=== PATIENT | female | born 1935 | race Caucasian/White ===

== ENCOUNTER 2020-05-14 19:06 | Inpatient (IN) | payer MEDICARE, OTHER, SELFPAY ==
--- NOTE | ~2020-05-14 | XR_ITS ---
EXAMINATION: XR PELVIS CLINICAL INFORMATION: Fall COMPARISON: None TECHNIQUE: AP view of the pelvis. FINDINGS: There is a large amount stool within the pelvis which partially obscures the sacrum. The bones are relatively osteopenic, though intact. There is endplate degenerative change and intervertebral disc space loss at L5-S1. There is no fracture. Soft tissues are unremarkable. Sacroiliac and hip joints are normal. Pubic symphysis is normal. There are vascular calcifications in the region of the proximal femoral vessels bilaterally. XR/XR pelvis 1-2V IMPRESSION: No acute traumatic abnormality of the pelvis.
--- NOTE | ~2020-05-14 | XR_ITS ---
EXAMINATION: XR CHEST CLINICAL INFORMATION: Shortness of breath COMPARISON: Chest radiograph 06/07/2017 TECHNIQUE: Upright AP view of the chest was obtained. FINDINGS: The cardiomediastinal silhouette is mildly prominent, possibly secondary to technique though otherwise stable in size and contour. There is a rounded opacity overlying the lower thoracic spine and cardiac shadow which corresponds with a previously described hiatal hernia. The lungs are well expanded. There are no focal consolidative opacities are identified. There is no pleural effusion or pneumothorax. Structures of the chest wall are intact. XR/XR chest 1V IMPRESSION: No acute abnormality.
--- NOTE | ~2020-05-14 | CT_ITS ---
EXAMINATION: CT HEAD WITHOUT CONTRAST CLINICAL INFORMATION: Altered mental status COMPARISON: None. TECHNIQUE: Contiguous axial imaging was performed from the skull base to vertex without intravenous administration of contrast. Coronal and sagittal reformatted images are performed at the CT scanner. [This CT examination was performed using dose optimization techniques as appropriate, variously including the following: *Automated exposure control *Adjustment of mA and/or kV according to patient size (this includes techniques or standardized protocols for targeted exams where dose is matched to indication/reason for exam; i.e. extremities or head) *Use of iterative reconstruction technique] DLP: 626 mGy-cm. FINDINGS: There is no evidence of acute intracranial hemorrhage or territorial infarction. No abnormal mass-effect or midline shift is seen. Pablo to white matter differentiation is well preserved. No extra-axial fluid collections are identified. There is atrophy with prominence of the ventricles and the sulci and hypodensity of the periventricular white matter due to chronic small vessel ischemic disease. There are vascular calcifications of the internal carotid arteries bilaterally. There is mineralization of the basal ganglia bilateral. There is no osseous abnormality. There is a multilobular polyp or cyst present in the inferior left maxillary sinus. CT/CT head/brain wo con IMPRESSION: No acute intracranial pathology.
[2020-05-14 19:15] VITALS: BP 166/82; BP 169/79; PULSE 88; PULSE 95; RESP 16; TEMP 36.3; O2SAT 98; BMI 18.6
--- NOTE | 2020-05-14 21:03 | ECG_ITS ---
Test Reason : WEAKNESS Blood Pressure : / mmHG Vent. Rate : 085 BPM Atrial Rate : 085 BPM P-R Int : 186 ms QRS Dur : 076 ms QT Int : 390 ms P-R-T Axes : 070 -09 057 degrees QTc Int : 464 ms Normal sinus rhythm Possible Left atrial enlargement Nonspecific ST abnormality Abnormal ECG When compared with ECG of 17-OCT-2014 08:27, No significant change was found Referred By: Yoselin Irving Electronically Signed By:Shaan Klein
[2020-05-14 21:19] LABS: Hematocrit 37.8 % (37-47); Hemoglobin 13.2 g/dl (12.0-16.0); Mean Corpuscular HGB Conc 34.9 g/dl (31.0-35.0); Mean Corpuscular Hemoglobin 31.4 pg (27.0-33.0); Mean Corpuscular Volume 89.8 fL (80-98); Mean Platelet Volume 8.3 fL (9.4-12.3); Platelet Count 281 X10*3/uL (160-400); Red Blood Count 4.21 X10*6/uL (4.20-5.50); Red Cell Distribution Width 12.2 % (11.0-16.0)
[2020-05-14 21:33] LABS: WBC ABN SCTR FOR CBC 1
--- NOTE | 2020-05-14 21:36 | ED_ITS ---
HPI - Fall General Chief Complaint: Fall Stated Complaint: FALL IN BATHTUB,DOWN FOR 7 HOURS Time Seen by Provider: 05/14/20 21:03 History of Present Illness HPI Narrative: Patient is 84 years old with a history of falls. Patient accidentally fell into the bathtub was unable to get up. Unfortunately she did not have her Life Alert with her. Patient denies any chest pain any diaphoresis any coughing any congestion any upper respiratory symptoms. Denies any fever chills. Patient denies any bloody stool. Daughter went to check on her about 7 hours later found her in the tub. Patient has no complaints currently. Denies hitting her head. No headache. No focal weakness. No vomiting. Related Data Allergies Allergy/AdvReac Type Severity Reaction Status Date / Time aspirin [Aggrenox] AdvReac Unknown stomach Verified 10/16/14 00:00 upset dipyridamole [Aggrenox] AdvReac Unknown stomach Verified 10/16/14 00:00 upset Review of Systems Review of Systems: Constitutional: No Weight loss, No Fever, No Chills, No Nig ht Sweats, No Fatigue, No Malaise ENT/Mouth: No Hearing loss, No Ear Pain, No Nasal Congestion, No Sinus Pain, No Hoarseness, No sore throat, No Rhinorrhea, No Swallowing Difficulty Eyes: No Eye Pain, No Swelling, No Redness, No Foreign Body, No Discharge, No Vision Changes Cardiovascular: No Chest Pain, No SOB, No Dyspnea on Exertion, No Orthopnea, No Edema, No Palpitations Respiratory: No Cough, No Sputum, No Wheezing, No Smoke Exposure, No Dyspnea Gastrointestinal: No Nausea, No Vomiting, No Diarrhea, No Constipation, No abdominal Pain, No Hematochezia, No Melena Genitourinary: no irregular bleeding, No Dysuria, No Urinary Frequency, No Hematuria, No Urinary Incontinence, No Urgency, No Flank Pain, No Urinary Flow Changes, No Hesitancy Musculoskeletal: No joint pain, No Myalgias, No Joint Swelling Skin: No Skin Lesions, No rash Neuro: No Weakness, No Numbness, No Paresthesias, No Loss of Consciousness, No Dizziness, No Headache Psych: No Anxiety/Panic, No Depression, No SI/HI/AH/VH, No Social Issues, Heme/Lymph: No Bruising, No Bleeding,No Lymphadenopathy Endocrine: No Polyuria, No Polydipsia, No Temperature Intolerance [facility] Past Medical History Attestation statement: The following information was validated with the patient. Social History Social History Advance Directives: No Physical Exam Vital Signs: Vital Signs: Last Vital Signs Temp 97.4 F 05/14/20 19:15 Pulse 82 05/14/20 22:33 Resp 14 05/14/20 22:33 BP 146/76 H 05/14/20 22:33 Pulse Ox 98 05/14/20 22:33 Body Mass Index 18.6 Appearance: Alert. Oriented X3. No acute distress. Eyes: Pupils equal, round and reactive to light. ENT: Pharynx normal. Neck: Normal inspection. Neck supple. No lymph nodes noted. No crepitus CVS: Normal heart rate and rhythm. Pulses normal. Normal S1 and S2 Respiratory: No respiratory distress. Breath sounds normal. No Wheezing. No rales Abdomen: Soft and nontender. No rigidity. No distention. good BS x4 Skin: Skin warm and dry. Normal skin color. Normal skin turgor. Extremities: No lower extremity edema. Neurovascular intact to all extremities. No Lacerations. No Rash Neuro: Oriented X 3. No motor deficit. No sensory deficit. Moving all extermities. No slurred speech MDM - Fall MDM Narrative Medical decision making narrative: Well-appearing no acute distress. Patient neurologically intact. Will get labs and x-rays will monitor carefully. Patient's initial CPK and 2nd CPK is approximately in the same range. Troponin minimally elevated will monitor overnight no fever no chills no coughing. Chest x-ray negative for any acute evidence of infiltrate. Will admit for further evaluation and monitoring. Urine is still pending. Patient has no fever no chills. She really had 2 coronavirus vaccine. Less likely she has coronavirus in the setting of normal O2 sat, negative chest x-ray. Lab Data Result diagrams: 05/14/20 21:11 05/14/20 21:11 Labs: Lab Results 05/14/20 05/14/20 05/14/20 Range/Units 21:11 21:11 21:11 WBC 18.9 H (4.8-10.8) X10*3/uL RBC 4.21 (4.20-5.50) X10*6/uL Hgb 13.2 (12.0-16.0) g/dl Hct 37.8 (37-47) % MCV 89.8 (80-98) fL MCH 31.4 (27.0-33.0) pg MCHC 34.9 (31.0-35.0) g/dl RDW 12.2 (11.0-16.0) % Plt Count 281 (160-400) X10*3/uL MPV 8.3 L (9.4-12.3) fL Immature Gran % (Auto) Cancelled Neut % (Auto) Cancelled Lymph % (Auto) Cancelled [place] % (Auto) Cancelled Eos % (Auto) Cancelled Baso % (Auto) Cancelled Lymph # (Auto) Cancelled [place] # (Auto) Cancelled Eos # (Auto) Cancelled Baso # (Auto) Cancelled Abs Immat Gran (auto) Cancelled Absolute Neuts (auto) Cancelled Absolute Nucleated RBC 0.000 (0.0-0.012) X10*3/uL Nucleated RBC % (auto) 0.0 (0.0-0.2) /100WBC Neutrophils % (Manual) 88 H (45-73) % Band Neutrophils % 4 (3-5) % Lymphocytes % (Manual) 2 L (20-40) % Monocytes % (Manual) 5 (2-11) % Basophils % (Manual) 1 (0-1) % Abs Neuts (Manual) 17.4 H (2.2-7.9) X10*3/uL Lymphocytes # (Manual) 0.4 L (0.6-4.8) X10*3/uL Monocytes # (Manual) 0.9 (0.0-1.2) X10*3/uL Basophils # (Manual) 0.2 (0.0-0.3) X10*3/uL Platelet Estimate NORMAL (NORMAL) Plt Morphology Comment NORMAL RBC Morphology NORMAL Sodium 134 L (135-145) mmol/L Potassium 3.1 L (3.3-5.1) mmol/L Chloride 97 (96-108) mmol/L Carbon Dioxide 23 (22-29) mmol/L Anion Gap 17 (12-20) BUN 10 (9-16) mg/dL Creatinine 0.67 (0.5-1.4) mg/dL Estim Creat Clear Calc 50.7 Estimated GFR > 60 Random Glucose 113 (60-115) mg/dL Calcium 9.4 (8.4-10.2) mg/dL Total Creatine Kinase 676 H (26-140) U/L Troponin I High Sens 44.6 H (<3.5-17.0) ng/L 05/15/20 05/15/20 Range/Units 00:22 00:22 WBC (4.8-10.8) X10*3/uL RBC (4.20-5.50) X10*6/uL Hgb (12.0-16.0) g/dl Hct (37-47) % MCV (80-98) fL MCH (27.0-33.0) pg MCHC (31.0-35.0) g/dl RDW (11.0-16.0) % Plt Count (160-400) X10*3/uL MPV (9.4-12.3) fL Immature Gran % (Auto) Neut % (Auto) Lymph % (Auto) [place] % (Auto) Eos % (Auto) Baso % (Auto) Lymph # (Auto) [place] # (Auto) Eos # (Auto) Baso # (Auto) Abs Immat Gran (auto) Absolute Neuts (auto) Absolute Nucleated RBC (0.0-0.012) X10*3/uL Nucleated RBC % (auto) (0.0-0.2) /100WBC Neutrophils % (Manual) (45-73) % Band Neutrophils % (3-5) % Lymphocytes % (Manual) (20-40) % Monocytes % (Manual) (2-11) % Basophils % (Manual) (0-1) % Abs Neuts (Manual) (2.2-7.9) X10*3/uL Lymphocytes # (Manual) (0.6-4.8) X10*3/uL Monocytes # (Manual) (0.0-1.2) X10*3/uL Basophils # (Manual) (0.0-0.3) X10*3/uL Platelet Estimate (NORMAL) Plt Morphology Comment RBC Morphology Sodium (135-145) mmol/L Potassium (3.3-5.1) mmol/L Chloride (96-108) mmol/L Carbon Dioxide (22-29) mmol/L Anion Gap (12-20) BUN (9-16) mg/dL Creatinine (0.5-1.4) mg/dL Estim Creat Clear Calc Estimated GFR Random Glucose (60-115) mg/dL Calcium (8.4-10.2) mg/dL Total Creatine Kinase 774 H (26-140) U/L Troponin I High Sens 45.4 H (<3.5-17.0) ng/L ECG Data Interpretation: Patient's EKG showed a sinus pattern heart rate is 80 RI QRS QT within normal limits there is no acute ST segment elevation noted. Discharge Plan Discharge Clinical Impression: Elevated troponin, Weakness Patient Disposition: Admitted As Inpatient
[2020-05-14 21:49] LABS: Anion Gap 17 (12-20); Blood Urea Nitrogen 10 mg/dL (9-16); Calcium 9.4 mg/dL (8.4-10.2); Carbon Dioxide 23 mmol/L (22-29); Chloride 97 mmol/L (96-108); Creatinine Clr Calc Pharmacy 50.7; Estimated Glomerular Filt Rate > 60; Glucose Random 113 mg/dL (60-115); Potassium 3.1 mmol/L (3.3-5.1); Sodium 134 mmol/L (135-145)
[2020-05-14 22:06] LABS: Troponin-I High Sensitivity 44.6 ng/L (<3.5-17.0)
[2020-05-14] MEDS: 0.9 % Sodium Chloride 500 ML 999 ML IV (22:11)
[2020-05-14 22:31] LABS: White Blood Count 18.9 X10*3/uL (4.8-10.8)
[2020-05-14 22:33] VITALS: BP 146/76; PULSE 82; RESP 14; O2SAT 98
[2020-05-14 22:37] LABS: Band Neutrophils Percent 4 % (3-5); Basophils Abs Manual 0.2 X10*3/uL (0.0-0.3); Basophils Percent Manual 1 % (0-1); Lymphocytes Absolute Manual 0.4 X10*3/uL (0.6-4.8); Lymphocytes Percent Manual 2 % (20-40); Monocytes Absolute Manual 0.9 X10*3/uL (0.0-1.2); Monocytes Percent Manual 5 % (2-11); Neutrophils Absolute Manual 17.4 X10*3/uL (2.2-7.9); Neutrophils Percent Manual 88 % (45-73)
[2020-05-14 22:38] LABS: Platelet Estimate NORMAL (NORMAL); Platelet Morphology Comment NORMAL
[2020-05-14 22:41] LABS: RBC Morphology NORMAL
[2020-05-15] VITALS (7 sets, daily range): BP systolic 115–158; BP diastolic 62–76; PULSE 76–89; RESP 15–18; TEMP 36.8; O2SAT 93–97
[2020-05-15 01:18] LABS: Troponin-I High Sensitivity 45.4 ng/L (<3.5-17.0)
[2020-05-15] MEDS: 0.9 % Sodium Chloride 1,000 ML 75 ML IVCONT (01:51)
--- NOTE | 2020-05-15 01:51 | P.HPHOSP_ITS ---
History of Present Illness Date of Service: 05/15/20 Chief Complaint: fall 84-year-old female with a past medical history of hypertension presented to the hospital with a chief complaint of fall. Patient reports that she went to her bathroom and fell in the bathtub 1 was unable to get up. Subsequently was found by the daughter few hours later and moderate to the ER for further evaluation. Patient denied any chest pain palpitations lightheadedness dizziness. Denies any loss of consciousness. Denies any seizure-like activity. Denies any headaches. Denies any hip pain or leg pain. Denies any urinary symptoms. Review of all other systems is negative except mentioned above ER course: Per ER team patient exam was nonfocal. CT head showed no acute findings. Noted mild abnormal labs. Also had elevated troponins but plateaued; EKG was nonischemic. Admitted for further management. [facility] Social History Household Members: None Housing: House Alcohol intake: never Smoking Status: Never smoker service: No Current occupational status: retired Meds Allergies Allergy/AdvReac Type Severity Reaction Status Date / Time aspirin [Aggrenox] AdvReac Unknown stomach Verified 10/16/14 00:00 upset dipyridamole [Aggrenox] AdvReac Unknown stomach Verified 10/16/14 00:00 upset Active Medications: Current Medications Generic Name Dose Route Start Last Admin Trade Name Freq PRN Reason Stop Dose Admin Amlodipine Besylate 5 mg 05/15/20 09:00 Amlodipine Besylate 5 Mg Tablet PO DAILY [facility] Protocol Atorvastatin Calcium 10 mg 05/15/20 09:00 Atorvastatin Calcium 10 Mg Tablet PO DAILY [facility] Clopidogrel Bisulfate 75 mg 05/15/20 09:00 Clopidogrel Bisulfate 75 Mg Tablet PO DAILY [facility] Heparin Sodium (Porcine) 5,000 unit 05/15/20 06:00 Heparin Sodium,Porcine 5,000 Unit/Ml Vial SUBCUT Q12H [facility] Sodium Chloride 1,000 mls @ 75 mls/hr 05/15/20 01:30 Ns IVCONT .[id number] [facility] Sodium Chloride 3 ml 05/15/20 08:00 0.9 % Sodium Chloride Flush 3 Ml Syringe IVFLUSH QSHIFT [facility] Home Medications Medication Instructions Recorded Confirmed Last Taken Type amlodipine 5 mg PO DAILY 03/3105/15/20 05/14/20 History 1030 atorvastatin [Lipitor] 10 mg PO DAILY 05/15/20 05/15/20 05/14/20 10:30 History clopidogrel [Plavix] 75 mg PO DAILY 05/15/20 05/15/20 05/14/20 History 1030 Physical Exam Vital Signs and Narrative: Vital Signs: Last Vital Signs Temp 97.4 F 05/14/20 19:15 Pulse 82 05/14/20 22:33 Resp 14 05/14/20 22:33 BP 146/76 H 05/14/20 22:33 Pulse Ox 98 05/14/20 22:33 Body Mass Index 18.6 Gen: Appears be in no acute distress HEENT: NCAT, Moist mucosa. Pulmonary: Vesicular breath sounds, fair air entry CVS: Normal S1-S2 Abdomen: BS+, Soft, Nontender Extremities: Warm well perfused Neuro: Alert and awake. Results Labs CBC and Chem 7: 05/15/20 07:03 05/17/20 13:48 Labs: Laboratory Results - last 24 hr 05/14/20 05/14/20 05/14/20 21:11 21:11 21:11 MCV 89.8 MCH 31.4 MCHC 34.9 RDW 12.2 Plt Count 281 MPV 8.3 L Immature Gran % (Auto) Cancelled Neut % (Auto) Cancelled Lymph % (Auto) Cancelled [place] % (Auto) Cancelled Eos % (Auto) Cancelled Baso % (Auto) Cancelled Lymph # (Auto) Cancelled [place] # (Auto) Cancelled Eos # (Auto) Cancelled Baso # (Auto) Cancelled Abs Immat Gran (auto) Cancelled Absolute Neuts (auto) Cancelled Absolute Nucleated RBC 0.000 Nucleated RBC % (auto) 0.0 Neutrophils % (Manual) 88 H Band Neutrophils % 4 Lymphocytes % (Manual) 2 L Monocytes % (Manual) 5 Basophils % (Manual) 1 Abs Neuts (Manual) 17.4 H Lymphocytes # (Manual) 0.4 L Monocytes # (Manual) 0.9 Basophils # (Manual) 0.2 Platelet Estimate NORMAL Plt Morphology Comment NORMAL RBC Morphology NORMAL Anion Gap 17 Estim Creat Clear Calc 50.7 Estimated GFR > 60 Random Glucose 113 Calcium 9.4 Total Creatine Kinase 676 H Troponin I High Sens 44.6 H 05/15/20 05/15/20 00:22 00:22 MCV MCH MCHC RDW Plt Count MPV Immature Gran % (Auto) Neut % (Auto) Lymph % (Auto) [place] % (Auto) Eos % (Auto) Baso % (Auto) Lymph # (Auto) [place] # (Auto) Eos # (Auto) Baso # (Auto) Abs Immat Gran (auto) Absolute Neuts (auto) Absolute Nucleated RBC Nucleated RBC % (auto) Neutrophils % (Manual) Band Neutrophils % Lymphocytes % (Manual) Monocytes % (Manual) Basophils % (Manual) Abs Neuts (Manual) Lymphocytes # (Manual) Monocytes # (Manual) Basophils # (Manual) Platelet Estimate Plt Morphology Comment RBC Morphology Anion Gap Estim Creat Clear Calc Estimated GFR Random Glucose Calcium Total Creatine Kinase 774 H Troponin I High Sens 45.4 H Imaging Radiologist's Impressions: Impressions Chest X-Ray 05/14/20 21:04 IMPRESSION: No acute abnormality. Head CT 05/14/20 21:04 IMPRESSION: No acute intracranial pathology. Pelvis X-Ray 05/14/20 21:04 IMPRESSION: No acute traumatic abnormality of the pelvis. Assessment and Plan (1) Weakness: Status: Acute 84-year-old female with a past medical history of hypertension presented to the hospital with a chief complaint of fall. Fall: Likely mechanical in nature. CT head showed no acute findings. Exam nonfocal. negative pelvis x-rays. PT/OT eventually Fall precautions Urinalysis pending Elevated troponins: Patient denies any chest pain. Will obtain echocardiogram. EKG nonischemic. Cardiology consult. Mild rhabdomyolysis: Continue IV fluids. DVT prophylaxis: Subcu heparin Cor status: Full code
[2020-05-15 02:16] LABS: COVID-19 Test Negative (Negative)
--- NOTE | 2020-05-15 04:30 | PC.NURSE ---
patient got up and ambulated to the bathroom, needed a 1 assist, patient was slightly unsteady on her feet, patient is aware to not get up on her own. Urine sample was obtained
[2020-05-15 04:40] LABS: Glucose Urine UA NEG (NEG); Leukocyte Esterase Urine NEG (NEG); Nitrite Urine NEG (NEG); Specific Gravity - Urine 1.015 (1.005-1.025); Urine Blood TRACE (NEG); Urine Ketones 15 MG/DL (NEG); Urine Protein NEG (NEG-TRACE)
[2020-05-15 04:42] LABS: Appearance Urine CLEAR; Color Urine YELLOW
[2020-05-15 04:48] LABS: Amorphous Sediment Urine 1+ /LPF; Bacteria Urine TRACE /LPF; RBC Urine 0-2 /HPF (0); Squamous Epithelial Cell Urine 2+ /LPF; WBC Urine 0-2 /HPF (0-4)
[2020-05-15 07:35] LABS: Basophils Absolute Auto 0.1 X10*3/uL (0.0-0.2); Basophils Percent Auto 0.6 % (0-2); Eosinophils Percent Auto 0.3 % (0-4); Hematocrit 34.5 % (37-47); Imm Gran Abs Auto 0.06 X10*3/uL (0.00-0.03); Imm Gran Pct Auto 0.6 % (0.0-0.4); Lymphocytes Absolute Auto 0.7 X10*3/uL (1.2-4.9); Lymphocytes Percent Auto 6.6 % (20-40); MANUAL DIFF FLAG SCAN; Mean Corpuscular HGB Conc 34.8 g/dl (31.0-35.0); Mean Corpuscular Hemoglobin 31.6 pg (27.0-33.0); Mean Corpuscular Volume 90.8 fL (80-98); Mean Platelet Volume 8.7 fL (9.4-12.3); Monocytes Absolute Auto 1.5 X10*3/uL (0.1-1.2); Monocytes Percent Auto 15.5 % (2-11); Neutrophils Absolute Auto 7.6 X10*3/uL (2.0-8.3); Neutrophils Percent Auto 76.4 % (45-73); Platelet Count 285 X10*3/uL (160-400); Red Cell Distribution Width 12.3 % (11.0-16.0); SCAN SMEAR FLAG 1; White Blood Count 9.9 X10*3/uL (4.8-10.8)
--- NOTE | 2020-05-15 07:43 | PC.NURSE ---
Walker Use pt educated on and ambulated with walker with steady gait to bathroom. pt educated on not getting up independently and to ring call kowalski. pt verbalizes knowledge.
[2020-05-15 07:53] LABS: Anion Gap 15 (12-20); Blood Urea Nitrogen 9 mg/dL (9-16); Calcium 8.6 mg/dL (8.4-10.2); Carbon Dioxide 23 mmol/L (22-29); Chloride 99 mmol/L (96-108); Creatinine Clr Calc Pharmacy 54.8; Estimated Glomerular Filt Rate > 60; Glucose Random 86 mg/dL (60-115); Potassium 2.7 mmol/L (3.3-5.1); Sodium 134 mmol/L (135-145)
--- NOTE | 2020-05-15 08:04 | PC.NURSE ---
aware of a.m. Potassium level, orders entered.
[2020-05-15 08:17] LABS: SLIDE REVIEW VERIFIED
[2020-05-15] MEDS: Potassium Chloride Packet 20 MEQ PACKET 40 MEQ PO ×2 (08:37→14:54)
[2020-05-15] MEDS: Clopidogrel Bisulfate 75 MG TABLET PO (08:38)
[2020-05-15] MEDS: Atorvastatin Calcium 10 MG TABLET PO (08:38)
[2020-05-15] MEDS: amLODIPine Besylate 5 MG TABLET PO (08:38)
[2020-05-15] MEDS: Heparin Sodium,Porcine 5,000 UNIT/ML VIAL 5000 UNIT SUBCUT ×2 (08:42→18:26)
[2020-05-15 08:47] LABS: Magnesium 1.8 mg/dL (1.6-2.6)
--- NOTE | 2020-05-15 10:25 | MHC.CM.PN ---
Met with patient and daughter, Charito in regards to discharge planning. Patient lives alone, is supposed to ambulate with a cane but doesn't and has a house keeper once a week. PCP verified. Patient has a HCP at home. Charito will attempt to obtain a copy. Patient was unable to get out of the bathtub for multiple hours. Explained physical therapy eval will be ordered for home safety. If short term rehab is needed, patient requesting referral to [facility]. If home therapy is recommended, patient requesting referral to [facility]. Both referrals made in [employer]. IMM explained and signed. Continue to monitor for d/c needs.
--- NOTE | 2020-05-15 10:40 | P.CONCA_ITS ---
History of Present Illness History of Present Illness Date of Service: 05/15/20 Requesting physician: Estuardo Norris Chief complaint: Fall, + troponin Narrative: 84-year-old female with fall and mildly abnormal troponin levels. She has background history of syncope and has fainted the past. She said no obvious cause was found for her episodes in the past. She was trying to get into a but where she has collapsed and fell in the tub. She said she could not get out on her own and the family finally came and took her out and brought into the emergency department. She said she did not pass out. She denies any warning signs like nausea or dizziness. She denies chest discomfort shortness of breath. She has noticed to have mild rhabdomyolysis with very mildly abnormal troponin levels. Review of Systems Review of Systems: Knee pain, reproducible back pain. Yes all other systems are reviewed and are negative [facility] Social History Social History Alcohol intake: never Smoking Status: Never smoker service: No Current occupational status: retired Meds Allergies Allergy/AdvReac Type Severity Reaction Status Date / Time aspirin [Aggrenox] AdvReac Unknown stomach Verified 10/16/14 00:00 upset dipyridamole [Aggrenox] AdvReac Unknown stomach Verified 10/16/14 00:00 upset Active Medications: Current Medications Generic Name Dose Route Start Last Admin Trade Name Freq PRN Reason Stop Dose Admin Amlodipine Besylate 5 mg 05/15/20 09:00 05/15/20 08:38 Amlodipine Besylate 5 Mg Tablet PO 5 mg DAILY JONATHAN Administration Protocol Atorvastatin Calcium 10 mg 05/15/20 09:00 05/15/20 08:38 Atorvastatin Calcium 10 Mg Tablet PO 10 mg DAILY JONATHAN Administration Clopidogrel Bisulfate 75 mg 05/15/20 09:00 05/15/20 08:38 Clopidogrel Bisulfate 75 Mg Tablet PO 75 mg DAILY JONATHAN Administration Heparin Sodium (Porcine) 5,000 unit 05/15/20 06:00 05/15/20 08:42 Heparin Sodium,Porcine 5,000 Unit/Ml Vial SUBCUT 5,000 unit Q12H JONATHAN Administration Sodium Chloride 1,000 mls @ 75 mls/hr 05/15/20 01:30 05/15/20 01:51 Ns IVCONT 75 mls/hr .[id number] JONATHAN Administration Potassium Chloride 40 meq 05/15/20 08:30 05/15/20 08:37 Potassium Chloride Packet 20 Meq Packet PO 05/15/20 20:31 40 meq Q6H JONATHAN Administration Sodium Chloride 3 ml 05/15/20 08:00 05/15/20 09:17 0.9 % Sodium Chloride Flush 3 Ml Syringe IVFLUSH Not Given QSHIFT [facility] Home Medications Medication Instructions Recorded Confirmed Last Taken Type amlodipine 5 mg PO DAILY 05/15/20 05/15/20 05/14/20 History 1030 atorvastatin [Lipitor] 10 mg PO DAILY 05/15/20 05/15/20 05/14/20 10:30 History clopidogrel [Plavix] 75 mg PO DAILY 05/15/20 05/15/20 05/14/20 History 1030 Physical Exam Vital Signs: Vital Signs: Last Vital Signs Temp 97.4 F 05/14/20 19:15 Pulse 79 05/15/20 08:40 Resp 18 05/15/20 08:40 BP 115/69 05/15/20 08:40 Pulse Ox 93 05/15/20 08:40 Body Mass Index 18.6 GENERAL APPEARANCE: in no acute distress, frail. HEENT: unremarkable. HEAD: normocephalic, atraumatic. NECK/THYROID: no carotid bruit, no jugular venous distention. SKIN: no suspicious lesions, warm and dry. HEART: Systolic murmur aortic area with preserved 2nd heart sound. LUNGS: clear to auscultation bilaterally. ABDOMEN: normal, bowel sounds present, soft, nontender, nondistended. EXTREMITIES: no clubbing, cyanosis, or edema. PERIPHERAL PULSES: equal. NEUROLOGIC: nonfocal, alert and oriented. PSYCH: mood/affect full range. Results Labs and Meds Result diagrams: 05/15/20 07:03 05/15/20 07:03 Lab results: Laboratory Results - last 24 hr 05/14/20 05/14/20 05/14/20 21:11 21:11 21:11 WBC 18.9 H RBC 4.21 Hgb 13.2 Hct 37.8 MCV 89.8 MCH 31.4 MCHC 34.9 RDW 12.2 Plt Count 281 MPV 8.3 L Immature Gran % (Auto) Cancelled Neut % (Auto) Cancelled Lymph % (Auto) Cancelled [place] % (Auto) Cancelled Eos % (Auto) Cancelled Baso % (Auto) Cancelled Lymph # (Auto) Cancelled [place] # (Auto) Cancelled Eos # (Auto) Cancelled Baso # (Auto) Cancelled Abs Immat Gran (auto) Cancelled Absolute Neuts (auto) Cancelled Absolute Nucleated RBC 0.000 Nucleated RBC % (auto) 0.0 Neutrophils % (Manual) 88 H Band Neutrophils % 4 Lymphocytes % (Manual) 2 L Monocytes % (Manual) 5 Basophils % (Manual) 1 Abs Neuts (Manual) 17.4 H Lymphocytes # (Manual) 0.4 L Monocytes # (Manual) 0.9 Basophils # (Manual) 0.2 Platelet Estimate NORMAL Plt Morphology Comment NORMAL RBC Morphology NORMAL Smear Tech's Comments Sodium 134 L Potassium 3.1 L Chloride 97 Carbon Dioxide 23 Anion Gap 17 BUN 10 Creatinine 0.67 Estim Creat Clear Calc 50.7 Estimated GFR > 60 Random Glucose 113 Calcium 9.4 Magnesium Total Creatine Kinase 676 H Troponin I High Sens 44.6 H Urine Color Urine Appearance Urine pH Ur Specific Conrad Urine Protein Urine Glucose (UA) Urine Ketones Urine Blood Urine Nitrite Ur Leukocyte Esterase Urine RBC Urine WBC Ur Squamous Epith Cells Amorphous Sediment Urine Bacteria COVID-19 (GREG) COVID-19 Clin Com 05/15/20 05/15/20 05/15/20 00:22 00:22 01:54 WBC RBC Hgb Hct MCV MCH MCHC RDW Plt Count MPV Immature Gran % (Auto) Neut % (Auto) Lymph % (Auto) Windsor % (Auto) Eos % (Auto) Baso % (Auto) Lymph # (Auto) [place] # (Auto) Eos # (Auto) Baso # (Auto) Abs Immat Gran (auto) Absolute Neuts (auto) Absolute Nucleated RBC Nucleated RBC % (auto) Neutrophils % (Manual) Band Neutrophils % Lymphocytes % (Manual) Monocytes % (Manual) Basophils % (Manual) Abs Neuts (Manual) Lymphocytes # (Manual) Monocytes # (Manual) Basophils # (Manual) Platelet Estimate Plt Morphology Comment RBC Morphology Smear Tech's Comments Sodium Potassium Chloride Carbon Dioxide Anion Gap BUN Creatinine Estim Creat Clear Calc Estimated GFR Random Glucose Calcium Magnesium Total Creatine Kinase 774 H Troponin I High Sens 45.4 H Urine Color Urine Appearance Urine pH Ur Specific Conrad Urine Protein Urine Glucose (UA) Urine Ketones Urine Blood Urine Nitrite Ur Leukocyte Esterase Urine RBC Urine WBC Ur Squamous Epith Cells Amorphous Sediment Urine Bacteria COVID-19 (GREG) Negative COVID-19 Clin Com See Note 05/15/20 05/15/20 05/15/20 04:30 07:03 07:03 WBC 9.9 RBC 3.80 L Hgb 12.0 Hct 34.5 L MCV 90.8 MCH 31.6 MCHC 34.8 RDW 12.3 Plt Count 285 MPV 8.7 L Immature Gran % (Auto) 0.6 H Neut % (Auto) 76.4 H Lymph % (Auto) 6.6 L Windsor % (Auto) 15.5 H Eos % (Auto) 0.3 Baso % (Auto) 0.6 Lymph # (Auto) 0.7 L [place] # (Auto) 1.5 H Eos # (Auto) 0.0 Baso # (Auto) 0.1 Abs Immat Gran (auto) 0.06 H Absolute Neuts (auto) 7.6 Absolute Nucleated RBC 0.000 Nucleated RBC % (auto) 0.0 Neutrophils % (Manual) Band Neutrophils % Lymphocytes % (Manual) Monocytes % (Manual) Basophils % (Manual) Abs Neuts (Manual) Lymphocytes # (Manual) Monocytes # (Manual) Basophils # (Manual) Platelet Estimate Plt Morphology Comment RBC Morphology Smear Tech's Comments VERIFIED Sodium 134 L Potassium 2.7 L Chloride 99 Carbon Dioxide 23 Anion Gap 15 BUN 9 Creatinine 0.62 Estim Creat Clear Calc 54.8 Estimated GFR > 60 Random Glucose 86 Calcium 8.6 D Magnesium 1.8 Total Creatine Kinase Troponin I High Sens Urine Color YELLOW Urine Appearance CLEAR Urine pH 7.0 Ur Specific Conrad 1.015 Urine Protein NEG Urine Glucose (UA) NEG Urine Ketones 15 Urine Blood TRACE Urine Nitrite NEG Ur Leukocyte Esterase NEG Urine RBC 0-2 Urine WBC 0-2 Ur Squamous Epith Cells 2+ Amorphous Sediment 1+ Urine Bacteria TRACE COVID-19 (GREG) COVID-19 Clin Com Imaging Radiologist's impression: Impressions Chest X-Ray 05/14/20 21:04 IMPRESSION: No acute abnormality. Head CT 05/14/20 21:04 IMPRESSION: No acute intracranial pathology. Pelvis X-Ray 05/14/20 21:04 IMPRESSION: No acute traumatic abnormality of the pelvis. Assessment and Plan (1) Elevated troponin: Status: Acute (2) Fall: Status: Acute 84-year-old female with fall which she describes that she collapsed and did not pass out. Etiology is unclear to me. I think we should check orthostatic vital signs to make sure she is not orthostatic. The mild troponin leak is not significant and does not need any further testing. I think this is just a type 2 injury or may be related to mild rhabdomyolysis. Check echocardiogram to assess for any structural issues. She has aortic stenosis murmur examination but does not sound severe to me. Thank you for allowing me to participate in the care of your patient. Please feel free to contact me if you have any questions.
--- NOTE | 2020-05-15 14:31 | PC.NURSE ---
pt ambulated back and forth to bathroom with walker, with slow gait. pt set up for lunch.
--- NOTE | 2020-05-15 16:27 | PC.NURSE ---
2x attempted to get in contact with hospitalist. no answer.
--- NOTE | 2020-05-15 17:21 | PC.NURSE ---
verbal order to stop ivf at this time by md delaney.
[2020-05-16] VITALS (7 sets, daily range): BP systolic 96–185; BP diastolic 57–83; PULSE 67–86; RESP 14–20; TEMP 36.1–37; O2SAT 93–98; BMI 18.6
[2020-05-16] MEDS: 0.9 % Sodium Chloride 1,000 ML 75 ML IVCONT ×2 (00:12→16:01)
[2020-05-16] MEDS: 0.9 % Sodium Chloride Flush 3 ML SYRINGE IVFLUSH ×2 (01:30→08:51)
[2020-05-16] MEDS: Heparin Sodium,Porcine 5,000 UNIT/ML VIAL 5000 UNIT SUBCUT ×2 (06:34→17:26)
--- NOTE | 2020-05-16 07:30 | CA_ITS ---
Transthoracic Echocardiogram Patient (Last, First, Middle): Shahana Sullivan, Gender: Female Date of : 1935 Age: 84 Procedure Date: 05/16/2020 Procedure Type: Transthoracic Echocardiogram Location: [facility] [place] Height: 167.64 cm Weight: 52.16 kg BSA: 1.58 m2 Heart Rate: bpm BP: 96 / 57 mmHg Construction Consultant: CONCHITA Referring MD: Estuardo Norris MD Symptoms: high troponin Study Quality: Good Conclusions: - Normal left ventricular size and systolic function. - Normal right ventricular cavity size and systolic function. - There is mild to moderate aortic valve stenosis. - There is severe mitral annular calcification. - Moderately elevated right atrial pressure. Moderate pulmonary hypertension is present. Findings Left Ventricle Normal left ventricular size and systolic function. There is mildly increased left ventricular wall thickness. The visually estimated ejection fraction is between 65-70%. Abnormal diastolic function is noted. Spectral Doppler is indicative of an impaired relaxation filling pattern. Elevated filling pressures. Right Ventricle Normal right ventricular cavity size and systolic function. Atria The left atrium was not well visualized. The right atrium is moderately dilated. Aortic Valve There is moderate calcification of the aortic valve. There is moderate thickening of the aortic valve. There is mild to moderate aortic valve stenosis. There is trace (trivial) aortic valve regurgitation. Mitral Valve There is severe mitral annular calcification. There is trace mitral valve regurgitation. There is no mitral valve stenosis. Pulmonic Valve Normal pulmonic valve structure and function. There is trace pulmonic valve regurgitation. Tricuspid Valve Normal tricuspid valve structure. There is moderate tricuspid valve regurgitation. Moderately elevated right atrial pressure. Moderate pulmonary hypertension is present. Great Vessels All visible segments of the aorta are normal in size. The visualized portions of the pulmonary artery and branches are normal. Venous The inferior vena cava is dilated and collapses greater than 50% with inspiration. Pericardium/Pleural There is no evidence of pericardial effusion. Prior Study Comparison No prior study available for comparison. Measurements 2D Linear Measurements IVSd: 0.94 0.6-0.9/0.6-1.0 cm LVIDd: 3.44 3.9-5.3/4.2-5.9 cm LVIDd Index: 2.18 2.4-3.2/2.2-3.1 cm/m2 LVIDs: 2.32 2.0-3.6 cm LVPWd: 0.91 0.7-1.1 cm Ao Root: 3.30 2.1-3.5 cm LA Diam: 3.10 2.7-3.8/3.0-4.0 cm LAIDs Index: 1.96 1.5-2.3 cm/m2 LV Mass: 111.19 67-162/88-224 g LV Mass Index: 70.37 43-95/49-115 g/m2 LVOT Diam: 2.00 3.0+(-)1.3 cm Mitral Valve MV Pk E: 0.96 MV PK A: 1.25 MV Decel Time: 271.00 E/A: 0.80 E'Lateral: 7.74 E'Medial: 5.61 E/E' Med: 17.00 E/E' Lat: 12.40 PHT: 79.00 MVA PHT: 2.78 Decel Sarpy: 3.53 Aortic Valve AoV Pk Benito: 2.88 AoV Mn Benito: 1.87 AoV VTI: 0.61 AoV Pk Grad: 33.00 Aov Mn Grad: 17.00 TANIA Cont.VTI: 1.50 LVOT LVOT Pk Benito: 1.15 LVOT Mn Benito: 0.81 LVOT VTI: 0.29 LVOT Pk Grad: 5.00 LVOT Mn Grad: 3.00 LVOT Diam: 2.00 LVOT Area: 3.14 Diastolic Function MV Pk E: 0.96 MV Pk A: 1.25 E/A: 0.80 E'Medial: 5.61 E/E' Med: 17.00 E' Laterial: 7.74 E/E' Lat: 12.40 Tricuspid Valve TR Pk Benito: 3.26 TR Pk Grad: 43.00 RA Press: 8.00 RVSP: 51.00 Great Vessels Aorta Ao Root-2D: 3.30 2.0-3.7 cm Ao Asc: 3.30 2.1-3.4 cm Ao Arch: 2.80 Updated in Other Vendor System with Status of Final Shaan Klein MD electronically signed on 05/16/2020 8:41:03 PM with status of Final
[2020-05-16] MEDS: Atorvastatin Calcium 10 MG TABLET PO (08:51)
[2020-05-16] MEDS: amLODIPine Besylate 5 MG TABLET PO (08:51)
[2020-05-16] MEDS: Clopidogrel Bisulfate 75 MG TABLET PO (08:52)
--- NOTE | 2020-05-16 10:47 | HO.PM.IMPN ---
Subjective Subjective Date of Service: 05/16/20 Interval History: Seen in f/u for fall and mild increase in trop, no chest pain, feels better Review of Systems Gen: no fever Resp: no sob, no cough CV: no chest, no NOGUEIAR, no leg edema GI: No n/v, no abd pain Neuro: No confusion Physical Exam Vital Signs: Vital Signs: Last Vital Signs Temp 97 F 05/16/20 06:58 Pulse 70 05/16/20 08:51 Resp 20 05/16/20 06:58 BP 148/72 H 05/16/20 08:51 Pulse Ox 97 05/16/20 06:58 Body Mass Index 18.6 General: AO X 3, no acute distress Resp: CTA bilateral CVS: S1,S2,RRR, grade 2 LILIAN GI: +BS, NT, no distention Skin: No rash Neuro: motor grossly intact Psych: appropriate affect Objective Data Current Medications Generic Name Dose Route Start Last Admin Trade Name Freq PRN Reason Stop Dose Admin Amlodipine Besylate 5 mg 05/15/20 09:00 05/16/20 08:51 Amlodipine Besylate 5 Mg Tablet PO 5 mg DAILY JONATHAN Administration Protocol Atorvastatin Calcium 10 mg 05/15/20 09:00 05/16/20 08:51 Atorvastatin Calcium 10 Mg Tablet PO 10 mg DAILY JONATHAN Administration Clopidogrel Bisulfate 75 mg 05/15/20 09:00 05/16/20 08:52 Clopidogrel Bisulfate 75 Mg Tablet PO 75 mg DAILY JONATHAN Administration Heparin Sodium (Porcine) 5,000 unit 05/15/20 06:00 05/16/20 06:34 Heparin Sodium,Porcine 5,000 Unit/Ml Vial SUBCUT 5,000 unit Q12H JONATHAN Administration Sodium Chloride 1,000 mls @ 75 mls/hr 05/15/20 01:30 05/16/20 00:12 Ns IVCONT 75 mls/hr .[id number] JONATHAN Administration Sodium Chloride 3 ml 05/15/20 08:00 05/16/20 08:51 0.9 % Sodium Chloride Flush 3 Ml Syringe IVFLUSH 3 ml QSHIFT JONATHAN Administration Labs CBC & Chem 7: 05/15/20 07:03 05/15/20 07:03 Assessment and Plan (1) Weakness: Status: Acute Assessment and Plan: 84-year-old female with a past medical history of hypertension presented to the hospital with a chief complaint of fall. Fall: Likely mechanical in nature. Negative CT head. Non-focal exam, negative hip/pelvis xray PT/OT Fall precautions Elevated troponins:No CP, Getting echo today Cardiology saw her and no further w/u at this time murmu--Echo to better assess/ Mild Rhabdo--IVF and reassess tomorrow, renal function is nl DVT prophylaxis: Subcu heparin Cor status: Full code
--- NOTE | 2020-05-16 18:40 | PC.NURSE ---
Patient OOB to recliner for good majority of the day. Amb to bathroom with 1 assist with walker. PT eval complete, OT eval pending. Patient stating that she fell into a pool , not her shower. Otherwise, alert and oriented. IVF running. No complaints, no complications.
[2020-05-16] MEDS: Acetaminophen 325 MG TABLET 650 MG PO (23:12)
[2020-05-17] VITALS: BP 159/71; PULSE 83; RESP 18; TEMP 37; O2SAT 94
[2020-05-17 03:44] VITALS: BP 145/69; PULSE 76; RESP 20; TEMP 36.8; O2SAT 96
[2020-05-17] MEDS: Heparin Sodium,Porcine 5,000 UNIT/ML VIAL 5000 UNIT SUBCUT ×2 (05:22→17:37)
[2020-05-17] MEDS: 0.9 % Sodium Chloride 1,000 ML 75 ML IVCONT (05:22)
[2020-05-17] MEDS: Acetaminophen 325 MG TABLET 650 MG PO (05:24)
[2020-05-17 08:00] VITALS: BP 169/81; PULSE 77; RESP 20; TEMP 36.9; O2SAT 94
[2020-05-17] MEDS: Clopidogrel Bisulfate 75 MG TABLET PO (08:47)
[2020-05-17] MEDS: Atorvastatin Calcium 10 MG TABLET PO (08:47)
[2020-05-17 08:48] VITALS: BP 169/81
[2020-05-17] MEDS: amLODIPine Besylate 5 MG TABLET PO (08:48)
[2020-05-17 12:00] VITALS: BP 130/62; PULSE 74; RESP 20; TEMP 36.4; O2SAT 99
--- NOTE | 2020-05-17 13:07 | MHC.CM.PN ---
pt to be dcd today no beds at [facility] and no beds expected over the weekend pt accepted at [facility] will be transferred at 5 will be private pay chair van as pt and t/w discuussed
[2020-05-17 14:23] LABS: Anion Gap 13 (12-20); Blood Urea Nitrogen 10 mg/dL (9-16); Calcium 8.6 mg/dL (8.4-10.2); Carbon Dioxide 24 mmol/L (22-29); Chloride 99 mmol/L (96-108); Estimated Glomerular Filt Rate > 60; Glucose Random 153 mg/dL (60-115); Sodium 133 mmol/L (135-145)
[2020-05-17 15:29] VITALS: BP 121/61; PULSE 71; RESP 19; TEMP 36.8; O2SAT 98
--- NOTE | 2020-05-17 15:51 | PC.NURSE ---
Pt to be discharged at 5pm. Labs repeated today. Potassium level is low at 3.0. MD aware. This is a trend up from her last value which was 2.7.
--- NOTE | 2020-05-17 16:32 | PM.DS ---
DS: Providers Provider Date of Service: 06/17/20 Date of admission: 05/15/20 01:24 Primary care physician: Jeff Rico MD Consults: 05/15/20 01:23 Consult to Cardiology Routine Consulting Provider: Shaan Klein Reason for consultation: high troponin DS: Diagnosis Discharge Diagnosis (1) Weakness: Status: Acute DS: Medications Discharge Medications Home Medications: Home Medications Medication Instructions Recorded Confirmed amlodipine 5 mg PO DAILY 05/15/20 05/15/20 atorvastatin [Lipitor] 10 mg PO DAILY 05/15/20 05/15/20 clopidogrel [Plavix] 75 mg PO DAILY 05/15/20 05/15/20 DS: Summary Hospital Course Hospital Course: 84-year-old female with a past medical history of hypertension presented to the hospital with a chief complaint of fall. Patient reports that she went to her bathroom and fell in the bathtub 1 was unable to get up. Subsequently was found by the daughter few hours later and moderate to the ER for further evaluation. Patient denied any chest pain palpitations lightheadedness dizziness. Denies any loss of consciousness. Denies any seizure-like activity.Denies any headaches. Denies any hip pain or leg pain. Denies any urinary symptoms. Review of all other systems is negative except mentioned above ER course: Per ER team patient exam was nonfocal. CT head showed no acute findings. Noted mild abnormal labs. Also had elevated troponins but plateaued; EKG was nonischemic. Admitted for further management. Hospital course: Fall: Likely mechanical in nature. Work up included negative CT head. Negative hip/pelvis xray. There was no arrythmia on tele. PT/OT evaluated and recommmend STR which the patient and daughter agree to. murmu--Echo result pending to assess this. Mild Rhabdo--IVF and reassess tomorrow, renal function is normal, CPK was 774 on admission and is now 165 after IVF Hypokalemia --likely from replaced orally and should have lab recheck in a day or 2, oral K supplement for next days. 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, was on CIWA and scorring zero Time Spent with Patient Time attestation: Total time spent providing and/or coordinating discharge services: Discharge coordination time: Greater than 30 minutes Physical Exam Vital Signs: Vital Signs: Last Vital Signs Temp 98.2 F 05/17/20 15:29 Pulse 71 05/17/20 15:29 Resp 19 05/17/20 15:29 BP 121/61 05/17/20 15:29 Pulse Ox 98 05/17/20 15:29 Body Mass Index 18.6 General: AO X 3, no acute distress Resp: CTA bilateral CVS: S1,S2,RRR GI: +BS, NT, no distention Skin: No rash Neuro: motor grossly intact Psych: appropriate affect DS: Data Data Completed and Pending Labs on day of discharge: Laboratory Results - last 24 hr 05/17/20 13:48 Sodium 133 L Potassium 3.0 L Chloride 99 Carbon Dioxide 24 Anion Gap 13 BUN 10 Creatinine 0.68 Estim Creat Clear Calc 50.0 Estimated GFR > 60 Random Glucose 153 H D Calcium 8.6 Total Creatine Kinase 165 H D Discharge Plan Discharge Anticipated Discharge Date/Time: 05/17/20 16:27 Patient Disposition: Xfer SNF Discharge Diagnosis: fall, elevated troponin, weakness Referrals: [facility] [Outside] Jeff Rico MD [Primary Care Provider] - Discharge Medications: New potassium chloride 20 mEq tablet,ER particles/crystals 20 meq PO DAILY Qty: 5 RF: 0 Continued atorvastatin [Lipitor] 10 mg Tablet 10 mg PO DAILY RF: 0 clopidogrel [Plavix] 75 mg Tablet 75 mg PO DAILY RF: 0 amlodipine 5 mg Tablet 5 mg PO DAILY RF: 0 Discharge Orders: Discharge Order (Routine); Ordered 05/17/20 Ordered By: Evens Juares Diet: advance to usual diet Activity on Discharge: As tolerated Stand Alone Forms: Patient Portal Discharge page Other Ambulatory Orders: Basic Metabolic Panel (Routine) Timeframe: 20200519 Facility: [facility] - Location: Laboratory Ordered By: Evens Juares Care Plan Goals: fall prevention and prevent rehospitalization Health Concerns: recurrent fall Plan of Treatment: To short term rehab check potassium level in 2 days Assessment: See above Discharge Date/Time: 05/17/20 18:43
[2020-05-17 17:08] LABS: Magnesium 1.7 mg/dL (1.6-2.6)
[2020-05-17] MEDS: Potassium Chloride Packet 20 MEQ PACKET 40 MEQ PO (17:36)
== END 2020-05-17 18:43 | disposition skilled nursing facility (03) | DRG 566 ==
LOC: HO.ED 05-15 01:27 → HO.EDOVER 05-15 01:53 → HO.IMC 05-15 18:22
PROVIDERS: Admitting Provider Hospitalist; Emergency Provider Emergency Medicine Emergency Medical Services; PCP Pediatrics; Visit Provider Internal Medicine
DX: T79.6XXA Traumatic ischemia of muscle, initial encounter (principal); E87.6 Hypokalemia; I10 Essential (primary) hypertension; W18.2XXA Fall in (into) shower or empty bathtub, initial encounter; Y93.9 Activity, unspecified; R79.89 Other specified abnormal findings of blood chemistry; Y92.009 Unspecified place in unspecified non-institutional (private) residence as the place of occurrence of the external cause; Y99.9 Unspecified external cause status; Z20.822 Contact with and (suspected) exposure to COVID-19; Z88.6 Allergy status to analgesic agent; Z79.02 Long term (current) use of antithrombotics/antiplatelets; Z79.899 Other long term (current) drug therapy
CPT/HCPCS: 36415; 70450; 71045; 72170; 80048; 81001; 82550; 83735; 84484; 85007; 85025; 85027; 87635; 93005; 93306; 97162; 97166; 99285

== ENCOUNTER 2020-06-05 11:19 | Outpatient (REF) | payer MEDICARE, OTHER, SELFPAY ==
[2020-06-05 12:09] LABS: Alanine Aminotransferase 11 U/L (0-31); Albumin Level 4.1 g/dL (3.5-5.0); Alkaline Phosphatase 127 U/L (39-117); Anion Gap 15 (12-20); Aspartate Amino Transferase 16 U/L (5-31); Bilirubin Total 0.8 mg/dL (0.0-1.0); Blood Urea Nitrogen 17 mg/dL (9-16); Calcium 9.5 mg/dL (8.4-10.2); Carbon Dioxide 22 mmol/L (22-29); Chloride 105 mmol/L (96-108); Cholesterol 173 mg/dL; Estimated Glomerular Filt Rate > 60; Glucose Random 85 mg/dL (60-115); HDL Cholesterol 68 mg/dL; LDL Cholesterol Calculated 94 mg/dl; Potassium 4.3 mmol/L (3.3-5.1); Sodium 138 mmol/L (135-145); Total Protein 6.6 g/dL (6.5-8.0); Triglycerides 56 mg/dL
== END 2020-06-05 11:20 | disposition home or self-care (01) ==
LOC: HO.LNP 11:19
PROVIDERS: Visit Provider Pediatrics
DX: I10 Essential (primary) hypertension (principal)
CPT/HCPCS: 80053; 80061

== ENCOUNTER 2023-06-10 14:32 | Inpatient (IN) | payer MEDICARE, OTHER, SELFPAY ==
--- NOTE | ~2023-06-10 | XR_ITS ---
EXAMINATION: XR CHEST CLINICAL INFORMATION: Confusion. COMPARISON: Chest x-ray May 14, 2020 TECHNIQUE: Frontal portable view of the chest was obtained. 6:11 PM FINDINGS: Lungs are clear. No pulmonary vascular congestion. There is no pleural effusion. The heart size is normal. The cardiac and mediastinal contours are normal. There are calcifications of the thoracic aorta. There are multilevel degenerative changes of dorsal spine. XR/XR chest 1V IMPRESSION: Unremarkable examination.
--- NOTE | ~2023-06-10 | CT_ITS ---
EXAMINATION: CT HEAD WITHOUT CONTRAST CLINICAL INFORMATION: Head trauma COMPARISON: CT head from 05/14/2020 TECHNIQUE: Contiguous axial imaging was performed from the skull base to vertex without intravenous administration of contrast. This CT examination was performed using dose optimization techniques as appropriate, variously including the following: *Automated exposure control *Adjustment of mA and/or kV according to patient size (this includes techniques or standardized protocols for targeted exams where dose is matched to indication/reason for exam; i.e. extremities or head) *Use of iterative reconstruction technique DLP: 830 mGy-cm FINDINGS: There is no evidence of acute intracranial hemorrhage or territorial infarction. Physiological mineralization of the bilateral basal ganglia. Chronic white matter small vessel ischemic changes. Cerebral atrophy with commensurate ventricular changes. No abnormal mass effect or midline shift is seen. Pablo to white matter differentiation is well preserved. No extra-axial fluid collections are identified. The ventricles are normal in size. There is no abnormal attenuation within the brain parenchyma. Soft tissue swelling along the right parietal bone without underlying bony defect identified. The osseous structures and soft tissues are normal. Mucoperiosteal thickening of the left maxillary sinus. The mastoid air cells and visualized portions of the paranasal sinuses are well aerated. Atherosclerotic calcifications. CT/CT cervical spine wo IV con IMPRESSION: 1. No acute intracranial pathology. 2. Chronic white matter small vessel ischemic changes. 3. Soft tissue swelling along the right parietal bone without underlying bony defect identified. EXAMINATION: Noncontrast CT scan of the cervical spine. INDICATION: Trauma COMPARISON: None. TECHNIQUE: Helical, multidetector axial images were obtained from the occiput to the upper thorax. Coronal and sagittal reformats of the cervical spine were provided for interpretation. DLP: 830 mGy-cm FINDINGS: No acute fractures or dislocations of the cervical spine are seen. Grade 1 anterolisthesis of C3 on C4. Very slight grade 1 retrolisthesis of C5 on C6 and to lesser extent C6 on C7. Multilevel degenerative changes. Anatomic alignment and positioning of the vertebral bodies and posterior elements is noted. The atlantoaxial joint and craniovertebral articulations are normal without evidence of subluxation. There is no prevertebral soft tissue swelling. The thyroid gland and visualized portions of the lung apices and mediastinum are unremarkable. IMPRESSION: 1. No acute visible fracture or dislocation. 2. Grade 1 anterolisthesis of C3 on C4. 3. Very slight grade 1 retrolisthesis of C5 on C6 and to lesser extent C6 on C7. 4. Multilevel degenerative changes.
--- NOTE | ~2023-06-10 | CT_ITS ---
EXAMINATION: CT HEAD WITHOUT CONTRAST (STROKE PROTOCOL) CLINICAL INFORMATION: Stroke protocol. Acute confusion. COMPARISON: CT head dated 06/11/2023. TECHNIQUE: Contiguous axial imaging was performed from the skull base to vertex without intravenous administration of contrast. This CT examination was performed using dose optimization techniques as appropriate, variously including the following: *Automated exposure control *Adjustment of mA and/or kV according to patient size (this includes techniques or standardized protocols for targeted exams where dose is matched to indication/reason for exam; i.e. extremities or head) *Use of iterative reconstruction technique DLP: 663 mGy-cm FINDINGS: There is no acute intracranial hemorrhage. There is no evidence of acute/subacute cerebral or cerebellar infarction. There are chronic bilateral thalamic lacunar infarctions. There is moderate microvascular ischemic change. There is no midline shift or mass effect. There is no extra-axial fluid collection. No hydrocephalus. The ocular lenses are surgically absent. There are cutaneous mark over the right parietal scalp. There is no depressed skull fracture. Mastoid air cells are clear. There is mucosal thickening within the left maxillary sinus. CT/CT head for stroke IMPRESSION: No acute intracranial pathology. Moderate microvascular ischemic change. This critical result was discussed with Miranda SIMPSON at 5:25 PM hours on 06/11/2023. It was ascertained that the content and urgency of the report was understood at the time of direct communication.
--- NOTE | ~2023-06-10 | CT_ITS ---
EXAMINATION: CT HEAD WITHOUT CONTRAST CT CERVICAL SPINE WITHOUT CONTRAST CLINICAL INFORMATION: Fall, injury. COMPARISON: CT head and cervical spine 06/10/2023. TECHNIQUE: Contiguous axial imaging was performed from the skull base to vertex without intravenous administration of contrast. Contiguous axial imaging was performed from the upper chest through the skull base without intravenous administration of contrast. Coronal and sagittal reformats were obtained at the acquisition workstation. This CT examination was performed using dose optimization techniques as appropriate, variously including the following: *Automated exposure control *Adjustment of mA and/or kV according to patient size (this includes techniques or standardized protocols for targeted exams where dose is matched to indication/reason for exam; i.e. extremities or head) *Use of iterative reconstruction technique DLP: 661 and 203 mGy-cm FINDINGS: Head: There is no evidence of acute intracranial hemorrhage or edematous territorial infarction. Scattered hypoattenuation in the periventricular and deep white matter are consistent with moderate microangiopathy. Chronic lacunar infarcts in the bilateral basal ganglia. Pablo-white matter differentiation is preserved. Proportional prominence of the ventricles and sulcal spaces. No evidence for obstructive hydrocephalus. No abnormal mass effect or midline shift. No extra-axial fluid collections. Mineralization of the basal ganglia. Soft tissue hematoma with laceration and surgical skin mark overlying the right parieto-occipital scalp. No evidence of displaced calvarial fracture. Partial opacification of the left maxillary sinus. Other paranasal sinuses, mastoids and middle ear cavities are clear. Bilateral lens extraction. Multiple dental implants with a few periapical lucencies. Cervical Spine: The atlantooccipital and atlantoaxial articulations remain well aligned. Unchanged trace anterolisthesis of C3 on C4 and C4 on C5. Straightening of the normal cervical lordosis. Otherwise, there is anatomic alignment of the vertebral bodies and posterior elements. No evidence of acute fracture or subluxation. Severe intervertebral disc height loss at C5-C6, C6-C7 and C7-T1. Moderate multilevel facet/uncovertebral hypertrophy leading to various degrees of neural foraminal encroachment. There is no prevertebral soft tissue swelling. The thyroid gland and remaining cervical soft tissues are normal in appearance. Mild biapical subpleural thickening/scarring and emphysema. Few bilateral pulmonary nodules, for instance a 0.5 cm groundglass nodule in the right apex (12:234) and a 0.4 cm solid nodule in the right apex (2:266). CT/CT cervical spine wo IV con IMPRESSION: 1. Soft tissue hematoma and laceration overlying the right parieto-occipital scalp without evidence of acute intracranial abnormalities. 2. No acute cervical spinal fractures or malalignment. 3. 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 4. Moderate to severe multilevel cervical spondylosis. 5. Few bilateral pulmonary nodules, largest measuring up to 0.5 cm. According to the UPDATED 2017 Fleischner Society recommendations, the advised follow-up imaging for multiple solid nodules measuring up to 6-8 mm is follow-up CT at 3 to 6 months. In high-risk patients, subsequent CT follow-up at 18 to 24 months is recommended. In low-risk patients, subsequent CT follow-up at 18 to 24 months is optional.
[2023-06-10 14:37] VITALS: BP 145/73; BP 155/89; PULSE 74; PULSE 84; RESP 18; TEMP 36.4; O2SAT 97; BMI 15.6
--- NOTE | 2023-06-10 14:48 | ED.FALL ---
HPI - Fall General Chief Complaint: Fall Stated Complaint: FALL,HIT HEAD PER EMS Time Seen by Provider: 06/10/23 14:43 Source: patient and old records reviewed Mode of arrival: EMS Limitations: no limitations History of Present Illness HPI Narrative: 88 yo female with PMH of HTN, on plavix here with c/o tripping on a cane at home and hitting R side of head on counter no LOC got up right away. Denies vomiting or pain. In collar. Lives alone. MD complaint: fall Onset (ago): minute(s) (just prior to arrival ) Fall from: standing Fall witnessed: no Place fall occurred: home Loss of consciousness: none Prolonged down time: no Symptoms prior to fall: none Context: tripped/slipped Location of injury: head Severity: mild Associated symptoms (after fall): denies Related Data Home Medications ?Medication ?Instructions ?Recorded ?Confirmed amlodipine 5 mg tablet 5 mg PO DAILY 05/15/20 05/15/20 atorvastatin 10 mg tablet (Lipitor) 10 mg PO DAILY 05/15/20 05/15/20 clopidogrel 75 mg tablet (Plavix) 75 mg PO DAILY 05/15/20 05/15/20 Previous Rx's ?Medication ?Instructions ?Recorded potassium chloride 20 mEq 20 meq PO DAILY #5 tabs 05/17/20 tablet,extended release(part/cryst) Allergies Allergy/AdvReac Type Severity Reaction Status Date / Time aspirin [Aggrenox] AdvReac Unknown stomach Verified 06/10/23 14:42 upset dipyridamole [Aggrenox] AdvReac Unknown stomach Verified 06/10/23 14:42 upset Review of Systems Review of Systems: Constitutional : No Fever, No Chills, No Fatigue ENT/Mouth : No sore throat, No Rhinorrhea Eyes: No Eye Pain, No Swelling, No Redness Cardiovascular : No Chest Pain, No SOB, No Dyspnea on Exertion Respiratory : No Cough, No Sputum Gastrointestinal : No Nausea, No Vomiting, No Diarrhea, No abdominal Pain Genitourinary : No Dysuria, No Urinary Frequency, No Hematuria, Musculoskeletal : No joint pain, No Myalgias, No Joint Swelling Skin : No Skin Lesions, No rash, pos laceration Neuro : No Weakness, No Numbness, No Dizziness, no Headache Psych : No Anxiety/Panic, No Depression Heme/Lymph: No Bruising, No Bleeding,No Lymphadenopathy Endocrine : No Polyuria, No Polydipsia All other systems reviewed and are negative [facility]LY [facility] Past Medical History Attestation statement: The following information was validated with the patient. Source: old records reviewed Medical History HTN (hypertension) Weakness Social History Social History Household Members: None Housing: House Do you presently have visiting nurse or other home services: No Alcohol intake: never Smoked in Last 30 Days: No Use of substances other than those prescribed or required for medical reasons: No Advance Directives: Yes Advance Directives on File: Yes Advance Directives Date on File: 05/20/20 service: No Current occupational status: retired Physical Exam Vital Signs: Vital Signs: Last Vital Signs Temp 97.3 F 06/10/23 20:18 Pulse 82 06/10/23 20:18 Resp 16 06/10/23 20:18 BP 157/74 H 06/10/23 20:18 Pulse Ox 98 06/10/23 20:18 O2 Del Method Room Air 06/10/23 20:18 BMI result Body Mass Index 15.6 Appearance: Alert. Oriented X3. No acute distress. Eyes: Pupils equal, round and reactive to light. ENT: Pharynx normal. R parietal area 2 1 cm lacerations and soft contusion noted Neck: Normal inspection. Neck supple. Collar in place CVS: Normal heart rate and rhythm. Pulses normal. Respiratory: No respiratory distress. Breath sounds normal. Abdomen: Soft and nontender. Skin: Skin warm and dry. Normal skin color. Normal skin turgor. Extremities: No lower extremity edema. Neuro: Oriented X 3. No motor deficit. No sensory deficit. Course Course Course Narrative: signed out to Dr. Hester pending PT/CM Medications Administered Discontinued Medications Generic Name Dose Route Start Last Admin Trade Name Freq PRN Reason Stop Dose Admin Lidocaine/Epinephrine/Tetracaine 3 ml 06/10/23 14:53 06/10/23 17:36 Lidocaine/Racepinep/Tetracaine 3 Ml Gel.Pf.Riky TOPICAL 06/10/23 14:54 3 ml ONCE ONE Administration Procedures Laceration Laceration 1: Site: scalp Side (If applicable): right Size (cm): 1 Description: linear Depth: simple, single layer Local Anesthetic: other anesthetic (LET) Amount of anesthesia used (mL): 3 Pre-repair: wound explored, irrigated extensively and deep structures intact Skin layer closed with: other (staple) Laceration 2: Site: scalp Side (If applicable): right Size (cm): 1 Description: linear Depth: simple, single layer Local Anesthetic: other anesthetic (LET) Amount of anesthesia used (mL): 3 Pre-repair: wound explored, irrigated extensively and deep structures intact Skin layer closed with: other (1 staple) Medical Decision Making Medical Decision Making [facility] Narrative: 88 yo female with PMH of HTN also takes plavix here with c/o mechanical fall at home after tripping on cane denies trunk or extremity injury hit head on counter got right up no LOC no vomiting at this time will need CT head/cspine given age and will clean and repair wound on head. No preceding symptoms. Differential Diagnosis Differential Diagnoses: The differential diagnosis associated with the presentation includes laceration, head injury Admission/Observation Consideration of admission/observation: Escalation of care including admission/observation considered physican observation started at 655pm daughter concerned about fall risk and safety at home wants her evaluate by PT/CM Consult Healthcare Provider Management of the patient was discussed with: Commissary Clerk Lab Data [facility] Lab Attestation statement: I reviewed the patient's lab results. 06/10/23 18:19 06/10/23 18:19 Labs: Lab Results 06/10/23 06/10/23 Range/Units 18:19 19:39 WBC 11.2 H (4.8-10.8) X10*3/uL RBC 4.28 (4.20-5.50) X10*6/uL Hgb 13.6 (12.0-16.0) g/dl Hct 39.5 (37.0-47.0) % MCV 92.3 (80.0-98.0) fL MCH 31.8 (27.0-33.0) pg MCHC 34.4 (31.0-35.0) g/dl RDW 13.3 (11.0-16.0) % Plt Count 272 (160-400) X10*3/uL MPV 8.7 L (9.4-12.3) fL Immature Gran % (Auto) 0.3 (0.0-0.4) % Neut % (Auto) 78.6 H (45-73) % Lymph % (Auto) 12.8 L (20-40) % Hampton % (Auto) 7.0 (2-11) % Eos % (Auto) 0.7 (0-4) % Baso % (Auto) 0.6 (0-2) % Lymph # (Auto) 1.4 (1.2-4.9) X10*3/uL Hampton # (Auto) 0.8 (0.1-1.2) X10*3/uL Eos # (Auto) 0.1 (0.0-0.4) X10*3/uL Baso # (Auto) 0.1 (0.0-0.2) X10*3/uL Abs Immat Gran (auto) 0.03 (0.00-0.03) X10*3/uL Absolute Neuts (auto) 8.8 H (2.0-8.3) x10*3/uL Absolute Nucleated RBC 0.000 (0.0-0.012) X10*3/uL Nucleated RBC % (auto) 0.0 (0.0-0.2) /100WBC Sodium 141 (135-145) mmol/L Potassium 3.9 (3.3-5.1) mmol/L Chloride 109 H (96-108) mmol/L Carbon Dioxide 24 (22-29) mmol/L Anion Gap 12 (12-20) BUN 18 H (9-16) mg/dL Creatinine 0.70 (0.5-1.4) mg/dL Estim Creat Clear Calc 38.3 Estimated GFR > 60 Random Glucose 92 (60-115) mg/dL Calcium 10.0 (8.4-10.2) mg/dL Urine Color Yellow Urine Appearance Clear Urine pH 8.0 (5.0-9.0) Ur Specific Secor 1.010 (1.005-1.025) Urine Protein Negative (Neg-Trace) mg/dL Urine Glucose (UA) Negative (Negative) mg/dL Urine Ketones Trace (Negative) mg/dL Urine Blood Negative (Negative) Urine Nitrite Negative (Negative) Ur Leukocyte Esterase Negative (Negative) Influenza Type A (PCR) NEGATIVE (Negative) Influenza Type B (PCR) NEGATIVE (Negative) RSV RNA Qual (PCR) NEGATIVE (Negative) SARS-CoV-2 RNA (RT-PCR) NEGATIVE (Negative) Independent Interpretation I performed an independent interpretation of an: CT Scan (no trauma) Radiology Impression Discussion of test interpretation with radiology: I have reviewed the radiologist's reading. Independent Historian Clinical information obtained from an independent historian. History obtained from or confirmed by: Other (daughter) External Record Review External record reviewed: Inpatient record Discharge Plan Discharge Clinical Impression: Fall Qualifiers: Encounter type: initial encounter Qualified Code(s): W19.XXXA - Unspecified fall, initial encounter Laceration of scalp Qualifiers: Encounter type: initial encounter Qualified Code(s): S01.01XA - Laceration without foreign body of scalp, initial encounter Patient Disposition: Still a Patient Instructions: Laceration (ED), Fall Prevention (ED) Additional Instructions: mark out in 7 to 10 days okay to shower monitor for redness, swelling, fevers or signs of infection Prescriptions: No Action atorvastatin [Lipitor] 10 mg Tablet 10 mg PO DAILY clopidogrel [Plavix] 75 mg Tablet 75 mg PO DAILY amlodipine 5 mg Tablet 5 mg PO DAILY potassium chloride 20 mEq tablet,ER particles/crystals 20 meq PO DAILY Qty: 5 0RF Print Language: South African
--- NOTE | 2023-06-10 15:18 | PC.NURSE ---
pt back of head cleaned with hydrogen peroxide per Dr. Duncan order. pt tolerated well. pt noted to have golf ball sized bump to right back of head. pt still in c-collar awaiting CT scan report. plan of care ongoing.
--- NOTE | 2023-06-10 15:18 | PC.NURSE ---
pt a&o x4, pleasant, calm, and cooperative. pt reports tripping over her cane and hitting her head on her nightstand. pt denies pain keyanna. blood noted to right side of head. pt presents in c-collar, tolerating well. currently resting quietly on stretcher in no apparent distress. rr even/unlabored. call kowalski within reach. plan of care ongoing.
[2023-06-10] MEDS: Lidocaine/Racepinep/Tetracaine 3 ML GEL.PF.APP TOPICAL (17:36)
[2023-06-10 17:38] VITALS: BP 184/93; PULSE 91; RESP 16; TEMP 36.5; O2SAT 96
[2023-06-10 18:23] LABS: MANUAL DIFF FLAG NO
[2023-06-10 18:36] LABS: Basophils Absolute Auto 0.1 X10*3/uL (0.0-0.2); Basophils Percent Auto 0.6 % (0-2); Eosinophils Absolute Auto 0.1 X10*3/uL (0.0-0.4); Eosinophils Percent Auto 0.7 % (0-4); Hematocrit 39.5 % (37.0-47.0); Hemoglobin 13.6 g/dl (12.0-16.0); Imm Gran Abs Auto 0.03 X10*3/uL (0.00-0.03); Imm Gran Pct Auto 0.3 % (0.0-0.4); Lymphocytes Absolute Auto 1.4 X10*3/uL (1.2-4.9); Lymphocytes Percent Auto 12.8 % (20-40); Mean Corpuscular HGB Conc 34.4 g/dl (31.0-35.0); Mean Corpuscular Hemoglobin 31.8 pg (27.0-33.0); Mean Corpuscular Volume 92.3 fL (80.0-98.0); Mean Platelet Volume 8.7 fL (9.4-12.3); Monocytes Absolute Auto 0.8 X10*3/uL (0.1-1.2); Neutrophils Absolute Auto 8.8 x10*3/uL (2.0-8.3); Neutrophils Percent Auto 78.6 % (45-73); Platelet Count 272 X10*3/uL (160-400); Red Blood Count 4.28 X10*6/uL (4.20-5.50); Red Cell Distribution Width 13.3 % (11.0-16.0); White Blood Count 11.2 X10*3/uL (4.8-10.8)
--- NOTE | 2023-06-10 18:37 | PC.NURSE ---
pt daughter concerned for pt to be d/c'd home due to pt living along and firing home nursing staff. Dr. Dakota matos.
[2023-06-10 18:38] LABS: Anion Gap 12 (12-20); Blood Urea Nitrogen 18 mg/dL (9-16); Carbon Dioxide 24 mmol/L (22-29); Chloride 109 mmol/L (96-108); Creatinine Clr Calc Pharmacy 38.3; Estimated Glomerular Filt Rate > 60; Glucose Random 92 mg/dL (60-115); Potassium 3.9 mmol/L (3.3-5.1); Sodium 141 mmol/L (135-145)
[2023-06-10 19:02] LABS: Influenza A PCR NEGATIVE (Negative); Influenza B PCR NEGATIVE (Negative); Resp Syncy Virus RNA Qual PCR NEGATIVE (Negative); SARS COV2 PCR INHOUSE NEGATIVE (Negative)
[2023-06-10 19:47] LABS: Appearance Urine Clear; Color Urine Yellow; Glucose Urine UA Negative (Negative); Leukocyte Esterase Urine Negative (Negative); Nitrite Urine Negative (Negative); Urine Blood Negative (Negative); Urine Ketones Trace mg/dL (Negative); Urine Protein Negative (Neg-Trace)
[2023-06-10 20:18] VITALS: BP 157/74; PULSE 82; RESP 16; TEMP 36.3; O2SAT 98
--- NOTE | 2023-06-10 21:39 | MHC.CM.ED ---
CM spoke at length with patient's daughter/HCP Charito Mendez ([phone]). Charito tells CM that her mother lives alone in her home. Her daughter has caregivers in the home who are both friends. Saundra provides homemaker services, companionship and any needed assistance. She comes twice a week. (she was coming 4 times a week, but patient did not feel she needed that much help). She has another friend, Radha, who grocery shops. Both Charito and her ex- provide meals and transportation. Charito has fixed up her home for her mother to live with her, but the patient has declined to leave her home. Charito would like more help in the home if her mother would be agreeable. Charito does feel her mother is safe at home. Pt has a cane/walker. Patient has funds. CM met with patient. Alert and orientated x4. Very sharp mind, joking with staff and CM. Patient tells CM that she feels okay at home. She likes the help she has and does not feel she needs more, but will consider additional hours with Saund[employer] now that the weather is improving and to ease her daughter's mind. Pt tells CM that her daughter and CANDELARIO (states she did not divorce him) cook for her. Her PCP is Amari Keenan. Pt also has a life alert, which she faithfully wears (she wore it to the ED). Pt tells CM she completes all her personal care and showers herself. Pt does agree that it would be better if she waited to shower until family or caretakers are in the home. Pt does not want them to bathe her, but agrees it would be safer to not shower alone. Pt is willing to have PT assessment. Pt tells CM she will use her cane in the home, does not like the walker, and is too vain to use them outside the home. No referrals made pending PT assessment. Expect patient will go home with existing services and perhaps additional private pay services. CM will follow for discharge needs.
--- NOTE | 2023-06-10 22:09 | PC.NURSE ---
this RN resumed care of pt at 1900. a&ox4. vss and up to date. c-collar removed after scans resulted. pt ambulates to the restroom w/ a 1:1 assist. slightly unsteady gait noted. pt denies any sob/feeling dizzy/lightheaded during ambulation trial. pt denies pain. has no complaints. med rec completed. purewick in place. pt aware of plan of care at this time in regards to PT/CM. no sob/wob noted. respirations even and unlabored. pt resting comfortably w/ the lights dimmed. call kowalski placed within reach.
[2023-06-10 23:53] VITALS: BP 126/68; PULSE 88; RESP 11; O2SAT 93
[2023-06-11] VITALS (12 sets, daily range): BP systolic 118–174; BP diastolic 62–91; PULSE 71–97; RESP 15–18; TEMP 35.5–37.3; O2SAT 95–98; BMI 15.4
--- NOTE | 2023-06-11 | EEG_ITS ---
This is a 16 channel EEG with an EKG lead. Patient is reported alert and awake and confused during the tracing. Background EEG rhythm is mostly in theta range, low to medium amplitude with no obvious asymmetry or paroxysmal tendency. Photic stimulation does not produce any significant abnormality. Hyperventilation is not performed. Cardiac lead does not reveal any significant abnormality. No sharp wave spikes or paroxysmal tendency noted. IMPRESSION: Generalized slowing with no evidence of seizure disorder. MD JAN Hyde/JOHN / [id number]
--- NOTE | 2023-06-11 06:07 | PC.NURSE ---
pt assessed during the shift,alert and orientedf
--- NOTE | 2023-06-11 06:08 | PC.NURSE ---
pt assessed during the shift, alert and oriented x3, denies any pain
--- NOTE | 2023-06-11 07:45 | PC.NURSE ---
pt is resting comfortably in the stretcher, skin pwd, respirations even and unlabored, pt denies pain at this time, pt's breakfast was not ordered, this rn ordered the diet and called the kitchen also spoke with Benjamin STEIN in regards pt's med reconcile which appears to be have done
--- NOTE | 2023-06-11 09:05 | PC.NURSE ---
awaiting pharmacy to verify the pt's medications
--- NOTE | 2023-06-11 09:58 | MHC.CM.ED ---
Patient remains in ER. Physical therapy eval completed. Rehab is recommended. Met with patient in regards to discharge planning. Patient originally declining rehab, but then decided it would be a safer idea. Patient has not been inpatient in any facility in the past 30 days. Referral made to all 3 acute rehab facilities. Continue to monitor for d/c needs.
--- NOTE | 2023-06-11 10:05 | PHA.MEDREC ---
Addendum entered by Matt Clemens RPh 06/11/23 10:07: I have REVIEWED the med rec done by nursing. Original Note: Pharmacy Consult ? Medication Reconciliation Pharmacy has completed the medication reconciliation. Called [facility] pharmacy ([phone]) for recent fill history.
[2023-06-11] MEDS: amLODIPine Besylate 5 MG TABLET PO (10:12)
[2023-06-11] MEDS: Atorvastatin Calcium 10 MG TABLET PO (10:12)
[2023-06-11] MEDS: Clopidogrel Bisulfate 75 MG TABLET PO (10:12)
--- NOTE | 2023-06-11 11:05 | PC.NURSE ---
pt was assisted to the commode, at this time pt is alert and following commands and conversing appropriately with this rn, pt handed the call kowalski and instructed not to get up on her own- pt states that she will use the call kowalski, few minutes later pct went to check on the pt, pt was found standing up attempting to wiper herself and started to fall over backwards-pct attempted to prevent the fall but unfortunately pt fell down hitting her head on the floor. pt assisted back into bed with a c-collar, vs obtianed and the provider aware of the incident. plan for the pt to go to CT
--- NOTE | 2023-06-11 11:18 | PC.NURSE ---
Assumed care of this patient at 1100, while recieving report from previous RN Zuhair, informed by [employer] Kye patient had falled while getting up from the commode, patient carried back to bed, provider made aware by Zuhair, patient currently in CT scan. Fall precautions in place, bed alarm on, patient not to be left alone while voiding going forward.
--- NOTE | 2023-06-11 13:26 | PC.NURSE ---
Approached by family member very upset, demanding patient be admitted to the hospital, stating my mother fell, she's not getting any fluids, she needs to leave here immediately. Explained to family member that patient cannot eat until CT scan results. Family member demanding to speak with attending nurse, provider, and nurse case management. Case management, charger Becky, Clinical Coordinator Stacie, and provider Benjamin all made aware. Benjamin and Staice to bedside to speak to patient and family.
--- NOTE | 2023-06-11 14:38 | MHC.CM.ED ---
Patient remains in ER. None of the acute rehab facilities are able to offer a bed. [facility] is able to offer a bed for $460/day with 14 days up front. Met with patient and family in regards to discharge planning. Family is requesting referral to [facility]. Referral made via [facility]. Choices: 1) [facility] 2) [facility] Continue to monitor for d/c needs.
--- NOTE | 2023-06-11 15:00 | PC.NURSE ---
late entry Patient increasing agitated, trying to climb oob per family, provider and broker in charge made aware. patient switched ED rooms to ensure patient has adequate supervision.
--- NOTE | 2023-06-11 15:45 | MHC.CM.ED ---
Received telephone call from patient's daughter, Charito. Charito is concerned about patient going to [facility] because patient is currently confused. Charito aware patient will remain in ER overnight. Arlet STEIN has been asked to assess patient and call Charito. Continue to monitor for d/c needs.
--- NOTE | 2023-06-11 16:00 | PC.NURSE ---
Patient continues to be agitated and attempting to get oob, given patient phone by counselor dormitory joe, patient attmepted to call 911 and then threw phone across the room. building maintenance technician pulled to sit with patient. Provider aware. additional UA, labs, and additional CT scan ordered.
--- NOTE | 2023-06-11 16:34 | MHC.EDTECH ---
Unable to obtain labs due to pt be agitated at this time
--- NOTE | 2023-06-11 16:52 | PC.NURSE ---
Patient suddenly less responsive, laying in bed, viscose cellar charge hand aggnia and provider to bedside, patient currently in CT scan.
[2023-06-11] MEDS: LORazepam 2 MG/ML VIAL 1 MG IVPUSH (17:18)
--- NOTE | 2023-06-11 17:20 | PC.NURSE ---
Patient returned from CT scan, provider, charge account identification clerk, provider, this RN at bedside. Additional lab work ordered, ativan ordered and given per apr.
[2023-06-11 17:22] LABS: MANUAL DIFF FLAG NO
[2023-06-11 17:25] LABS: Glucose, Whole Blood 98 mg/dL (60-115)
[2023-06-11 17:29] LABS: Basophils Absolute Auto 0.1 X10*3/uL (0.0-0.2); Basophils Percent Auto 0.5 % (0-2); Eosinophils Absolute Auto 0.1 X10*3/uL (0.0-0.4); Eosinophils Percent Auto 0.7 % (0-4); Hematocrit 40.1 % (37.0-47.0); Hemoglobin 13.9 g/dl (12.0-16.0); Imm Gran Abs Auto 0.04 X10*3/uL (0.00-0.03); Imm Gran Pct Auto 0.3 % (0.0-0.4); Lymphocytes Absolute Auto 1.3 X10*3/uL (1.2-4.9); Lymphocytes Percent Auto 9.8 % (20-40); Mean Corpuscular HGB Conc 34.7 g/dl (31.0-35.0); Mean Corpuscular Hemoglobin 31.4 pg (27.0-33.0); Mean Corpuscular Volume 90.5 fL (80.0-98.0); Mean Platelet Volume 8.9 fL (9.4-12.3); Monocytes Absolute Auto 1.4 X10*3/uL (0.1-1.2); Monocytes Percent Auto 10.9 % (2-11); Neutrophils Absolute Auto 10.3 x10*3/uL (2.0-8.3); Neutrophils Percent Auto 77.8 % (45-73); Platelet Count 283 X10*3/uL (160-400); Red Blood Count 4.43 X10*6/uL (4.20-5.50); Red Cell Distribution Width 13.2 % (11.0-16.0); White Blood Count 13.3 X10*3/uL (4.8-10.8)
[2023-06-11 17:42] LABS: Anion Gap 14 (12-20); Blood Urea Nitrogen 16 mg/dL (9-16); Calcium 9.8 mg/dL (8.4-10.2); Carbon Dioxide 24 mmol/L (22-29); Chloride 106 mmol/L (96-108); Creatinine Clr Calc Pharmacy 36.1; Estimated Glomerular Filt Rate > 60; Glucose Random 109 mg/dL (60-115); Potassium 4.5 mmol/L (3.3-5.1); Sodium 139 mmol/L (135-145)
[2023-06-11 17:43] LABS: Lactic Acid 2.3 mmol/L (0.5-2.0)
[2023-06-11 17:46] LABS: Venous Blood Gas Refer to POC result
[2023-06-11 17:47] LABS: VBG Base Excess 2.4 mmol/L; VBG HCO3 28 mmol/L (22-26); VBG pCO2 47 mmHg; VBG pH 7.38 (7.32-7.43); VBG pO2 33 mmHg
--- NOTE | 2023-06-11 18:13 | PC.NURSE ---
Xray at bedside. Patient able to follow commands intermittently, interactive with nursing staff.
[2023-06-11 19:21] LABS: Reflex Lactate? Lactic Acid Added
--- NOTE | 2023-06-11 19:36 | PC.NURSE ---
assumed care of pt at this time. daughter is at bedside. daughter states patient is at mentation post fall no changes. pt is alert and able to talk however unable to understand what is being communicated. James SIMPSON aware. vss. resp even and unlabored. awaiting admission/hospitalist.
--- NOTE | 2023-06-11 20:01 | P.HPHOSP_ITS ---
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 Daughter was at bedside and provided HPI. Daughter stated that patient a fall today and was incontinence of urine. Patient also fall in the ED around 11:00 today and subsequently became confused and agitated. According to daughter patient was seen by Neurology in the past who felt patient has undiagnosed seizure disorder. Patient has history of falls falling abruptly from standing position. Patient has not have fever, nausea, vomiting or diarrhea. Patient was oriented only to person and denied any pain. 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 She also is a former smoker. She takes Plavix, amlodipine and atorvastatin. In the ED, she was found to have normal vital signs. Blood workup was remarkable for leukocytosis of 13.3. Hemoglobin and platelets are normal. Electrolytes are normal as well as her renal functions. LFTs are normal. Lactic acid is slightly elevated, 2.3. ED tx: Ativan 1 mg IV Review of Systems 2 Review of Systems: Yes Unobtainable due to mental status [facility] Medical History (Updated 06/11/23 @ 20:55 by Alysa Casarez MD) History of stroke Hyperlipidemia HTN (hypertension) Weakness Social History Household Members: None Housing: House Do you presently have visiting nurse or other home services: No Alcohol intake: never Smoked in Last 30 Days: No Use of substances other than those prescribed or required for medical reasons: No Advance Directives: Yes Advance Directives on File: Yes Advance Directives Date on File: 05/20/20 service: No Current occupational status: retired Meds Allergies Allergy/AdvReac Type Severity Reaction Status Date / Time aspirin [Aggrenox] AdvReac Unknown stomach Verified 06/10/23 14:42 upset dipyridamole [Aggrenox] AdvReac Unknown stomach Verified 06/10/23 14:42 upset Active Medications: Current Medications Amlodipine Besylate (Amlodipine Besylate 5 Mg Tablet) 5 mg PO DAILY [facility]; Protocol Last Admin: 06/11/23 10:12 Dose: 5 mg Atorvastatin Calcium (Atorvastatin Calcium 10 Mg Tablet) 10 mg PO DAILY [facility] Last Admin: 06/11/23 10:12 Dose: 10 mg Clopidogrel Bisulfate (Clopidogrel Bisulfate 75 Mg Tablet) 75 mg PO DAILY [facility] Last Admin: 06/11/23 10:12 Dose: 75 mg Heparin Sodium (Porcine) (Heparin Sodium,Porcine 5,000 Unit/Ml Vial) 5,000 unit SUBCUT Q12H [facility] Levetiracetam 250 mg/ Sodium (Chloride) 102.5 mls @ 410 mls/hr IV ONCE ONE Stop: 06/11/23 20:04 Lactated Ringer's (Lr) 1,000 mls @ 80 mls/hr IVCONT .[id number] [facility] Stop: 06/12/23 05:59 Sodium Chloride (0.9 % Sodium Chloride Flush 3 Ml Syringe) 3 ml IVFLUSH QSHIFT [facility] Home Medications ?Medication ?Instructions ?Recorded ?Confirmed ?Last Taken ?Type amlodipine 5 mg tablet 5 mg PO DAILY 05/15/20 06/10/23 06/10/23 10:00 History atorvastatin 10 mg tablet (Lipitor) 10 mg PO DAILY 05/15/20 06/10/23 06/10/23 10:00 History clopidogrel 75 mg tablet (Plavix) 75 mg PO DAILY 05/15/20 06/10/23 06/10/23 10:00 History Physical Exam 2 Vital Signs and Narrative: Vital Signs: Last Vital Signs Temp 95.9 F L 06/11/23 17:01 Pulse 82 06/11/23 19:36 Resp 16 06/11/23 19:36 BP 118/62 06/11/23 19:36 Pulse Ox 98 06/11/23 19:36 O2 Del Method Nasal Cannula 06/11/23 19:36 O2 Flow Rate 2 06/11/23 19:36 BMI result Body Mass Index 15.6 Constitutional - Awake but somewhat sedated (Ativan given). No distress. Cachectic. Afebrile HEENT - PERRLA, EOMI Heart - RRR. Lungs - Normal lung expansion, Normal respiratory effort, No respiratory distress, CTA bilaterally Abdomen - NT / ND; +BS; No rebound or guarding Extremities - no calf tenderness bilaterally, no swelling Musculoskeletal - Atrophic muscles. Skin - Warm/Dry Neurological - Alert & oriented only to person. Follows simple commands. No facial droop. Nystagmus noted. Marked left-sided weakness. Psychological - No agitation. Results Labs 06/11/23 17:16 06/11/23 17:16 Labs: Laboratory Results - last 24 hr 06/11/23 06/11/23 06/11/23 16:59 17:13 17:16 MCV 90.5 MCH 31.4 MCHC 34.7 RDW 13.2 Plt Count 283 MPV 8.9 L Immature Gran % (Auto) 0.3 Neut % (Auto) 77.8 H Lymph % (Auto) 9.[address] [place] % (Auto) 10.9 Eos % (Auto) 0.7 Baso % (Auto) 0.5 Lymph # (Auto) 1.3 [place] # (Auto) 1.4 H Eos # (Auto) 0.1 Baso # (Auto) 0.1 Abs Immat Gran (auto) 0.04 H Absolute Neuts (auto) 10.3 H Absolute Nucleated RBC 0.000 Nucleated RBC % (auto) 0.0 VBG pH VBG pCO2 VBG pO2 VBG HCO3 VBG O2 Saturation VBG Base Excess Anion Gap 14 Estim Creat Clear Calc 36.1 Estimated GFR > 60 POC Glucose 98 Random Glucose 109 Lactic Acid 2.3 H* Calcium 9.8 Total Creatine Kinase 124 06/11/23 17:35 MCV MCH MCHC RDW Plt Count MPV Immature Gran % (Auto) Neut % (Auto) Lymph % (Auto) [facility] % (Auto) Eos % (Auto) Baso % (Auto) Lymph # (Auto) [facility] # (Auto) Eos # (Auto) Baso # (Auto) Abs Immat Gran (auto) Absolute Neuts (auto) Absolute Nucleated RBC Nucleated RBC % (auto) VBG pH 7.38 VBG pCO2 47 VBG pO2 33 VBG HCO3 28 H VBG O2 Saturation 48.0 VBG Base Excess 2.4 Anion Gap Estim Creat Clear Calc Estimated GFR POC Glucose Random Glucose Lactic Acid Calcium Total Creatine Kinase Imaging Radiologist's Impressions: Impressions Cervical Spine CT 06/11/23 11:48 IMPRESSION: 1. Soft tissue hematoma and laceration overlying the right parieto-occipital scalp without evidence of acute intracranial abnormalities. 2. No acute cervical spinal fractures or malalignment. 3. 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 4. Moderate to severe multilevel cervical spondylosis. 5. Few bilateral pulmonary nodules, largest measuring up to 0.5 cm. According to the UPDATED 2017 Fleischner Society recommendations, the advised follow-up imaging for multiple solid nodules measuring up to 6-8 mm is follow-up CT at 3 to 6 months. In high-risk patients, subsequent CT follow-up at 18 to 24 months is recommended. In low-risk patients, subsequent CT follow-up at 18 to 24 [address] is optional. Head CT 06/11/23 11:48 IMPRESSION: 1. Soft tissue hematoma and laceration overlying the right parieto-occipital scalp without evidence of acute intracranial abnormalities. 2. No acute cervical spinal fractures or malalignment. 3. 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 4. Moderate to severe multilevel cervical spondylosis. 5. Few bilateral pulmonary nodules, largest measuring up to 0.5 cm. According to the UPDATED 2017 Fleischner Society recommendations, the advised follow-up imaging for multiple solid nodules measuring up to 6-8 mm is follow-up CT at 3 to 6 months. In high-risk patients, subsequent CT follow-up at 18 to 24 months is recommended. In low-risk patients, subsequent CT follow-up at 18 to [address] is [address] Head CT 06/11/23 16:58 IMPRESSION: No acute intracranial pathology. Moderate microvascular ischemic change. This critical result was discussed with Miranda SIMPSON at 5:25 PM hours on 06/11/2023. It was ascertained that the content and urgency of the report was understood at the time of direct communication. Chest X-Ray 06/11/23 18:15 IMPRESSION: Unremarkable examination. Assessment and Plan (1) Confusion: Status: Acute (2) Seizures: Status: Acute (3) Hyperlipidemia: Qualifiers: Hyperlipidemia type: unspecified Qualified Code(s): E78.5 - Hyperlipidemia, unspecified Status: Acute Plan Shahana Sullivan is 88 years old woman admitted with: * Suspecting seizures + postictal confusion. Admit to hospitalist service. Seizure and aspiration precautions. Check Keppra 500 mg IV x1. EEG. Brain MRI. Neurology consult for further recommendations. * Hyperlipidemia. Continue statin. * Essential hypertension. Continue amlodipine. * Lactic acidosis, acute. SIRS criteria. Doubt sepsis. Likely secondary to seizures. Recheck lactic acid. * History of CVA. Continue Plavix. * Protein calorie malnutrition, BMI 15.6 kg/m2. * Multiple falls likely multifactorial due to physical deconditioning possible events of seizures. Check vitamin-D levels. PT eval when able. DVT prophylaxis: SCDs (takes Plavix, so pharmacological DVT prophylaxis we will increase her risk of bleeding). Code status: DNR/DNI (according to daughter who is patient's health proxy). Quality Stroke Does the patient have a stroke diagnosis?: No VTE Prior VTE?: No VTE Risk Level:: Medical - moderate - high VTE Device Contraindication: Treatment Not Indicated VTE Drug Contraindication: N/A - Med Ordered
[2023-06-11] MEDS: levETIRAcetam 250 MG in 0.9 % Sodium Chloride 100 ML 410 MG IV (20:14)
--- NOTE | 2023-06-11 20:27 | PC.NURSE ---
pt is now more alert and oriented; able to identify self, surroundings and family at bedside. pt is asking appropriate questions and responding appropriately to commands. pt denies pain. seizure/aspiration precautions in place. family at bedside. keppa iv infusing per apr. vss. nsr on monitor. resp even and unlabored. pt is calm/cooperative. nad. call kowalski within reach. pt is in a hospital bed with bed alarm on.
[2023-06-11 20:34] LABS: ~Lactic Acid-LAB USE ONLY 0.9 mmol/L (0.5-2.0)
--- NOTE | 2023-06-11 20:54 | MHC.CM.PN ---
IMM 06/10. Original given to daughter and copy to Medical Records. Pt is now being admitted. AMS, ?seizure. PT had recommended [facility] this am. Will alert SNF's to patient being admitted and request to follow. [facility] and [facility] is second choice. Daughter aware that CM will follow patient when she is on the 4th floor for discharge planning.
[2023-06-11] MEDS: Lactated Ringers 1,000 ML 80 ML IVCONT (21:11)
--- NOTE | 2023-06-11 21:19 | PC.NURSE ---
no changes to pt per previous assessment by this RN. new iv established R. wrist as pt remains constricted BUE; able to straighten BUE when asked to. ivf infusing. report given to [facility] RN Ro awaiting transport.
[2023-06-12 03:41] VITALS: BP 140/73; PULSE 81; RESP 16; TEMP 36.9; O2SAT 98
[2023-06-12 07:04] LABS: MANUAL DIFF FLAG NO
[2023-06-12 07:09] LABS: Basophils Absolute Auto 0.1 X10*3/uL (0.0-0.2); Basophils Percent Auto 0.8 % (0-2); Eosinophils Absolute Auto 0.1 X10*3/uL (0.0-0.4); Eosinophils Percent Auto 0.5 % (0-4); Hematocrit 40.7 % (37.0-47.0); Hemoglobin 13.9 g/dl (12.0-16.0); Imm Gran Abs Auto 0.05 X10*3/uL (0.00-0.03); Imm Gran Pct Auto 0.5 % (0.0-0.4); Lymphocytes Absolute Auto 0.9 X10*3/uL (1.2-4.9); Lymphocytes Percent Auto 8.2 % (20-40); Mean Corpuscular HGB Conc 34.2 g/dl (31.0-35.0); Mean Corpuscular Hemoglobin 31.2 pg (27.0-33.0); Mean Corpuscular Volume 91.5 fL (80.0-98.0); Mean Platelet Volume 8.9 fL (9.4-12.3); Monocytes Absolute Auto 1.1 X10*3/uL (0.1-1.2); Monocytes Percent Auto 10.4 % (2-11); Neutrophils Absolute Auto 8.4 x10*3/uL (2.0-8.3); Neutrophils Percent Auto 79.6 % (45-73); Platelet Count 269 X10*3/uL (160-400); Red Blood Count 4.45 X10*6/uL (4.20-5.50); Red Cell Distribution Width 13.1 % (11.0-16.0); White Blood Count 10.5 X10*3/uL (4.8-10.8)
[2023-06-12 07:31] VITALS: BP 141/83; PULSE 94; RESP 16; TEMP 37.3; O2SAT 92
[2023-06-12 07:32] LABS: Alanine Aminotransferase 23 U/L (0-31); Albumin Level 4.2 g/dL (3.5-5.0); Alkaline Phosphatase 82 U/L (39-117); Aspartate Amino Transferase 40 U/L (5-31); Blood Urea Nitrogen 13 mg/dL (9-16); Calcium 9.8 mg/dL (8.4-10.2); Creatinine Clr Calc Pharmacy 41.1; Estimated Glomerular Filt Rate > 60; Glucose Random 105 mg/dL (60-115); Total Protein 7.2 g/dL (6.5-8.0)
[2023-06-12 07:51] LABS: Anion Gap 14 (12-20); Carbon Dioxide 23 mmol/L (22-29); Chloride 104 mmol/L (96-108); Potassium 3.4 mmol/L (3.3-5.1); Sodium 137 mmol/L (135-145)
[2023-06-12 07:59] LABS: Folate 13.4 ng/mL (> or = 4.0); Vitamin B12 1803 pg/mL (200-900)
[2023-06-12] MEDS: Heparin Sodium,Porcine 5,000 UNIT/ML VIAL 5000 UNIT SUBCUT ×2 (08:13→20:50)
[2023-06-12] MEDS: 0.9 % Sodium Chloride Flush 3 ML SYRINGE IVFLUSH ×2 (08:14→20:54)
--- NOTE | 2023-06-12 11:22 | HO.PM.IMPN ---
Subjective Subjective Date of Service: 06/12/23 Review of Systems Follow up seizure confused, unable to give accurate information Physical Exam Vital Signs: Vital Signs: Last Vital Signs Temp 99.2 F 06/12/23 07:31 Pulse 94 06/12/23 07:31 Resp 16 06/12/23 07:31 BP 141/83 H 06/12/23 07:31 Pulse Ox 92 06/12/23 07:31 O2 Del Method Room Air 06/12/23 07:31 O2 Flow Rate 2 06/11/23 20:19 BMI result Body Mass Index 15.4 Appearing in no acute distress lung sounds are clear to auscultation heart regular rate rhythm, clear S1, S2 positive bowel sounds, abdomen is soft, nontender neuro patient is alert, confused Objective Data Active Medications Amlodipine Besylate (Amlodipine Besylate 5 Mg Tablet) 5 mg PO DAILY [facility]; Protocol Last Admin: 06/12/23 07:43 Dose: Not Given Documented By: TR Non-Admin Reason: NPO Atorvastatin Calcium (Atorvastatin Calcium 10 Mg Tablet) 10 mg PO DAILY [facility] Last Admin: 06/12/23 07:43 Dose: Not Given Documented By: TR Non-Admin Reason: NPO Heparin Sodium (Porcine) (Heparin Sodium,Porcine 5,000 Unit/Ml Vial) 5,000 unit SUBCUT Q12H [facility] Last Admin: 06/12/23 08:13 Dose: 5,000 unit Documented By: TR Sodium Chloride (0.9 % Sodium Chloride Flush 3 Ml Syringe) 3 ml IVFLUSH QSHIFT [facility] Last Admin: 06/12/23 08:14 Dose: 3 ml Documented By: TR Labs 06/12/23 06:50 06/12/23 06:50 Labs: Laboratory Results - last 24 hr 06/11/23 06/11/23 06/11/23 16:59 17:13 17:16 MCV 90.5 MCH 31.4 MCHC 34.7 RDW 13.2 Plt Count 283 MPV 8.9 L Immature Gran % (Auto) 0.3 Neut % (Auto) 77.8 H Lymph % (Auto) 9.8 L [place] % (Auto) 10.9 Eos % (Auto) 0.7 Baso % (Auto) 0.5 Lymph # (Auto) 1.3 [place] # (Auto) 1.4 H Eos # (Auto) 0.1 Baso # (Auto) 0.1 Abs Immat Gran (auto) 0.04 H Absolute Neuts (auto) 10.3 H Absolute Nucleated RBC 0.000 Nucleated RBC % (auto) 0.0 VBG pH VBG pCO2 VBG pO2 VBG HCO3 VBG O2 Saturation VBG Base Excess Anion Gap 14 Estim Creat Clear Calc 36.1 Estimated GFR > 60 POC Glucose 98 Random Glucose 109 Lactic Acid 2.3 H* Lactic Acid F/U @ 2Hr Calcium 9.8 Total Bilirubin AST ALT Alkaline Phosphatase Total Creatine Kinase 136 Total Protein Albumin Vitamin B12 Folate TSH 06/11/23 06/11/23 06/11/23 17:16 17:35 20:13 MCV MCH MCHC RDW Plt Count MPV Immature Gran % (Auto) Neut % (Auto) Lymph % (Auto) [place] % (Auto) Eos % (Auto) Baso % (Auto) Lymph # (Auto) [place] # (Auto) Eos # (Auto) Baso # (Auto) Abs Immat Gran (auto) Absolute Neuts (auto) Absolute Nucleated RBC Nucleated RBC % (auto) VBG pH 7.38 VBG pCO2 47 VBG pO2 33 VBG HCO3 28 H VBG O2 Saturation 48.0 VBG Base Excess 2.4 Anion Gap Estim Creat Clear Calc Estimated GFR POC Glucose Random Glucose Lactic Acid Lactic Acid F/U @ 2Hr 0.9 Calcium Total Bilirubin AST ALT Alkaline Phosphatase Total Creatine Kinase 124 Total Protein Albumin Vitamin B12 Folate TSH 0.90 06/12/23 06:50 MCV 91.5 MCH 31.2 MCHC 34.2 RDW 13.1 Plt Count 269 MPV 8.9 L Immature Gran % (Auto) 0.5 H Neut % (Auto) 79.6 H Lymph % (Auto) 8.2 L [place] % (Auto) 10.4 Eos % (Auto) 0.5 Baso % (Auto) 0.8 Lymph # (Auto) 0.9 L [place] # (Auto) 1.1 Eos # (Auto) 0.1 Baso # (Auto) 0.1 Abs Immat Gran (auto) 0.05 H Absolute Neuts (auto) 8.4 H Absolute Nucleated RBC 0.000 Nucleated RBC % (auto) 0.0 VBG pH VBG pCO2 VBG pO2 VBG HCO3 VBG O2 Saturation VBG Base Excess Anion Gap 14 Estim Creat Clear Calc 41.1 Estimated GFR > 60 POC Glucose Random Glucose 105 Lactic Acid Lactic Acid F/U @ 2Hr Calcium 9.8 Total Bilirubin 1.0 AST 40 H ALT 23 Alkaline Phosphatase 82 Total Creatine Kinase Total Protein 7.2 Albumin 4.2 Vitamin B12 1803 H Folate 13.4 TSH Assessment and Plan (1) Seizures: Status: Acute Plan 88 year old women admitted with suspected seizure after a fall Seizure Seizure precautions had one dose of Keppra in ED Neurology consultation pending EEG, MRI pending Falls, FTT PT consult supportive care HLD statin HTN amlodipine Lactic acidosis likely secondary to seizure, not sepsis Hx of CVA on plavix Protein calorie malnutrition. BMI 15.4 add ensure to diet DVT prophylaxis with heparin attending Dr. Chadwick DNR/DNI continue hospital stay for tx of seizure requiring further workup with eeg and specialty consultation Quality Stroke Does the patient have a stroke diagnosis?: No VTE Prior VTE?: No VTE Risk Level:: Medical - moderate - high VTE Device Contraindication: Treatment Not Indicated VTE Drug Contraindication: N/A - Med Ordered
[2023-06-12 11:32] VITALS: BP 110/72; PULSE 85; RESP 16; TEMP 36.9; O2SAT 97
[2023-06-12] MEDS: Dextrose 5 % and 0.9 % NaCl 1,000 ML 80 ML IVCONT (14:25)
[2023-06-12 15:23] VITALS: BP 133/78; PULSE 87; RESP 16; TEMP 37.2; O2SAT 94
[2023-06-12 19:26] VITALS: BP 135/75; PULSE 87; RESP 14; TEMP 37; O2SAT 95
[2023-06-12 23:30] VITALS: BP 135/68; PULSE 63; RESP 16; TEMP 37.1; O2SAT 96
[2023-06-13] MEDS: Dextrose 5 % and 0.9 % NaCl 1,000 ML 80 ML IVCONT ×3 (03:00→20:31)
[2023-06-13 04:00] VITALS: BP 141/67; PULSE 67; RESP 16; TEMP 36.4; O2SAT 96
[2023-06-13 07:13] VITALS: BP 169/74; PULSE 74; RESP 16; TEMP 37.1; O2SAT 94
[2023-06-13] MEDS: Acetaminophen 325 MG TABLET 650 MG PO (08:39)
[2023-06-13] MEDS: Heparin Sodium,Porcine 5,000 UNIT/ML VIAL 5000 UNIT SUBCUT ×2 (08:39→20:30)
[2023-06-13] MEDS: Atorvastatin Calcium 10 MG TABLET PO (08:39)
[2023-06-13] MEDS: amLODIPine Besylate 5 MG TABLET PO (08:39)
--- NOTE | 2023-06-13 10:07 | P.PNIM_ITS ---
Subjective Subjective Date of Service: 06/13/23 Review of Systems Follow up seizure confused, unable to give accurate information more awake today Physical Exam 2 Vital Signs: Vital Signs: Last Vital Signs Temp 98.8 F 06/13/23 07:13 Pulse 74 06/13/23 07:13 Resp 16 06/13/23 07:13 BP 169/74 H 06/13/23 07:13 Pulse Ox 94 06/13/23 07:13 O2 Del Method Room Air 06/13/23 07:13 O2 Flow Rate 2 06/11/23 20:19 BMI result Body Mass Index 15.4 Appearing in no acute distress lung sounds are clear to auscultation heart regular rate rhythm, clear S1, S2 positive bowel sounds, abdomen is soft, nontender neuro patient is alert x3, no focal deficits Objective Data Active Medications Acetaminophen (Acetaminophen 325 Mg Tablet) 650 mg PO Q6H PRN PRN Reason: Pain, Mild (Pain Scale 1-3) Last Admin: 06/13/23 08:39 Dose: 650 mg Documented By: TR Amlodipine Besylate (Amlodipine Besylate 5 Mg Tablet) 5 mg PO DAILY [facility]; Protocol Last Admin: 06/13/23 08:39 Dose: 5 mg Documented By: TR Atorvastatin Calcium (Atorvastatin Calcium 10 Mg Tablet) 10 mg PO DAILY [facility] Last Admin: 06/13/23 08:39 Dose: 10 mg Documented By: TR Heparin Sodium (Porcine) (Heparin Sodium,Porcine 5,000 Unit/Ml Vial) 5,000 unit SUBCUT Q12H [facility] Last Admin: 06/13/23 08:39 Dose: 5,000 unit Documented By: TR Dextrose/Sodium Chloride (D5ns) 1,000 mls @ 80 mls/hr IVCONT .[id number] [facility] Last Admin: 06/13/23 03:00 Dose: 80 mls/hr Documented By: DARVINTRTroy Sodium Chloride (0.9 % Sodium Chloride Flush 3 Ml Syringe) 3 ml IVFLUSH QSHIFT [facility] Last Admin: 06/13/23 08:12 Dose: Not Given Documented By: TR Non-Admin Reason: IV Running Labs 06/12/23 06:50 06/12/23 06:50 Microbiology Microbiology Results: Microbiology 06/11/23 17:16 Blood Culture - Preliminary Blood - Venous No growth after 24 hours. 06/11/23 17:16 Blood Culture - Preliminary Blood - Venous No growth after 24 hours. Assessment and Plan (1) Seizures: Status: Acute Plan 88 year old women admitted with suspected seizure after a fall Acute encephalopathy Multifactorial, sz, fall with head strike, hospital delirium, medications More alert and awake today Has been NPO, continue IV fluids, small spoons of applesauce Speech therapy consult in am Seizure Seizure precautions s/p one dose of Keppra in ED Neurology consultation pending EEG, MRI pending Falls, FTT PT consult supportive care HLD statin HTN amlodipine Lactic acidosis likely secondary to seizure, not sepsis Hx of CVA on plavix Protein calorie malnutrition. BMI 15.4 add ensure to diet DVT prophylaxis with heparin attending Dr. Chadwick DNR/DNI continue hospital stay for tx of seizure requiring further workup with eeg and specialty consultation Quality Stroke Does the patient have a stroke diagnosis?: No VTE Prior VTE?: No VTE Risk Level:: Medical - moderate - high VTE Device Contraindication: Treatment Not Indicated VTE Drug Contraindication: N/A - Med Ordered
[2023-06-13 12:00] VITALS: BP 117/68; PULSE 87; RESP 16; TEMP 37.6; O2SAT 93
[2023-06-13 16:00] VITALS: BP 126/62; PULSE 84; RESP 16; TEMP 37.6; O2SAT 94
[2023-06-13 18:36] VITALS: BP 159/74; PULSE 87; RESP 20; TEMP 36.6; O2SAT 95
[2023-06-13] MEDS: 0.9 % Sodium Chloride Flush 3 ML SYRINGE IVFLUSH (20:31)
[2023-06-14] VITALS (7 sets, daily range): BP systolic 122–184; BP diastolic 61–86; PULSE 87–98; RESP 18–20; TEMP 36.6–37.9; O2SAT 94–96; BMI 15.4
[2023-06-14] MEDS: amLODIPine Besylate 5 MG TABLET PO (07:53)
[2023-06-14] MEDS: 0.9 % Sodium Chloride Flush 3 ML SYRINGE IVFLUSH ×3 (07:53→22:17)
[2023-06-14] MEDS: Atorvastatin Calcium 10 MG TABLET PO (07:53)
--- NOTE | 2023-06-14 08:44 | P.CNNE_ITS ---
History of Present Illness Data of Consult Service Date: 06/14/23 Primary Care Provider: Unknown Physician HPI Reason for consult: Possible seizure disorder 88 years old woman was brought to hospital after she fell down. Apparently she had similar episodes in the past on the question of seizure disorder was raised but not formally diagnosed. She could not tell me what exactly had happened though she was able to converse. 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 Patient Tobacco Use Status: Former Tobacco user Tobacco use type: Cigarette Cigarettes Per Day: 30 Years Smoked: 45 Advance Directives Date on File: 05/20/20 service: No Current occupational status: retired [employer] Allergies Allergy/AdvReac Type Severity Reaction Status Date / Time aspirin [Aggrenox] AdvReac Unknown stomach Verified 06/10/23 14:42 upset dipyridamole [Aggrenox] AdvReac Unknown stomach Verified 06/10/23 14:42 upset Active Medications: Current Medications Acetaminophen (Acetaminophen 325 Mg Tablet) 650 mg PO Q6H PRN PRN Reason: Pain, Mild (Pain Scale 1-3) Last Admin: 06/13/23 08:39 Dose: 650 mg Amlodipine Besylate (Amlodipine Besylate 5 Mg Tablet) 5 mg PO DAILY [facility]; Protocol Last Admin: 06/14/23 07:53 Dose: 5 mg Atorvastatin Calcium (Atorvastatin Calcium 10 Mg Tablet) 10 mg PO DAILY [facility] Last Admin: 06/14/23 07:53 Dose: 10 mg Heparin Sodium (Porcine) (Heparin Sodium,Porcine 5,000 Unit/Ml Vial) 5,000 unit SUBCUT Q12H [facility] Last Admin: 06/13/23 20:30 Dose: 5,000 unit Dextrose/Sodium Chloride (D5ns) 1,000 mls @ 80 mls/hr IVCONT .[id number] [facility] Last Admin: 06/13/23 20:31 Dose: 80 mls/hr Sodium Chloride (0.9 % Sodium Chloride Flush 3 Ml Syringe) 3 ml IVFLUSH QSHIFT [facility] Last Admin: 06/14/23 07:53 Dose: 3 ml Home Medications ?Medication ?Instructions ?Recorded ?Confirmed ?Last Taken ?Type amlodipine 5 mg tablet 5 mg PO DAILY 05/15/20 06/10/23 06/10/23 10:00 History atorvastatin 10 mg tablet (Lipitor) 10 mg PO DAILY 05/15/20 06/10/23 06/10/23 10:00 History clopidogrel 75 mg tablet (Plavix) 75 mg PO DAILY 05/15/20 06/10/23 06/10/23 10:00 History Physical Exam 2 Vital Signs: Vital Signs: Last Vital Signs Temp 98.9 F 06/14/23 07:24 Pulse 89 06/14/23 07:24 Resp 18 06/14/23 07:24 BP 184/78 H 06/14/23 07:24 Pulse Ox 94 06/14/23 07:24 O2 Del Method Room Air 06/14/23 07:24 O2 Flow Rate 2 06/11/23 20:19 BMI result Body Mass Index 15.4 Neuro: Other: She is alert and awake with normal spontaneity of speech fluency comprehension and affect. She told me where she lived and about her children. She was following commands. Face was symmetrical. Visual smith are full. She had significant arthritis and related disability but otherwise there was no focal arm or leg weakness. Plantars were flexor. Deep tendon reflexes were absent. Speech was normal. Results Labs 06/12/23 06:50 06/12/23 06:50 Labs: Head CT revealed moderately severe diffuse cerebral atrophy and with moderate chronic microvascular ischemic changes and bilateral basal ganglia area calcification Microbiology Microbiology Results: Microbiology 06/11/23 17:16 Blood - Venous Blood Culture - Preliminary No growth after 48 hours. 06/11/23 17:16 Blood - Venous Blood Culture - Preliminary No growth after 48 hours. Assessment and Plan (1) Seizures: Status: Acute 88 years old woman with possible seizure disorder making her fall down. My recommendation is to obtain an EEG. Otherwise PT OT consultation is recommended for proper placement (2) Multifactorial dementia: Status: Acute Procedures Date of Service Date of Service: 06/14/23
--- NOTE | 2023-06-14 11:00 | P.PNIM_ITS ---
Subjective Subjective Date of Service: 06/14/23 Review of Systems Follow up seizure confused, unable to give accurate information more awake today Physical Exam 2 Vital Signs: Vital Signs: Last Vital Signs Temp 98.9 F 06/14/23 07:24 Pulse 89 06/14/23 07:24 Resp 18 06/14/23 07:24 BP 184/78 H 06/14/23 07:24 Pulse Ox 94 06/14/23 07:24 O2 Del Method Room Air 06/14/23 07:24 O2 Flow Rate 2 06/11/23 20:19 BMI result Body Mass Index 15.4 Appearing in no acute distress LSCTA heart regular rate rhythm, clear S1, S2 positive bowel sounds, abdomen is soft, nontender neuro patient is alert x3, no focal deficits Objective Data Active Medications Acetaminophen (Acetaminophen 325 Mg Tablet) 650 mg PO Q6H PRN PRN Reason: Pain, Mild (Pain Scale 1-3) Last Admin: 06/13/23 08:39 Dose: 650 mg Documented By: TR Amlodipine Besylate (Amlodipine Besylate 5 Mg Tablet) 5 mg PO DAILY [facility]; Protocol Last Admin: 06/14/23 07:53 Dose: 5 mg Documented By: ADRIEN Atorvastatin Calcium (Atorvastatin Calcium 10 Mg Tablet) 10 mg PO DAILY [facility] Last Admin: 06/14/23 07:53 Dose: 10 mg Documented By: ADRIEN Heparin Sodium (Porcine) (Heparin Sodium,Porcine 5,000 Unit/Ml Vial) 5,000 unit SUBCUT Q12H [facility] Last Admin: 06/13/23 20:30 Dose: 5,000 unit Documented By: JUAN CARLOS Dextrose/Sodium Chloride (D5ns) 1,000 mls @ 80 mls/hr IVCONT .[id number] [facility] Last Admin: 06/13/23 20:31 Dose: 80 mls/hr Documented By: JUAN CARLOS Sodium Chloride (0.9 % Sodium Chloride Flush 3 Ml Syringe) 3 ml IVFLUSH QSHIFT [facility] Last Admin: 06/14/23 07:53 Dose: 3 ml Documented By: ADRIEN Labs 06/12/23 06:50 06/12/23 06:50 Microbiology Microbiology Results: Microbiology 06/11/23 17:16 Blood Culture - Preliminary Blood - Venous No growth after 48 hours. 06/11/23 17:16 Blood Culture - Preliminary Blood - Venous No growth after 48 hours. Assessment and Plan (1) Seizures: Status: Acute Plan 88 year old women admitted with suspected seizure after a fall Acute encephalopathy Multifactorial, sz, fall with head strike, hospital delirium, medications More alert and awake today Speech therapy consult pending, ground diet with nectar thick liquids Seizure Seizure precautions s/p one dose of Keppra in ED Neurology consultation pending EEG, MRI pending Falls, FTT PT consult>rec STR supportive care HLD statin HTN amlodipine Lactic acidosis likely secondary to seizure, not sepsis Hx of CVA on plavix moderate Protein calorie malnutrition. BMI 15.4 add ensure to diet DVT prophylaxis with heparin attending Dr. Bradford DNR/DNI continue hospital stay for tx of seizure requiring further workup with eeg and specialty consultation Quality Stroke Does the patient have a stroke diagnosis?: No VTE Prior VTE?: No VTE Risk Level:: Medical - moderate - high VTE Device Contraindication: Treatment Not Indicated VTE Drug Contraindication: N/A - Med Ordered
--- NOTE | 2023-06-14 11:08 | MHC.CM.PN ---
Per ROUNDS discussion, Patient is not yet medically cleared for dc (Seizure W/U); PT is recommending STR and CM will continue to follow.
[2023-06-14] MEDS: Heparin Sodium,Porcine 5,000 UNIT/ML VIAL 5000 UNIT SUBCUT ×2 (11:13→22:17)
--- NOTE | 2023-06-14 12:37 | MHC.CLN ---
RE: CONSULT PT IS MODERATELY MALNOURISHED PT WITH MILDLY DEPLETED SUBCUTANEOUS FAT AND MUSCLE MASS WITH SLOW NONSIGNIFICANT WT LOSS X 6 MONTHS WITH CHRONIC POOR PO INTAKE. DAUGHTERS REPORT PT 20# WT LOSS HOWEVER UNABLE TO REPORT BASELINE WEIGHT PREVIOUS WT HX REVEALS 52.4KG (05/16/2020) 16% NONSIGNIFICANT WT LOSS X 3 YEARS. DAUGHTERS REPORT PT WITH VERY RIGID LIMITING FOOD EATING HABITS. PT EATS SAME THING EVERY DAY, NO VARIETY, LIMITING FOOD PREFERENCES WITH VERY SMALL PORTIONS. PT PREVIOUSLY RECORDED HER OWN WEIGHT DAILY PER DAUGHTERS AND CONSCIENTIOUS OF HER OWN WEIGHT. POSSIBLE HX OF DISORDERED EATING PER DAUGHTERS. 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
--- NOTE | 2023-06-14 13:10 | P.CDIM_ITS ---
PROVIDER RESPONSE TEXT: To clarify, the appropriate diagnosis supported by the clinical indicators: Moderate QUERY TEXT: PHYSICIAN'S DOCUMENTATION REQUEST Date of Query: 06/14/2023 11:18 AM EDT Patient Name: Shahana Sullivan Admit Date: 06/11/2023 Dear Sarah Stevens, A review of the medical record indicates additional documentation may be needed. Please review below and update the documentation accordingly. Clinical indicators: Progress note: Plan - Protein calorie malnutrition BMI 15.4 43.8kg Add Ensure to diet. If possible, please provide additional specificity regarding the severity of the protein calorie maln utrition using the above information: Mild Moderate Severe Other (explain) Clinically unable to determine (explain) Thank you, Leandra Bowen, CCS, CDIS Use of terms such as suspected, likely, concern for, or probable (associated with a specific diagnosi s that is being evaluated, monitored, or treated as if it exists) are acceptable and can be coded in the inpatient se tting, when documented at the time of discharge. Please use your independent medical judgment in providing your response. THIS QUERY IS PART OF THE PERMANENT MEDICAL RECORD
--- NOTE | 2023-06-14 13:10 | P.CDIM_ITS ---
PROVIDER RESPONSE TEXT: To clarify, the appropriate diagnosis supported by the clinical indicators: Acute QUERY TEXT: PHYSICIAN'S DOCUMENTATION REQUEST Date of Query: 06/14/2023 08:42 AM EDT Patient Name: Shahana Sullivan Admit Date: 06/11/2023 Dear Sarah Stevens, A review of the medical record indicates additional documentation may be needed. Please review below and update the documentation accordingly. Clinical Indicators: Progress notes - Plan: Lactic acidosis likely secondary to seizure, not sepsis. LA 2.3 Clarify which of the following accurately represents the acuity of the Lactic acidosis: Acute Acute on chronic Other (explain) Clinically unable to determine (explain) Thank you, Leandra Bowen, CCS, CDIS Use of terms such as suspected, likely, concern for, or probable (associated with a specific diagnosi s that is being evaluated, monitored, or treated as if it exists) are acceptable and can be coded in the inpatient se tting, when documented at the time of discharge. Please use your independent medical judgment in providing your response. THIS QUERY IS PART OF THE PERMANENT MEDICAL RECORD
--- NOTE | 2023-06-14 13:10 | P.CDIM_ITS ---
PROVIDER RESPONSE TEXT: To clarify, the appropriate diagnosis supported by the clinical indicators: Metabolic QUERY TEXT: PHYSICIAN'S DOCUMENTATION REQUEST Date of Query: 06/14/2023 08:37 AM EDT Patient Name: Shahana Sullivan Admit Date: 06/11/2023 Dear Sarah Stevens, A review of the medical record indicates additional documentation may be needed. Please review below and update the documentation accordingly. Clinical Indicators: Progress notes: Plan - Acute encephalopathy Multifactorial, sz, fall with head strike, hospital delirium, medications Based on the above, please further specify, in the Progress Notes, the known or suspected type of the documented encephalopathy: Metabolic Toxic Toxic metabolic Other (explain) Clinically unable to determine (explain) Thank you, Leandra Bowen, CCS, CDIS Use of terms such as suspected, likely, concern for, or probable (associated with a specific diagnosi s that is being evaluated, monitored, or treated as if it exists) are acceptable and can be coded in the inpatient se tting, when documented at the time of discharge. Please use your independent medical judgment in providing your response. THIS QUERY IS PART OF THE PERMANENT MEDICAL RECORD
--- NOTE | 2023-06-14 17:54 | MHC.SL.SWA ---
Speech Pathologist Impression: Risk of aspiration, oropharyngeal dysphagia Risk of Aspiration Due to: Neurological Condition Dysphasia Diet Status: Start on NDD2/NTL Liquid Consistency and Strategies for Safe Swallow: Liquid Intake Recommendation: [place] Thick Liquid Intake Strategies: Small Sips No Straws Solid Food Consistency: Dietary Recommendations: Grnd/Mech Altered (NDD2) Additional Modifications to Solid Foods: Patient w/ mild oral phase dysphagia, characterized by prolonged oral preparation, pocketing, and multiple swallow attempts. Patient is able to clear residue with dry swallows and/or liquid wash. Note immediate coughing on thin liquids. Recommend START on GROUND/MECH ALTERED (NDD2) diet for ease of mastication and NECTAR THICK liquids, pills CRUSHED in PUREE. Patient will need 1:1 assistance feeding. Minimize distractions during PO intake, check oral cavity as needed, provide cues as needed to promote oral clearance: small bites, chew food well, clear oral cavity before giving more bites, alternate bites of food with sips of liquid. Oral Medication Intake: Crushed with Puree Please contact the pharmacy regarding appropriate crushable or liquid drug formulations that are available whenever modified delivery is recommended. Compensatory Strategies and Precautions to be Taken for Safe Swallow: Sitting Upright (90 deg) Double Swallow Small Bites and Sips Alternate Liquids/Solids Rate of Ingestion Change Oral Check Avoid Specific Foods Supervision While Eating and Drinking for Safe Swallow: Total Assistance (1:1) Foods to Avoid: Hard, dry, or sticky foods Swallowing Recommended Treatments: Compens. Strategy Educat. Recommendation for Speech: Inpatient Speech Therapy Comment: TAX COMMISSIONER will continue to follow to monitor tolerance and re-assess for potential upgrade if appropriate. Frequency/Duration: PRN M-F Date Range for Service Req: Timeline to reassess: PRN Electric Meter Inspector Clinican/Clinical Fellow: No Supervisory Statement: I have reviewed and agree with the student/clinical fellow's documentation: N/A Speech Language Pathologist: Otilia Styles M.A., [facility]-TAX COMMISSIONER
[2023-06-15 03:39] VITALS: BP 148/71; PULSE 93; RESP 22; TEMP 37.7; O2SAT 92
[2023-06-15 07:41] VITALS: BP 102/59; PULSE 87; RESP 20; TEMP 36.3; O2SAT 93
[2023-06-15] MEDS: amLODIPine Besylate 5 MG TABLET PO (08:53)
[2023-06-15] MEDS: Atorvastatin Calcium 10 MG TABLET PO (08:53)
[2023-06-15] MEDS: 0.9 % Sodium Chloride Flush 3 ML SYRINGE IVFLUSH (08:54)
[2023-06-15] MEDS: Heparin Sodium,Porcine 5,000 UNIT/ML VIAL 5000 UNIT SUBCUT (08:54)
--- NOTE | 2023-06-15 09:04 | MHC.CM.PN ---
Per ILLUSIONIST/Sarah, Patient is medically cleared for dc to SNF/STR today. CM met with Patient at bedside and addressed IMM with her verbally (physically too difficult for Patient to sign); the original was given to Patient and a copy has been placed on the chart. CM also spoke with Patient's Daughter/HCP/Charito @ [phone] and informed her of the dc plan. Patient and Daughter are in agreement with the dc plan.
[2023-06-15 11:15] VITALS: BP 128/57; PULSE 74; RESP 18; TEMP 36.9; O2SAT 94
--- NOTE | 2023-06-15 11:49 | P.DS_ITS ---
DS: Providers Provider Date of Service: 06/15/23 Date of admission: 06/11/23 19:51 Primary care physician: Uli Keenan MD Consults: 06/11/23 19:55 Consult to Neurology Routine Consulting Provider: [facility] Reason for consultation: ?Seizures Has provider been notified: No DS: Diagnosis Discharge Diagnosis (1) Seizures: Status: Acute DS: Summary Hospital Course Hospital Course: History and physical as per admitting provider. Shahana Sullivan is 88 years old woman with past medical history significant for old CVA on Plavix, chronic left- sided weakness, hyperlipidemia and hypertension who was brought ED due to mechanical fall sustaining head trauma with the corner of a coffee table. Daughter was at bedside and provided HPI. Daughter stated that patient a fall today and was incontinence of urine. Patient also fall in the ED around 11:00 today and subsequently became confused and agitated. According to daughter patient was seen by Neurology in the past who felt patient has undiagnosed seizure disorder. Patient has history of falls falling abruptly from standing position. Patient has not have fever, nausea, vomiting or diarrhea. Patient was oriented only to person and denied any pain. 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 She also is a former smoker. She takes Plavix, amlodipine and atorvastatin. In the ED, she was found to have normal vital signs. Blood workup was remarkable for leukocytosis of 13.3. Hemoglobin and platelets are normal. Electrolytes are normal as well as her renal functions. LFTs are normal. Lactic acid is slightly elevated, 2.3. ED tx: Ativan 1 mg IV 88-year-old woman admitted with acute encephalopathy secondary to fall. There was a question of seizure but EEG was negative. There was also no noted infectious process, head CT was negative for any acute abnormality. Physical therapy recommended short-term rehab, discussed with family who was in agreement. Patient's mental status is slowly improving encephalopathy may be secondary to fall, hospital delirium and age. No obvious seizure activity during hospitalization, will not start antiseizures medications at this time Head laceration. Remove mark in 7-10 days, placed 06/10/2023 Hyperlipidemia. Continue statin Hypertension. Stable blood pressure during admission. Continue amlodipine Lactic acidosis. Not related to sepsis History of CVA. On Plavix Moderate protein calorie malnutrition. BMI 15.4. Ensure added to diet, encourage protein intake Time Attestation Discharge Coordination Time (in mins): 45 Quality: Safe Use of Opioids Does Pt have an Active Cancer Diagnosis on the Problem List?: No Quality: Stroke Does the patient have a stroke diagnosis?: No Physical Exam Vital Signs: Vital Signs: Last Vital Signs Temp 98.4 F 06/15/23 11:15 Pulse 74 06/15/23 11:15 Resp 18 06/15/23 11:15 BP 128/57 L 06/15/23 11:15 Pulse Ox 94 06/15/23 11:15 O2 Del Method Room Air 06/15/23 11:15 O2 Flow Rate 2 06/11/23 20:19 BMI result Body Mass Index 15.4 Appearing in no acute distress, weak but able to get oob with assist head is normocephalic atraumatic eyes pupils are PERRLA sclera is anicteric mouth throat mucous membranes are intact and moist neck is supple no lymphadenopathy, no JVD noted lung sounds are clear to auscultation heart regular rate rhythm, clear S1, S2 positive bowel sounds, abdomen is soft, nontender neuro patient is alert x3, no focal deficits DS: Data Data Completed and Pending Labs on day of discharge: Preliminary micro results at discharge 06/11/23 17:16 Blood Culture - Preliminary Blood - Venous No growth after 48 hours. 06/11/23 17:16 Blood Culture - Preliminary Blood - Venous No growth after 48 hours. Discharge Plan Discharge Anticipated Discharge Date/Time: 06/15/23 12:04 Patient Disposition: Xfer SNF Discharge Diagnosis: Fall Acute encephalopathy Referrals: [facility] [Outside] - 1 Week Uli Keenan MD [Primary Care Provider] - 1 Week Discharge Medications: Continued atorvastatin [Lipitor] 10 mg Tablet 10 mg PO DAILY clopidogrel [Plavix] 75 mg Tablet 75 mg PO DAILY amlodipine 5 mg Tablet 5 mg PO DAILY Discharge Orders: Discharge Order (Routine); Ordered 06/15/23 Ordered By: Sarah Stevens Diet: Advance to usual diet Activity on Discharge: As tolerated Stand Alone Forms: Patient Portal Discharge page Print Language: Pashto Activity Restrictions/Additional Instructions: mark out in 7 to 10 days (placed 06/10/2023) okay to shower monitor for redness, swelling, fevers or signs of infection Care Plan Goals: Transfer to short-term rehab for physical therapy Health Concerns: Fall Acute encephalopathy Plan of Treatment: Follow-up with primary care provider as needed Take all medications as prescribed Assessment: See discharge summary Patient Instructions: Laceration (ED), Fall Prevention (ED)
[2023-06-16 13:34] LABS: Vitamin D 25-OH, D2 <4 ng/mL; Vitamin D 25-OH, D3 29 ng/mL; Vitamin D 25-OH, Total 29 ng/mL (30-100)
== END 2023-06-15 13:27 | disposition skilled nursing facility (03) | DRG 86 ==
LOC: HO.ED 06-11 19:30 → HO.EDOVER 06-11 19:59 → HO.IMC 06-11 20:28
PROVIDERS: Nurse Practitioner Family; Physician Assistant; Admitting Provider Internal Medicine; Emergency Provider Emergency Medicine; PCP Internal Medicine; Visit Provider Nurse Practitioner Acute Care
DX: S06.9X0A Unspecified intracranial injury without loss of consciousness, initial encounter (principal); E44.0 Moderate protein-calorie malnutrition; I69.354 Hemiplegia and hemiparesis following cerebral infarction affecting left non-dominant side; E87.21 Acute metabolic acidosis; Z68.1 Body mass index [BMI] 19.9 or less, adult; F05 Delirium due to known physiological condition; S01.01XA Laceration without foreign body of scalp, initial encounter; F03.90 Unspecified dementia, unspecified severity, without behavioral disturbance, psychotic disturbance, mood disturbance, and anxiety; Z66 Do not resuscitate; W19.XXXA Unspecified fall, initial encounter; F10.21 Alcohol dependence, in remission; E78.5 Hyperlipidemia, unspecified; I10 Essential (primary) hypertension; R29.6 Repeated falls; Z20.822 Contact with and (suspected) exposure to COVID-19; Z87.891 Personal history of nicotine dependence; Z79.02 Long term (current) use of antithrombotics/antiplatelets; Z79.899 Other long term (current) drug therapy
CPT/HCPCS: 0241U; 36415; 70450; 71045; 72125; 80048; 80053; 81003; 82306; 82550; 82607; 82746; 82803; 82947; 83605; 84443; 85025; 87040; 92526; 92610; 95816; 97162; 99285; J1644; J1953; J2060; J7120

== ENCOUNTER → 2023-06-11 19:51 | Outpatient (BNV) | payer MEDICARE, OTHER, SELFPAY | PROVIDERS: Admitting Provider Internal Medicine; Emergency Provider Emergency Medicine; Visit Provider Internal Medicine | DX: R56.9 Unspecified convulsions (principal) | CPT/HCPCS: 99223; 99232; 99239 ==

== ENCOUNTER → 2023-06-11 19:51 | Outpatient (BNV) | payer MEDICARE, OTHER, SELFPAY | PROVIDERS: Admitting Provider Internal Medicine; Emergency Provider Emergency Medicine; Visit Provider Psychiatry & Neurology Neurology | DX: R56.9 Unspecified convulsions (principal); F03.90 Unspecified dementia, unspecified severity, without behavioral disturbance, psychotic disturbance, mood disturbance, and anxiety | CPT/HCPCS: 99222 ==

== ENCOUNTER 2023-10-07 19:36 | Inpatient (IN) | payer MEDICARE, OTHER, SELFPAY ==
--- NOTE | ~2023-10-07 | XR_ITS ---
EXAMINATION: XR CHEST CLINICAL INFORMATION: Weakness COMPARISON: Chest x-ray June 11, 2023 TECHNIQUE: Frontal portable view of the chest was obtained. 0906 hours FINDINGS: Large hilar hernia. Heart size normal. No pulmonary vascular congestion. Lungs are normally aerated. No pleural effusion or pneumothorax. XR/XR chest 1V IMPRESSION: No acute abnormality of chest. Electronically signed by: Philippe Chappell MD 10/07/2023 11:00 PM EDT
--- NOTE | 2023-10-07 19:46 | ECG_ITS ---
Test Reason : FALL Blood Pressure : / mmHG Vent. Rate : 102 BPM Atrial Rate : 102 BPM P-R Int : 134 ms QRS Dur : 082 ms QT Int : 342 ms P-R-T Axes : 052 -07 080 degrees QTc Int : 445 ms Poor data quality, interpretation may be adversely affected Sinus tachycardia with Premature atrial complexes with Aberrant conduction Possible Anterior infarct , age undetermined Abnormal ECG When compared with ECG of 14-MAY-2020 20:56, Aberrant conduction is now Present Referred By: Marsha Harrell Electronically Signed By:TRENT CORBETT
[2023-10-07 19:49] VITALS: BP 162/71; BP 167/81; PULSE 100; PULSE 95; RESP 16; TEMP 36.7; O2SAT 94; O2SAT 95; BMI 17.4
--- NOTE | 2023-10-07 19:49 | ED_ITS ---
HPI - General Adult General Chief complaint: Weakness Stated complaint: WEAKNESS Time Seen by Provider: 10/07/23 19:41 Source: patient, EMS and old records reviewed Mode of arrival: EMS Limitations: no limitations History of Present Illness ED Provider: DR. 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 No dysuria or frequency urination. No abdominal pain. Related Data Home Medications ?Medication ?Instructions ?Recorded ?Confirmed amlodipine 5 mg tablet 5 mg PO DAILY 05/15/20 06/10/23 atorvastatin 10 mg tablet (Lipitor) 10 mg PO DAILY 05/15/20 06/10/23 clopidogrel 75 mg tablet (Plavix) 75 mg PO DAILY 05/15/20 06/10/23 Allergies Allergy/AdvReac Type Severity Reaction Status Date / Time aspirin [Aggrenox] AdvReac Unknown stomach Verified 10/07/23 19:52 upset dipyridamole [Aggrenox] AdvReac Unknown stomach Verified 10/07/23 19:52 upset Review of Systems 2 Review of Systems: All other systems are reviewed and are negative Constitutional: Reports as per HPI and Reports no additional constitutional complaints Eyes: Reports as per HPI and Reports no additional eye complaints Reports system reviewed and no additional complaints, except as documented Cardiovascular: Reports as per HPI and Reports no additional cardiovascular complaints Respiratory: Reports as per HPI and Reports no additional respiratory complaints Gastrointestinal: Reports as per HPI and Reports no additional gastrointestinal complaints Genitourinary: Reports no additional female genitourinary complaints Musculoskeletal: Reports no additional musculoskeletal complaints Skin/Breast: Reports system reviewed and no additional complaints, except as docu Psychiatric: Reports no additional psychiatric complaints Endocrine: Reports no additional endocrine complaints Hematologic/Lymphatic: Reports no additional hematologic/lymphatic complaints Allergic/Immunologic: Reports no additional allergic/immunologic complaints Reports system reviewed and no additional complaints, except as documented and Reports Abnormal speech present [facility] Past Medical History Medical History Multifactorial dementia Laceration of scalp (~06/11/23) History of stroke Hyperlipidemia HTN (hypertension) Weakness Social History Social History Household Members: None Housing: House Do you presently have visiting nurse or other home services: Yes (pt has private duty helpers.) Alcohol intake: never Comment: 1: 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 Blood pressure elevated. Heart rate normal. Respiratory rate normal. Temperature normal. Oxygen saturation normal. Appearance: Alert. Oriented X2. No acute distress. Head: Normal external exam. Normocephalic. Atraumatic. No Gibbons signs noted. No raccoon eyes noted Eyes: PERRLA. EOMI. Conjunctiva and sclera normal. Eyelids normal. ENT: TM's Normal. Pharynx normal. Uvula midline. Moist mucous membranes. No trismus noted. No drooling noted. No muffled voice noted. Neck: Normal inspection. Neck supple. FROM. No adenopathy. Thyroid Normal. No meningeal signs. No neck mass noted. CVS: Normal heart rate and rhythm. Heart sound normal. No murmurs noted. Pulses normal throughout. Respiratory: No respiratory distress. Painless inspiration. Breath sounds normal. No wheezes/rales/rhonchi noted. Chest nontender. No accessory muscle usage noted or decreased air movement noted. Abdomen: Soft and nontender. Bowel sounds normal in all 4 quadrants. No distention noted. No organomegaly noted. No visible injury noted. Back: No CVA tenderness. Full range of motion noted. Skin: Skin warm and dry. Normal skin color. Normal skin turgor. No rashes/lesions/lacerations noted. Extremities: No lower extremity edema. Extremities exhibit normal range of motion. Extremities nontender. Neuro: Oriented X 2. Cranial nerve exam: II-XII are grossly intact No motor deficit. No sensory deficit. Reflexes normal. Course Reevaluation(s) Reevaluation #1: 88-year-old female came in with generalized weakness and failure to do not if patient met criteria for SIRS without severe sepsis or septic shock, patient also is positive for COVID. 1. Ceftriaxone IV/IV hydration. 2. COVID-19 infection will be under isolation. 3. Failure to thrive will need long-term placement for manage her acute condition. Time: 22:52 Medications Administered Discontinued Medications Generic Name Dose Route Start Last Admin Trade Name Freq PRN Reason Stop Dose Admin Acetaminophen 650 mg 10/07/23 21:01 10/07/23 21:33 Acetaminophen 325 Mg Tablet PO 10/07/23 21:02 650 mg ONCE ONE Administration Sodium Chloride 1,000 mls @ 999 mls/hr 10/07/23 19:46 10/07/23 20:10 Ns IV 10/07/23 20:46 999 mls/hr .Q1H1M ONE Administration Ceftriaxone Sodium 1 gm/ 50 mls @ 100 mls/hr 10/07/23 19:47 10/07/23 21:28 Sodium Chloride IV 10/07/23 20:16 Infused ONCE ONE Infusion Medical Decision Making Differential Diagnosis Differential Diagnoses: The differential diagnosis associated with the presentation includes (UTI, SIRS, pneumonia, pneumothorax, pleural effusion, electrolyte derangement, severe anemia.) Admission/Observation Consideration of admission/observation: Escalation of care including admission/observation considered Consult Healthcare Provider Management of the patient was discussed with: Hospitalist (Dr. Simmons) Lab Data MDM Lab Attestation statement: I reviewed the patient's lab results. 10/07/23 20:44 10/07/23 20:44 Labs: Lab Results 10/07/23 10/07/23 10/07/23 Range/Units 20:44 20:49 20:59 WBC 14.2 H (4.8-10.8) X10*3/uL RBC 3.80 L (4.20-5.50) X10*6/uL Hgb 11.5 L (12.0-16.0) g/dl Hct 34.5 L (37.0-47.0) % MCV 90.8 (80.0-98.0) fL MCH 30.3 (27.0-33.0) pg MCHC 33.3 (31.0-35.0) g/dl RDW 15.1 (11.0-16.0) % Plt Count 265 (160-400) X10*3/uL MPV 9.3 L (9.4-12.3) fL Immature Gran % (Auto) 0.4 (0.0-0.4) % Neut % (Auto) 79.3 H (45-73) % Lymph % (Auto) 6.1 L (20-40) % [place] % (Auto) 11.4 H (2-11) % Eos % (Auto) 2.2 (0-4) % Baso % (Auto) 0.6 (0-2) % Lymph # (Auto) 0.9 L (1.2-4.9) X10*3/uL [place] # (Auto) 1.6 H (0.1-1.2) X10*3/uL Eos # (Auto) 0.3 (0.0-0.4) X10*3/uL Baso # (Auto) 0.1 (0.0-0.2) X10*3/uL Abs Immat Gran (auto) 0.06 H (0.00-0.03) X10*3/uL Absolute Neuts (auto) 11.2 H (2.0-8.3) x10*3/uL Absolute Nucleated RBC 0.000 (0.0-0.012) X10*3/uL Nucleated RBC % (auto) 0.0 (0.0-0.2) /100WBC Smear Tech's Comments VERIFIED Sodium 139 (135-145) mmol/L Potassium 4.1 D (3.3-5.1) mmol/L Chloride 107 (96-108) mmol/L Carbon Dioxide 25 (22-29) mmol/L Anion Gap 11 L (12-20) BUN 27 H (9-16) mg/dL Creatinine 0.72 (0.5-1.4) mg/dL Estim Creat Clear Calc 40.9 Estimated GFR > 60 Random Glucose 95 (60-115) mg/dL Lactic Acid 1.9 (0.5-2.0) mmol/L Calcium 9.5 (8.4-10.2) mg/dL Total Bilirubin 0.4 (0.0-1.0) mg/dL Direct Bilirubin 0.2 (0.0-0.5) mg/dL AST 18 (5-31) U/L ALT 8 (0-31) U/L Alkaline Phosphatase 105 (39-117) U/L Troponin I High Sens < 2.7 (<3.5-17.0) ng/L Total Protein 7.1 (6.5-8.0) g/dL Albumin 4.0 (3.5-5.0) g/dL Lipase 14 (8-78) U/L Urine Color Yellow Urine Appearance Cloudy Urine pH 6.5 (5.0-9.0) Ur Specific [place] 1.020 (1.005-1.025) Urine Protein Trace (Neg-Trace) mg/dL Urine Glucose (UA) Negative (Negative) mg/dL Urine Ketones Negative (Negative) mg/dL Urine Blood Negative (Negative) Urine Nitrite Positive H (Negative) Ur Leukocyte Esterase Moderate (2+) H (Negative) Urine RBC 0-2 (0-2) /HPF Urine WBC 6-10 (0-5) /HPF Ur Squamous Epith Cells 3-5 (0-2) /HPF Urine Bacteria 4+ (None Seen) Hyaline Casts 0-2 (0-2) /LPF Influenza Type A (PCR) NEGATIVE (Negative) Influenza Type B (PCR) NEGATIVE (Negative) RSV RNA Qual (PCR) NEGATIVE (Negative) SARS-CoV-2 RNA (RT-PCR) POSITIVE A (Negative) Independent Interpretation I performed an independent interpretation of an: Plain X-Ray Radiology Impression Discussion of test interpretation with radiology: I have reviewed the radiologist's reading. Discharge Plan Discharge Clinical Impression: SIRS (systemic inflammatory response syndrome), Acute UTI, COVID-19, Adult failure to thrive Patient Disposition: Admitted As Inpatient Print Language: Greek
[2023-10-07] MEDS: 0.9 % Sodium Chloride 1,000 ML 999 ML IV (20:10)
[2023-10-07] MEDS: cefTRIAXone sodium 1 GM in 0.9 % Sodium Chloride 50 ML IV (20:58)
[2023-10-07 21:02] VITALS: TEMP 38.2
[2023-10-07 21:06] LABS: Basophils Absolute Auto 0.1 X10*3/uL (0.0-0.2); Basophils Percent Auto 0.6 % (0-2); Eosinophils Absolute Auto 0.3 X10*3/uL (0.0-0.4); Eosinophils Percent Auto 2.2 % (0-4); Hematocrit 34.5 % (37.0-47.0); Hemoglobin 11.5 g/dl (12.0-16.0); Imm Gran Abs Auto 0.06 X10*3/uL (0.00-0.03); Imm Gran Pct Auto 0.4 % (0.0-0.4); Lymphocytes Absolute Auto 0.9 X10*3/uL (1.2-4.9); Lymphocytes Percent Auto 6.1 % (20-40); MANUAL DIFF FLAG SCAN; Mean Corpuscular HGB Conc 33.3 g/dl (31.0-35.0); Mean Corpuscular Hemoglobin 30.3 pg (27.0-33.0); Mean Corpuscular Volume 90.8 fL (80.0-98.0); Mean Platelet Volume 9.3 fL (9.4-12.3); Monocytes Absolute Auto 1.6 X10*3/uL (0.1-1.2); Monocytes Percent Auto 11.4 % (2-11); Neutrophils Absolute Auto 11.2 x10*3/uL (2.0-8.3); Neutrophils Percent Auto 79.3 % (45-73); Platelet Count 265 X10*3/uL (160-400); Red Cell Distribution Width 15.1 % (11.0-16.0); SCAN SMEAR FLAG 1; White Blood Count 14.2 X10*3/uL (4.8-10.8)
[2023-10-07 21:12] LABS: Lactic Acid 1.9 mmol/L (0.5-2.0)
[2023-10-07 21:19] LABS: Alanine Aminotransferase 8 U/L (0-31); Alkaline Phosphatase 105 U/L (39-117); Anion Gap 11 (12-20); Aspartate Amino Transferase 18 U/L (5-31); Bilirubin Direct 0.2 mg/dL (0.0-0.5); Bilirubin Total 0.4 mg/dL (0.0-1.0); Blood Urea Nitrogen 27 mg/dL (9-16); Calcium 9.5 mg/dL (8.4-10.2); Carbon Dioxide 25 mmol/L (22-29); Chloride 107 mmol/L (96-108); Creatinine Clr Calc Pharmacy 40.9; Estimated Glomerular Filt Rate > 60; Glucose Random 95 mg/dL (60-115); Lipase 14 U/L (8-78); Potassium 4.1 mmol/L (3.3-5.1); Sodium 139 mmol/L (135-145); Total Protein 7.1 g/dL (6.5-8.0)
[2023-10-07 21:23] LABS: Appearance Urine Cloudy; Color Urine Yellow; Glucose Urine UA Negative (Negative); Leukocyte Esterase Urine Moderate (2+) (Negative); Nitrite Urine Positive (Negative); PH 6.5 (5.0-9.0); UMIC TRIGGER UACC YES; Urine Blood Negative (Negative); Urine Ketones Negative (Negative); Urine Protein Trace mg/dL (Neg-Trace)
[2023-10-07 21:26] LABS: Troponin-I High Sensitivity < 2.7 ng/L (<3.5-17.0)
[2023-10-07] MEDS: Acetaminophen 325 MG TABLET 650 MG PO (21:33)
[2023-10-07 21:34] LABS: Influenza A PCR NEGATIVE (Negative); Influenza B PCR NEGATIVE (Negative); Resp Syncy Virus RNA Qual PCR NEGATIVE (Negative); SARS COV2 PCR INHOUSE POSITIVE (Negative)
[2023-10-07 22:09] VITALS: BP 147/113; PULSE 98; RESP 16; TEMP 37.2; O2SAT 95
[2023-10-07 22:10] LABS: SLIDE REVIEW VERIFIED
[2023-10-07 22:44] LABS: Bacteria Urine 4+ (None Seen); Hyaline Casts Urine 0-2 /LPF (0-2); RBC Urine 0-2 /HPF (0-2); UACC Culture Trigger YES
--- NOTE | 2023-10-07 23:33 | P.HPHOSP_ITS ---
History of Present Illness Date of Service: 10/07/23 Chief Complaint: Weakness This is a 88-year-old female with pertinent history of CVA with residual left- sided weakness, mixed hyperlipidemia, hypertension who presents to the emergency department evaluation of weakness. Patient states she was discharged from rehab facility this week. Patient states she has been having weakness which progressed on the day of presentation so much so that she could not walk. Also admits nonproductive cough. No fever or chills. Does have increased urinary frequency and change in urine odor. Reports history of recurrent UTIs in the past and was last treated about 3 weeks ago for UTI. No chest discomfort, palpitations, shortness of breath, abdominal pain, changes in bowel habits. In the emergency department, WBC found to be elevated and urine concerning for UTI. Patient tested positive for COVID-19 infection. Review of Systems 2 Constitutional: Constitutional: Reports fatigue, Reports malaise and Reports weakness Cardiovascular: Cardiovascular: Reports no additional cardiovascular complaints Respiratory: Respiratory: Reports cough Gastrointestinal: Gastrointestinal: Reports no additional gastrointestinal complaints Genitourinary: Genitourinary: Reports urinary urgency Neurologic: Reports weakness Endocrine: Endocrine: Reports fatigue [facility] Medical History Multifactorial dementia Laceration of scalp (~06/11/23) History of stroke Hyperlipidemia HTN (hypertension) Weakness Pertinent family history: Not significant due to age Social History Household Members: None Housing: House Do you presently have visiting nurse or other home services: Yes (pt has private duty helpers.) Alcohol intake: never 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: 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 Patient Tobacco Use Status: Former Tobacco user Tobacco use type: Cigarette Cigarettes Per Day: 30 Years Smoked: 45 Smoked in Last 30 Days: No Use of substances other than those prescribed or required for medical reasons: No Advance Directives: Yes Advance Directives on File: Yes Advance Directives Date on File: 05/20/20 service: No Current occupational status: retired Meds Allergies Allergy/AdvReac Type Severity Reaction Status Date / Time aspirin [Aggrenox] AdvReac Unknown stomach Verified 10/07/23 19:52 upset dipyridamole [Aggrenox] AdvReac Unknown stomach Verified 10/07/23 19:52 upset Home Medications ?Medication ?Instructions ?Recorded ?Confirmed ?Last Taken ?Type amlodipine 5 mg tablet 5 mg PO DAILY 05/15/20 06/10/23 06/10/23 10:00 History atorvastatin 10 mg tablet (Lipitor) 10 mg PO DAILY 05/15/20 06/10/23 06/10/23 10:00 History clopidogrel 75 mg tablet (Plavix) 75 mg PO DAILY 05/15/20 06/10/23 06/10/23 10:00 History Physical Exam 2 Vital Signs and Narrative: Vital Signs: Last Vital Signs Temp 98.9 F 10/07/23 22:09 Pulse 98 10/07/23 22:09 Resp 16 10/07/23 22:09 BP 147/113 H 10/07/23 22:09 Pulse Ox 95 10/07/23 22:09 O2 Del Method Room Air 10/07/23 22:09 BMI result Body Mass Index 17.4 Elderly female lying in bed in no distress Neck supple, no JVD Regular rate and rhythm, S1-S2 heard Regular breath sounds bilaterally, no wheezing or crackles appreciated Abdomen soft nontender, no guarding, no rigidity Patient is awake, alert and oriented to self, place, time and person, left-sided weakness+ Psych: Normal mood No pedal edema Results Labs 10/07/23 20:44 10/07/23 20:44 Labs: Laboratory Results - last 24 hr 10/07/23 10/07/23 10/07/23 20:44 20:49 20:59 MCV 90.8 MCH 30.3 MCHC 33.3 RDW 15.1 Plt Count 265 MPV 9.3 L Immature Gran % (Auto) 0.4 Neut % (Auto) 79.3 H Lymph % (Auto) 6.1 L [place] % (Auto) 11.4 H Eos % (Auto) 2.2 Baso % (Auto) 0.6 Lymph # (Auto) 0.9 L [place] # (Auto) 1.6 H Eos # (Auto) 0.3 Baso # (Auto) 0.1 Abs Immat Gran (auto) 0.06 H Absolute Neuts (auto) 11.2 H Absolute Nucleated RBC 0.000 Nucleated RBC % (auto) 0.0 Smear Tech's Comments VERIFIED Anion Gap 11 L Estim Creat Clear Calc 40.9 Estimated GFR > 60 Random Glucose 95 Lactic Acid 1.9 Calcium 9.5 Total Bilirubin 0.4 Direct Bilirubin 0.2 AST 18 ALT 8 Alkaline Phosphatase 105 Troponin I High Sens < 2.7 Total Protein 7.1 Albumin 4.0 Lipase 14 Urine Color Yellow Urine Appearance Cloudy Urine pH 6.5 Ur Specific [place] 1.020 Urine Protein Trace Urine Glucose (UA) Negative Urine Ketones Negative Urine Blood Negative Urine Nitrite Positive H Ur Leukocyte Esterase Moderate (2+) H Urine RBC 0-2 Urine WBC 6-10 Ur Squamous Epith Cells 3-5 Urine Bacteria 4+ Hyaline Casts 0-2 Influenza Type A (PCR) NEGATIVE Influenza Type B (PCR) NEGATIVE RSV RNA Qual (PCR) NEGATIVE SARS-CoV-2 RNA (RT-PCR) POSITIVE A Imaging Radiologist's Impressions: Impressions Chest X-Ray 10/07/23 19:48 IMPRESSION: No acute abnormality of chest. Electronically signed by: Philippe Chappell MD 10/07/2023 11:00 PM EDT RP Assessment and Plan (1) Acute UTI: Status: Acute (2) COVID-19: Status: Acute (3) SIRS (systemic inflammatory response syndrome): Status: Acute Plan This is a 88-year-old female with pertinent history of CVA with residual left- sided weakness, mixed hyperlipidemia, hypertension who presents to the emergency department evaluation of weakness. #. Sepsis due to COVID-19 infection and acute UTI: Resuscitated with IV crystalloids. Initiating empiric IV ceftriaxone. Lactic acid and blood culture obtained. Follow urine culture. #. Generalized weakness in the setting of above. May need physical therapy if weakness persists after resolution of acute infection #. History of CVA/mixed hyperlipidemia: On Plavix and statin #. Hypertension: On amlodipine #. Protein calorie malnutrition: Consulting nutrition Med rec pending DVT prophylaxis: Lovenox DNR/DNI. Discussed with patient at bedside Admit as inpatient and will require two night minimum hospital stay for IV antibiotics (as above), which is not possible in a lesser acute setting. Quality Stroke Does the patient have a stroke diagnosis?: No VTE Prior VTE?: No VTE Risk Level:: Medical - moderate - high VTE Device Contraindication: Treatment Not Indicated VTE Drug Contraindication: N/A - Med Ordered
[2023-10-08] VITALS (7 sets, daily range): BP systolic 131–177; BP diastolic 59–77; PULSE 67–96; RESP 14–20; TEMP 36.4–36.9; O2SAT 95–97
[2023-10-08] MEDS: Enoxaparin Sodium 40 MG/0.4 ML SYRINGE SUBCUT (02:26)
[2023-10-08 05:02] LABS: Basophils Absolute Auto 0.1 X10*3/uL (0.0-0.2); Basophils Percent Auto 0.5 % (0-2); Eosinophils Absolute Auto 0.3 X10*3/uL (0.0-0.4); Eosinophils Percent Auto 1.9 % (0-4); Hematocrit 32.9 % (37.0-47.0); Hemoglobin 10.8 g/dl (12.0-16.0); Imm Gran Abs Auto 0.05 X10*3/uL (0.00-0.03); Imm Gran Pct Auto 0.3 % (0.0-0.4); Lymphocytes Absolute Auto 1.4 X10*3/uL (1.2-4.9); Lymphocytes Percent Auto 8.9 % (20-40); Mean Corpuscular HGB Conc 32.8 g/dl (31.0-35.0); Mean Corpuscular Hemoglobin 30.3 pg (27.0-33.0); Mean Corpuscular Volume 92.4 fL (80.0-98.0); Mean Platelet Volume 9.1 fL (9.4-12.3); Monocytes Absolute Auto 2.4 X10*3/uL (0.1-1.2); Neutrophils Absolute Auto 11.7 x10*3/uL (2.0-8.3); Neutrophils Percent Auto 73.4 % (45-73); Platelet Count 234 X10*3/uL (160-400); Red Blood Count 3.56 X10*6/uL (4.20-5.50); Red Cell Distribution Width 14.8 % (11.0-16.0); SCAN SMEAR FLAG 1; White Blood Count 15.9 X10*3/uL (4.8-10.8)
[2023-10-08 05:03] LABS: MANUAL DIFF FLAG SCAN
[2023-10-08 05:22] LABS: Anion Gap 11 (12-20); Blood Urea Nitrogen 22 mg/dL (9-16); Carbon Dioxide 21 mmol/L (22-29); Chloride 110 mmol/L (96-108); Creatinine Clr Calc Pharmacy 43.9; Estimated Glomerular Filt Rate > 60; Glucose Random 105 mg/dL (60-115); Potassium 3.9 mmol/L (3.3-5.1); Sodium 138 mmol/L (135-145)
[2023-10-08 05:28] LABS: SLIDE REVIEW VERIFIED
--- NOTE | 2023-10-08 08:05 | HO.PM.IMPN ---
Subjective Subjective Date of Service: 10/08/23 Interval History: Seen in follow up for COVID19, UTI, sepsis Interval history: Feeling better, still globally weak. Intermittent cough. No sob/chest pain. Sepsis resolved though still with leukocytosis Review of Systems Review of Systems: Yes all other systems are reviewed and are negative Physical Exam Vital Signs: Vital Signs: Last Vital Signs Temp 98.4 F 10/08/23 06:04 Pulse 67 10/08/23 06:04 Resp 16 10/08/23 06:04 BP 137/63 10/08/23 06:04 Pulse Ox 97 10/08/23 06:04 O2 Del Method Room Air 10/08/23 06:04 BMI result Body Mass Index 17.4 Constitutional - Awake and Alert, No apparent distress Eyes - PERRLA, EOMI Cardiovascular - S1S2, RRR, No edema Respiratory - Normal lung expansion, Normal respiratory effort, No respiratory distress, CTA bilaterally Gastrointestinal - NT / ND; +BS; No rebound or guarding Extremities - no calf tenderness bilaterally, no swelling Skin - Warm/Dry Neurological - Alert & oriented x3 Psychological - Appropriate affect Objective Data Active Medications Acetaminophen (Acetaminophen 325 Mg Tablet) 650 mg PO Q6H PRN PRN Reason: Pain, Mild (Pain Scale 1-3), fever or headache Benzonatate (Benzonatate 100 Mg Capsule) 200 mg PO TID PRN PRN Reason: Cough Calcium Carbonate (Calcium Carbonate 750 Mg Tab.Chew) 750 mg PO Q4H PRN PRN Reason: Heartburn Enoxaparin Sodium (Enoxaparin Sodium 40 Mg/0.4 Ml Syringe) 40 mg SUBCUT Q24H [facility] Last Admin: 10/08/23 02:26 Dose: 40 mg Documented By: LASHAY Ceftriaxone Sodium 1 gm/ (Sodium Chloride) 50 mls @ 100 mls/hr IV Q24H [facility] Magnesium Hydroxide (Milk Of Magnesia 30 Ml Oral.Susp) 30 ml PO DAILY PRN PRN Reason: Constipation Melatonin (Melatonin 3 Mg Tablet) 6 mg PO BEDTIME PRN PRN Reason: Insomnia Ondansetron HCl (Ondansetron Hcl 4 Mg/2 Ml Vial) 4 mg IVPUSH Q8H PRN PRN Reason: Nausea and Vomiting Sodium Chloride (0.9 % Sodium Chloride Flush 3 Ml Syringe) 3 ml IVFLUSH QSHIFT [facility] Last Admin: 10/08/23 02:13 Dose: Not Given Documented By: LASHAY Non-Admin Reason: IV Running Labs 10/08/23 04:54 10/08/23 04:54 Labs: Laboratory Results - last 24 hr 10/07/23 10/07/23 10/07/23 20:44 20:49 20:59 MCV 90.8 MCH 30.3 MCHC 33.3 RDW 15.1 Plt Count 265 MPV 9.3 L Immature Gran % (Auto) 0.4 Neut % (Auto) 79.3 H Lymph % (Auto) 6.1 L [place] % (Auto) 11.4 H Eos % (Auto) 2.2 Baso % (Auto) 0.6 Lymph # (Auto) 0.9 L [place] # (Auto) 1.6 H Eos # (Auto) 0.3 Baso # (Auto) 0.1 Abs Immat Gran (auto) 0.06 H Absolute Neuts (auto) 11.2 H Absolute Nucleated RBC 0.000 Nucleated RBC % (auto) 0.0 Smear Tech's Comments VERIFIED Anion Gap 11 L Estim Creat Clear Calc 40.9 Estimated GFR > 60 Random Glucose 95 Lactic Acid 1.9 Calcium 9.5 Total Bilirubin 0.4 Direct Bilirubin 0.2 AST 18 ALT 8 Alkaline Phosphatase 105 Troponin I High Sens < 2.7 Total Protein 7.1 Albumin 4.0 Lipase 14 Urine Color Yellow Urine Appearance Cloudy Urine pH 6.5 Ur Specific [place] 1.020 Urine Protein Trace Urine Glucose (UA) Negative Urine Ketones Negative Urine Blood Negative Urine Nitrite Positive H Ur Leukocyte Esterase Moderate (2+) H Urine RBC 0-2 Urine WBC 6-10 Ur Squamous Epith Cells 3-5 Urine Bacteria 4+ Hyaline Casts 0-2 Influenza Type A (PCR) NEGATIVE Influenza Type B (PCR) NEGATIVE RSV RNA Qual (PCR) NEGATIVE SARS-CoV-2 RNA (RT-PCR) POSITIVE A 10/08/23 04:54 MCV 92.4 MCH 30.3 MCHC 32.8 RDW 14.8 Plt Count 234 MPV 9.1 L Immature Gran % (Auto) 0.3 Neut % (Auto) 73.4 H Lymph % (Auto) 8.9 L [place] % (Auto) 15.0 H Eos % (Auto) 1.9 Baso % (Auto) 0.5 Lymph # (Auto) 1.4 [place] # (Auto) 2.4 H Eos # (Auto) 0.3 Baso # (Auto) 0.1 Abs Immat Gran (auto) 0.05 H Absolute Neuts (auto) 11.7 H Absolute Nucleated RBC 0.000 Nucleated RBC % (auto) 0.0 Smear Tech's Comments VERIFIED Anion Gap 11 L Estim Creat Clear Calc 43.9 Estimated GFR > 60 Random Glucose 105 Lactic Acid Calcium 9.0 Total Bilirubin Direct Bilirubin AST ALT Alkaline Phosphatase Troponin I High Sens Total Protein Albumin Lipase Urine Color Urine Appearance Urine pH Ur Specific [place] Urine Protein Urine Glucose (UA) Urine Ketones Urine Blood Urine Nitrite Ur Leukocyte Esterase Urine RBC Urine WBC Ur Squamous Epith Cells Urine Bacteria Hyaline Casts Influenza Type A (PCR) Influenza Type B (PCR) RSV RNA Qual (PCR) SARS-CoV-2 RNA (RT-PCR) Assessment and Plan (1) Adult failure to thrive: Status: Acute (2) COVID-19: Status: Acute (3) Acute UTI: Status: Acute (4) SIRS (systemic inflammatory response syndrome): Status: Acute Plan 88-year-old female with pertinent history of CVA with residual left-sided weakness, mixed hyperlipidemia, hypertension admitted for UTI, COVID-19, and sepsis #sepsis -due to covid-19 and uti -resolved 10/07 #UTI -UA with 2+ leuks, +nitrites, 4+ bacteria -IV ctx (initiated 10/06) -wbc 14.23 --> 15.9 -Follow cbc, cultures #COVID-19 -symptomatically improving, no hypoxia -symptomatic management -airborne/contact precautions #Generalized weakness in the setting of above -pt eval #History of CVA/mixed hyperlipidemia -continue Plavix and statin #Hypertension -continue amlodipine #protein calorie malnutrition -Consulting nutrition DVT prophylaxis: Lovenox DNR/DNI. Discussed with patient at bedside Pt requires ongoing inpt stay due to UTI on IV abx awaiting cultures and pt eval given significant weakness, awaiting dispo for safe dc Quality Stroke Does the patient have a stroke diagnosis?: No VTE Prior VTE?: No VTE Risk Level:: Medical - moderate - high VTE Device Contraindication: Treatment Not Indicated VTE Drug Contraindication: N/A - Med Ordered
[2023-10-08] MEDS: 0.9 % Sodium Chloride Flush 3 ML SYRINGE IVFLUSH ×2 (08:47→15:29)
--- NOTE | 2023-10-08 09:04 | PHA.MEDREC ---
Pharmacy Consult ? Medication Reconciliation Pharmacy has completed the medication reconciliation. Spoke to patient and confirmed medication list. Patient said she also takes multivitamin 1 tab daily and apap arthritis 1 tab daily. She said she also takes vitamin B12 but doesn't know the dose so it was not put into home med list. Last dose of medications was taken yesterday.
[2023-10-08] MEDS: amLODIPine Besylate 5 MG TABLET PO (11:42)
[2023-10-08] MEDS: Clopidogrel Bisulfate 75 MG TABLET PO (11:43)
--- NOTE | 2023-10-08 11:48 | PC.NURSE ---
Assumed care of this patient at 1100, patient resting quietly in bed, am meds medicated per MAR, elder advocate Saundra at bedside with numerous questions, all questions answered. PT at bedside to work with patient.
--- NOTE | 2023-10-08 15:09 | MHC.CLN ---
NUTRITION CONSULT FOR MALNUTRITION. DIET LIBERALIZED FROM CARDIAC TO REGULAR TO PROMOTE PO INTAKE. ADDED ENSURE TID TO INCREASE NUTRITIONAL INTAKE. SUPPLEMENT PROVIDES 1050 KCALS, 60 G PROTEIN. PRIOR ADM 06/08, THEN PATIENT IN REHAB X 4 MONTHS. SHOWS FAVORABLE WEIGHT GAIN X 4 MONTHS, +11.6%. CONTINUES UNDERWEIGHT WITH BMI=17.4. CLINICAL NUTRITION ASSESSMENT TO BE COMPLETED UPON ADMISSION.
--- NOTE | 2023-10-08 22:33 | PC.NURSE ---
Patient found at end of stretcher, IV line self removed, tele leads wrapped around neck, purewick on floor. Patient initially confused, then remembering she is in [facility]. New IV line placed, patient repositioned in bed, new purewick applied, IV abx hung.
[2023-10-08] MEDS: cefTRIAXone sodium 1 GM in 0.9 % Sodium Chloride 50 ML IV (22:34)
--- NOTE | 2023-10-08 22:46 | PC.NURSE ---
distillation operator helper made aware of patient's confusion, patient's room to be changed once new room available.
[2023-10-09] VITALS (7 sets, daily range): BP systolic 141–188; BP diastolic 74–96; PULSE 77–99; RESP 20; TEMP 36.4–36.8; O2SAT 93–96
[2023-10-09] MEDS: Enoxaparin Sodium 40 MG/0.4 ML SYRINGE SUBCUT ×2 (01:20→22:57)
[2023-10-09] MEDS: LORazepam 2 MG/ML VIAL 1 MG IVPUSH (02:37)
--- NOTE | 2023-10-09 07:53 | PC.NURSE ---
Patient admitted from the ER around 0200. Patient is very confused upon arrival, was impulsive and wanted to leave the bed to go home. Dr Simmons was made aware and patient received 1 mg iv ativan with good relief. Patient is on room air with decreased breath sounds. NSR on tele. Skin intact except scabbed areas on UE. CVM at bed side for safety.
[2023-10-09] MEDS: Clopidogrel Bisulfate 75 MG TABLET PO (08:56)
[2023-10-09] MEDS: Multivitamin TABLET 1 TAB PO (08:56)
[2023-10-09] MEDS: Atorvastatin Calcium 10 MG TABLET PO (08:56)
[2023-10-09] MEDS: amLODIPine Besylate 5 MG TABLET PO (08:56)
[2023-10-09] MEDS: 0.9 % Sodium Chloride Flush 3 ML SYRINGE IVFLUSH ×2 (08:57→16:35)
--- NOTE | 2023-10-09 10:28 | P.PNIM_ITS ---
Subjective Subjective Date of Service: 10/09/23 Interval History: Being followed for sepsis due to COVID and UTI Denies shortness of breath, no pain, requiring help for feedings, more awake alert today, offers no acute complaints Review of Systems All other system reviewed and negative. Physical Exam 2 Vital Signs: Vital Signs: Last Vital Signs Temp 97.5 F 10/09/23 07:36 Pulse 81 10/09/23 07:36 Resp 20 10/09/23 07:36 BP 169/74 H 10/09/23 07:36 Pulse Ox 95 10/09/23 07:36 O2 Del Method Room Air 10/09/23 07:36 BMI result Body Mass Index 17.4 Const: Other: General in no acute distress. Neck no JVD. CVS regular rate rhythm, Respiratory lungs clear to auscultation, no respiratory distress, no wheeze, no rhonchi. Gastrointestinal abdomen soft, non tender, bowel sounds audible, Extremities no edema. Neuro speech clear, awake alert x3. Skin no rash Objective Data Active Medications Acetaminophen (Acetaminophen 325 Mg Tablet) 650 mg PO Q6H PRN PRN Reason: Pain, Mild (Pain Scale 1-3), fever or headache Amlodipine Besylate (Amlodipine Besylate 5 Mg Tablet) 5 mg PO DAILY COUNTS INCLUDE 234 BEDS AT THE [facility]; Protocol Last Admin: 10/09/23 08:56 Dose: 5 mg Documented By: MARGO Atorvastatin Calcium (Atorvastatin Calcium 10 Mg Tablet) 10 mg PO DAILY COUNTS INCLUDE 234 BEDS AT THE [facility] Last Admin: 10/09/23 08:56 Dose: 10 mg Documented By: MARGO Benzonatate (Benzonatate 100 Mg Capsule) 200 mg PO TID PRN PRN Reason: Cough Calcium Carbonate (Calcium Carbonate 750 Mg Tab.Chew) 750 mg PO Q4H PRN PRN Reason: Heartburn Clopidogrel Bisulfate (Clopidogrel Bisulfate 75 Mg Tablet) 75 mg PO DAILY COUNTS INCLUDE 234 BEDS AT THE [facility] Last Admin: 10/09/23 08:56 Dose: 75 mg Documented By: MARGO Enoxaparin Sodium (Enoxaparin Sodium 40 Mg/0.4 Ml Syringe) 40 mg SUBCUT Q24H COUNTS INCLUDE 234 BEDS AT THE [facility] Last Admin: 10/09/23 01:20 Dose: 40 mg Documented By: JODIE Ceftriaxone Sodium 1 gm/ (Sodium Chloride) 50 mls @ 100 mls/hr IV Q24H COUNTS INCLUDE 234 BEDS AT THE [facility] Last Infusion: 10/08/23 23:38 Dose: Infused Documented By: GLENISTOTEMI Magnesium Hydroxide (Milk Of Magnesia 30 Ml Oral.Susp) 30 ml PO DAILY PRN PRN Reason: Constipation Melatonin (Melatonin 3 Mg Tablet) 6 mg PO BEDTIME PRN PRN Reason: Insomnia Multivitamins/Vitamin C (Multivitamin Tablet) 1 tab PO DAILY COUNTS INCLUDE 234 BEDS AT THE [facility] Last Admin: 10/09/23 08:56 Dose: 1 tab Documented By: MARGO Ondansetron HCl (Ondansetron Hcl 4 Mg/2 Ml Vial) 4 mg IVPUSH Q8H PRN PRN Reason: Nausea and Vomiting Sodium Chloride (0.9 % Sodium Chloride Flush 3 Ml Syringe) 3 ml IVFLUSH QSHIFT COUNTS INCLUDE 234 BEDS AT THE [facility] Last Admin: 10/09/23 08:57 Dose: 3 ml Documented By: MARGO Labs 10/08/23 04:54 10/08/23 04:54 Microbiology Microbiology Results: Microbiology 10/07/23 20:59 Urine Culture - Preliminary Urine clean catch - Clean Catch Midstream Gram negative basilio 10/07/23 20:49 Blood Culture - Preliminary Blood - Venous No growth after 24 hours. 10/07/23 20:00 Blood Culture - Preliminary Blood - Venous No growth after 24 hours. 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 #History of CVA/mixed hyperlipidemia -continue Plavix and statin #Hypertension -continue amlodipine, follow BP # moderate protein calorie malnutrition -Consulting nutrition DVT prophylaxis: Lovenox DNR/DNI. Pt requires ongoing inpt stay due to UTI on IV abx awaiting cultures and pt eval given significant weakness, awaiting dispo for safe dc Quality Stroke Does the patient have a stroke diagnosis?: No VTE Prior VTE?: No VTE Risk Level:: Medical - moderate - high VTE Device Contraindication: Treatment Not Indicated VTE Drug Contraindication: N/A - Med Ordered
--- NOTE | 2023-10-09 16:11 | MHC.CM.PN ---
PT ADMITTED WITH COVID 19 AND CONFUSION CM CALLED PTS DAUGHTER/HCP, ELLY ABBOTT [phone] SHE REPORTS THE PT WAS AT [facility] AFTER HER DC IN MAY SHE SAYS SHE DISCHARGED [place] AND WS ONLY THERE 36 HOURS BEFORE BEING SENT TO THE HOSPITAL ELLY SAYS SHE KNEW IT WAS NOT A GOOD IDEA, BUT HER MOTHER INSISTED ON COMING HOME SHE SAYS THEY ARRANGED 24/7 CARE FOR HER AND SHE WAS SUPPOSED TO AMBULATE WITH A WALKER AND SOMEONE BEHIND HER AT ALL TIMES, BUT DID NOT. SHE SAYS WITHIN 15 MINUTES OF RETURNING HOME, HER MOTHER WAS TRYING TO AMBULATE INDEPENDENTLY ELLY SAYS SHE IS UNSURE WHAT THE [facility]PC PLANS WILL BE FOR HER MOTHER, BUT FOR NOW SHE HOPES SHE CAN RETURN TO [facility] HCP ON FILE PCP: GARRICK HERNANDEZ IMM DELIVERED AND EMAILED TO HER AT [email or web address] DCP: [facility] PREFERRED [facility]LS TRANSPORT
[2023-10-09] MEDS: cefTRIAXone sodium 1 GM in 0.9 % Sodium Chloride 50 ML IV (22:08)
[2023-10-10] MEDS: 0.9 % Sodium Chloride Flush 3 ML SYRINGE IVFLUSH ×2 (00:01→08:53)
[2023-10-10] MEDS: Melatonin 3 MG TABLET 6 MG PO (00:07)
[2023-10-10] MEDS: Acetaminophen 325 MG TABLET 650 MG PO (00:08)
--- OUTSIDE RECORDS SUMMARY | 2023-10-10 00:24 | XMS_ITS | Continuity of Care Document ---
Author Organization [facility] Address [address] [place] [address]- Care Team Providers Care Immersion Metalcleaner Name Role Phone Shlomo HUTCHINSON, Uli Barnes Primary Care Physician [phone] Encounter [facility] Date(s): 10/01/22 - 10/31/22 [facility] [address] [place], [place] [address] Allergies, Adverse Reactions, Alerts No Known Allergies Immunizations Given and Recorded Vaccine Date Status Refusal Reason influenza virus vaccine, inactivated 10/29/21 Juan rded influenza virus vaccine, inactivated 1 11/11/17 Gi lissette [id number] 12y+ bivalent booster vax 10/29/21 Recorded SARS-CoV-2 (COVID-19) mRNA BNT-162b2 vac 02/22/21 Recorded SARS-CoV-2 (COVID-19) mRNA BNT-162b2 vac 04/10/20 Recorded SARS-CoV-2 (COVID-19) mRNA BNT-162b2 vac 03/14/20 Recorded SARS-CoV-2 (COVID-19) mRNA BNT-162b2 vac 02/22/20 Recorded pneumococcal 13-valent vaccine 05/26/18 Recorded tetanus-diphtheria toxoids (Td) 2 05/18/18 Given 1Result Comment: [11/11/2017] [id number] 2Result Comment: patient received a TD injection. she tolterated procedure well with no complaints. DIGITAL OPERATIONS ANALYST NDC: [address]-3 Medications amLODIPine 5 mg oral tablet 1 tablet, By Mouth, Daily, # 90 tablet, 1 Refills, Maintenance, 08/31/22 21:56:00 EDT, 169, cm, 08/27/22 15:02:00 EDT, Height Start Date: 08/31/22 Status: Ordered atorvastatin 10 mg oral tablet 1 tablet, By Mouth, Daily, # 90 tablet, 1 Refills, Maintenance, 08/31/22 21:58:00 EDT, [facility] # 302, 169, cm, 08/27/22 15:02:00 EDT, Height Start Date: 08/31/22 Status: Ordered clopidogrel 75 mg oral tablet 1, tablet, By Mouth, Daily, # 90 tablet, Refills 3, Maintenance, 09/01/22 12:38:00 EDT, Route to Pharmacy Electronically, [facility] #[id number], 169, cm, 08/27/22 15:02:00 EDT, Height Start Date: 09/01/22 Status: Ordered Compression Stockings See Instructions, # 1 pair, Refills 1, Tot. Refills 1, Maintenance, surgical, calf length 20-30 mm Hg, 10/28/17 13:55:25 EDT, Compound Start Date: 10/28/17 Status: Ordered lidocaine 5% topical film 1 patch, Topically, Daily, PRN Pain , Mild, remove after 12 hours, # 13 each, 0 Refills, Acute 06/10/23 15:18:00 EDT, 06/13/22 16:16:00 EDT, Film, [facility] # 302, Partial fill upon patient request if the prescription is for a schedule II opioid... Start Date: 06/13/22 Stop Date: 06/10/23 Status: Ordered pneumococcal 23-polyvalent vaccine injectable solution 0.5 mL, Intramuscular, Once, # 0.5 mL, 0 Refills, Soft Stop, 12/04/19 11:37:00 EDT, Solution, [facility], 0.5 mL Intramuscular Once, 169, cm, 08/09/18 10:33:00 EDT, Height Start Date: 12/04/19 Status: Ordered potassium chloride 20 mEq oral powder for reconstitution See Instructions, DISSOLVE AND TAKE 1 PACKET BY MOUTH EVERY DAY, # 30 pack/packet, 5 Refills, Maintenance, 10/13/22 10:38:00 EDT, [facility] #[facility], 169, cm, 09/29/22 15:58:00 EDT, Height Start Date: 10/13/22 Status: Ordered potassium chloride 20 mEq oral powder for reconstitution 1 pack/packet, By Mouth, Daily, # 30 pack/packet, 3 Refills, Maintenance, 06/11/22 15:47:00 EDT, [facility] #9, 169, cm, 05/14/22 13:31:00 EDT, Height Start Date: 06/11/22 Status: Ordered Prevnar 13 intramuscular suspension 0.5 mL, Intramuscular, Once, # 1 each, 0 Refills, Soft Stop, 05/18/18 13:01:10 EDT, Suspension, 0.5mL Intramuscular Once Start Date: 05/18/18 Status: Ordered Readi-Cat 2 Smoothie Perez 2% oral suspension See Instructions, Take one bottle 6 hours before and one bottle [address] can, # 2 each, 0 Refills, Maintenance, 10/01/22 16:44:00 EDT, [id number], Partial fill upon patient request if the prescription is for a schedule... Start Date: 10/01/22 Status: Ordered Vitamin B12 0 Refills, Maintenance, 05/31/20 14:12:00 EDT, Partial fill upon patient request if the prescription is for a schedule II opioid drug. Start Date: 05/31/20 Status: Ordered Walker See Instructions, # 1 each, Maintenance, Use to prevent falls. Dx: General weakness M62.81, 05/18/18 13:09:17 EDT, Compound Start Date: 05/18/18 Status: Ordered Problem List Condition Confirmation Course Effective Dates Status Health St atus Informant Carotid artery stenosis Confirmed Active Frail elderly Confirmed Active Hypertension Confirmed 2004 Active Recurrent falls while walking Confirmed Active Syncope Confirmed Active TIA (transient ischemic attack) Confirmed Active Underweight Confirmed Active Social History Social History Type Response Smoking Status Former smoker; Other : quit 2004; Number of years: 49; entered on: 07/26/17 Sex Patient Care team information Care Team Personnel Name: Uli Keenan MD Position: S Physician - Primary Care Member Role: PCP Address: Address: [address] [place] [address] Adult & [place] [address]- Care Team Related Persons Name: ELLY ABBOTT Address: home [address] [place] [id number] Name: TRENT CHAVARRIA Address: home [address] [place] [address]
--- OUTSIDE RECORDS SUMMARY | 2023-10-10 00:24 | XMS_ITS | Continuity of Care Document ---
Author Organization [facility] Address [address] [place] [address]- Care Team Providers Care Liaison Officer Name Role Phone Steven HUTCHINSON, Delbert Primary Care Physician [place] [facility] Date(s): 05/10/20 - 09/07/20 [facility] [address] [place] [address]- Attending Physician: Rajwinder Cardona NP Admitting Physician: Rajwinder Cardona NP Referring Physician: Rajwinder Cardona NP Allergies, Adverse Reactions, Alerts Substance Reaction Severity Status NKA Active Immunizations Given and Recorded Vaccine Date Status Refusal Reason SARS-CoV-2 (COVID-19) mRNA BNT-162b2 vac 03/14/20 Recorded SARS-CoV-2 (COVID-19) mRNA BNT-162b2 vac 02/22/20 Recorded pneumococcal 13-valent vaccine 05/26/18 Recorded tetanus-diphtheria toxoids (Td) 1 05/18/18 Given influenza virus vaccine, inactivated 2 11/11/17 Gi lissette 1Result Comment: patient received a TD injection. she tolterated procedure well with no complaints. [place]ER [place]: [id number] 2Result Comment: [11/11/2017] [id number] Medications amLODIPine 5 mg oral tablet 1 tablet, By Mouth, Daily, # 90 tablet, 0 Refills, Maintenance, 09/03/20 14:57:00 EDT, [facility] #[id number] Start Date: 09/03/20 Status: Ordered atorvastatin 10 mg oral tablet See Instructions, TAKE ONE TABLET BY MOUTH ONCE DAILY, # 90 tablet, 0 Refills, Maintenance, [facility] #[id number], 169, cm, 08/09/18 10:33:00 EDT, Height Start Date: 05/16/20 Status: Ordered clopidogrel 75 mg oral tablet 75 mg, 1, tablet, By Mouth, Daily, # 90 tablet, Refills 3, Tot. Refills 3, Maintenance, 11/07/19 14:04:00 EDT, Route to Pharmacy Electronically, [facility] # 302, 169, cm, 08/09/18 10:33:00 EDT,Height Start Date: 11/07/19 Status: Ordered Compression Stockings See Instructions, # 1 pair, Refills 1, Tot. Refills 1, Maintenance, surgical, calf length 20-30 mm Hg, 10/28/17 13:55:25 EDT, Compound Start Date: 10/28/17 Status: Ordered pneumococcal 23-polyvalent vaccine injectable solution 0.5 mL, Intramuscular, Once, # 0.5 mL, 0 Refills, Soft Stop, 12/04/19 11:37:00 EDT, Solution, [facility] #[facility], 0.5 mL Intramuscular Once, 169, cm, 08/09/18 10:33:00 EDT, Height Start Date: 12/04/19 Status: Ordered potassium chloride 20 mEq oral powder for reconstitution 1 pack/packet, By Mouth, Daily, # 30 each, 11 Refills, Maintenance, 05/31/20 14:21:00 EDT, REC Powder, [facility] #[facility], Partial fill upon patient request if the prescription is for a schedule II opioid drug., 169, cm, 08/09/18 10:33:00 EDT, He... Start Date: 05/31/20 Status: Ordered Prevnar 13 intramuscular suspension 0.5 mL, Intramuscular, Once, # 1 each, 0 Refills, Soft Stop, 05/18/18 13:01:10 EDT, Suspension, 0.5mL Intramuscular Once Start Date: 05/18/18 Status: Ordered Vitamin B12 0 Refills, Maintenance, 05/31/20 14:12:00 EDT, Partial fill upon patient request if the prescription is for a schedule II opioid drug. Start Date: 05/31/20 Status: Ordered Walker See Instructions, # 1 each, Maintenance, Use to prevent falls. Dx: General weakness M62.81, 05/18/18 13:09:17 EDT, Compound Start Date: 05/18/18 Status: Ordered Problem List Condition Effective Dates Status Health Status Inform ant Carotid artery stenosis(Confirmed) Active Hypertension(Confirmed) 2004 Active Syncope(Confirmed) Active TIA (transient ischemic attack)(Confirmed) Active Social History Social History Type Response Smoking Status Former smoker; Other : quit 2004; Number of years: 49; entered on: 07/26/17 Sex
--- OUTSIDE RECORDS SUMMARY | 2023-10-10 00:25 | XMS_ITS | Continuity of Care Document ---
Author Organization [facility] Address [address] [place] [address]- Care Team Providers Care X Ray Equipment Tester Name Role Phone Jeff Rico MD Primary Care Physician Encounter [facility] Date(s): 05/31/20 - 06/07/20 [facility] [address] [place], [place] [address] Encounter Diagnosis Rhabdomyolysis(Discharge Diagnosis) - 05/31/20 Attending Physician: Jeff Rico MD Allergies, Adverse Reactions, Alerts Substance Reaction Severity [...] she tolterated procedure well with no complaints. CUSTOMER DEVELOPMENT REPRESENTATIVE NDC: [address]-1 2Result Comment: [11/11/2017] [id number] Medications amLODIPine 5 mg oral tablet See Instructions, TAKE ONE TABLET BY MOUTH ONCE DAILY, # 90 tablet, 0 Refills, Maintenance, [facility] #[id number], 169, cm, 08/09/18 10:33:00 EDT, Height Start Date: 05/10/20 Status: Ordered atorvastatin 10 mg oral tablet See Instructions, TAKE ONE TABLET BY MOUTH ONCE DAILY, # 90 tablet, 0 Refills, Maintenance, [facility] #[id number], 169, cm, 08/09/18 10:33:00 EDT, Height Start Date: 05/16/20 Status: Ordered clopidogrel 75 mg oral tablet 75 mg, 1, tablet, By Mouth, Daily, # 90 tablet, Refills 3, Tot. Refills 3, Maintenance, 11/07/19 14:04:00 EDT, Route to Pharmacy Electronically, [facility] # 302, 169, cm, 08/09/18 [...] Syncope(Confirmed) Active TIA (transient ischemic attack)(Confirmed) Active Diagnosis Diagnosis Type Effective Dates Health Status Cl inical Service Informant Rhabdomyolysis Discharge Diagnosis 05/31/20 Social History Social History Type Response Smoking Status Former smoker; Other : quit 2004; Number of years: 49; entered on: 07/26/17 Sex
--- OUTSIDE RECORDS SUMMARY | 2023-10-10 00:25 | XMS_ITS | Continuity of Care Document ---
Author Organization [facility] Address [address] [place] [address]- Care Team Providers Care Studio Camera Operator Name Role Phone Jeff Rico MD Primary Care Physician Encounter [facility] [id number] Date(s): 12/04/19 - 12/11/19 [facility] [address] [place] [address]- [facility] Encounter Diagnosis TIA (transient ischemic attack)(Discharge Diagnosis) - 12/04/19 Carotid artery stenosis(Discharge Diagnosis) - 12/04/19 Hypertension(Discharge Diagnosis) - 12/04/19 Cerumen impaction(Discharge Diagnosis) - 12/04/19 Attending Physician: Jeff Rico MD Allergies, Adverse Reactions, Alerts Substance Reaction Severity Status NKA Active Immunizations Given and Recorded Vaccine Date Status Refusal Reason pneumococcal 13-valent vaccine 05/26/18 Recorded tetanus-diphtheria toxoids (Td) 1 05/18/18 Given influenza virus vaccine, inactivated 2 11/11/17 Gi lissette 1Result Comment: patient received a TD injection. she tolterated procedure well with no complaints. [place]: [address]-7 2Result Comment: [11/11/2017] [id number] Medications amLODIPine 5 mg oral tablet 5 mg, 1, tablet, By Mouth, Daily, # 90 tablet, Refills 3, Tot. Refills 3, Maintenance, 05/11/19 13:10:00 EDT, Route to Pharmacy Electronically, [facility] # 302, 169, cm, 08/09/18 10:33:00 EDT, Height, 55, kg, 09/30/17 20:32:00 EDT, Dry Weight Start Date: 05/11/19 Status: Ordered atorvastatin 10 mg oral tablet 1 tablet = 10 mg, By Mouth, Daily, # 90 tablet, 3 Refills, Maintenance, 05/11/19 13:10:00 EDT, Tablet, [facility] # 302, 169, cm, 08/09/18 10:33:00 EDT, Height, 55, kg, 09/30/17 20:32:00 EDT, Dry Weight Start Date: 05/11/19 Status: Ordered clopidogrel 75 mg oral tablet 75 mg, 1, tablet, By Mouth, Daily, # 90 tablet, Refills 3, Tot. Refills 3, Maintenance, 11/07/19 14:04:00 EDT, Route to Pharmacy Electronically, [facility] # 302, 169, cm, 08/09/18 10:33:00 [...] EDT, Height Start Date: 12/04/19 Status: Ordered Prevnar 13 intramuscular suspension 0.5 mL, Intramuscular, Once, # 1 each, 0 Refills, Soft Stop, 05/18/18 13:01:10 EDT, Suspension, 0.5mL Intramuscular Once Start Date: 05/18/18 Status: Ordered Walker See Instructions, # 1 each, Maintenance, Use to prevent falls. Dx: General weakness M62.81, 05/18/18 13:09:17 EDT, Compound Start Date: 05/18/18 Status: Ordered Problem List Condition Effective Dates Status Health Status Inform ant Carotid artery stenosis(Confirmed) Active Hypertension(Confirmed) 2004 Active Syncope(Confirmed) Active TIA (transient ischemic attack)(Confirmed) Active Diagnosis Diagnosis Type Effective Dates Health Status Clinical Service Informant TIA (transient ischemic attack) Discharge Diagnosis 12/04/19 Carotid artery stenosis Discharge Diagnosis 12/04/19 Hypertension Discharge Diagnosis 12/04/19 Cerumen impaction Discharge Diagnosis 12/04/19 Social History Social History Type Response Smoking Status Former smoker; Other : quit 2004; Number of years: 49; entered on: 07/26/17 Sex
--- OUTSIDE RECORDS SUMMARY | 2023-10-10 00:25 | XMS_ITS | Continuity of Care Document ---
Author Organization [facility] Address [address] [place] [address]- Care Team Providers Care Flow Worker Name Role Phone Uli Keenan MD Primary Care Physician Encounter [facility] [place] Date(s): 02/26/23 - 03/28/23 [facility] [address] [place], [place] [address] Allergies, Adverse Reactions, Alerts No Known Allergies Immunizations Given and Recorded Vaccine Date Status Refusal Reason pneumococcal 20-valent conjugate vaccine 01/20/23 Given influenza virus vaccine, inactivated 11/30/22 Juan rded influenza virus vaccine, inactivated 10/29/21 Juan rded influenza virus vaccine, inactivated 1 11/11/17 Gi lissette SARS-CoV-2(COVID-19)mRNA-LNP vac([id number]) 11/30/22 Recorded [id number] 12y+ bivalent booster vax 10/29/21 Recorded SARS-CoV-2 (COVID-19) mRNA BNT-162b2 vac 02/22/21 Recorded SARS-CoV-2 (COVID-19) mRNA BNT-162b2 vac 04/10/20 Recorded SARS-CoV-2 (COVID-19) mRNA BNT-162b2 vac 03/14/20 Recorded SARS-CoV-2 (COVID-19) mRNA BNT-162b2 vac 02/22/20 Recorded pneumococcal 13-valent vaccine 05/26/18 Recorded tetanus-diphtheria toxoids (Td) 2 05/18/18 Given 1Result Comment: [11/11/2017] [id number] 2Result Comment: patient received a TD injection. she tolterated procedure well with no complaints. LOCAL SALES MANAGER NDC: [address]-9 Medications amLODIPine 5 mg oral tablet 1 tablet, By Mouth, Daily, # 90 tablet, 1 Refills, Maintenance, 02/26/23 0:56:00 EST, [facility] # 302, 169, cm, 01/20/23 9:08:00 EST, Height Start Date: 02/26/23 Status: Ordered atorvastatin 10 mg oral tablet 1 tablet, By Mouth, Daily, # 90 tablet, 1 Refills, Maintenance, 02/26/23 0:56:00 EST, [facility] # 302, 169, cm, 01/20/23 9:08:00 EST, Height Start Date: 02/26/23 Status: Ordered clopidogrel 75 mg oral tablet 1, tablet, By Mouth, Daily, # 90 tablet, Refills 3, Maintenance, 09/01/22 12:38:00 EDT, Route to Pharmacy Electronically, [facility] #[id number], 169, cm, 08/27/22 15:02:00 EDT, Height Start [...] 06/10/23 15:18:00 EDT, 06/13/22 16:16:00 EDT, Film, [facility] # 302, Partial fill upon patient request if the prescription is for a schedule II opioid... Start Date: 06/13/22 Stop Date: 06/10/23 Status: Ordered Prevnar 13 intramuscular suspension 0.5 [...] Team Personnel Name: Uli Keenan MD Position: [facility] Physician - Primary Care Member Role: PCP Address: Address: [address] [place] [address] Adult [place] [address]- Care Team Related Persons Name: ELLY ABBOTT Address: home [address] [place] [address] Name: TRENT CHAVARRIA Address: home [address] [place] [address]
--- OUTSIDE RECORDS SUMMARY | 2023-10-10 00:25 | XMS_ITS | Continuity of Care Document ---
Author Organization [facility] Address [address] [place] [address]- Care Team Providers Care Jet Aircraft Servicer Name Role Phone Delbert Harris MD Primary Care Physician Encounter [place] Date(s): 05/12/22 - 06/12/22 [facility] [address] [place], [place] [address] Attending Physician: Virgie Boyer DO Allergies, Adverse Reactions, Alerts No Known Allergies Immunizations Given and Recorded Vaccine Date Status Refusal Reason influenza virus vaccine, inactivated 10/29/21 Juan rded influenza virus vaccine, inactivated 1 11/11/17 Gi lissette [id number] 12y+ bivalent booster vax 10/29/21 Recorded SARS-CoV-2 (COVID-19) mRNA BNT-162b2 vac 02/22/21 Recorded SARS-CoV-2 (COVID-19) mRNA BNT-162b2 vac 04/10/20 Recorded SARS-CoV-2 (COVID-19) mRNA BNT-162b2 vac 03/14/20 Recorded SARS-CoV-2 (COVID-19) mRNA BNT-162b2 vac 02/22/20 Recorded pneumococcal 13-valent vaccine 05/26/18 Recorded tetanus-diphtheria toxoids (Td) 2 05/18/18 Given 1Result Comment: [11/11/2017] [id number] 2Result Comment: patient received a TD injection. she tolterated procedure well with no complaints. 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: [address]-8 Medications amLODIPine 5 mg oral tablet 1 tablet, By Mouth, Daily, # 90 tablet, 0 Refills, Maintenance, 06/04/22 11:57:00 EDT, [facility] #[id number], 169, cm, 05/14/22 13:31:00 EDT, Height Start Date: 06/04/22 Status: Ordered atorvastatin 10 mg oral tablet 1 tablet, By Mouth, Daily, # 90 tablet, 0 Refills, Maintenance, 06/04/22 11:57:00 EDT, [facility] #[id number], 169, cm, 05/14/22 13:31:00 EDT, Height Start Date: 06/04/22 Status: Ordered clopidogrel 75 mg oral tablet 1, tablet, By Mouth, Daily, # 90 tablet, Refills 0, Maintenance, 06/04/22 11:57:00 EDT, Route to Pharmacy Electronically, [facility] #[id number], 169, cm, 05/14/22 13:31:00 EDT, Height Start Date: 06/04/22 Status: Ordered Compression Stockings See Instructions, # 1 pair, Refills 1, Tot. Refills 1, Maintenance, surgical, calf length 20-30 mm Hg, 10/28/17 13:55:25 EDT, Compound Start Date: 10/28/17 Status: Ordered lidocaine 5% topical film 1 patch, Topically, Daily, PRN Pain , Mild, remove after 12 hours, # 13 each, 0 Refills, Acute 06/13/22 16:16:00 EDT, 05/27/22 16:16:00 EDT, Film, [facility] # 302, Partial fill upon patient request if the prescription is for a schedule II opioid... Start Date: 05/27/22 Stop Date: 06/13/22 Status: Ordered lidocaine 5% topical film 1 patch, Topically, Daily, PRN Pain , Mild, remove after 12 hours, # 13 each, 0 Refills, Acute 06/10/23 15:18:00 EDT, 06/13/22 16:16:00 EDT, Film, [facility] # 302, Partial fill upon [...] atus Informant Carotid artery stenosis Confirmed Active Hypertension Confirmed 2004 Active Syncope Confirmed Active TIA (transient ischemic attack) Confirmed Active Underweight Confirmed Active Social History Social History Type Response Smoking Status Former smoker; Other : quit 2004; Number of years: 49; entered on: 07/26/17 Sex Patient Care team information Care Team Personnel Name: Delbert Harris MD Position: S Primary Care Physician Member Role: PCP Address: Address: [address] [place] [address] Adult & Pediatric Medicine [place], [place] [address] Care Team Related Persons Name: ELLY ABBOTT Address: home [address] [place] [address] Name: TRENT CHAVARRIA Address: home [address] [place] [address]
--- OUTSIDE RECORDS SUMMARY | 2023-10-10 00:25 | XMS_ITS | Continuity of Care Document ---
Author Organization [facility] Address [address] [place] [address]- Care Team Providers Care Baggage Agent Name Role Phone Jeff Rico MD Primary Care Physician [phone] [place] [facility] [id number] Date(s): 02/28/20 - 03/06/20 [facility] [address] [place], [place] [address] Attending Physician: Not on Staff, Attending MD Allergies, Adverse Reactions, Alerts Substance Reaction Severity Status NKA Active Immunizations Given and Recorded Vaccine Date Status Refusal Reason pneumococcal 13-valent vaccine 05/26/18 Recorded tetanus-diphtheria toxoids (Td) 1 05/18/18 Given influenza virus vaccine, inactivated 2 11/11/17 Gi lissette 1Result Comment: patient received a TD injection. she tolterated procedure well with no complaints. 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 Refills 3, Maintenance, 05/11/19 13:10:00 EDT, Route to Pharmacy Electronically, [facility] # 302, 169, cm, 08/09/18 10:33:00 EDT, Height, 55, kg, 09/30/17 20:32:00 EDT, Dry Weight Start Date: 05/11/19 Status: Ordered atorvastatin 10 mg oral tablet 1 tablet = 10 mg, By Mouth, Daily, # 90 tablet, 3 Refills, Maintenance, 05/11/19 13:10:00 EDT, Tablet, [facility] # 302, 169, cm, 08/09/18 10:33:00 EDT, Height, 55, kg, 09/30/17 20:32:00 EDT, Dry Weight Start Date: 05/11/19 Status: Ordered clopidogrel 75 mg oral tablet 75 mg, 1, tablet, By Mouth, Daily, # 90 tablet, Refills 3, Tot. Refills 3, Maintenance, 11/07/19 14:04:00 EDT, Route to Pharmacy Electronically, [facility] # 302, 169, cm, 08/09/18 10:33:00 [...]
--- OUTSIDE RECORDS SUMMARY | 2023-10-10 00:25 | XMS_ITS | Continuity of Care Document ---
Author Organization [facility] Address [address] [place] [address]- Care Team Providers Care Mining Helper Name Role Phone Steven HUTCHINSON, Delbert Primary Care Physician [phone] Encounter [facility] Date(s): 08/13/20 - 09/12/20 [facility] [address] [place], [place] [address] Attending Physician: Carmen Mayes Admitting Physician: AdmtrCarmen Referring Physician: Admtr, Ar8 Allergies, Adverse Reactions, Alerts Substance Reaction Severity [...] she tolterated procedure well with no complaints. 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 Refills 3, Maintenance, 11/07/19 14:04:00 EDT, Route to Pharmacy Electronically, [facility] # 302, 169, cm, 08/09/18 10:33:00 [...]
--- OUTSIDE RECORDS SUMMARY | 2023-10-10 00:25 | XMS_ITS | Continuity of Care Document ---
Author Organization [facility] Address [address] [place] [address]- Care Team Providers Care Manager Production Name Role Phone Steven HUTCHINSON, Delbert Primary Care Physician [place] [facility] [place]21 [facility] [address] [place], [place] [address] Allergies, Adverse Reactions, Alerts No Known [...] she tolterated procedure well with no complaints. CONVENTION SERVICES MANAGER [place]: [id number] 2Result Comment: [11/11/2017] [id number] Medications amLODIPine 5 mg oral tablet 1 tablet, By Mouth, Daily, # 90 tablet, 11 Refills, Maintenance, 02/26/21 13:34:00 EST, [facility] # 302 Start Date: 02/26/21 Status: Ordered atorvastatin 10 mg oral tablet 1 tablet, By Mouth, Daily, # 90 tablet, 11 Refills, Maintenance, 02/26/21 13:34:00 EST, [facility] # 302 Start Date: 02/26/21 Status: Ordered clopidogrel 75 mg oral tablet 75 mg, 1, tablet, By Mouth, Daily, # 90 tablet, Refills 11, Tot. Refills 11, Maintenance, 02/26/21 13:34:00 EST, Route to Pharmacy Electronically, [facility] # 302 Start Date: 02/26/21 Status: Ordered Compression Stockings See Instructions, # [...]
--- OUTSIDE RECORDS SUMMARY | 2023-10-10 00:25 | XMS_ITS | Continuity of Care Document ---
Author Organization [facility] Address [address] [place] [address]- Care Team Providers Care Officer Lieutenant Name Role Phone Uli Keenan MD Primary Care Physician [phone] Encounter [facility] [place]CT R [id number] Date(s): 09/29/22 - 10/06/22 [facility] [address] [place], [place] [address] Attending Physician: Uli Keenan MD Allergies, Adverse Reactions, Alerts No Known Allergies Immunizations Given and Recorded Vaccine Date Status Refusal Reason influenza virus vaccine, inactivated 10/29/21 Juan rded influenza virus vaccine, inactivated 1 11/11/17 Gi lissette [id number] 12y+ bivalent booster vax 10/29/21 Recorded SARS-CoV-2 (COVID-19) mRNA BNT-162b2 vac 02/22/21 Recorded SARS-CoV-2 (COVID-19) mRNA BNT-162b2 vac 04/10/20 Recorded SARS-CoV-2 (COVID-19) mRNA BNT-162b2 vac 03/14/20 Recorded SARS-CoV-2 (COVID-19) mRNA BNT-162b2 vac 02/22/20 Recorded pneumococcal 13-valent vaccine 05/26/18 Recorded tetanus-diphtheria toxoids (Td) 2 05/18/18 Given 1Result Comment: [11/11/2017] [id number] 2Result Comment: patient received a TD injection. she tolterated procedure well with no complaints. 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 NDC: [address]-2 Medications amLODIPine 5 mg oral tablet 1 tablet, By Mouth, Daily, # 90 tablet, 1 Refills, Maintenance, 08/31/22 21:56:00 EDT, 169, cm, 08/27/22 15:02:00 EDT, Height Start Date: 08/31/22 Status: Ordered atorvastatin 10 mg oral tablet 1 tablet, By Mouth, Daily, # 90 tablet, 1 Refills, Maintenance, 08/31/22 21:58:00 EDT, [facility] # 302, 169, cm, 08/27/22 15:02:00 EDT, Height Start Date: 08/31/22 Status: Ordered clopidogrel 75 mg oral tablet 1, tablet, By Mouth, Daily, # 90 tablet, Refills 3, Maintenance, 09/01/22 12:38:00 EDT, Route to Pharmacy Electronically, [facility] #[id number], 169, cm, 08/27/22 15:02:00 EDT, Height Start [...] 06/10/23 15:18:00 EDT, 06/13/22 16:16:00 EDT, Film, [facility] # 302, Partial fill upon patient [...] BY MOUTH EVERY DAY, # 30 pack/packet, 11 Refills, Maintenance, 07/20/22 16:36:00 EDT, [facility] #9, 169, cm, 07/20/22 16:17:00 EDT, Height Start Date: 07/20/22 Status: Ordered potassium chloride 20 mEq oral [...] ischemic attack) Confirmed Active Underweight Confirmed Active Vital Signs Most recent to oldest [Reference Range]: 1 Height 169 cm (09/29/22 3:58 PM) Weight 43.8 kg (09/29/22 3:58 PM) Oxygen Saturation [94-100 %] 95 % (09/29/22 3:58 PM) Pulse Rate [55-90 bpm] 90 bpm (09/29/22 3:58 PM) Body Mass Index [18.5-24.99 kg/m2] 15.34 kg/m2 *L* (09/29/22 3:58 PM) Blood Pressure [90-138/55-84 mm Hg] 148/ 70mm Hg *H* (09/29/22 3:58 PM) Mode of Delivery (Oxygen) Room air (09/29/22 3:58 PM) Blood pressure sites Arm, left (09/29/22 3:58 PM) Social History Social History Type Response Smoking Status Former smoker; Other : quit 2004; Number of years: 49; entered on: 07/26/17 Sex Note * Adriane Palacio: VERIFY, PERFORM, SIGN Event Display: Patient Education/Instruction Authored Date: [id number] [facility] *[facility] Clinical Summary Name VIRGINIA CHAVARRIA Age 87 Years 1935 PCP Uli Keenan MD PCP Visit Date 09/29/2022 15:34:00 Additional Instructions: Scheduled Appointments?? Future Appointments ?*No??[facility] ?[address]??[place],??[place],??[address] ?Phone:??--?Fax:??-- ?Appt. Date:??11/30/2022?2:00 PM ?Scheduled Provider:??Uli Keenan MD Follow-Up Instructions ?? Diagnosis Age-related physical debility; Dorsalgia, unspecified Medications: Please continue your medications until treatment is completed or stopped by your provider. Discuss any questions related to medications with your provider. Medications to Continue with No Changes These medications were not printed or sent to your pharmacy Amlodipine (amLODIPine 5 mg oral tablet) 1 tab(s) Oral Daily. Refills: 1. Next Dose: Atorvastatin (atorvastatin 10 mg oral tablet) 1 tab(s) Oral Daily. Refills: 1. Next Dose: Clopidogrel (clopidogrel 75 mg oral tablet) 1 tab(s) Oral Daily. Refills: 3. Next Dose: Cyanocobalamin (Vitamin B12) Next Dose: Durable Medical Equipment (Compression Stockings) surgical, calf length 20-30 mm Hg. Refills: 1. Next Dose: Durable Medical Equipment (Walker) Use to prevent falls. Dx: General weakness M62.81. Refills: 0. Next Dose: Lidocaine Topical (lidocaine 5% topical film) 1 patch(es) Topically Daily as needed Pain , Mild. remove after 12 hours. Refills: 0. Next Dose: pneumococcal 13-valent vaccine (Prevnar 13 intramuscular suspension) 0.5 Milliliter Intramuscular once. Refills: 0. Next Dose: Pneumococcal 23-Valent Vaccine (pneumococcal 23-polyvalent vaccine injectable solution) 0.5 Milliliter Intramuscular once. Refills: 0. Next Dose: Potassium Chloride (potassium chloride 20 mEq oral powder for reconstitution) 1 pack/packet Oral Daily. Refills: 3. Next Dose: Potassium Chloride (potassium chloride 20 mEq oral powder for reconstitution) DISSOLVE AND TAKE 1 PACKET BY MOUTH EVERY DAY. Refills: 11. Next Dose: Allergy Info:?? NKA Medications Given This Visit Future Orders ?No future orders Vital Signs Height 169 cm Weight 43.8 kg BMI 15.34 kg/m2 Blood Pressure 148 mm Hg/70 mm Hg Temperature Pulse Rate 90 bpm Respiratory Rate 02 Sat Mode of Delivery 95 %/Room air You can now view a summary of your hospital visit from the comfort of your home through a free online portal called [employer]. [employer] is a website that allows you to securely view your medical information including discharge summary, medications and follow-up visits. ??You can alsosend a secure electronic message to your doctor???s office to request appointments, renew medications or just ask a question. You can enroll at [email or web address] or register during your next office visit. Disclaimer:?? The information provided is of a general nature and is intended to be used in conjunction with the recommendations and advice of your health care practitioner. ??Every effort has been made to ensure that the information provided is accurate and complete at the time it is provided to you however, as your needs change, or, as new ??information becomes available, different or additional instructions may be required. If you have questions, please consult with your primary care provider or pharmacist, as appropriate. ??This information is not intended to serve as substitution for assessment and evaluation by a qualified health care provider. If you do not have a primary care provider, you may find a [facility] provider by calling [facility] [employer] at [phone]. For information about the plan of care including goals and instructions for your diagnosis, please see the patient education orders section of this document. Patient Education Materials?? The content of this educational material or handout may have been modified, supplemented, or adapted from its original content and format to support your individualized medical care. Patient Care team information Care Team Personnel Name: Uli Keenan MD Position: [facility] Physician - Primary Care Member Role: PCP Address: Address: [address] [place] [address] Adult [place] [address]- Care Team Related Persons Name: ELLY ABBOTT Address: home [address] [place] [id number] Name: TRENT CHAVARRIA Address: home [address] [place] [address]
--- OUTSIDE RECORDS SUMMARY | 2023-10-10 00:25 | XMS_ITS | Continuity of Care Document ---
Author Organization [facility] Address [address] [place] [address]- Care Team Providers Care Footwear Sales Representative Name Role Phone Jeff Rico MD Primary Care Physician [place] [facility] [place]07[place] 12/07/19 [facility] [address] [place] [address]- [facility] Allergies, Adverse Reactions, Alerts Substance Reaction Severity Status NKA Active Immunizations Given and Recorded Vaccine Date Status Refusal Reason pneumococcal 13-valent vaccine 05/26/18 Recorded tetanus-diphtheria toxoids (Td) 1 05/18/18 Given influenza virus vaccine, inactivated 2 11/11/17 Gi lissette 1Result Comment: patient received a TD injection. she tolterated procedure well with no complaints. 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 Refills 3, Maintenance, 05/11/19 13:10:00 EDT, Route to Pharmacy Electronically, [facility] # 302, 169, cm, 08/09/18 10:33:00 EDT, Height, 55, kg, 09/30/17 20:32:00 EDT, Dry Weight Start Date: 05/11/19 Status: Ordered atorvastatin 10 mg oral tablet 1 tablet = 10 mg, By Mouth, Daily, # 90 tablet, 3 Refills, Maintenance, 05/11/19 13:10:00 EDT, Tablet, [facility] # 302, 169, cm, 08/09/18 10:33:00 EDT, Height, 55, kg, 09/30/17 20:32:00 EDT, Dry Weight Start Date: 05/11/19 Status: Ordered clopidogrel 75 mg oral tablet 75 mg, 1, tablet, By Mouth, Daily, # 90 tablet, Refills 3, Tot. Refills 3, Maintenance, 11/07/19 14:04:00 EDT, Route to Pharmacy Electronically, [facility] # 302, 169, cm, 08/09/18 10:33:00 [...]
--- OUTSIDE RECORDS SUMMARY | 2023-10-10 00:25 | XMS_ITS | Continuity of Care Document ---
Author Organization [facility] Address [address] [place] [address]- Care Team Providers Care Instrument And Electrical Technician Name Role Phone Steven HUTCHINSON, Delbert Primary Care Physician Encounter [facility] [place] Date(s): 08/08/20 - 09/07/20 [facility] [address] [place], [place] [address] Attending Physician: Carmen Mayes Admitting Physician: AdmtrCarmen Referring Physician: Admtr ArPaulino Allergies, Adverse Reactions, Alerts Substance Reaction Severity [...] she tolterated procedure well with no complaints. MUSICIAN INSTRUMENTAL NDC: [address]-7 2Result Comment: [11/11/2017] [id number] Medications amLODIPine 5 mg oral tablet 1 tablet, By Mouth, Daily, # 90 tablet, 0 Refills, Maintenance, 09/03/20 14:57:00 EDT, [facility] #[id number] Start Date: 09/03/20 Status: Ordered atorvastatin 10 mg oral tablet See Instructions, TAKE ONE TABLET BY MOUTH ONCE DAILY, # 90 tablet, 0 Refills, Maintenance, [facility] #[id number], 169, cm, 08/09/18 10:33:00 EDT, Height Start Date: 05/16/20 Status: Ordered clopidogrel 75 mg oral tablet 75 mg, 1, tablet, By Mouth, Daily, # 90 tablet, Refills 3, Tot. Refills 3, Maintenance, 11/07/19 14:04:00 EDT, Route to Pharmacy Electronically, [facility] # [facility], 169, cm, 08/09/18 10:33:00 [...]
--- OUTSIDE RECORDS SUMMARY | 2023-10-10 00:25 | XMS_ITS | Continuity of Care Document ---
Author Organization [facility] Address [address] [place] [address]- Care Team Providers Care Resin Filterer Name Role Phone Uli Keenan MD Primary Care Physician Encounter [facility] [place] ACCT R [id number] Date(s): 08/27/22 - 09/03/22 [facility] [address] [place], [place] [address] Attending Physician: Uli Keenan MD Allergies, Adverse Reactions, Alerts No Known Allergies Immunizations Given and Recorded Vaccine Date Status Refusal Reason influenza virus vaccine, inactivated 10/29/21 Juan rded influenza virus vaccine, inactivated 1 11/11/17 Gi lissette [id number] 12y+ bivalent booster vax 10/29/21 Recorded SARS-CoV-2 (COVID-19) mRNA BNT-162b2 vac 02/22/21 Recorded SARS-CoV-2 (COVID-19) mRNA BNT-162b2 vac 04/10/20 Recorded SARS-CoV-2 (COVID-19) mRNA BNT-162b2 vac 03/14/20 Recorded SARS-CoV-2 (COVID-19) mRNA BNT-162b2 vac 02/22/20 Recorded pneumococcal 13-valent vaccine 05/26/18 Recorded tetanus-diphtheria toxoids (Td) 2 05/18/18 Given 1Result Comment: [11/11/2017] [id number] 2Result Comment: patient received a TD injection. she tolterated procedure well with no complaints. 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: [address]-2 Medications amLODIPine 5 mg oral tablet 1 tablet, By Mouth, Daily, # 90 tablet, 1 Refills, Maintenance, 08/31/22 21:56:00 EDT, [facility] # 302, 169, cm, 08/27/22 15:02:00 EDT, Height Start Date: 08/31/22 Status: Ordered atorvastatin 10 mg oral tablet 1 tablet, By Mouth, Daily, # 90 tablet, 1 Refills, Maintenance, 08/31/22 21:58:00 EDT, [facility] # 302, 169, cm, 08/27/22 15:02:00 EDT, Height Start Date: 08/31/22 Status: Ordered clopidogrel 75 mg oral tablet 1, tablet, By Mouth, Daily, # 90 tablet, Refills 3, Maintenance, 09/01/22 12:38:00 EDT, Route to Pharmacy Electronically, [facility] #[id number], 169, cm, 08/27/22 15:02:00 EDT, Height Start [...] 06/10/23 15:18:00 EDT, 06/13/22 16:16:00 EDT, Film, [facility] # 302, Partial fill upon patient [...] oldest [Reference Range]: 1 Height 169 cm (08/27/22 3:02 PM) Weight 44.6 kg (08/27/22 3:02 PM) Oxygen Saturation [94-100 %] 97 % (08/27/22 3:02 PM) Pulse Rate [55-90 bpm] 83 bpm (08/27/22 3:02 PM) Body Mass Index [18.5-24.99 kg/m2] 15.62 kg/m2 *L* (08/27/22 3:02 PM) Blood Pressure [90-138/55-84 mm Hg] 148/ 77mm Hg *H* (08/27/22 3:02 PM) Mode of Delivery (Oxygen) Room air (08/27/22 3:02 PM) Blood pressure sites Arm, left (08/27/22 3:02 PM) Weight Obtained Via Standing scale (08/27/22 3:02 PM) Social History Social History Type Response Smoking Status Former smoker; Other : quit 2004; Number of years: 50; entered on: 07/26/17 Sex Note * Anne-Marie Lopez: PERFORM, SIGN, VERIFY Event Display: Patient Education/Instruction Authored Date: [id number] [facility] *[facility] Clinical Summary Name VIRGINIA CHAVARRIA Age 87 Years 1935 PCP Uli Keenan MD PCP Visit Date 08/27/2022 14:51:00 Additional Instructions: Scheduled Appointments?? Future Appointments ?*No??[facility] ?[address]??[place],??[place],??[address] ?Phone:??--?Fax:??-- ?Appt. Date:??09/29/2022?3:40 PM ?Scheduled Provider:??Uli Keenan MD Follow-Up Instructions ?? Diagnosis Repeated falls; Age-related physical debility; Pleurodynia Medications: Please continue your medications until treatment is completed or stopped by your provider. Discuss any questions related to medications with your provider. Medications to Continue with No Changes These medications were not printed or sent to your pharmacy Amlodipine (amLODIPine 5 mg oral tablet) 1 tab(s) Oral Daily. Refills: 0. Next Dose: Atorvastatin (atorvastatin 10 mg oral tablet) 1 tab(s) Oral Daily. Refills: 0. Next Dose: Clopidogrel (clopidogrel 75 mg oral tablet) 1 tab(s) Oral Daily. Refills: 0. Next Dose: Cyanocobalamin (Vitamin B12) Next Dose: [...] NKA Medications Given This Visit Future Orders ?Ribs W/ PA Chest Left? Order Date:08/27/22?- Complete on or after?08/27/22 Vital Signs Height 169 cm Weight 44.6 kg BMI 15.62 kg/m2 Blood Pressure 148 mm Hg/77 mm Hg Temperature Pulse Rate 83 bpm Respiratory Rate 02 Sat Mode of Delivery 97 %/Room air You can now view a summary of your hospital visit from the comfort of your home through a free online portal called [employer]. [employer] is a website that allows you to securely view your medical information including discharge summary, medications and follow-up visits. ??You can alsosend a secure electronic message to your doctor???s office to request appointments, renew medications or just ask a question. You can enroll at [email or web address] or register during your next office [...] primary care provider, you may find a [facility] provider by calling [facility] at [phone]. For information about the plan of care [...] Team Personnel Name: Uli Keenan MD Position: [facility] Physician - Primary Care Member Role: PCP Address: Address: [address] [place] [address] Adult [place] [address]- Care Team Related Persons Name: ELLY ABBOTT Address: home [address] [place] [address] Name: TRENT CHAVARRIA Address: home [address] [place] [address]
--- OUTSIDE RECORDS SUMMARY | 2023-10-10 00:25 | XMS_ITS | Continuity of Care Document ---
Author Organization [facility] Address [address] [place] [address]- Care Team Providers Care Certified Nurse Midwife Name Role Phone Uli Keenan MD Primary Care Physician [place] [facility] [id number] Date(s): 01/25/23 - 02/01/23 [facility] [address] [place], [place] [address] Attending Physician: Not on Staff, Attending MD Referring Physician: Uli Keenan MD Allergies, Adverse Reactions, Alerts No Known Allergies Immunizations Given and Recorded Vaccine Date Status Refusal Reason pneumococcal 20-valent conjugate vaccine 01/20/23 Given influenza virus vaccine, inactivated 11/30/22 Juan rded influenza virus vaccine, inactivated 10/29/21 Juan rded influenza virus vaccine, inactivated 1 11/11/17 Gi lissette SARS-CoV-2(COVID-19)mRNA-LNP vac([id number]) 11/30/22 Recorded [id number] 12y+ bivalent booster vax 10/29/21 Recorded SARS-CoV-2 (COVID-19) mRNA BNT-162b2 vac 02/22/21 Recorded SARS-CoV-2 (COVID-19) mRNA BNT-162b2 vac 04/10/20 Recorded SARS-CoV-2 (COVID-19) mRNA BNT-162b2 vac 03/14/20 Recorded SARS-CoV-2 (COVID-19) mRNA BNT-162b2 vac 02/22/20 Recorded pneumococcal 13-valent vaccine 05/26/18 Recorded tetanus-diphtheria toxoids (Td) 2 05/18/18 Given 1Result Comment: [11/11/2017] [id number] 2Result Comment: patient received a TD injection. she tolterated procedure well with no complaints. SENIOR CLIMATE ADVISOR NDC: [address]-3 Medications amLODIPine 5 mg oral tablet 1 tablet, By Mouth, Daily, # 90 tablet, 1 Refills, Maintenance, 08/31/22 21:56:00 EDT, 169, cm, 08/27/22 15:02:00 EDT, Height Start Date: 08/31/22 Status: Ordered atorvastatin 10 mg oral tablet 1 tablet, By Mouth, Daily, # 90 tablet, 1 Refills, Maintenance, 08/31/22 21:58:00 EDT, [facility] # 302, 169, cm, 08/27/22 15:02:00 EDT, Height Start Date: 08/31/22 Status: Ordered clopidogrel 75 mg oral tablet 1, tablet, By Mouth, Daily, # 90 tablet, Refills 3, Maintenance, 09/01/22 12:38:00 EDT, Route to Pharmacy Electronically, [facility] #[id number], 169, cm, 08/27/22 15:02:00 EDT, Height Start [...] 06/10/23 15:18:00 EDT, 06/13/22 16:16:00 EDT, Film, [facility] # 302, Partial fill upon [...] Team Personnel Name: Uli Keenan MD Position: [facility] Physician - Primary Care Member Role: PCP Address: Address: [address] [place] [address] Adult & [place] [address]- Care Team Related Persons Name: ELLY ABBOTT Address: home [address] [place] [id number] Name: TRENT CHAVARRIA Address: home [address] [place] [address]
--- OUTSIDE RECORDS SUMMARY | 2023-10-10 00:25 | XMS_ITS | Continuity of Care Document ---
Author Organization [facility] Address [address] [place] [address]- Care Team Providers Care Custodian Name Role Phone Jeff Rico MD Primary Care Physician Encounter [facility] Date(s): 09/20/19 - 10/20/19 [facility] [address] [place] [address]- [facility] Allergies, Adverse Reactions, Alerts Substance Reaction Severity Status NKA Active Immunizations Given and Recorded Vaccine Date Status Refusal Reason tetanus-diphtheria toxoids (Td) 1 05/18/18 Given influenza virus vaccine, inactivated 2 11/11/17 Gi lissette 1Result Comment: patient received a TD injection. she tolterated procedure well with no complaints. VACUUM PAN TENDER NDC: [address]-9 2Result Comment: [11/11/2017] [id number] Medications amLODIPine 5 mg oral tablet 5 mg, 1, tablet, By Mouth, Daily, # 90 tablet, Refills 3, Tot. Refills 3, Maintenance, 05/11/19 13:10:00 EDT, Route to Pharmacy Electronically, [facility] # 302, 169, cm, 08/09/18 10:33:00 EDT, Height, 55, kg, 09/30/17 20:32:00 EDT, Dry Weight Start Date: 05/11/19 Status: Ordered atorvastatin 10 mg oral tablet 1 tablet = 10 mg, By Mouth, Daily, # 90 tablet, 3 Refills, Maintenance, 05/11/19 13:10:00 EDT, Tablet, [facility] # 302, 169, cm, 08/09/18 10:33:00 EDT, Height, 55, kg, 09/30/17 20:32:00 EDT, Dry Weight Start Date: 05/11/19 Status: Ordered clopidogrel 75 mg oral tablet 75 mg, 1, tablet, By Mouth, Daily, # 90 tablet, Refills 3, Tot. Refills 3, Maintenance, 11/09/18 16:03:20 EDT, Route to Pharmacy Electronically, [id number], [facility] # 302 Start Date: 11/09/18 Status: Ordered Compression Stockings See Instructions, # 1 pair, Refills 1, Tot. Refills 1, Maintenance, surgical, calf length 20-30 mm Hg, 10/28/17 13:55:25 EDT, Compound Start Date: 10/28/17 Status: Ordered Prevnar 13 intramuscular suspension 0.5 [...]
--- OUTSIDE RECORDS SUMMARY | 2023-10-10 00:25 | XMS_ITS | Continuity of Care Document ---
Author Organization [facility] Address [address] [place] [address]- Care Team Providers Care Loss Prevention And Safety Manager Name Role Phone Shlomo HUTCHINSON, Uli Barnes Primary Care Physician Encounter [facility] Date(s): 09/30/22 - 10/30/22 [facility] [address] [place], [place] [address] Allergies, Adverse Reactions, Alerts No Known Allergies Immunizations Given and Recorded Vaccine Date Status Refusal Reason influenza virus vaccine, inactivated 10/29/21 Juan rded influenza virus vaccine, inactivated 1 11/11/17 Gi lissette [id number] 12y+ bivalent booster vax 10/29/21 Recorded SARS-CoV-2 (COVID-19) mRNA BNT-162b2 vac 02/22/21 Recorded SARS-CoV-2 (COVID-19) mRNA BNT-162b2 vac 04/10/20 Recorded SARS-CoV-2 (COVID-19) mRNA BNT-162b2 vac 03/14/20 Recorded SARS-CoV-2 (COVID-19) mRNA BNT-162b2 vac 02/22/20 Recorded pneumococcal 13-valent vaccine 05/26/18 Recorded tetanus-diphtheria toxoids (Td) 2 05/18/18 Given 1Result Comment: [11/11/2017] [id number] 2Result Comment: patient received a TD injection. she tolterated procedure well with no complaints. CONCESSION STAND ATTENDANT NDC: [address]-8 Medications amLODIPine 5 mg oral tablet 1 tablet, By Mouth, Daily, # 90 tablet, 1 Refills, Maintenance, 08/31/22 21:56:00 EDT, 169, cm, 08/27/22 15:02:00 EDT, Height Start Date: 08/31/22 Status: Ordered atorvastatin 10 mg oral tablet 1 tablet, By Mouth, Daily, # 90 tablet, 1 Refills, Maintenance, 08/31/22 21:58:00 EDT, [facility] # 302, 169, cm, 08/27/22 15:02:00 EDT, Height Start Date: 08/31/22 Status: Ordered clopidogrel 75 mg oral tablet 1, tablet, By Mouth, Daily, # 90 tablet, Refills 3, Maintenance, 09/01/22 12:38:00 EDT, Route to Pharmacy Electronically, [facility] #[id number], 169, cm, 08/27/22 15:02:00 EDT, Height Start [...] 06/10/23 15:18:00 EDT, 06/13/22 16:16:00 EDT, Film, [facility] # 302, Partial fill upon patient [...] Primary Care Member Role: PCP Address: Address: [address] [place] [address] Adult [place] [address]- Care Team Related Persons Name: ELLY ABBOTT Address: home [address] [place] [address] Name: TRENT CHAVARRIA Address: [address] [place] [address]
--- OUTSIDE RECORDS SUMMARY | 2023-10-10 00:25 | XMS_ITS | Continuity of Care Document ---
Author Organization [facility] Address [address] [place] [address]- Care Team Providers Care Outbound Sales Professional Name Role Phone Steven HUTCHINSON, Delbert Primary Care Physician [phone] Encounter [facility] [place] Date(s): 06/12/21 - 07/12/21 [facility] [address] [place], [place] [address] Allergies, Adverse Reactions, Alerts No Known [...] she tolterated procedure well with no complaints. [place]: [id number] 2Result Comment: [11/11/2017] [id number] Medications amLODIPine 5 mg oral tablet 1 tablet, By Mouth, Daily, # 90 tablet, 11 Refills, Maintenance, 02/26/21 13:34:00 EST, [facility] # 302 Start Date: 02/26/21 Status: Ordered atorvastatin 10 mg oral tablet 1 tablet, By Mouth, Daily, # 90 tablet, 11 Refills, Maintenance, 02/26/21 13:34:00 EST, [facility] # 302 Start Date: 02/26/21 Status: Ordered clopidogrel 75 mg oral tablet 75 mg, 1, tablet, By Mouth, Daily, # 90 tablet, Refills 11, Tot. Refills 11, Maintenance, 02/26/21 13:34:00 EST, Route to Pharmacy Electronically, [facility] # 302 Start Date: 02/26/21 Status: [...] pack/packet, By Mouth, Daily, # 30 pack/packet, 11 Refills, [facility] #9 Start Date: 06/12/21 Status: Ordered Prevnar 13 intramuscular suspension 0.5 [...]
--- OUTSIDE RECORDS SUMMARY | 2023-10-10 00:25 | XMS_ITS | Continuity of Care Document ---
Author Organization [facility] Address [address] [place] [address]- Care Team Providers Care Retail Bakery Manager Name Role Phone Steven HUTCHINSON, Delbert Primary Care Physician [phone] [place] [facility]/15[place]22 - 06/14/22 [facility] [address] [place], [place] [address] Allergies, Adverse Reactions, Alerts No Known Allergies Immunizations Given and Recorded Vaccine Date Status Refusal Reason influenza virus vaccine, inactivated 10/29/21 Juan rded influenza virus vaccine, inactivated 1 11/11/17 Gi lissette [id number] 12y+ bivalent booster vax 10/29/21 Recorded SARS-CoV-2 (COVID-19) mRNA BNT-162b2 vac 02/22/21 Recorded SARS-CoV-2 (COVID-19) mRNA BNT-162b2 vac 04/10/20 Recorded SARS-CoV-2 (COVID-19) mRNA BNT-162b2 vac 03/14/20 Recorded SARS-CoV-2 (COVID-19) mRNA BNT-162b2 vac 02/22/20 Recorded pneumococcal 13-valent vaccine 05/26/18 Recorded tetanus-diphtheria toxoids (Td) 2 05/18/18 Given 1Result Comment: [11/11/2017] [id number] 2Result Comment: patient received a TD injection. she tolterated procedure well with no complaints. MANAGER TREASURY NDC: [address]-7 Medications amLODIPine 5 mg oral tablet 1 tablet, By Mouth, Daily, # 90 tablet, 0 Refills, Maintenance, 06/04/22 11:57:00 EDT, [facility] #[id number], 169, cm, 05/14/22 13:31:00 EDT, Height Start Date: 06/04/22 Status: Ordered atorvastatin 10 mg oral tablet 1 tablet, By Mouth, Daily, # 90 tablet, 0 Refills, Maintenance, 06/04/22 11:57:00 EDT, [facility] #[id number], 169, cm, 05/14/22 13:31:00 EDT, Height Start Date: 06/04/22 Status: Ordered clopidogrel 75 mg oral tablet 1, tablet, By Mouth, Daily, # 90 tablet, Refills 0, Maintenance, 06/04/22 11:57:00 EDT, Route to Pharmacy Electronically, [facility] #[id number], 169, cm, 05/14/22 13:31:00 EDT, Height Start [...] 06/10/23 15:18:00 EDT, 06/13/22 16:16:00 EDT, Film, [facility] # 302, Partial fill upon [...] Team Personnel Name: Delbert Harris MD Position: [facility] Primary Care Physician Member Role: PCP Address: Address: [address] [place] [address] Adult & [place] [address]- Care Team Related Persons Name: ELLY ABBOTT Address: home [address] [place] [address] Name: TRENT CHAVARRIA Address: home [address] [place] [address]
--- OUTSIDE RECORDS SUMMARY | 2023-10-10 00:25 | XMS_ITS | Continuity of Care Document ---
Author Organization [facility] Address [address] [place] [address]- Care Team Providers Care Assembler Ping Pong Table Name Role Phone Delbert Harris MD Primary Care Physician [place] [facility] [place] Date(s): 02/26/21 - 03/05/21 [facility] [address] [place], [place] [address] Encounter Diagnosis Hypertension(Discharge Diagnosis) - 02/26/21 Syncope(Discharge Diagnosis) - 02/26/21 TIA (transient ischemic attack)(Discharge Diagnosis) - 02/26/21 Poor fluid intake(Discharge Diagnosis) - 02/26/21 Attending Physician: Delbert Harris MD Allergies, Adverse Reactions, Alerts No Known [...] she tolterated procedure well with no complaints. MIXER OPERATOR ND: [id number] 2Result Comment: [11/11/2017] [id number] Medications amLODIPine 5 mg oral tablet 1 tablet, By Mouth, Daily, # 90 tablet, 11 Refills, Maintenance, 02/26/21 13:34:00 EST, [facility] # 302 Start Date: 02/26/21 Status: Ordered atorvastatin 10 mg oral tablet 1 tablet, By Mouth, Daily, # 90 tablet, 11 Refills, Maintenance, 02/26/21 13:34:00 EST, [facility] # 302 Start Date: 02/26/21 Status: Ordered clopidogrel 75 mg oral tablet 75 mg, 1, tablet, By Mouth, Daily, # 90 tablet, Refills 11, Tot. Refills 11, Maintenance, 02/26/21 13:34:00 EST, Route to Pharmacy Electronically, [facility] # 302 Start Date: 02/26/21 Status: [...] Effective Dates Health Status Clinical Service Informant Hypertension Discharge Diagnosis 02/26/21 Syncope Discharge Diagnosis 02/26/21 TIA (transient ischemic attack) Discharge Diagnosis 02/26/21 Poor fluid intake Discharge Diagnosis 02/26/21 Social History Social History Type Response Smoking Status Former smoker; Other : quit 2004; Number of years: 49; entered on: 07/26/17 Sex
--- OUTSIDE RECORDS SUMMARY | 2023-10-10 00:25 | XMS_ITS | Continuity of Care Document ---
Author Organization [facility] Address [address] [place] [address]- Care Team Providers Care Auto Mechanic Name Role Phone Steven HUTCHINSON, Delbert Primary Care Physician Encounter [facility] [place] Date(s): 04/04/21 - 05/04/21 [facility] [address] [place], [place] [address] Allergies, Adverse Reactions, Alerts No Known Allergies Immunizations Given and Recorded Vaccine Date Status Refusal Reason SARS-CoV-2 (COVID-19) mRNA BNT-162b2 vac 03/14/20 Recorded SARS-CoV-2 (COVID-19) mRNA BNT-162b2 vac 02/22/20 Recorded pneumococcal 13-valent vaccine 05/26/18 Recorded tetanus-diphtheria toxoids (Td) 1 05/18/18 Given influenza virus vaccine, inactivated 2 11/11/17 Gi lissette 1Result Comment: patient received a TD injection. she tolterated procedure well with no complaints. [place]: [id number] 2Result Comment: [11/11/2017] [id number] Medications amLODIPine 5 mg oral tablet 1 tablet, By Mouth, Daily, # 90 tablet, 11 Refills, Maintenance, 02/26/21 13:34:00 EST, [facility] # 302 Start Date: 02/26/21 Status: Ordered atorvastatin 10 mg oral tablet 1 tablet, By Mouth, Daily, # 90 tablet, 11 Refills, Maintenance, 02/26/21 13:34:00 EST, [facility] # 302 Start Date: 02/26/21 Status: Ordered clopidogrel 75 mg oral tablet 75 mg, 1, tablet, By Mouth, Daily, # 90 tablet, Refills 11, Tot. Refills 11, Maintenance, 02/26/21 13:34:00 EST, Route to Pharmacy Electronically, [facility] # 302 Start Date: 02/26/21 Status: [...]
--- OUTSIDE RECORDS SUMMARY | 2023-10-10 00:25 | XMS_ITS | Continuity of Care Document ---
Author Organization [facility] Address [address] [place] [address]- Care Team Providers Care Safety Assistant Name Role Phone Uli Keenan MD Primary Care Physician [place] [facility] [place] [id number] Date(s): 01/20/23 - 01/27/23 [facility] [address] [place], [place] [address] Attending Physician: Uli Keenan MD Allergies, Adverse Reactions, Alerts No Known Allergies Immunizations Given and Recorded Vaccine Date Status Refusal Reason pneumococcal 20-valent conjugate vaccine 01/20/23 Given influenza virus vaccine, inactivated 11/30/22 Juan rded influenza virus vaccine, inactivated 10/29/21 Juan rded influenza virus vaccine, inactivated 1 11/11/17 Gi lissette SARS-CoV-2(COVID-19)mRNA-LNP vac([id number]) 11/30/22 Recorded [id number] 12y+ bivalent booster vax 10/29/21 Recorded SARS-CoV-2 (COVID-19) mRNA BNT-162b2 vac 02/22/21 Recorded SARS-CoV-2 (COVID-19) mRNA BNT-162b2 vac 04/10/20 Recorded SARS-CoV-2 (COVID-19) mRNA BNT-162b2 vac 03/14/20 Recorded SARS-CoV-2 (COVID-19) mRNA BNT-162b2 vac 02/22/20 Recorded pneumococcal 13-valent vaccine 05/26/18 Recorded tetanus-diphtheria toxoids (Td) 2 05/18/18 Given 1Result Comment: [11/11/2017] [id number] 2Result Comment: patient received a TD injection. she tolterated procedure well with no complaints. GROUP HOME PARAPROFESSIONAL NDC: [address]-3 Medications amLODIPine 5 mg oral tablet 1 tablet, By Mouth, Daily, # 90 tablet, 1 Refills, Maintenance, 08/31/22 21:56:00 EDT, 169, cm, 08/27/22 15:02:00 EDT, Height Start Date: 08/31/22 Status: Ordered atorvastatin 10 mg oral tablet 1 tablet, By Mouth, Daily, # 90 tablet, 1 Refills, Maintenance, 08/31/22 21:58:00 EDT, [facility] # 302, 169, cm, 08/27/22 15:02:00 EDT, Height Start Date: 08/31/22 Status: Ordered clopidogrel 75 mg oral tablet 1, tablet, By Mouth, Daily, # 90 tablet, Refills 3, Maintenance, 09/01/22 12:38:00 EDT, Route to Pharmacy Electronically, [facility] #[id number], 169, cm, 08/27/22 15:02:00 EDT, Height Start [...] 06/10/23 15:18:00 EDT, 06/13/22 16:16:00 EDT, Film, [facility] # 302, Partial fill upon [...] oldest [Reference Range]: 1 Height 169 cm (01/20/23 9:08 AM) Weight 43.8 kg (01/20/23 9:08 AM) Oxygen Saturation [94-100 %] 97 % (01/20/23 9:08 AM) Pulse Rate [55-90 bpm] 88 bpm (01/20/23 9:08 AM) Body Mass Index [18.5-24.99 kg/m2] 15.34 kg/m2 *L* (01/20/23 9:08 AM) Blood Pressure [90-138/55-84 mm Hg] 130/ 78mm Hg (01/20/23 9:08 AM) Mode of Delivery (Oxygen) Room air (01/20/23 9:08 AM) Blood pressure sites Arm, left (01/20/23 9:08 AM) Weight Obtained Via Standing scale (01/20/23 9:08 AM) Social History Social History Type Response Smoking Status Former smoker; Other : quit 2004; Number of years: 49; entered on: 07/26/17 Sex Patient Care team information Care Team Personnel Name: Uli Keenan MD Position: S Physician - Primary Care Member Role: PCP Address: Address: [address] [place] [address] Adult & Pediatric Medicine [address] Care Team Related Persons Name: ELLY ABBOTT Address: home [address] [place] [address] Name: TRENT CHAVARRIA Address: [address] [place] [address]
--- OUTSIDE RECORDS SUMMARY | 2023-10-10 00:25 | XMS_ITS | Continuity of Care Document ---
Author Organization [facility] ter Address [address] [place] [address]- Care Team Providers Care Base Filler Operator Name Role Phone Uli Keenan MD Primary Care Physician Encounter [facility] [place] Date(s): 09/09/22 - 09/09/[address] [address] Attending Physician: Uli Keenan MD Allergies, Adverse Reactions, Alerts No Known Allergies Immunizations Given and Recorded Vaccine Date Status Refusal Reason influenza virus vaccine, inactivated 10/29/21 Juan rded influenza virus vaccine, inactivated 1 11/11/17 Gi lissette [id number] 12y+ bivalent booster vax 10/29/21 Recorded SARS-CoV-2 (COVID-19) mRNA BNT-162b2 vac 02/22/21 Recorded SARS-CoV-2 (COVID-19) mRNA BNT-162b2 vac 04/10/20 Recorded SARS-CoV-2 (COVID-19) mRNA BNT-162b2 vac 03/14/20 Recorded SARS-CoV-2 (COVID-19) mRNA BNT-162b2 vac 02/22/20 Recorded pneumococcal 13-valent vaccine 05/26/18 Recorded tetanus-diphtheria toxoids (Td) 2 05/18/18 Given 1Result Comment: [11/11/2017] [id number] 2Result Comment: patient received a TD injection. she tolterated procedure well with no complaints. ELEVATING GRADER OPERATOR ND: [id number] Medications amLODIPine 5 mg oral tablet 1 tablet, By Mouth, Daily, # 90 tablet, 1 Refills, Maintenance, 08/31/22 21:56:00 EDT, 169, cm, 08/27/22 15:02:00 EDT, Height Start Date: 08/31/22 Status: Ordered atorvastatin 10 mg oral tablet 1 tablet, By Mouth, Daily, # 90 tablet, 1 Refills, Maintenance, 08/31/22 21:58:00 EDT, [facility] # 302, 169, cm, 08/27/22 15:02:00 EDT, Height Start Date: 08/31/22 Status: Ordered clopidogrel 75 mg oral tablet 1, tablet, By Mouth, Daily, # 90 tablet, Refills 3, Maintenance, 09/01/22 12:38:00 EDT, Route to Pharmacy Electronically, [facility] #[id number], 169, cm, 08/27/22 15:02:00 EDT, Height Start [...] 06/10/23 15:18:00 EDT, 06/13/22 16:16:00 EDT, Film, [facility] # 302, Partial fill [...] Primary Care Member Role: PCP Address: Address: [address] [place] [address] Adult [place] [address]- Care Team Related Persons Name: ELLY ABBOTT Address: home [address] [place] [address] Name: TRENT CHAVARRIA Address: home [address] [place] [address]
--- OUTSIDE RECORDS SUMMARY | 2023-10-10 00:25 | XMS_ITS | Continuity of Care Document ---
Author Organization [facility] Address [address] [place] [address]- Care Team Providers Care Environmental Services Lead Name Role Phone Delbert Harris MD Primary Care Physician Encounter 05/19/22 - 06/16/22 [facility] [address] [place] [address]- Discharge Disposition: GOALS MET Allergies, Adverse Reactions, Alerts No Known Allergies Immunizations Given and Recorded Vaccine Date Status Refusal Reason influenza virus vaccine, inactivated 10/29/21 Juan rded influenza virus vaccine, inactivated 1 11/11/17 Gi lissette [id number] 12y+ bivalent booster vax 10/29/21 Recorded SARS-CoV-2 (COVID-19) mRNA BNT-162b2 vac 02/22/21 Recorded SARS-CoV-2 (COVID-19) mRNA BNT-162b2 vac 04/10/20 Recorded SARS-CoV-2 (COVID-19) mRNA BNT-162b2 vac 03/14/20 Recorded SARS-CoV-2 (COVID-19) mRNA BNT-162b2 vac 02/22/20 Recorded pneumococcal 13-valent vaccine 05/26/18 Recorded tetanus-diphtheria toxoids (Td) 2 05/18/18 Given 1Result Comment: [11/11/2017] [id number] 2Result Comment: patient received a TD injection. she tolterated procedure well with no complaints. 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 NDC: [address]-9 Medications amLODIPine 5 mg oral tablet 1 tablet, By Mouth, Daily, # 90 tablet, 0 Refills, Maintenance, 06/04/22 11:57:00 EDT, [facility] #[id number], 169, cm, 05/14/22 13:31:00 EDT, Height Start Date: 06/04/22 Status: Ordered atorvastatin 10 mg oral tablet 1 tablet, By Mouth, Daily, # 90 tablet, 0 Refills, Maintenance, 06/04/22 11:57:00 EDT, [facility] #[id number], 169, cm, 05/14/22 13:31:00 EDT, Height Start Date: 06/04/22 Status: Ordered clopidogrel 75 mg oral tablet 1, tablet, By Mouth, Daily, # 90 tablet, Refills 0, Maintenance, 06/04/22 11:57:00 EDT, Route to Pharmacy Electronically, [facility] #[id number], 169, cm, 05/14/22 13:31:00 EDT, Height Start [...] 15:18:00 EDT, 06/13/22 16:16:00 EDT, Film, [facility] # 302, Partial fill upon [...] Team Personnel Name: Delbert Harris MD Position: [facility] Primary Care Physician Member Role: PCP Address: Address: [address] [place] [address] Adult & Pediatric Medicine [address] Care Team Related Persons Name: ELLY ABBOTT Address: home [address] [place] [address] Name: TRENT CHAVARRIA Address: home [address] [place] [address]
--- OUTSIDE RECORDS SUMMARY | 2023-10-10 00:25 | XMS_ITS | Continuity of Care Document ---
Author Organization [facility] Address [address] [place] [address]- Care Team Providers Care Law Firm Partner Name Role Phone Shlomo HUTCHINSON, Uli Barnes Primary Care Physician [phone] Encounter [facility] Date(s): 09/10/22 - 10/10/22 [facility] [address] [place], [place] [address] Allergies, Adverse Reactions, Alerts No Known Allergies Immunizations Given and Recorded Vaccine Date Status Refusal Reason influenza virus vaccine, inactivated 10/29/21 Juan rded influenza virus vaccine, inactivated 1 11/11/17 Gi lissette [id number] 12y+ bivalent booster vax 10/29/21 Recorded SARS-CoV-2 (COVID-19) mRNA BNT-162b2 vac 02/22/21 Recorded SARS-CoV-2 (COVID-19) mRNA BNT-162b2 vac 04/10/20 Recorded SARS-CoV-2 (COVID-19) mRNA BNT-162b2 vac 03/14/20 Recorded SARS-CoV-2 (COVID-19) mRNA BNT-162b2 vac 02/22/20 Recorded pneumococcal 13-valent vaccine 05/26/18 Recorded tetanus-diphtheria toxoids (Td) 2 05/18/18 Given 1Result Comment: [11/11/2017] [id number] 2Result Comment: patient received a TD injection. she tolterated procedure well with no complaints. VALET NDC: [address]-4 Medications amLODIPine 5 mg oral tablet 1 tablet, By Mouth, Daily, # 90 tablet, 1 Refills, Maintenance, 08/31/22 21:56:00 EDT, 169, cm, 08/27/22 15:02:00 EDT, Height Start Date: 08/31/22 Status: Ordered atorvastatin 10 mg oral tablet 1 tablet, By Mouth, Daily, # 90 tablet, 1 Refills, Maintenance, 08/31/22 21:58:00 EDT, [facility] # 302, 169, cm, 08/27/22 15:02:00 EDT, Height Start Date: 08/31/22 Status: Ordered clopidogrel 75 mg oral tablet 1, tablet, By Mouth, Daily, # 90 tablet, Refills 3, Maintenance, 09/01/22 12:38:00 EDT, Route to Pharmacy Electronically, [facility] #[id number], 169, cm, 08/27/22 15:02:00 EDT, Height Start [...] 06/10/23 15:18:00 EDT, 06/13/22 16:16:00 EDT, Film, [facility] # 302, Partial fill upon [...] EDT, Height Start Date: 06/11/22 Status: Ordered potassium chloride 20 mEq oral powder for reconstitution See Instructions, DISSOLVE AND TAKE 1 PACKET BY MOUTH EVERY DAY, # 30 pack/packet, 11 Refills, Maintenance, 10/07/22 9:27:00 EDT, [id number], 169, cm, 09/29/22 15:58:00 EDT, Height Start Date: 10/07/22 Status: Ordered Prevnar 13 intramuscular suspension 0.5 [...] Primary Care Member Role: PCP Address: Address: [address] [place] [address] Adult [place] [address]- Care Team Related Persons Name: ELLY ABBOTT Address: home [address] [place] [address] Name: TRENT CHAVARRIA Address: home [address] [place] [address]
--- OUTSIDE RECORDS SUMMARY | 2023-10-10 00:25 | XMS_ITS | Continuity of Care Document ---
Author Organization [facility] Address [address] [place] [address]- Care Team Providers Care Director Pharmaceutical Name Role Phone Steven HUTCHINSON, Delbert Primary Care Physician Encounter [facility] [place] Date(s): 05/15/20 - 09/12/20 [facility] [address] [place] [address]- Attending Physician: Rajwinder Cardona NP Admitting Physician: Rajwinder Cardona NP Referring Physician: Jeff Rico MD Allergies, Adverse Reactions, [...] she tolterated procedure well with no complaints. HELIOTHERAPIST ND: [id number] 2Result Comment: [11/11/2017] [id number] Medications amLODIPine 5 mg oral tablet 1 tablet, By Mouth, Daily, # 90 tablet, 0 Refills, Maintenance, 09/03/20 14:57:00 EDT, [facility] #[id number] Start Date: 09/03/20 Status: Ordered atorvastatin 10 mg oral tablet See Instructions, TAKE ONE TABLET BY MOUTH ONCE DAILY, # 90 tablet, 0 Refills, Maintenance, [facility] #[id number], 169, cm, 08/09/18 10:33:00 EDT, Height Start Date: 05/16/20 Status: Ordered clopidogrel 75 mg oral tablet 75 mg, 1, tablet, By Mouth, Daily, # 90 tablet, Refills 3, Tot. Refills 3, Maintenance, 11/07/19 14:04:00 EDT, Route to Pharmacy Electronically, [facility] # 302, 169, cm, [...]
--- OUTSIDE RECORDS SUMMARY | 2023-10-10 00:25 | XMS_ITS | Continuity of Care Document ---
Author Organization [facility] Address [address] [place] [address]- Care Team Providers Care Boiler Plant Operator Name Role Phone Uli Keenan MD Primary Care Physician Encounter [facility] [place] Date(s): 04/26/23 - 05/03/23 [facility] [address] [place], [place] [address] Attending Physician: Uli Keenan MD Allergies, Adverse Reactions, Alerts No Known Allergies Immunizations Given and Recorded Vaccine Date Status Refusal Reason pneumococcal 20-valent conjugate vaccine 01/20/23 Given influenza virus vaccine, inactivated 11/30/22 Juan rded influenza virus vaccine, inactivated 10/29/21 Juan rded influenza virus vaccine, inactivated 1 11/11/17 Gi lissette SARS-CoV-2(COVID-19)mRNA-LNP vac([id number]) 11/30/22 Recorded [id number] 12y+ bivalent booster vax 10/29/21 Recorded SARS-CoV-2 (COVID-19) mRNA BNT-162b2 vac 02/22/21 Recorded SARS-CoV-2 (COVID-19) mRNA BNT-162b2 vac 04/10/20 Recorded SARS-CoV-2 (COVID-19) mRNA BNT-162b2 vac 03/14/20 Recorded SARS-CoV-2 (COVID-19) mRNA BNT-162b2 vac 02/22/20 Recorded pneumococcal 13-valent vaccine 05/26/18 Recorded tetanus-diphtheria toxoids (Td) 2 05/18/18 Given 1Result Comment: [11/11/2017] [id number] 2Result Comment: patient received a TD injection. she tolterated procedure well with no complaints. CUSTODIAL SUPERVISOR NDC: [address]-8 Medications amLODIPine 5 mg oral tablet 1 tablet, By Mouth, Daily, # 90 tablet, 1 Refills, Maintenance, 02/26/23 0:56:00 EST, [facility] # 302, 169, cm, 01/20/23 9:08:00 EST, Height Start Date: 02/26/23 Status: Ordered atorvastatin 10 mg oral tablet 1 tablet, By Mouth, Daily, # 90 tablet, 1 Refills, Maintenance, 02/26/23 0:56:00 EST, [facility] # 302, 169, cm, 01/20/23 9:08:00 EST, Height Start Date: 02/26/23 Status: Ordered clopidogrel 75 mg oral tablet 1, tablet, By Mouth, Daily, # 90 tablet, Refills 3, Maintenance, 09/01/22 12:38:00 EDT, Route to Pharmacy Electronically, [facility] #[id number], 169, cm, 08/27/22 15:02:00 EDT, Height Start [...] 15:18:00 EDT, 06/13/22 16:16:00 EDT, Film, [facility] # 302, Partial fill upon patient request if the prescription is for a schedule II opioid... Start Date: 06/13/22 Stop Date: 06/10/23 Status: Ordered Vitamin B12 0 Refills, Maintenance, [...] oldest [Reference Range]: 1 Height 169 cm (04/26/23 1:56 PM) Weight 44.0 kg (04/26/23 1:56 PM) Oxygen Saturation [94-100 %] 100 % (04/26/23 1:56 PM) Pulse Rate [55-90 bpm] 82 bpm (04/26/23 1:56 PM) Body Mass Index [18.5-24.99 kg/m2] 15.41 kg/m2 *L* (04/26/23 1:56 PM) Blood Pressure [90-138/55-84 mm Hg] 132/ 82mm Hg (04/26/23 1:56 PM) Mode of Delivery (Oxygen) Room air (04/26/23 1:56 PM) Blood pressure sites Arm, left (04/26/23 1:56 PM) Social History Social History Type Response Smoking Status Former smoker; Other : quit 2004; Number of years: 50; entered on: 07/26/17 Sex Note * Ursula George: PERFORM, SIGN, VERIFY Event Display: Patient Education/Instruction Authored Date: [id number] [facility] *[facility] Clinical Summary Name VIRGINIA CHAVARRIA Age 87 Years 1935 PCP Shlomo HUTCHINSON, Uli Barnes PCP Visit Date 04/26/2023 13:27:00 Additional Instructions: Scheduled Appointments?? Future Appointments ?No Future Appointments Scheduled Follow-Up Instructions ?? Diagnosis Transient cerebral ischemic attack, unspecified; Age-related physical debility; Other specified disorders of ear, unspecified ear; Essential (primary) hypertension Medications: Please continue your medications until treatment [...] after 12 hours. Refills: 0. Next Dose: No Longer Take the Following Medications pneumococcal 13-valent vaccine (Prevnar 13 intramuscular suspension) 0.5 Milliliter Intramuscular once. Refills: 0. Allergy Info:?? NKA Medications Given This Visit Future Orders ?No future orders Future Orders ?No future orders Vital Signs Height 169 cm Weight 44.0 kg BMI 15.41 kg/m2 Blood Pressure 132 mm Hg/82 mm Hg Temperature Pulse Rate 82 bpm Respiratory Rate 02 Sat Mode of Delivery 100 %/Room air You can now view a summary of your hospital visit from the comfort of your home through a free online portal called [employer]. [employer] is a website that allows you to securely view your medical information including discharge summary, medications and follow-up visits. ??You can alsosend a secure electronic message to your doctor???s office to request appointments, renew medications or just ask a question. You can enroll at [email or web address] or register during your next office [...] primary care provider, you may find a [facility] provider by calling [facility] [employer] Link at [phone]. [facility], in keeping with [facility] guidance, no longer requires face masks for staff, patientsor visitors in most situations. Similar to time spent indoors at other locations, there is the chance that you were exposed to respiratory viruses during your time with us (such as flu or COVID-19).? If you develop symptoms concerning for a viral respiratory infection, please seek testing (and treatment if indicated) from your medical provider or home test kit. For information about the plan of care including goals and instructions for your diagnosis, please see the patient education orders section of this document. Patient Education Materials?? The content of this educational material or handout may have been modified, supplemented, or adapted from its original content and format to support your individualized medical care. Additional Provider Instructions: get the SHINGRIX vaccine see the LECTURER IN COMPUTER SCIENCE ( Dr Trejo ) overall PDG continue to abstain from alcohol poison use FLONASE 2 sprays daily Patient Care team information Care Team Personnel Name: Uli Keenan MD Position: S Physician - Primary Care Member Role: PCP Address: Address: [address] [place] [address] Adult [place] [address]- Care Team Related Persons Name: ELLY ABBOTT Address: home [address] [place] [address] Name: TRENT CHAVARRIA Address: home [address] [place] [address]
--- OUTSIDE RECORDS SUMMARY | 2023-10-10 00:25 | XMS_ITS | Continuity of Care Document ---
Author Organization [facility] ter Address [address] [place] [address]- Care Team Providers Care Orthopaedic Technologist Name Role Phone Delbert Harris MD Primary Care Physician Encounter [facility] [place] Date(s): 05/18/22 - 06/17/[address] [address]- Attending Physician: Not on Staff, Attending MD Admitting Physician: Not on Staff, Admitting MD Referring Physician: Not on Staff, Referring MD Allergies, Adverse Reactions, Alerts No Known Allergies Immunizations Given and Recorded Vaccine Date Status Refusal Reason influenza virus vaccine, inactivated 10/29/21 Juan rded influenza virus vaccine, inactivated 1 11/11/17 Gi lissette [id number] 12y+ bivalent booster vax 10/29/21 Recorded SARS-CoV-2 (COVID-19) mRNA BNT-162b2 vac 02/22/21 Recorded SARS-CoV-2 (COVID-19) mRNA BNT-162b2 vac 04/10/20 Recorded SARS-CoV-2 (COVID-19) mRNA BNT-162b2 vac 03/14/20 Recorded SARS-CoV-2 (COVID-19) mRNA BNT-162b2 vac 02/22/20 Recorded pneumococcal 13-valent vaccine 05/26/18 Recorded tetanus-diphtheria toxoids (Td) 2 05/18/18 Given 1Result Comment: [11/11/2017] [id number] 2Result Comment: patient received a TD injection. she tolterated procedure well with no complaints. RESEARCH NURSE NDC: [address]-6 Medications amLODIPine 5 mg oral tablet 1 tablet, By Mouth, Daily, # 90 tablet, 0 Refills, Maintenance, 06/04/22 11:57:00 EDT, [facility] #[id number], 169, cm, 05/14/22 13:31:00 EDT, Height Start Date: 06/04/22 Status: Ordered atorvastatin 10 mg oral tablet 1 tablet, By Mouth, Daily, # 90 tablet, 0 Refills, Maintenance, 06/04/22 11:57:00 EDT, [facility] #[id number], 169, cm, 05/14/22 13:31:00 EDT, Height Start Date: 06/04/22 Status: Ordered clopidogrel 75 mg oral tablet 1, tablet, By Mouth, Daily, # 90 tablet, Refills 0, Maintenance, 06/04/22 11:57:00 EDT, Route to Pharmacy Electronically, [facility] #[id number], 169, cm, 05/14/22 13:31:00 EDT, Height Start [...] 06/10/23 15:18:00 EDT, 06/13/22 16:16:00 EDT, Film, [facility] # 302, Partial fill upon patient [...] Team Personnel Name: Delbert Harris MD Position: [facility] Primary Care Physician Member Role: PCP Address: Address: [address] [place] [address] Adult & [place] [address]- Care Team Related Persons Name: ELLY ABBOTT Address: home [address] [place] [address] Name: TRENT CHAVARRIA Address: home [address] [place] [address]
--- OUTSIDE RECORDS SUMMARY | 2023-10-10 00:25 | XMS_ITS | Continuity of Care Document ---
Author Organization [facility] Address [address] [place] [address]- Care Team Providers Care Websphere Message Broker Developer Name Role Phone Jeff Rico MD Primary Care Physician [phone] Encounter [facility] [place] Date(s): 08/10/19 - 08/17/19 [facility] [address] [place] [address] [facility] Attending Physician: Rajwinder Cardona NP Admitting Physician: Rajwinder Cardona NP Referring Physician: Jeff Rico MD Allergies, Adverse Reactions, Alerts Substance Reaction Severity Status NKA Active Immunizations Given and Recorded Vaccine Date Status Refusal Reason tetanus-diphtheria toxoids (Td) 1 05/18/18 Given influenza virus vaccine, inactivated 2 11/11/17 Gi lissette 1Result Comment: patient received a TD injection. she tolterated procedure well with no complaints. SALES PRODUCT SPECIALIST NDC: [address]-4 2Result Comment: [11/11/2017] [id number] Medications amLODIPine 5 mg oral tablet 5 mg, 1, tablet, By Mouth, Daily, # 90 tablet, Refills 3, Tot. Refills 3, Maintenance, 05/11/19 13:10:00 EDT, Route to Pharmacy Electronically, [facility] # 302, 169, cm, 08/09/18 10:33:00 EDT, Height, 55, kg, 09/30/17 20:32:00 EDT, Dry Weight Start Date: 05/11/19 Status: Ordered atorvastatin 10 mg oral tablet 1 tablet = 10 mg, By Mouth, Daily, # 90 tablet, 3 Refills, Maintenance, 05/11/19 13:10:00 EDT, Tablet, [facility] # 302, 169, cm, 08/09/18 10:33:00 EDT, Height, 55, kg, 09/30/17 20:32:00 EDT, Dry Weight Start Date: 05/11/19 Status: Ordered clopidogrel 75 mg oral tablet 75 mg, 1, tablet, By Mouth, Daily, # 90 tablet, Refills 3, Tot. Refills 3, Maintenance, 11/09/18 16:03:20 EDT, Route to Pharmacy Electronically, [id number], [facility] # 302 Start Date: 11/09/18 Status: [...]
--- OUTSIDE RECORDS SUMMARY | 2023-10-10 00:25 | XMS_ITS | Continuity of Care Document ---
Author Organization [facility] Address [address] [place] [address]- Care Team Providers Care Percher Name Role Phone Delbert Harris MD Primary Care Physician Encounter [facility] [place] Date(s): 05/19/22 - 06/18/22 [facility] [address] [place] [address]- Allergies, Adverse Reactions, Alerts No Known Allergies Immunizations Given and Recorded Vaccine Date Status Refusal Reason influenza virus vaccine, inactivated 10/29/21 Juan rded influenza virus vaccine, inactivated 1 11/11/17 Gi lissette [id number] 12y+ bivalent booster vax 10/29/21 Recorded SARS-CoV-2 (COVID-19) mRNA BNT-162b2 vac 02/22/21 Recorded SARS-CoV-2 (COVID-19) mRNA BNT-162b2 vac 04/10/20 Recorded SARS-CoV-2 (COVID-19) mRNA BNT-162b2 vac 03/14/20 Recorded SARS-CoV-2 (COVID-19) mRNA BNT-162b2 vac 02/22/20 Recorded pneumococcal 13-valent vaccine 05/26/18 Recorded tetanus-diphtheria toxoids (Td) 2 05/18/18 Given 1Result Comment: [11/11/2017] [id number] 2Result Comment: patient received a TD injection. she tolterated procedure well with no complaints. INSURANCE SALES SPECIALIST NDC: [address]-4 Medications amLODIPine 5 mg oral tablet 1 tablet, By Mouth, Daily, # 90 tablet, 0 Refills, Maintenance, 06/04/22 11:57:00 EDT, [facility] #[id number], 169, cm, 05/14/22 13:31:00 EDT, Height Start Date: 06/04/22 Status: Ordered atorvastatin 10 mg oral tablet 1 tablet, By Mouth, Daily, # 90 tablet, 0 Refills, Maintenance, 06/04/22 11:57:00 EDT, [facility] #[id number], 169, cm, 05/14/22 13:31:00 EDT, Height Start Date: 06/04/22 Status: Ordered clopidogrel 75 mg oral tablet 1, tablet, By Mouth, Daily, # 90 tablet, Refills 0, Maintenance, 06/04/22 11:57:00 EDT, Route to Pharmacy Electronically, [facility] #[id number], 169, cm, 05/14/22 13:31:00 EDT, Height Start [...] 06/10/23 15:18:00 EDT, 06/13/22 16:16:00 EDT, Film, [facility] # 302, Partial fill [...] Team Personnel Name: Delbert Harris MD Position: [facility] Primary Care Physician Member Role: PCP Address: Address: [address] [place] [address] Adult [place] [address]- Care Team Related Persons Name: ELLY BABOTT Address: home [address] [place] [address] Name: TRENT CHAVARRIA Address: home [address] [place] [address]
--- OUTSIDE RECORDS SUMMARY | 2023-10-10 00:25 | XMS_ITS | Continuity of Care Document ---
Author Organization [facility] Address [address] [place] [address]- Care Team Providers Care Merchant Patroller Name Role Phone Uli Keenan MD Primary Care Physician Encounter [facility] [place] Date(s): 04/26/23 - 05/26/23 [facility] [address] [place], [place] [address] Allergies, Adverse Reactions, Alerts No Known Allergies Immunizations Given and Recorded Vaccine Date Status Refusal Reason pneumococcal 20-valent conjugate vaccine 01/20/23 Given influenza virus vaccine, inactivated 11/30/22 Juan rded influenza virus vaccine, inactivated 10/29/21 Juan rded influenza virus vaccine, inactivated 1 11/11/17 Gi lissette SARS-CoV-2(COVID-19)mRNA-LNP vac([id number]) 11/30/22 Recorded [id number] 12y+ bivalent booster vax 10/29/21 Recorded SARS-CoV-2 (COVID-19) mRNA BNT-162b2 vac 02/22/21 Recorded SARS-CoV-2 (COVID-19) mRNA BNT-162b2 vac 04/10/20 Recorded SARS-CoV-2 (COVID-19) mRNA BNT-162b2 vac 03/14/20 Recorded SARS-CoV-2 (COVID-19) mRNA BNT-162b2 vac 02/22/20 Recorded pneumococcal 13-valent vaccine 05/26/18 Recorded tetanus-diphtheria toxoids (Td) 2 05/18/18 Given 1Result Comment: [11/11/2017] [id number] 2Result Comment: patient received a TD injection. she tolterated procedure well with no complaints. TRAILER MECHANIC NDC: [address]-3 Medications amLODIPine 5 mg oral tablet 1 tablet, By Mouth, Daily, # 90 tablet, 1 Refills, Maintenance, 02/26/23 0:56:00 EST, [facility] # 302, 169, cm, 01/20/23 9:08:00 EST, Height Start Date: 02/26/23 Status: Ordered atorvastatin 10 mg oral tablet 1 tablet, By Mouth, Daily, # 90 tablet, 1 Refills, Maintenance, 02/26/23 0:56:00 EST, [facility] # 302, 169, cm, 01/20/23 9:08:00 EST, Height Start Date: 02/26/23 Status: Ordered clopidogrel 75 mg oral tablet 1, tablet, By Mouth, Daily, # 90 tablet, Refills 3, Maintenance, 09/01/22 12:38:00 EDT, Route to Pharmacy Electronically, [facility] #[id number], 169, cm, 08/27/22 15:02:00 EDT, Height Start [...] Team Personnel Name: Uli Keenan MD Position: [facility] Physician - Primary Care Member Role: PCP Address: Address: [address] [place] [address] Adult [place] [address]- Care Team Related Persons Name: ELLY ABBOTT Address: home [address] [place] [address] Name: TRENT CHAVARRIA Address: home [address] [place] [address]
--- OUTSIDE RECORDS SUMMARY | 2023-10-10 00:25 | XMS_ITS | Continuity of Care Document ---
Author Organization [facility] Address [address] [place] [address]- Care Team Providers Care Clay Products Machine Operator Name Role Phone Jeff Rico MD Primary Care Physician Encounter [facility] [place] ACCT R [id number] Date(s): 03/09/20 - 07/07/20 [facility] [address] [place], [place] [address] Attending Physician: Jeff Rico MD Allergies, Adverse [...] tolterated procedure well with no complaints. SALES AND RETAIL MANAGEMENT RECRUITER NDC: [address]-3 2Result Comment: [11/11/2017] [id number] Medications amLODIPine 5 mg oral tablet See Instructions, TAKE ONE TABLET BY MOUTH ONCE DAILY, # 90 tablet, 0 Refills, Maintenance, [facility] #[id number], 169, cm, 08/09/18 10:33:00 EDT, Height Start Date: 05/10/20 Status: Ordered atorvastatin 10 mg oral tablet See Instructions, TAKE ONE TABLET BY MOUTH ONCE DAILY, # 90 tablet, 0 Refills, Maintenance, [facility] #[id number], 169, cm, 08/09/18 10:33:00 EDT, Height Start Date: 05/16/20 Status: Ordered clopidogrel 75 mg oral tablet 75 mg, 1, tablet, By Mouth, Daily, # 90 tablet, Refills 3, Tot. Refills 3, Maintenance, 11/07/19 14:04:00 EDT, Route to Pharmacy Electronically, [facility] # 302, 169, cm, 08/09/18 10:33:00 [...]
--- OUTSIDE RECORDS SUMMARY | 2023-10-10 00:25 | XMS_ITS | Continuity of Care Document ---
Author Organization [facility] Address [address] [place] [address]- Care Team Providers Care Hydraulic Chair Assembler Name Role Phone Jeff Rico MD Primary Care Physician Encounter [facility] [place] Date(s): 05/06/20 - 06/05/20 [facility] [address] [place], [place] [address] Allergies, Adverse Reactions, Alerts Substance Reaction Severity [...] she tolterated procedure well with no complaints. [place]: [id number] 2Result Comment: [11/11/2017] [id number] Medications amLODIPine 5 mg oral tablet See Instructions, TAKE ONE TABLET BY MOUTH ONCE DAILY, # 90 tablet, 0 Refills, Maintenance, [facility] #[id number], 169, cm, 08/09/18 10:33:00 EDT, Height Start Date: 05/10/20 Status: Ordered atorvastatin 10 mg oral tablet See Instructions, TAKE ONE TABLET BY MOUTH ONCE DAILY, # 90 tablet, 0 Refills, Maintenance, [facility] #[id number], 169, cm, 08/09/18 10:33:00 EDT, Height Start Date: 05/16/20 Status: Ordered clopidogrel 75 mg oral tablet 75 mg, 1, tablet, By Mouth, Daily, # 90 tablet, Refills 3, Tot. Refills 3, Maintenance, 11/07/19 14:04:00 EDT, Route to Pharmacy Electronically, [facility] # 302, 169, cm, 08/09/18 10:33:00 [...]
--- OUTSIDE RECORDS SUMMARY | 2023-10-10 00:25 | XMS_ITS | Continuity of Care Document ---
Author Organization [facility] Address [address] [place] [address]- Care Team Providers Care Electronic Induction Hardener Name Role Phone Jeff Rico MD Primary Care Physician Encounter [facility] [place] Date(s): 05/31/20 - 06/30/20 [facility] [address] [place], [place] [address] Attending Physician: Carmen Mayes Admitting Physician: [...] she tolterated procedure well with no complaints. DAYCARE DIRECTOR NDC: [id number] 2Result Comment: [11/11/2017] [id number] Medications amLODIPine 5 mg oral tablet See Instructions, TAKE ONE TABLET BY MOUTH ONCE DAILY, # 90 tablet, 0 Refills, Maintenance, [facility] #[id number], 169, cm, 08/09/18 10:33:00 EDT, Height Start Date: 05/10/20 Status: Ordered atorvastatin 10 mg oral tablet See Instructions, TAKE ONE TABLET BY MOUTH ONCE DAILY, # 90 tablet, 0 Refills, Maintenance, [facility] #[id number], 169, cm, 08/09/18 10:33:00 EDT, Height Start Date: 05/16/20 Status: Ordered clopidogrel 75 mg oral tablet 75 mg, 1, tablet, By Mouth, Daily, # 90 tablet, Refills 3, Tot. Refills 3, Maintenance, 11/07/19 14:04:00 EDT, Route to Pharmacy Electronically, [facility] # 302, 169, cm, 08/09/18 [...]
--- OUTSIDE RECORDS SUMMARY | 2023-10-10 00:25 | XMS_ITS | Continuity of Care Document ---
Author Organization [facility] Address [address] [place] [address]- Care Team Providers Care Marine Electronics Repairer Name Role Phone Jeff Rico MD Primary Care Physician [place] [facility] [place] Date(s): 05/05/19 - 05/15/19 [facility] [address] [place] [address]- [facility] Attending Physician: Carmen Mayes Admitting Physician: AdmtrCarmen Referring Physician: Admtr, Ar8 Allergies, Adverse Reactions, Alerts Substance Reaction Severity Status NKA Active Immunizations Given and Recorded Vaccine Date Status Refusal Reason tetanus-diphtheria toxoids (Td) 1 05/18/18 Given influenza virus vaccine, inactivated 2 11/11/17 Gi lissette 1Result Comment: patient received a TD injection. she tolterated procedure well with no complaints. PRESCHOOL DISABILITY TEACHER NDC: [address]-7 2Result Comment: [11/11/2017] [id number] Medications amLODIPine 5 mg oral tablet 5 mg, 1, tablet, By Mouth, Daily, # 90 tablet, Refills 3, Tot. Refills 3, Maintenance, 05/11/19 13:10:00 EDT, Route to Pharmacy Electronically, [facility] # 302, 169, cm, 08/09/18 10:33:00 EDT, Height, 55, kg, 09/30/17 20:32:00 EDT, Dry Weight Start Date: 05/11/19 Status: Ordered atorvastatin 10 mg oral tablet 1 tablet = 10 mg, By Mouth, Daily, # 90 tablet, 3 Refills, Maintenance, 05/11/19 13:10:00 EDT, Tablet, [facility] # 302, 169, cm, 08/09/18 10:33:00 EDT, Height, 55, kg, 09/30/17 20:32:00 EDT, Dry Weight Start Date: 05/11/19 Status: Ordered clopidogrel 75 mg oral tablet 75 mg, 1, tablet, By Mouth, Daily, # 90 tablet, Refills 3, Tot. Refills 3, Maintenance, 11/09/18 16:03:20 EDT, Route to Pharmacy Electronically, [id number], [facility] # 302 Start Date: 11/09/18 Status: [...]
--- OUTSIDE RECORDS SUMMARY | 2023-10-10 00:25 | XMS_ITS | Continuity of Care Document ---
Author Organization [facility] Address [address] [place] [address]- Care Team Providers Care Reel Stripper Name Role Phone Jeff Rico MD Primary Care Physician Encounter [facility] [place] Date(s): 05/31/20 - 06/30/20 [facility] [address] [place], [place] [address] Allergies, Adverse Reactions, Alerts Substance Reaction Severity [...] she tolterated procedure well with no complaints. MARKETING [place]ICER [place]: [id number] 2Result Comment: [11/11/2017] [id number] Medications amLODIPine 5 mg oral tablet See Instructions, TAKE ONE TABLET BY MOUTH ONCE DAILY, # 90 tablet, 0 Refills, Maintenance, [facility] #[id number], 169, cm, 08/09/18 10:33:00 EDT, Height Start Date: 05/10/20 Status: Ordered atorvastatin 10 mg oral tablet See Instructions, TAKE ONE TABLET BY MOUTH ONCE DAILY, # 90 tablet, 0 Refills, Maintenance, [facility] #[id number], 169, cm, 08/09/18 10:33:00 EDT, Height Start Date: 05/16/20 Status: Ordered clopidogrel 75 mg oral tablet 75 mg, 1, tablet, By Mouth, Daily, # 90 tablet, Refills 3, Tot. Refills 3, Maintenance, 11/07/19 14:04:00 EDT, Route to Pharmacy Electronically, [facility] # 302, 169, cm, 08/09/18 10:33:00 [...]
--- OUTSIDE RECORDS SUMMARY | 2023-10-10 00:25 | XMS_ITS | Continuity of Care Document ---
Author Organization [facility] Address [address] [place] [address]- Care Team Providers Care Stone Driller Name Role Phone Uli Keenan MD Primary Care Physician Encounter [facility] [place] Date(s): 01/19/23 - 02/18/23 [facility] [address] [place], [place] [address] Allergies, Adverse Reactions, Alerts No Known Allergies Immunizations Given and Recorded Vaccine Date Status Refusal Reason pneumococcal 20-valent conjugate vaccine 01/20/23 Given influenza virus vaccine, inactivated 11/30/22 Juan rded influenza virus vaccine, inactivated 10/29/21 Juan rded influenza virus vaccine, inactivated 1 11/11/17 Gi lissette SARS-CoV-2(COVID-19)mRNA-LNP vac([id number]) 11/30/22 Recorded [id number] 12y+ bivalent booster vax 10/29/21 Recorded SARS-CoV-2 (COVID-19) mRNA BNT-162b2 vac 02/22/21 Recorded SARS-CoV-2 (COVID-19) mRNA BNT-162b2 vac 04/10/20 Recorded SARS-CoV-2 (COVID-19) mRNA BNT-162b2 vac 03/14/20 Recorded SARS-CoV-2 (COVID-19) mRNA BNT-162b2 vac 02/22/20 Recorded pneumococcal 13-valent vaccine 05/26/18 Recorded tetanus-diphtheria toxoids (Td) 2 05/18/18 Given 1Result Comment: [11/11/2017] [id number] 2Result Comment: patient received a TD injection. she tolterated procedure well with no complaints. PENETRATION TESTER NDC: [address]-3 Medications amLODIPine 5 mg oral tablet 1 tablet, By Mouth, Daily, # 90 tablet, 1 Refills, Maintenance, 08/31/22 21:56:00 EDT, 169, cm, 08/27/22 15:02:00 EDT, Height Start Date: 08/31/22 Status: Ordered atorvastatin 10 mg oral tablet 1 tablet, By Mouth, Daily, # 90 tablet, 1 Refills, Maintenance, 08/31/22 21:58:00 EDT, [facility] # 302, 169, cm, 08/27/22 15:02:00 EDT, Height Start Date: 08/31/22 Status: Ordered clopidogrel 75 mg oral tablet 1, tablet, By Mouth, Daily, # 90 tablet, Refills 3, Maintenance, 09/01/22 12:38:00 EDT, Route to Pharmacy Electronically, [facility] #[id number], 169, cm, 08/27/22 15:02:00 EDT, Height Start [...] 06/10/23 15:18:00 EDT, 06/13/22 16:16:00 EDT, Film, [facility] # 302, Partial fill [...] Name: Uli Keenan MD Position: [facility] Physician - Primary Care Member Role: PCP Address: Address: [address] [place] [address] Adult & Pediatric Medicine [address] Care Team Related Persons Name: ELLY ABBOTT Address: home [address] [place] [address] Name: TRENT CHAVARRIA Address: home [address] [place] [address]
--- OUTSIDE RECORDS SUMMARY | 2023-10-10 00:25 | XMS_ITS | Continuity of Care Document ---
Author Organization [facility] Address [address] [place] [address]- Care Team Providers Care Color Adviser Name Role Phone Steven HUTCHINSON, Delbert Primary Care Physician Encounter [facility] [place] Date(s): 02/26/21 - 03/28/21 [facility] [address] [place], [place] [address] Attending Physician: Carmen Mayes Admitting Physician: AdmtrCarmen Referring Physician: Admtr, ArPaulino Allergies, Adverse Reactions, Alerts No Known Allergies Immunizations Given and Recorded Vaccine Date Status Refusal Reason SARS-CoV-2 (COVID-19) mRNA BNT-162b2 vac 03/14/20 Recorded SARS-CoV-2 (COVID-19) mRNA BNT-162b2 vac 02/22/20 Recorded pneumococcal 13-valent vaccine 05/26/18 Recorded tetanus-diphtheria toxoids (Td) 1 05/18/18 Given influenza virus vaccine, inactivated 2 11/11/17 Gi lissette 1Result Comment: patient received a TD injection. she tolterated procedure well with no complaints. ADMINISTRATIVE HEAR[place]ER [place]: [id number] 2Result Comment: [11/11/2017] [id number] Medications amLODIPine 5 mg oral tablet 1 tablet, By Mouth, Daily, # 90 tablet, 11 Refills, Maintenance, 02/26/21 13:34:00 MaxCDN, [facility] # 302 Start Date: 02/26/21 Status: Ordered atorvastatin 10 mg oral tablet 1 tablet, By Mouth, Daily, # 90 tablet, 11 Refills, Maintenance, 02/26/21 13:34:00 MaxCDN, [facility] # 302 Start Date: 02/26/21 Status: Ordered clopidogrel 75 mg oral tablet 75 mg, 1, tablet, By Mouth, Daily, # 90 tablet, Refills 11, Tot. Refills 11, Maintenance, 02/26/21 13:34:00 EST, Route to Pharmacy Electronically, [facility] # 302 Start Date: 02/26/21 Status: [...]
--- OUTSIDE RECORDS SUMMARY | 2023-10-10 00:26 | XMS_ITS | Continuity of Care Document ---
Author Organization [facility] Address [address] [place] [address]- Care Team Providers Care Procurement Director Name Role Phone Steven HUTCHINSON, Delbert Primary Care Physician Encounter [facility] [place] Date(s): 05/14/22 - 06/13/22 [facility] [address] [place], [place] [address] Allergies, Adverse Reactions, Alerts No Known Allergies Immunizations Given and Recorded Vaccine Date Status Refusal Reason influenza virus vaccine, inactivated 10/29/21 Juan rded influenza virus vaccine, inactivated 1 11/11/17 Gi lissette [id number] 12y+ bivalent booster vax 10/29/21 Recorded SARS-CoV-2 (COVID-19) mRNA BNT-162b2 vac 02/22/21 Recorded SARS-CoV-2 (COVID-19) mRNA BNT-162b2 vac 04/10/20 Recorded SARS-CoV-2 (COVID-19) mRNA BNT-162b2 vac 03/14/20 Recorded SARS-CoV-2 (COVID-19) mRNA BNT-162b2 vac 02/22/20 Recorded pneumococcal 13-valent vaccine 05/26/18 Recorded tetanus-diphtheria toxoids (Td) 2 05/18/18 Given 1Result Comment: [11/11/2017] [id number] 2Result Comment: patient received a TD injection. she tolterated procedure well with no complaints. TWILL CUTTER NDC: [address]-0 Medications amLODIPine 5 mg oral tablet 1 tablet, By Mouth, Daily, # 90 tablet, 0 Refills, Maintenance, 06/04/22 11:57:00 EDT, [facility] #[id number], 169, cm, 05/14/22 13:31:00 EDT, Height Start Date: 06/04/22 Status: Ordered atorvastatin 10 mg oral tablet 1 tablet, By Mouth, Daily, # 90 tablet, 0 Refills, Maintenance, 06/04/22 11:57:00 EDT, [facility] #[id number], 169, cm, 05/14/22 13:31:00 EDT, Height Start Date: 06/04/22 Status: Ordered clopidogrel 75 mg oral tablet 1, tablet, By Mouth, Daily, # 90 tablet, Refills 0, Maintenance, 06/04/22 11:57:00 EDT, Route to Pharmacy Electronically, [facility] #[id number], 169, cm, 05/14/22 13:31:00 EDT, Height Start [...] 06/10/23 15:18:00 EDT, 06/13/22 16:16:00 EDT, Film, [facility] # 302, Partial fill upon [...] Team Personnel Name: Delbert Harris MD Position: [facility] Primary Care Physician Member Role: PCP Address: Address: [address] [place] [address] Adult & [place] [address]- Care Team Related Persons Name: ELLY ABBOTT Address: home [address] [place] [address] Name: TRENT CHAVARRIA Address: [address] [place] [address]
--- OUTSIDE RECORDS SUMMARY | 2023-10-10 00:26 | XMS_ITS | Continuity of Care Document ---
Author Organization [facility] Address [address] [place] [address]- Care Team Providers Care Fender Finisher Name Role Phone Jeff Rico MD Primary Care Physician [phone] [place] [facility] [place]/07[place]20 - 06/06/20 [facility] [address] [place], [place] [address] Allergies, Adverse Reactions, Alerts Substance Reaction [...] she tolterated procedure well with no complaints. [place]YS[place]IAN [place]: [id number] 2Result Comment: [11/11/2017] [id number] Medications amLODIPine 5 mg oral tablet See Instructions, TAKE ONE TABLET BY MOUTH ONCE DAILY, # 90 tablet, 0 Refills, Maintenance, [facility] #[id number], 169, cm, 08/09/18 10:33:00 EDT, Height Start Date: 05/10/20 Status: Ordered atorvastatin 10 mg oral tablet See Instructions, TAKE ONE TABLET BY MOUTH ONCE DAILY, # 90 tablet, 0 Refills, Maintenance, [facility] #[id number], 169, cm, 08/09/18 10:33:00 EDT, Height Start Date: 05/16/20 Status: Ordered clopidogrel 75 mg oral tablet 75 mg, 1, tablet, By Mouth, Daily, # 90 tablet, Refills 3, Tot. Refills 3, Maintenance, 11/07/19 14:04:00 EDT, Route to Pharmacy Electronically, [facility] # 302, 169, cm, 08/09/18 10:33:00 [...]
--- OUTSIDE RECORDS SUMMARY | 2023-10-10 00:26 | XMS_ITS | Continuity of Care Document ---
Author Organization [facility] Address [address] [place] [address]- Care Team Providers Care Shop Director Name Role Phone Jeff Rico MD Primary Care Physician En[place] [facility] [place] Date(s): 02/22/20 - 03/23/20 [facility] [address] [place], [place] [address] Allergies, Adverse Reactions, Alerts Substance Reaction Severity Status NKA Active Immunizations Given and Recorded Vaccine Date Status Refusal Reason pneumococcal 13-valent vaccine 05/26/18 Recorded tetanus-diphtheria toxoids (Td) 1 05/18/18 Given influenza virus vaccine, inactivated 2 11/11/17 Gi lissette 1Result Comment: patient received a TD injection. she tolterated procedure well with no complaints. SENIOR ACCOUNT CLERK NDC: [address]-0 2Result Comment: [11/11/2017] [id number] Medications amLODIPine 5 mg oral tablet 5 mg, 1, tablet, By Mouth, Daily, # 90 tablet, Refills 3, Tot. Refills 3, Maintenance, 05/11/19 13:10:00 EDT, Route to Pharmacy Electronically, [facility] # 302, 169, cm, 08/09/18 10:33:00 EDT, Height, 55, kg, 09/30/17 20:32:00 EDT, Dry Weight Start Date: 05/11/19 Status: Ordered atorvastatin 10 mg oral tablet 1 tablet = 10 mg, By Mouth, Daily, # 90 tablet, 3 Refills, Maintenance, 05/11/19 13:10:00 EDT, Tablet, [facility] # 302, 169, cm, 08/09/18 10:33:00 EDT, Height, 55, kg, 09/30/17 20:32:00 EDT, Dry Weight Start Date: 05/11/19 Status: Ordered clopidogrel 75 mg oral tablet 75 mg, 1, tablet, By Mouth, Daily, # 90 tablet, Refills 3, Tot. Refills 3, Maintenance, 11/07/19 14:04:00 EDT, Route to Pharmacy Electronically, [facility] # 302, 169, cm, 08/09/18 [...]
--- OUTSIDE RECORDS SUMMARY | 2023-10-10 00:26 | XMS_ITS | Continuity of Care Document ---
Author Organization [facility] Address [address] [place] [address]- Care Team Providers Care Standards Analyst Name Role Phone Steven HUTCHINSON, Delbert Primary Care Physician [phone] [place] [facility] [place] [id number] Date(s): 07/31/20 - 08/07/20 [facility] [address] [place], [place] [address] Attending Physician: Jeff Rico MD Allergies, [...] she tolterated procedure well with no complaints. STACKING MACHINE OPERATOR NDC: [address]-3 2Result Comment: [11/11/2017] [id number] Medications amLODIPine 5 mg oral tablet See Instructions, TAKE ONE TABLET BY MOUTH ONCE DAILY, # 90 tablet, 0 Refills, Maintenance, [facility] #[id number], 169, cm, 08/09/18 10:33:00 EDT, Height Start Date: 05/10/20 Status: Ordered atorvastatin 10 mg oral tablet See Instructions, TAKE ONE TABLET BY MOUTH ONCE DAILY, # 90 tablet, 0 Refills, Maintenance, [facility] #[id number], 169, cm, 08/09/18 10:33:00 EDT, Height Start Date: 05/16/20 Status: Ordered clopidogrel 75 mg oral tablet 75 mg, 1, tablet, By Mouth, Daily, # 90 tablet, Refills 3, Tot. Refills 3, Maintenance, 11/07/19 14:04:00 EDT, Route to Pharmacy Electronically, [facility] # [facility], 169, cm, 08/09/18 10:33:00 [...]
--- OUTSIDE RECORDS SUMMARY | 2023-10-10 00:26 | XMS_ITS | Continuity of Care Document ---
Author Organization [facility] Address [address] [place] [address]- Care Team Providers Care Medicare Insurance Specialist Name Role Phone Uli Keenan MD Primary Care Physician Encounter [facility] R [id number] Date(s): 07/20/22 - 07/27/22 [facility] [address] [place], [place] [address] Attending Physician: Uli Keenan MD Allergies, Adverse Reactions, Alerts No Known Allergies Immunizations Given and Recorded Vaccine Date Status Refusal Reason influenza virus vaccine, inactivated 10/29/21 Juan rded influenza virus vaccine, inactivated 1 11/11/17 Gi lissette [id number] 12y+ bivalent booster vax 10/29/21 Recorded SARS-CoV-2 (COVID-19) mRNA BNT-162b2 vac 02/22/21 Recorded SARS-CoV-2 (COVID-19) mRNA BNT-162b2 vac 04/10/20 Recorded SARS-CoV-2 (COVID-19) mRNA BNT-162b2 vac 03/14/20 Recorded SARS-CoV-2 (COVID-19) mRNA BNT-162b2 vac 02/22/20 Recorded pneumococcal 13-valent vaccine 05/26/18 Recorded tetanus-diphtheria toxoids (Td) 2 05/18/18 Given 1Result Comment: [11/11/2017] [id number] 2Result Comment: patient received a TD injection. she tolterated procedure well with no complaints. CURRICULUM COACH NDC: [address]-9 Medications amLODIPine 5 mg oral tablet 1 tablet, By Mouth, Daily, # 90 tablet, 0 Refills, Maintenance, 06/04/22 11:57:00 EDT, [facility] #[id number], 169, cm, 05/14/22 13:31:00 EDT, Height Start Date: 06/04/22 Status: Ordered atorvastatin 10 mg oral tablet 1 tablet, By Mouth, Daily, # 90 tablet, 0 Refills, Maintenance, 06/04/22 11:57:00 EDT, [facility] #[id number], 169, cm, 05/14/22 13:31:00 EDT, Height Start Date: 06/04/22 Status: Ordered clopidogrel 75 mg oral tablet 1, tablet, By Mouth, Daily, # 90 tablet, Refills 0, Maintenance, 06/04/22 11:57:00 EDT, Route to Pharmacy Electronically, [facility] #[id number], 169, cm, 05/14/22 13:31:00 EDT, Height Start [...] 06/10/23 15:18:00 EDT, 06/13/22 16:16:00 EDT, Film, [facility] # [id number], Partial [...] Most recent to oldest [Reference Range]: 1 2 3 Height 169 cm (07/21/22 10:44 AM) 169 cm (07/20/22 4:17 PM) 169 cm (07/20/22 4:16 PM) Weight 44.3 kg (07/21/22 10:44 AM) 44.3 kg (07/20/22 4:16 PM) Oxygen Saturation [94-100 %] 98 % (07/20/22 4:16 PM) Pulse Rate [55-90 bpm] 84 bpm (07/20/22 4:16 PM) Body Mass Index [18.5-24.99 kg/m2] 15.51 kg/m2 *L* (07/20/22 4:16 PM) Blood Pressure [90-138/55-84 mm Hg] 144/85mm Hg *H* (07/20/22 4:17 PM) 167/88mm Hg *H* (07/20/22 4:16 PM) Mode of Delivery (Oxygen) Room air (07/20/22 4:16 PM) Blood pressure sites Arm, left (07/20/22 4:17 PM) Arm, left (07/20/22 4:16 PM) Weight Obtained Via Standing scale (07/20/22 4:16 PM) Social History Social History Type Response Smoking Status Former smoker; Other : quit 2004; Number of years: 50; entered on: 07/26/17 Sex Note * Manjula Joseph: PERFORM, SIGN, VERIFY Event Display: Patient Education/Instruction Authored Date: [id number] [facility] *[facility] Clinical Summary Name VIRGINIA CHAVARRIA Age 87 Years 1935 PCP Steven HUTCHINSON, Delbert PCP Visit Date 07/20/2022 15:31:00 Additional Instructions: Scheduled Appointments?? Future Appointments ?*No??[facility] ?[address]??[place],??[place],??[address] ?Phone:??--?Fax:??-- ?Appt. Date:??08/27/2022?3:00 PM ?Scheduled Provider:??Shlomo HUTCHINSON, Uli Barnes Follow-Up Instructions ?? Diagnosis Medications: Please continue your medications until treatment is completed or stopped by your provider. Discuss any questions related to medications with your provider. Medications to Continue Taking That Have Changed These medications were not printed or sent to your pharmacy - Potassium Chloride (potassium chloride 20 mEq oral powder for reconstitution) DISSOLVE AND TAKE 1PACKET BY MOUTH EVERY DAY. Refills: 11. Next Dose: - Potassium Chloride (potassium chloride 20 mEq oral powder for reconstitution) 1 pack/packet Oral Daily. Refills: 3. Next Dose: Medications to Continue with No Changes These [...] Milliliter Intramuscular once. Refills: 0. Next Dose: Allergy Info:?? NKA Medications Given This Visit Future Orders ?No future orders Vital Signs Height 169 cm Weight 44.3 kg BMI 15.51 kg/m2 Blood Pressure 144 mm Hg/85 mm Hg Temperature Pulse Rate 84 bpm Respiratory Rate 02 Sat Mode of Delivery 98 %/Room air You can now view a summary of your hospital visit from the comfort of your home through a free online portal called [employer]. [employer] is a website that allows you to securely view your medical information including discharge summary, medications and follow-up visits. ??You can alsosend a secure electronic message to your doctor???s office to request appointments, renew medications or just ask a question. You can enroll at [email or web address] or register during your next office visit. [...] primary care provider, you may find a [facility] provider by calling [facility] LocBox Link at [phone]. For information about the plan of care [...] Primary Care Member Role: PCP Address: Address: [address] [place] [address] Adult & [place] [address]- Care Team Related Persons Name: ELLY ABBOTT Address: home [address] [place] [id number] Name: TRENT CHAVARRIA Address: [address] [place] [address]
--- OUTSIDE RECORDS SUMMARY | 2023-10-10 00:26 | XMS_ITS | Continuity of Care Document ---
Author Organization [facility] Address [address] [place] [address]- Care Team Providers Care Dope Mixer Name Role Phone Shlomo HUTCHINSON, Uli Barnes Primary Care Physician Encounter [facility] Date(s): 10/12/22 - 11/11/22 [facility] [address] [place], [place] [address] Allergies, Adverse Reactions, Alerts No Known Allergies Immunizations Given and Recorded Vaccine Date Status Refusal Reason influenza virus vaccine, inactivated 10/29/21 Juan rded influenza virus vaccine, inactivated 1 11/11/17 Gi lissette [id number] 12y+ bivalent booster vax 10/29/21 Recorded SARS-CoV-2 (COVID-19) mRNA BNT-162b2 vac 02/22/21 Recorded SARS-CoV-2 (COVID-19) mRNA BNT-162b2 vac 04/10/20 Recorded SARS-CoV-2 (COVID-19) mRNA BNT-162b2 vac 03/14/20 Recorded SARS-CoV-2 (COVID-19) mRNA BNT-162b2 vac 02/22/20 Recorded pneumococcal 13-valent vaccine 05/26/18 Recorded tetanus-diphtheria toxoids (Td) 2 05/18/18 Given 1Result Comment: [11/11/2017] [id number] 2Result Comment: patient received a TD injection. she tolterated procedure well with no complaints. MECHANICAL SERVICE TECHNICIAN NDC: [address]-0 Medications amLODIPine 5 mg oral tablet 1 tablet, By Mouth, Daily, # 90 tablet, 1 Refills, Maintenance, 08/31/22 21:56:00 EDT, 169, cm, 08/27/22 15:02:00 EDT, Height Start Date: 08/31/22 Status: Ordered atorvastatin 10 mg oral tablet 1 tablet, By Mouth, Daily, # 90 tablet, 1 Refills, Maintenance, 08/31/22 21:58:00 EDT, [facility] # [id number], 169, cm, 08/27/22 15:02:00 EDT, Height Start Date: 08/31/22 Status: Ordered clopidogrel 75 mg oral tablet 1, tablet, By Mouth, Daily, # 90 tablet, Refills 3, Maintenance, 09/01/22 12:38:00 EDT, Route to Pharmacy Electronically, [facility] #[id number], 169, cm, 08/27/22 15:02:00 EDT, Height Start [...] 06/10/23 15:18:00 EDT, 06/13/22 16:16:00 EDT, Film, [facility] # 302, Partial fill upon [...] Team Personnel Name: Uli Keenan MD Position: [facility] Physician - Primary Care Member Role: PCP Address: Address: [address] [place] [address] Adult [place] [address]- Care Team Related Persons Name: ELLY ABBOTT Address: home [address] [place] [id number] Name: TRENT CHAVARRIA Address: home [address] [place] [address]
--- OUTSIDE RECORDS SUMMARY | 2023-10-10 00:26 | XMS_ITS | Continuity of Care Document ---
Author Organization [facility] Address [address] [place] [address]- Care Team Providers Care Automotive Manufacturer Name Role Phone Steven HUTCHINSON, Delbert Primary Care Physician Encounter [facility] Date(s): 07/31/20 - 08/30/20 [facility] [address] [place], [place] [address] Attending Physician: Carmen Mayes Admitting Physician: AdmtrCarmne Referring Physician: Admtr, ArPaulino Allergies, Adverse Reactions, Alerts Substance Reaction [...] she tolterated procedure well with no complaints. FAN INSTALLER NDC: [address]-7 2Result Comment: [11/11/2017] [id number] Medications amLODIPine 5 mg oral tablet See Instructions, TAKE ONE TABLET BY MOUTH ONCE DAILY, # 90 tablet, 0 Refills, Maintenance, [facility] #[id number], 169, cm, 08/09/18 10:33:00 EDT, Height Start Date: 05/10/20 Status: Ordered atorvastatin 10 mg oral tablet See Instructions, TAKE ONE TABLET BY MOUTH ONCE DAILY, # 90 tablet, 0 Refills, Maintenance, [facility] #[id number], 169, cm, 08/09/18 10:33:00 EDT, Height Start Date: 05/16/20 Status: Ordered clopidogrel 75 mg oral tablet 75 mg, 1, tablet, By Mouth, Daily, # 90 tablet, Refills 3, Tot. Refills 3, Maintenance, 11/07/19 14:04:00 EDT, Route to Pharmacy Electronically, [facility] # [id number], 169, cm, 08/09/18 10:33:00 [...]
--- OUTSIDE RECORDS SUMMARY | 2023-10-10 00:26 | XMS_ITS | Continuity of Care Document ---
Author Organization [facility] Address [address] [place] [address]- Care Team Providers Care Teller Vault Name Role Phone Jeff Rico MD Primary Care Physician Encounter [facility] Date(s): 09/06/18 - 06/04/19 [facility] [address] [place] [address]- [facility] Attending Physician: Jeff Rico MD Allergies, Adverse Reactions, Alerts Substance Reaction Severity Status NKA Active Immunizations Given and Recorded Vaccine Date Status Refusal Reason tetanus-diphtheria toxoids (Td) 1 05/18/18 Given influenza virus vaccine, inactivated 2 11/11/17 Gi lissette 1Result Comment: patient received a TD injection. she tolterated procedure well with no complaints. BOX [place]E CUTTER ND: [address]-7 2Result Comment: [11/11/2017] [id number] Medications amLODIPine 5 mg oral tablet 5 mg, 1, tablet, By Mouth, Daily, # 90 tablet, Refills 3, Tot. Refills 3, Maintenance, 05/11/19 13:10:00 EDT, Route to Pharmacy Electronically, [facility] # [id number], 169, cm, 08/09/18 10:33:00 EDT, Height, 55, kg, 09/30/17 20:32:00 EDT, Dry Weight Start Date: 05/11/19 Status: Ordered atorvastatin 10 mg oral tablet 1 tablet = 10 mg, By Mouth, Daily, # 90 tablet, 3 Refills, Maintenance, 05/11/19 13:10:00 EDT, Tablet, [facility] # 302, 169, cm, 08/09/18 10:33:00 EDT, Height, 55, kg, 09/30/17 20:32:00 EDT, Dry Weight Start Date: 05/11/19 Status: Ordered clopidogrel 75 mg oral tablet 75 mg, 1, tablet, By Mouth, Daily, # 90 tablet, Refills 3, Tot. Refills 3, Maintenance, 11/09/18 16:03:20 EDT, Route to Pharmacy Electronically, [id number], [facility] # [id number] Start Date: 11/09/18 Status: [...]
--- OUTSIDE RECORDS SUMMARY | 2023-10-10 00:26 | XMS_ITS | Continuity of Care Document ---
Author Organization [facility] Address [address] [place] [address]- Care Team Providers Care Production Welding Supervisor Name Role Phone Shlomo HUTCHINSON, Uli Barnes Primary Care Physician Encounter [facility] Date(s): 10/10/22 - 11/09/22 [facility] [address] [place], [place] [address] Allergies, Adverse Reactions, Alerts No Known Allergies Immunizations Given and Recorded Vaccine Date Status Refusal Reason influenza virus vaccine, inactivated 10/29/21 Juan rded influenza virus vaccine, inactivated 1 11/11/17 Gi lissette [id number] 12y+ bivalent booster vax 10/29/21 Recorded SARS-CoV-2 (COVID-19) mRNA BNT-162b2 vac 02/22/21 Recorded SARS-CoV-2 (COVID-19) mRNA BNT-162b2 vac 04/10/20 Recorded SARS-CoV-2 (COVID-19) mRNA BNT-162b2 vac 03/14/20 Recorded SARS-CoV-2 (COVID-19) mRNA BNT-162b2 vac 02/22/20 Recorded pneumococcal 13-valent vaccine 05/26/18 Recorded tetanus-diphtheria toxoids (Td) 2 05/18/18 Given 1Result Comment: [11/11/2017] [id number] 2Result Comment: patient received a TD injection. she tolterated procedure well with no complaints. 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 MECHANIC NDC: [address]-5 Medications amLODIPine 5 mg oral tablet 1 tablet, By Mouth, Daily, # 90 tablet, 1 Refills, Maintenance, 08/31/22 21:56:00 EDT, 169, cm, 08/27/22 15:02:00 EDT, Height Start Date: 08/31/22 Status: Ordered atorvastatin 10 mg oral tablet 1 tablet, By Mouth, Daily, # 90 tablet, 1 Refills, Maintenance, 08/31/22 21:58:00 EDT, [facility] # 302, 169, cm, 08/27/22 15:02:00 EDT, Height Start Date: 08/31/22 Status: Ordered clopidogrel 75 mg oral tablet 1, tablet, By Mouth, Daily, # 90 tablet, Refills 3, Maintenance, 09/01/22 12:38:00 EDT, Route to Pharmacy Electronically, [facility] #[id number], 169, cm, 08/27/22 15:02:00 EDT, Height Start [...] 06/10/23 15:18:00 EDT, 06/13/22 16:16:00 EDT, Film, [facility] # 302, Partial fill upon patient [...] Team Personnel Name: Uli Keenan MD Position: [facility] Physician - Primary Care Member Role: PCP Address: Address: [address] [place] [address] Adult [place] [address]- Care Team Related Persons Name: ELLY ABBOTT Address: home [address] [place] [id number] Name: TRENT CHAVARRIA Address: home [address] [place] [address]
[2023-10-10 04:00] VITALS: BP 125/61; PULSE 68; RESP 20; TEMP 36.4; O2SAT 95
[2023-10-10 06:29] LABS: Hematocrit 30.9 % (37.0-47.0); Hemoglobin 10.4 g/dl (12.0-16.0); Mean Corpuscular HGB Conc 33.7 g/dl (31.0-35.0); Mean Corpuscular Hemoglobin 29.8 pg (27.0-33.0); Mean Corpuscular Volume 88.5 fL (80.0-98.0); Mean Platelet Volume 9.2 fL (9.4-12.3); Platelet Count 276 X10*3/uL (160-400); Red Blood Count 3.49 X10*6/uL (4.20-5.50); Red Cell Distribution Width 14.5 % (11.0-16.0); White Blood Count 8.7 X10*3/uL (4.8-10.8)
--- NOTE | 2023-10-10 07:19 | PC.NURSE ---
Patient received in bed around 1845 with sitter 1:1 at bed side for safety. Patient remains calm and cooperative throughout the shift. No signs of agitation noted. No attempts to leave the bed. Patient was more oriented and engaged with staff. Patient did well with her pills crushed in apple sauce. Assisted with incontinence care, turning and repositioning. VSS. Afebrile with no signs of distress.
[2023-10-10 07:20] VITALS: BP 116/64; PULSE 68; RESP 20; TEMP 36.3; O2SAT 92
[2023-10-10] MEDS: Multivitamin TABLET 1 TAB PO (08:52)
[2023-10-10] MEDS: Clopidogrel Bisulfate 75 MG TABLET PO (08:52)
[2023-10-10] MEDS: cefuroxime axetiL 250 MG TABLET PO (08:52)
[2023-10-10 08:58] VITALS: BP 116/64
[2023-10-10] MEDS: Atorvastatin Calcium 10 MG TABLET PO (08:58)
[2023-10-10] MEDS: amLODIPine Besylate 5 MG TABLET PO (08:58)
--- NOTE | 2023-10-10 14:18 | HO.PM.IMPN ---
Subjective Subjective Date of Service: 10/10/23 Interval History: Resting comfortably offers no acute complaints, following commands, no acute overnight events, being followed for COVID, UTI/ sepsis. Review of Systems All other system reviewed and are negative. Physical Exam Vital Signs: Vital Signs: Last Vital Signs Temp 97.4 F 10/10/23 07:20 Pulse 68 10/10/23 07:20 Resp 20 10/10/23 07:20 BP 116/64 10/10/23 08:58 Pulse Ox 92 10/10/23 07:20 O2 Del Method Room Air 10/10/23 07:20 BMI result Body Mass Index 17.4 Const: Other: General in no acute distress. Neck no JVD. CVS regular rate rhythm, Respiratory lungs clear to auscultation, no respiratory distress, no wheeze, no rhonchi. Gastrointestinal abdomen soft, non tender, bowel sounds audible, Extremities no edema. Neuro speech clear, awake alert x3. Skin no rash Of patient Objective Data Active Medications Acetaminophen (Acetaminophen 325 Mg Tablet) 650 mg PO Q6H PRN PRN Reason: Pain, Mild (Pain Scale 1-3), fever or headache Last Admin: 10/10/23 00:08 Dose: 650 mg Documented By: RHONDA Amlodipine Besylate (Amlodipine Besylate 5 Mg Tablet) 5 mg PO DAILY [facility]; Protocol Last Admin: 10/10/23 08:58 Dose: 5 mg Documented By: MARGO Atorvastatin Calcium (Atorvastatin Calcium 10 Mg Tablet) 10 mg PO DAILY [facility] Last Admin: 10/10/23 08:58 Dose: 10 mg Documented By: MARGO Benzonatate (Benzonatate 100 Mg Capsule) 200 mg PO TID PRN PRN Reason: Cough Calcium Carbonate (Calcium Carbonate 750 Mg Tab.Chew) 750 mg PO Q4H PRN PRN Reason: Heartburn Cefuroxime Axetil (Cefuroxime Axetil 250 Mg Tablet) 250 mg PO Q12H [facility] Last Admin: 10/10/23 08:52 Dose: 250 mg Documented By: MARGO Clopidogrel Bisulfate (Clopidogrel Bisulfate 75 Mg Tablet) 75 mg PO DAILY [facility] Last Admin: 10/10/23 08:52 Dose: 75 mg Documented By: MARGO Enoxaparin Sodium (Enoxaparin Sodium 40 Mg/0.4 Ml Syringe) 40 mg SUBCUT Q24H [facility] Last Admin: 10/09/23 22:57 Dose: 40 mg Documented By: RHONDA Magnesium Hydroxide (Milk Of Magnesia 30 Ml Oral.Susp) 30 ml PO DAILY PRN PRN Reason: Constipation Melatonin (Melatonin 3 Mg Tablet) 6 mg PO BEDTIME PRN PRN Reason: Insomnia Last Admin: 10/10/23 00:07 Dose: 6 mg Documented By: RHONDA Multivitamins/Vitamin C (Multivitamin Tablet) 1 tab PO DAILY [facility] Last Admin: 10/10/23 08:52 Dose: 1 tab Documented By: MARGO Ondansetron HCl (Ondansetron Hcl 4 Mg/2 Ml Vial) 4 mg IVPUSH Q8H PRN PRN Reason: Nausea and Vomiting Sodium Chloride (0.9 % Sodium Chloride Flush 3 Ml Syringe) 3 ml IVFLUSH QSHIFT [facility] Last Admin: 10/10/23 08:53 Dose: 3 ml Documented By: MARGO Labs 10/10/23 05:54 10/08/23 04:54 Labs: Laboratory Results - last 24 hr 10/10/23 05:54 MCV 88.5 MCH 29.8 MCHC 33.7 RDW 14.5 Plt Count 276 MPV 9.2 L Absolute Nucleated RBC 0.000 Nucleated RBC % (auto) 0.0 Microbiology Microbiology Results: Microbiology 10/07/23 20:59 Urine Culture - Final Urine clean catch - Clean Catch Midstream Escherichia coli 10/07/23 20:49 Blood Culture - Preliminary Blood - Venous No growth after 48 hours. 10/07/23 20:00 Blood Culture - Preliminary Blood - Venous No growth after 48 hours. 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 #History of CVA/mixed hyperlipidemia -continue Plavix and statin #Hypertension -continue amlodipine, follow BP # moderate protein calorie malnutrition -seen by cryptologic linguist continue supplements DVT prophylaxis: Lovenox DNR/DNI. Pt. requires ongoing inpt stay due to UTI and safe disposition. Quality Stroke Does the patient have a stroke diagnosis?: No VTE Prior VTE?: No VTE Risk Level:: Medical - moderate - high VTE Device Contraindication: Treatment Not Indicated VTE Drug Contraindication: N/A - Med Ordered
--- NOTE | 2023-10-10 15:00 | PM.DS ---
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 Patient states she was discharged from rehab facility this week. Patient states she has been having weakness which progressed on the day of presentation so much so that she could not walk. Also admits nonproductive cough. No fever or chills. Does have increased urinary frequency and change in urine odor. Reports history of recurrent UTIs in the past and was last treated about 3 weeks ago for UTI. No chest discomfort, palpitations, shortness of breath, abdominal pain, changes in bowel habits. In the emergency department, WBC found to be elevated and urine concerning for UTI. Patient tested positive for COVID-19 infection. 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 for 4 more days, all features of sepsis resolved, in regard to COVID-19 patient was treated with airborne/contact precautions, noted to have no hypoxia, continue symptomatic management with cough medications, multivitamin, and rest, in regard to generalized weakness, patient was evaluated by Physical therapy they are recommending short-term rehab, patient lives alone and noted to have moderate protein calorie malnutrition, she was unable to stand due to decreased balance with standing, she is high risk for fall, so recommend physical therapy at rehab for gross deconditioning, impaired bed mobility, safety, impaired standing balance and transfer ability, recommend ensure t.i.d. and regular ground/mechanical altered diet. In regard to chronic medical issues including History of CVA/mixed hyperlipidemia and hypertension she has been continued on Plavix, amlodipine and statins. Time Attestation Discharge Coordination Time (in mins): 36 Quality: Safe Use of Opioids Does Pt have an Active Cancer Diagnosis on the Problem List?: No Quality: Stroke Does the patient have a stroke diagnosis?: No Physical Exam Vital Signs: Vital Signs: Last Vital Signs Temp 97.4 F 10/10/23 07:20 Pulse 68 10/10/23 07:20 Resp 20 10/10/23 07:20 BP 116/64 10/10/23 08:58 Pulse Ox 92 10/10/23 07:20 O2 Del Method Room Air 10/10/23 07:20 BMI result Body Mass Index 17.4 Const: Other: General in no acute distress. Neck no JVD. CVS regular rate rhythm, Respiratory lungs clear to auscultation, no respiratory distress, no wheeze, no rhonchi. Gastrointestinal abdomen soft, non tender, bowel sounds audible, Extremities no edema. Neuro speech clear Skin no rash DS: Data Data Completed and Pending Completed studies during hospitalization [Text1]: Procedures Repair Scalp Skin, External Approach (06/11/23) Labs on day of discharge: Laboratory Results - last 24 hr 10/10/23 05:54 WBC 8.7 RBC 3.49 L Hgb 10.4 L Hct 30.9 L MCV 88.5 MCH 29.8 MCHC 33.7 RDW 14.5 Plt Count 276 MPV 9.2 L Absolute Nucleated RBC 0.000 Nucleated RBC % (auto) 0.0 Preliminary micro results at discharge 10/07/23 20:49 Blood Culture - Preliminary Blood - Venous No growth after 48 hours. 10/07/23 20:00 Blood Culture - Preliminary Blood - Venous No growth after 48 hours. Discharge Plan Discharge Anticipated Discharge Date/Time: 10/10/23 14:46 Patient Disposition: Xfer SNF Discharge Diagnosis: Acute UTI with sepsis COVID-19 Protein calorie malnutrition Referrals: Physician,Unknown J [Primary Care Provider] - 1 Week Discharge Medications: New cefuroxime axetil 250 mg Tablet 250 mg PO Q12H Qty: 8 0RF magnesium hydroxide [Milk of Magnesia] 400 mg/5 mL Suspension 30 ml PO DAILY PRN (Reason: Constipation) Qty: 355 0RF Antacid Ext Str (calcium carb) 300 mg (750 mg) Tablet,Chewable 2.5 tab PO Q4H PRN (Reason: Heartburn) Qty: 20 0RF Continued atorvastatin [Lipitor] 10 mg Tablet 10 mg PO DAILY clopidogrel [Plavix] 75 mg Tablet 75 mg PO DAILY amlodipine 5 mg Tablet 5 mg PO DAILY multivitamin Tablet 1 tab PO DAILY acetaminophen 650 mg Tablet Extended Release 650 mg PO DAILY Discharge Orders: Discharge Order (Routine); Ordered 10/10/23 Ordered By: Bill Bradford Diet: Ground mechanical Activity on Discharge: PT eval Stand Alone Forms: Patient Portal Discharge page Print Language: Romanian Care Plan Goals: Sepsis due to UTI and COVID resolved Take Ceftin 250 mg 1 tablet twice daily for total 4 days No hypoxia PT recommend short-term rehab patient unsafe to ambulate, due to generalized weakness Moderate protein calorie malnutrition continue Ensure 3 times a day Health Concerns: History of CVA/hyperlipidemia/hypertension continue all home medication Plan of Treatment: Outpatient follow-up with primary care physician call for appointment Assessment: As above
[2023-10-10 15:16] VITALS: BP 139/65; PULSE 62; RESP 20; TEMP 36.1; O2SAT 95
--- NOTE | 2023-10-10 16:12 | MHC.CM.PN ---
PT CLEARED TO [place] TODAY TO DAY [facility] CM RECEIVED A CALL FROM MICROFILM TECHNICIAN, WENDY CURIEL [phone] WHO REPORTS SHE SPOKE TO THE PTS DAUGHTERS AND HER ONLY CONCERN WAS IF PT WAS HERE LONG ENOUGH TO ACCESS HER MEDICARE BENEFIT CM EXPLAINED SHE DOES HAVE HER QHS AND WILL BE USING HER MEDICARE WENDY REPORTS SHE WILL BRING CLOTHING HERE FOR THE PT WITHIN THE HOUR SHE ALSO INDICATED SHE WOULD CALL THE PTS DAUGHTER, HOWEVER CM ALSO LEFT A VM FOR DAUGHTER, ELLY PT WILL BE TRANSPORTED VIA [facility] WITH [facility] AT 1700 HOURS
--- NOTE | 2023-10-10 16:43 | PC.NURSE ---
Attempted to Reach [facility] to call report on patient at 16:30 and 16:40. The was no answer on the line phone continued to ring.
== END 2023-10-10 17:55 | disposition skilled nursing facility (03) | DRG 871 ==
LOC: HO.ED 22:51 → HO.EDOVER 10-08 07:04 → HO.IMC 10-09 00:14
PROVIDERS: Admitting Provider Student in an Organized Health Care Education/Training Program; Emergency Provider Emergency Medicine; PCP Internal Medicine; Visit Provider Hospitalist
DX: A41.89 Other specified sepsis (principal); U07.1 COVID-19; N39.0 Urinary tract infection, site not specified; I69.354 Hemiplegia and hemiparesis following cerebral infarction affecting left non-dominant side; E44.0 Moderate protein-calorie malnutrition; Z68.1 Body mass index [BMI] 19.9 or less, adult; Z66 Do not resuscitate; E78.2 Mixed hyperlipidemia; I10 Essential (primary) hypertension; B96.20 Unspecified Escherichia coli [E. coli] as the cause of diseases classified elsewhere; Z87.440 Personal history of urinary (tract) infections; Z87.891 Personal history of nicotine dependence; Z79.02 Long term (current) use of antithrombotics/antiplatelets; Z79.899 Other long term (current) drug therapy
CPT/HCPCS: 0241U; 36415; 71045; 80048; 80076; 81001; 83605; 83690; 84484; 85025; 85027; 87040; 87086; 87088; 87186; 93005; 97162; 99285; J0696; J1650; J2060

== ENCOUNTER → 2023-10-07 23:32 | Outpatient (BNV) | payer MEDICARE, OTHER, SELFPAY | PROVIDERS: Admitting Provider Student in an Organized Health Care Education/Training Program; Emergency Provider Emergency Medicine; Visit Provider Student in an Organized Health Care Education/Training Program | DX: U07.1 COVID-19 (principal); N39.0 Urinary tract infection, site not specified | CPT/HCPCS: 99223; 99232; 99239; 99499 ==

== ENCOUNTER 2023-11-10 10:57 | Emergency (ER) | payer MEDICARE, OTHER, SELFPAY ==
--- NOTE | ~2023-11-10 | XR_ITS ---
EXAMINATION: XR CHEST CLINICAL INFORMATION: Unresponsive. COMPARISON: October 07, 2023 TECHNIQUE: Frontal view of the chest was obtained. FINDINGS: The lungs are well expanded. No focal consolidation. No significant pleural effusion. Cardiac silhouette is obscured. Large hiatal hernia. XR/XR chest 1V IMPRESSION: No acute abnormality. Electronically signed by: Jai Ceron MD 11/10/2023 01:38 PM EDT
--- NOTE | ~2023-11-10 | XR_ITS ---
EXAMINATION: XR HIP, RIGHT CLINICAL INFORMATION: Right hip pain. Fall. COMPARISON: None available. TECHNIQUE: AP view of the pelvis and AP and crosstable lateral views of the right hip. FINDINGS: Bones are osteopenic. Mild osteoarthritis of the right hip with axial joint space narrowing and marginal osteophytes. No fracture or malalignment. The symphysis is unremarkable. Imaged portion of the right innominate bone appears intact. Atherosclerotic calcifications are present in the iliac and femoral arteries. No acute soft tissue findings. XR/XR hip RT w PEL1V IMPRESSION: 1. No acute fracture or malalignment. 2. Mild osteoarthritis in the right hip. Electronically signed by: Tk De Oliveira MD 11/10/2023 01:07 PM EDT RP
--- NOTE | ~2023-11-10 | CT_ITS ---
EXAMINATION: CT HEAD WITHOUT CONTRAST CLINICAL INFORMATION: Altered mental status COMPARISON: CT head 06/11/2023 TECHNIQUE: Contiguous axial imaging was performed from the skull base to vertex without intravenous administration of contrast. This CT examination was performed using dose optimization techniques as appropriate, variously including the following: *Automated exposure control *Adjustment of mA and/or kV according to patient size (this includes techniques or standardized protocols for targeted exams where dose is matched to indication/reason for exam; i.e. extremities or head) *Use of iterative reconstruction technique DLP: 674 mGy-cm FINDINGS: There is no evidence of acute intracranial hemorrhage or edematous territorial infarction. Pablo-white matter differentiation appears preserved. Proportional prominence of the ventricles and cortical sulci with diffuse volume loss. Patchy and confluent hypodensities within the periventricular and deep white matter, likely representing moderate chronic microangiopathy. Bilateral basal ganglia mineralizations. Remote lacunar infarcts within the left basal ganglia and right thalamus. Again noted small remote infarct in the right cerebellum. No abnormal mass effect or midline shift. No acute extra-axial fluid collections. Mild right frontoparietal scalp soft tissue thickening at the vertex. No acute osseous abnormality. Polypoidal mucosal thickening within the left maxillary sinus. The remaining paranasal sinuses and mastoids are well-aerated. CT/CT head/brain wo IV con IMPRESSION: No acute intracranial pathology. Diffuse volume loss with moderate chronic microangiopathy and remote lacunar infarcts. Electronically signed by: Blake Ramirez MD 11/10/2023 01:07 PM EDT
[2023-11-10 11:04] VITALS: BP 111/51; BP 90/51; PULSE 66; PULSE 70; RESP 15; TEMP 36.4; O2SAT 96; BMI 20.6
[2023-11-10 11:10] VITALS: BP 111/51; PULSE 66; RESP 15; TEMP 36.4; O2SAT 96
--- NOTE | 2023-11-10 11:10 | ECG_ITS ---
Test Reason : FAILURE TO THRIVE Blood Pressure : / mmHG Vent. Rate : 069 BPM Atrial Rate : 069 BPM P-R Int : 178 ms QRS Dur : 090 ms QT Int : 416 ms P-R-T Axes : 069 016 062 degrees QTc Int : 445 ms Normal sinus rhythm Possible Left atrial enlargement Minimal voltage criteria for LVH, may be normal variant ( Sulaiman product ) Borderline ECG When compared with ECG of 07-OCT-2023 20:17, Aberrant conduction is no longer Present ST no longer depressed in Lateral leads Referred By: Miranda Maurer Electronically Signed By:TRENT CORBETT
--- NOTE | 2023-11-10 11:18 | PC.NURSE ---
Pt comes from [facility] by EMS. Pt found unresponsive--only responsive to painful stimuli with HR in 40's-50's 20g LAC by EMS and IVF started. Pt is a DNR/DNI; paperwork placed in chart. VSS at this time; Pt is A&Ox3, afebrile ED provider at bedside.
[2023-11-10 11:27] VITALS: BP 122/53; PULSE 69; RESP 11; O2SAT 99
--- NOTE | 2023-11-10 11:28 | ED.WEAKNESS ---
HPI - Weakness General Chief complaint: Failure to Thrive Stated complaint: SEMI RESPONSIVE,NEW MED T-1,LOW BP 90/51 PER EMS Time Seen by Provider: 11/10/23 11:12 Source: family and EMS Mode of arrival: EMS Limitations: no limitations History of Present Illness HPI Narrative: 88-year-old female DNR DNI PMH: CVA with residual left-sided weakness, mixed hyperlipidemia, hypertension who presents from the senior care for weakness. For the past several days patient has been complaining of back pain in the started the patient on tizanidine. Symptoms started approximately Wednesday today the patient was very somnolent when they went to get her get her dressed for breakfast. Is awake and alert apparently had a lower heart rate for staff at the senior care but heart rate has improved. Patient denies any complaints or cough she states she felt weak this morning. Heart rate is improved blood pressure is okay at this time. MD Complaint: generalized weakness Related Data Home Medications ?Medication ?Instructions ?Recorded ?Confirmed amlodipine 5 mg tablet 5 mg PO DAILY 05/15/20 10/08/23 atorvastatin 10 mg tablet (Lipitor) 10 mg PO DAILY 05/15/20 10/08/23 clopidogrel 75 mg tablet (Plavix) 75 mg PO DAILY 05/15/20 10/08/23 acetaminophen 650 mg 650 mg PO DAILY 10/08/23 10/08/23 tablet,extended release multivitamin 1 tab PO DAILY 10/08/23 10/08/23 Previous Rx's ?Medication ?Instructions ?Recorded calcium carbonate (Antacid Ext Str 2.5 tab PO Q4H PRN Heartburn #20 10/10/23 (calcium carb)) tabs cefuroxime axetil 250 mg tablet 250 mg PO Q12H #8 tabs 10/10/23 magnesium hydroxide 400 mg/5 mL 30 ml PO DAILY PRN Constipation 10/10/23 oral suspension (Milk of Magnesia) #355 mL Allergies Allergy/AdvReac Type Severity Reaction Status Date / Time aspirin [Aggrenox] AdvReac Unknown stomach Verified 11/10/23 11:07 upset dipyridamole [Aggrenox] AdvReac Unknown stomach Verified 11/10/23 11:07 upset Review of Systems Review of Systems: Review of systems: General: Patient denies any fever chills recent illness or falls Musculoskeletal: Denies back pain or body aches or other injuries HEENT: denies headache, runny nose, ear pain Respiratory: denies shortness of breath, cough Cardiovascular: no chest pain or palpitations : denies dysuria, frequency Abdomen: no nausea vomiting denies abdominal pain Extremities: right hip pain Skin: no diaphoresis Yes all other systems are reviewed and are negative PMFSH Past Medical History Medical History Multifactorial dementia Laceration of scalp (~06/11/23) History of stroke Hyperlipidemia HTN (hypertension) Weakness Social History Social History Household Members: Children Housing: House Do you presently have visiting nurse or other home services: Yes (home care attendant) Alcohol intake: never 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 sitter Patient Tobacco Use Status: Former Tobacco user Tobacco use type: Cigarette Cigarettes Per Day: 30 Years Smoked: 45 Smoked in Last 30 Days: No e-Cigarette/Vaping Use: Never Used Use of substances other than those prescribed or required for medical reasons: No Advance Directives: Yes Advance Directives on File: Yes Advance Directives Date on File: 05/20/20 Do you have a plan to hurt others: No Plan service: No Current occupational status: retired Physical Exam Vital Signs: Vital Signs: Last Vital Signs Temp 97.5 F 11/10/23 11:10 Pulse 69 11/10/23 11:27 Resp 11 L 11/10/23 11:27 BP 122/53 L 11/10/23 11:27 Pulse Ox 99 11/10/23 11:27 O2 Del Method Room Air 11/10/23 11:27 BMI result Body Mass Index 20.6 General: Well-appearing well-nourished in no signs of distress HEENT: Normocephalic atraumatic Neck: No signs of JVD, no masses no tenderness or lymphadenopathy Cardiovascular: Regular rate and rhythm Respiratory: Clear to auscultation bilaterally Abdomen: Soft nontender no masses Extremities: Right hip pain with decreased range of motion on the right Normal pedal pulses no signs of edema Skin: Dry warm no rashes Back: No tenderness full ROM Course Course Course Narrative: As patient is doing well labs were normal urine is unremarkable and x-ray of the hip which does show some osteoarthritis I think the tizanidine is likely the cause of her increased somnolence I do not have reason to admit her here today I spoke with the family they are asking for something for pain I explained likely needs to follow up outpatient with her doctor or the doctor over at the facility I would not recommend any medications that can make her too somnolent or can put her at risk for bleeding Tylenol was only 1 that should be given at this time they appeared to be happy with this plan will follow up outpatient Medications Administered Discontinued Medications Generic Name Dose Route Start Last Admin Trade Name Freq PRN Reason Stop Dose Admin Sodium Chloride 1,000 mls @ 999 mls/hr 11/10/23 11:30 11/10/23 12:40 Ns IV 11/10/23 12:30 999 mls/hr .Q1H1M JONATHAN Administration Medical Decision Making Medical Decision Making [facility] Narrative: Who has had UTI I will send a urinalysis we will do a straight cath I will get an x-ray of the hip I will give the patient fluids check labs CT scan of the head had reassess. Differential Diagnosis Differential Diagnoses: The differential diagnosis associated with the presentation includes Right hip pain hip fracture back pain tizanidine causing increased somnolence and weakness medication effect dehydration electrolyte abnormality weakness pneumonia UTI Lab Data 11/10/23 11:34 11/10/23 11:34 Labs: Lab Results 11/10/23 11/10/23 Range/Units 11:34 13:28 WBC 9.5 (4.8-10.8) X10*3/uL RBC 3.51 L (4.20-5.50) X10*6/uL Hgb 10.5 L (12.0-16.0) g/dl Hct 31.9 L (37.0-47.0) % MCV 90.9 (80.0-98.0) fL MCH 29.9 (27.0-33.0) pg MCHC 32.9 (31.0-35.0) g/dl RDW 15.1 (11.0-16.0) % Plt Count 229 (160-400) X10*3/uL MPV 9.1 L (9.4-12.3) fL Immature Gran % (Auto) 0.4 (0.0-0.4) % Neut % (Auto) 68.3 (45-73) % Lymph % (Auto) 11.3 L (20-40) % Mcpherson % (Auto) 17.3 H (2-11) % Eos % (Auto) 2.1 (0-4) % Baso % (Auto) 0.6 (0-2) % Lymph # (Auto) 1.1 L (1.2-4.9) X10*3/uL Mcpherson # (Auto) 1.7 H (0.1-1.2) X10*3/uL Eos # (Auto) 0.2 (0.0-0.4) X10*3/uL Baso # (Auto) 0.1 (0.0-0.2) X10*3/uL Abs Immat Gran (auto) 0.04 H (0.00-0.03) X10*3/uL Absolute Neuts (auto) 6.5 (2.0-8.3) x10*3/uL Absolute Nucleated RBC 0.000 (0.0-0.012) X10*3/uL Nucleated RBC % (auto) 0.0 (0.0-0.2) /100WBC Smear Tech's Comments VERIFIED PT 11.9 (10.9-12.4) SEC INR 1.0 (0.9-1.1) APTT 28.5 (26.0-36.8) SEC Sodium 141 (135-145) mmol/L Potassium 3.8 (3.3-5.1) mmol/L Chloride 108 (96-108) mmol/L Carbon Dioxide 27 (22-29) mmol/L Anion Gap 10 L (12-20) BUN 31 H (9-16) mg/dL Creatinine 0.80 (0.5-1.4) mg/dL Estim Creat Clear Calc 43.5 Estimated GFR > 60 Random Glucose 105 (60-115) mg/dL Calcium 9.0 (8.4-10.2) mg/dL Total Bilirubin 0.7 (0.0-1.0) mg/dL Direct Bilirubin 0.3 (0.0-0.5) mg/dL AST 34 H (5-31) U/L ALT 13 (0-31) U/L Alkaline Phosphatase 66 (39-117) U/L Total Protein 6.2 L (6.5-8.0) g/dL Albumin 3.5 (3.5-5.0) g/dL Lipase 9 (8-78) U/L Urine Color Yellow Urine Appearance Clear Urine pH 5.5 (5.0-9.0) Ur Specific [place] 1.025 (1.005-1.025) Urine Protein Trace (Neg-Trace) mg/dL Urine Glucose (UA) Negative (Negative) mg/dL Urine Ketones Negative (Negative) mg/dL Urine Blood Negative (Negative) Urine Nitrite Negative (Negative) Ur Leukocyte Esterase Negative (Negative) Urine Opiates Screen Not Detected (Not Detect) Ur Buprenorphine Scrn Not Detected (Not Detect) ng/mL Ur Oxycodone Screen Not Detected (Not Detect) ng/mL Urine Methadone Screen Not Detected (Not Detect) ng/mL Urine Fentanyl Screen Not Detected (Not Detect) Ur Barbiturates Screen Not Detected (Not Detect) Ur Phencyclidine Scrn Not Detected (Not Detect) Ur Amphetamines Screen Not Detected (Not Detect) U Benzodiazepines Scrn Not Detected (Not Detect) Urine Cocaine Screen Not Detected (Not Detect) U Marijuana (THC) Screen Not Detected (Not Detect) Ethyl Alcohol < 10 mg/dL Independent Interpretation I performed an independent interpretation of an: EKG Interpretation: Rate 69 normal sinus rhythm normal intervals no signs of ischemia no change from previous interpreted by me Discharge Plan Discharge Clinical Impression: Hip osteoarthritis, Medication adverse effect Patient Disposition: Home, Self-Care Instructions: Adult Overdose (ED), Osteoarthritis (DC) Additional Instructions: You were seen today for hip pain and likely over somnolence do to medications Please stop taking tizanadine. Please call to follow up with your doctor. Prescriptions: No Action atorvastatin [Lipitor] 10 mg Tablet 10 mg PO DAILY clopidogrel [Plavix] 75 mg Tablet 75 mg PO DAILY amlodipine 5 mg Tablet 5 mg PO DAILY multivitamin Tablet 1 tab PO DAILY acetaminophen 650 mg Tablet Extended Release 650 mg PO DAILY cefuroxime axetil 250 mg Tablet 250 mg PO Q12H Qty: 8 0RF magnesium hydroxide [Milk of Magnesia] 400 mg/5 mL Suspension 30 ml PO DAILY PRN (Reason: Constipation) Qty: 355 0RF Antacid Ext Str (calcium carb) 300 mg (750 mg) Tablet,Chewable 2.5 tab PO Q4H PRN (Reason: Heartburn) Qty: 20 0RF Print Language: Tajik
[2023-11-10 11:42] LABS: Basophils Absolute Auto 0.1 X10*3/uL (0.0-0.2); Basophils Percent Auto 0.6 % (0-2); Eosinophils Absolute Auto 0.2 X10*3/uL (0.0-0.4); Eosinophils Percent Auto 2.1 % (0-4); Hematocrit 31.9 % (37.0-47.0); Hemoglobin 10.5 g/dl (12.0-16.0); Imm Gran Abs Auto 0.04 X10*3/uL (0.00-0.03); Imm Gran Pct Auto 0.4 % (0.0-0.4); Lymphocytes Absolute Auto 1.1 X10*3/uL (1.2-4.9); Lymphocytes Percent Auto 11.3 % (20-40); MANUAL DIFF FLAG SCAN; Mean Corpuscular HGB Conc 32.9 g/dl (31.0-35.0); Mean Corpuscular Hemoglobin 29.9 pg (27.0-33.0); Mean Corpuscular Volume 90.9 fL (80.0-98.0); Mean Platelet Volume 9.1 fL (9.4-12.3); Monocytes Absolute Auto 1.7 X10*3/uL (0.1-1.2); Monocytes Percent Auto 17.3 % (2-11); Neutrophils Absolute Auto 6.5 x10*3/uL (2.0-8.3); Neutrophils Percent Auto 68.3 % (45-73); Platelet Count 229 X10*3/uL (160-400); Red Blood Count 3.51 X10*6/uL (4.20-5.50); Red Cell Distribution Width 15.1 % (11.0-16.0); SCAN SMEAR FLAG 1; White Blood Count 9.5 X10*3/uL (4.8-10.8)
[2023-11-10 11:54] LABS: Prothrombin Time 11.9 SEC (10.9-12.4)
[2023-11-10 11:57] LABS: Ethanol < 10 mg/dL; Partial Thromboplastin Time 28.5 SEC (26.0-36.8)
[2023-11-10 12:00] LABS: Alanine Aminotransferase 13 U/L (0-31); Albumin Level 3.5 g/dL (3.5-5.0); Alkaline Phosphatase 66 U/L (39-117); Anion Gap 10 (12-20); Aspartate Amino Transferase 34 U/L (5-31); Bilirubin Direct 0.3 mg/dL (0.0-0.5); Bilirubin Total 0.7 mg/dL (0.0-1.0); Blood Urea Nitrogen 31 mg/dL (9-16); Carbon Dioxide 27 mmol/L (22-29); Chloride 108 mmol/L (96-108); Creatinine Clr Calc Pharmacy 43.5; Estimated Glomerular Filt Rate > 60; Glucose Random 105 mg/dL (60-115); Lipase 9 U/L (8-78); Potassium 3.8 mmol/L (3.3-5.1); Sodium 141 mmol/L (135-145); Total Protein 6.2 g/dL (6.5-8.0)
[2023-11-10 12:12] LABS: SLIDE REVIEW VERIFIED
[2023-11-10] MEDS: 0.9 % Sodium Chloride 1,000 ML 999 ML IV (12:40)
--- NOTE | 2023-11-10 13:15 | MHC.EDTECH ---
Purewick in place. Patient resting comfortably. All current needs met.
[2023-11-10 13:41] LABS: Appearance Urine Clear; Color Urine Yellow; Glucose Urine UA Negative (Negative); Leukocyte Esterase Urine Negative (Negative); Nitrite Urine Negative (Negative); PH 5.5 (5.0-9.0); Specific Gravity - Urine 1.025 (1.005-1.025); Urine Blood Negative (Negative); Urine Ketones Negative (Negative); Urine Protein Trace mg/dL (Neg-Trace)
[2023-11-10 13:44] LABS: Amphetamine Screen Urine Not Detected (Not Detect); Barbiturates, Urine Not Detected (Not Detect); Benzodiazepines Screen Urine Not Detected (Not Detect); Buprenorphine Scr Not Detected (Not Detect); Cannabinoid Screen Urine Not Detected (Not Detect); Cocaine Screen Urine Not Detected (Not Detect); Fentanyl, urine Not Detected (Not Detect); Methadone Screen, Urine Not Detected (Not Detect); Opiate Screen Urine Not Detected (Not Detect); Oxycodone Screen Urine Not Detected (Not Detect); Phencyclidine Screen Urine Not Detected (Not Detect)
[2023-11-10 13:55] VITALS: BP 164/83; PULSE 84; RESP 15; TEMP 36.3; O2SAT 96
--- NOTE | 2023-11-10 14:47 | PC.NURSE ---
Call placed to [facility] and spoke with MINA Bansal. RN to RN report given and Nimisha advised Pt will be d/c'd. Nimisha given the opportunity for questions and all questions answered to satisfaction.
--- NOTE | 2023-11-10 16:08 | PC.NURSE ---
Pt to be transported back to [facility]. IV removed. Report given to EMS [facility]. Care of Pt relinquished to [facility].
[2023-11-10 16:20] VITALS: BP 164/83; PULSE 84; RESP 15; TEMP 36.3; O2SAT 96
== END 2023-11-10 16:21 ==
PROVIDERS: Physician Assistant Medical; Emergency Provider Student in an Organized Health Care Education/Training Program; PCP Internal Medicine
DX: M16.11 Unilateral primary osteoarthritis, right hip (principal); N39.0 Urinary tract infection, site not specified; T42.8X5A Adverse effect of antiparkinsonism drugs and other central muscle-tone depressants, initial encounter; R53.1 Weakness; Y92.129 Unspecified place in nursing home as the place of occurrence of the external cause; I10 Essential (primary) hypertension; E78.5 Hyperlipidemia, unspecified; Z87.891 Personal history of nicotine dependence; Z86.73 Personal history of transient ischemic attack (TIA), and cerebral infarction without residual deficits; Z79.02 Long term (current) use of antithrombotics/antiplatelets; Z79.899 Other long term (current) drug therapy
CPT/HCPCS: 36415; 70450; 71045; 73502; 80053; 80307; 81003; 82248; 83690; 85025; 85610; 85730; 93005; 96360; 96361; 99285

== ENCOUNTER 2024-01-26 17:10 | Inpatient (IN) | payer MEDICARE, OTHER, SELFPAY ==
--- NOTE | ~2024-01-26 | XR_ITS ---
EXAMINATION: XR CHEST CLINICAL INFORMATION: fever COMPARISON: 06/11/23 TECHNIQUE: Frontal view of the chest was obtained. FINDINGS: No significant abnormality is noted involving the heart, lungs, mediastinum, bony thorax or soft tissues. XR/XR chest 1V IMPRESSION: Unremarkable examination. Electronically signed by: Haritha Saldivar MD 01/26/2024 07:19 PM [facility] [place]
--- NOTE | ~2024-01-26 | CT_ITS ---
EXAMINATION: CT ABDOMEN AND PELVIS WITH CONTRAST CLINICAL INFORMATION: High-grade fever abdominal pain COMPARISON: None available. TECHNIQUE: Multidetector volumetric images were obtained from the superior aspect of the liver through the pubic symphysis following administration 85 mL of Omnipaque 350 intravenous contrast. Sagittal and coronal reformatted images were obtained on the technologist's workstation. Oral contrast: No This CT examination was performed using dose optimization techniques as appropriate, variously including the following: *Automated exposure control *Adjustment of mA and/or kV according to patient size (this includes techniques or standardized protocols for targeted exams where dose is matched to indication/reason for exam; i.e. extremities or head) *Use of iterative reconstruction technique DLP: 421 mGy-cm FINDINGS: LUNG BASES: Large hiatal hernia. Atelectasis at left lung base secondary to the large hiatal hernia. Coronary artery calcification. LIVER, GALLBLADDER, AND BILIARY TREE: The liver is normal in size, shape, and attenuation. No focal hepatic lesion or biliary ductal dilatation is present. The gallbladder is unremarkable with no evidence of radiopaque gallstones, gallbladder wall thickening, or obvious pericholecystic inflammatory changes. PANCREAS: Unremarkable. SPLEEN: Unremarkable. ADRENAL GLANDS: Unremarkable. KIDNEYS AND URETERS: There are nonobstructive stones in the right kidney. There are approximately 3 stones measuring between 3 and 5 mm in the mid and upper pole. The left kidney there is a nonobstructive 5 mm stone in the mid upper pole. No hydronephrosis. No hydroureter or ureteral stone. Bilateral renal cysts. No follow-up imaging is recommended for simple renal cyst. BLADDER: Unremarkable. GASTROINTESTINAL TRACT: There are numerous diverticula of the sigmoid colon. There is no diverticulitis. There is no bowel wall thickening /edema. There is no bowel obstruction. There is a moderate volume of stool in the colon. The appendix is normal . The small bowel loops are unremarkable. Large hiatal hernia. Majority the stomach is herniated into the chest. ABDOMINAL WALL: No significant hernia is appreciated. LYMPH NODES: Normal. VASCULAR: Vascular calcifications in the abdomen and pelvis. No aneurysm. PELVIC VISCERA: Unremarkable. OSSEOUS STRUCTURES: Multilevel degenerative spondylosis of the spine. CT/CT abdomen pelvis w IV con IMPRESSION: 1. No acute abnormality CT scan abdomen pelvis. 2. Large hiatal hernia. 3. Nonobstructive bilateral renal stones. 4. Diverticulosis of colon. No acute abnormality of the bowel. Fleischner guidelines were followed. Electronically signed by: Philippe Chappell MD 01/26/2024 11:17 PM [facility]
--- NOTE | 2024-01-26 17:38 | ECG_ITS ---
Test Reason : fever Blood Pressure : / mmHG Vent. Rate : 099 BPM Atrial Rate : 099 BPM P-R Int : 184 ms QRS Dur : 072 ms QT Int : 352 ms P-R-T Axes : 076 -26 072 degrees QTc Int : 451 ms Sinus rhythm with Premature atrial complexes Possible Left atrial enlargement Nonspecific ST abnormality Abnormal ECG When compared with ECG of 10-NOV-2023 11:13, Premature atrial complexes are now Present Referred By: Leonidas Alonso Electronically Signed By:EARLE HAAS MD
--- NOTE | 2024-01-26 17:50 | ED_ITS ---
HPI - General Adult General Chief complaint: Fever Stated complaint: fever *102, htn *186/98,cough Time Seen by Provider: 01/26/24 17:35 Source: patient and EMS Limitations: no limitations History of Present Illness ED Provider: HPI narrative: Patient is 88 years old from shelter with history of CVA residual left- sided weakness hypotension came from the shelter for fever and weakness temperature of 102 degrees recently had UTI and COVID-19 with sepsis on 10/08 patient noticed to be coughing Related Data Home Medications ?Medication ?Instructions ?Recorded ?Confirmed amlodipine 5 mg tablet 5 mg PO DAILY 05/15/20 10/08/23 atorvastatin 10 mg tablet (Lipitor) 10 mg PO DAILY 05/15/20 10/08/23 clopidogrel 75 mg tablet (Plavix) 75 mg PO DAILY 05/15/20 10/08/23 acetaminophen 650 mg 650 mg PO DAILY 10/08/23 10/08/23 tablet,extended release multivitamin 1 tab PO DAILY 10/08/23 10/08/23 Previous Rx's ?Medication ?Instructions ?Recorded calcium carbonate (Antacid Ext Str 2.5 tab PO Q4H PRN Heartburn #20 10/10/23 (calcium carb)) tabs cefuroxime axetil 250 mg tablet 250 mg PO Q12H #8 tabs 10/10/23 magnesium hydroxide 400 mg/5 mL 30 ml PO DAILY PRN Constipation 10/10/23 oral suspension (Milk of Magnesia) #355 mL Allergies Allergy/AdvReac Type Severity Reaction Status Date / Time aspirin [Aggrenox] AdvReac Unknown stomach Verified 01/26/24 18:01 upset dipyridamole [Aggrenox] AdvReac Unknown stomach Verified 01/26/24 18:01 upset Review of Systems 2 Review of Systems: Yes all other systems are reviewed and are negative PMFSH Past Medical History Medical History Multifactorial dementia Laceration of scalp (~06/11/23) History of stroke Hyperlipidemia HTN (hypertension) Weakness Social History Social History Household Members: Children Housing: House Do you presently have 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) Alcohol intake: never 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 Patient Tobacco Use Status: Former Tobacco user Tobacco use type: Cigarette Cigarettes Per Day: 30 Years Smoked: 45 e-Cigarette/Vaping Use: Never Used Advance Directives: Yes Advance Directives on File: Yes Advance Directives Date on File: 05/20/20 Do you have a plan to hurt others: No Plan service: No Current occupational status: retired Physical Exam ED Vital Signs: Vital Signs - 24 hr 01/26/24 18:00 01/26/24 21:24 01/26/24 21:41 Temperature 101.5 F H 99.1 F 99.0 F Pulse Rate 91 84 89 Respiratory Rate 20 15 18 Blood Pressure 154/95 H 117/60 130/74 Pulse Oximetry 92 95 Oxygen Delivery Method Room Air Room Air BMI result Body Mass Index 17.9 Appearance: Alert. Oriented X2-3. No acute distress. Eyes: PERRLA, No Nystagmus ENT: Pharynx normal. Oral Mucosa moist Neck: Normal inspection. Neck supple. CVS: Normal heart rate and rhythm. Pulses normal. Respiratory: No respiratory distress. Equal air entry bilateral, no wheezing/rales/rhonchi Abdomen: Soft and nontender. Bowel sounds are present, no mass palpable, no CVA tenderness Skin: Skin warm and dry. Normal skin color. Normal skin turgor. Extremities: No lower extremity edema. No calf tenderness Neuro: Oriented X 2-3. No motor deficit. No sensory deficit.No cerebellar signs , cranial nerves II-XII intact Medications Administered Discontinued Medications Generic Name Dose Route Start Last Admin Trade Name Freq PRN Reason Stop Dose Admin Acetaminophen 650 mg 01/26/24 18:04 01/26/24 18:28 Acetaminophen 325 Mg Tablet PO 01/26/24 18:05 650 mg ONCE ONE Administration Ceftriaxone Sodium 1 gm 01/26/24 17:39 01/26/24 18:04 Ceftriaxone Sodium 1 Gm Vial IVPUSH 01/26/24 17:40 1 gm ONCE ONE Administration Sodium Chloride 2,000 mls @ 666.6666 mls/hr 01/26/24 18:04 01/26/24 21:11 Ns IV 01/26/24 21:03 Infused .Q3H STA Infusion Iohexol 85 ml 01/26/24 22:31 01/26/24 22:31 Iohexol 350 Mg/Ml 100 Ml Infus..Btl IV 01/26/24 22:32 85 ml ONCE ONE Administration Ondansetron HCl 4 mg 01/26/24 18:11 01/26/24 18:28 Ondansetron Hcl 4 Mg/2 Ml Vial IVPUSH 01/26/24 18:12 4 mg ONCE ONE Administration Medical Decision Making Medical Decision Making [facility] Narrative: Patient with high fever with leukocytosis meeting the criteria for SIRS no source of infection noticed although patient has cough chest x-ray is negative urine also negative lactic acid normal level patient has received IV fluids and prophylactic IV antibiotics pending final culture will admit patient for possible bacteremia although source is not clear Differential Diagnosis Differential Diagnoses: The differential diagnosis associated with the presentation includes Admission/Observation Consideration of admission/observation: Escalation of care including admission/observation considered Consult Healthcare Provider Management of the patient was discussed with: Hospitalist Lab Data [facility] Lab Attestation statement: I reviewed the patient's lab results. 01/26/24 17:53 01/26/24 17:53 Labs: Lab Results 01/26/24 01/26/24 01/26/24 Range/Units 17:53 18:00 18:02 WBC 19.8 H (4.8-10.8) X10*3/uL RBC 4.49 D (4.20-5.50) X10*6/uL Hgb 13.7 D (12.0-16.0) g/dl Hct 41.5 D (37.0-47.0) % MCV 92.4 (80.0-98.0) fL MCH 30.5 (27.0-33.0) pg MCHC 33.0 (31.0-35.0) g/dl RDW 13.7 (11.0-16.0) % Plt Count 359 D (160-400) X10*3/uL MPV 9.3 L (9.4-12.3) fL Immature Gran % (Auto) 0.4 (0.0-0.4) % Neut % (Auto) 86.3 H (45-73) % Lymph % (Auto) 4.3 L (20-40) % [place] % (Auto) 8.1 (2-11) % Eos % (Auto) 0.5 (0-4) % Baso % (Auto) 0.4 (0-2) % Lymph # (Auto) 0.9 L (1.2-4.9) X10*3/uL [place] # (Auto) 1.6 H (0.1-1.2) X10*3/uL Eos # (Auto) 0.1 (0.0-0.4) X10*3/uL Baso # (Auto) 0.1 (0.0-0.2) X10*3/uL Abs Immat Gran (auto) 0.08 H (0.00-0.03) X10*3/uL Absolute Neuts (auto) 17.1 H (2.0-8.3) x10*3/uL Absolute Nucleated RBC 0.000 (0.0-0.012) X10*3/uL Nucleated RBC % (auto) 0.0 (0.0-0.2) /100WBC PT 12.8 H (10.9-12.4) SEC INR 1.1 (0.9-1.1) Sodium 142 (135-145) mmol/L Potassium 4.4 (3.3-5.1) mmol/L Chloride 108 (96-108) mmol/L Carbon Dioxide 23 (22-29) mmol/L Anion Gap 15 (12-20) BUN 23 H (9-16) mg/dL Creatinine 0.80 (0.5-1.4) mg/dL Estim Creat Clear Calc 37.7 Estimated GFR > 60 Random Glucose 112 (60-115) mg/dL Lactic Acid 1.6 (0.5-2.0) mmol/L Calcium 10.2 D (8.4-10.2) mg/dL Magnesium 2.0 (1.6-2.6) mg/dL Total Bilirubin 0.4 (0.0-1.0) mg/dL AST 32 H (5-31) U/L ALT 14 (0-31) U/L Alkaline Phosphatase 111 (39-117) U/L Total Protein 8.0 (6.5-8.0) g/dL Albumin 4.3 (3.5-5.0) g/dL Urine Color Yellow Urine Appearance Clear Urine pH 6.0 (5.0-9.0) Ur Specific [place] 1.015 (1.005-1.025) Urine Protein Negative (Neg-Trace) mg/dL Urine Glucose (UA) Negative (Negative) mg/dL Urine Ketones Negative (Negative) mg/dL Urine Blood Negative (Negative) Urine Nitrite Negative (Negative) Ur Leukocyte Esterase Negative (Negative) Influenza Type A (PCR) NEGATIVE (Negative) Influenza Type B (PCR) NEGATIVE (Negative) RSV RNA Qual (PCR) NEGATIVE (Negative) SARS-CoV-2 RNA (RT-PCR) NEGATIVE (Negative) Independent Interpretation I performed an independent interpretation of an: Plain X-Ray and CT Scan Interpretation: No acute Radiology Impression Discussion of test interpretation with radiology: I have reviewed the radiologist's reading. Radiologist Impression: CT/CT abdomen pelvis w IV con IMPRESSION: 1. No acute abnormality CT scan abdomen pelvis. 2. Large hiatal hernia. 3. Nonobstructive bilateral renal stones. 4. Diverticulosis of colon. No acute abnormality of the bowel. Fleischner guidelines were followed. Electronically signed by: Philippe Chappell MD 01/26/2024 11:17 PM [facility] [place] Discharge Plan Discharge Clinical Impression: SIRS (systemic inflammatory response syndrome) Patient Disposition: Admitted As Inpatient Print Language: [place]
[2024-01-26 17:58] LABS: MANUAL DIFF FLAG NO
[2024-01-26 18:00] VITALS: BP 154/95; PULSE 91; RESP 20; TEMP 38.6; O2SAT 92; BMI 17.9
[2024-01-26] MEDS: cefTRIAXone sodium 1 GM VIAL IVPUSH (18:04)
[2024-01-26] MEDS: 0.9 % Sodium Chloride 2,000 ML 666.67 ML IV (18:05)
[2024-01-26 18:08] LABS: INTERNATIONAL NORM RATIO 1.1 (0.9-1.1); Prothrombin Time 12.8 SEC (10.9-12.4)
[2024-01-26 18:18] LABS: Appearance Urine Clear; Color Urine Yellow; Glucose Urine UA Negative (Negative); Leukocyte Esterase Urine Negative (Negative); Nitrite Urine Negative (Negative); Specific Gravity - Urine 1.015 (1.005-1.025); Urine Blood Negative (Negative); Urine Ketones Negative (Negative); Urine Protein Negative (Neg-Trace)
[2024-01-26 18:25] LABS: Basophils Absolute Auto 0.1 X10*3/uL (0.0-0.2); Basophils Percent Auto 0.4 % (0-2); Eosinophils Absolute Auto 0.1 X10*3/uL (0.0-0.4); Eosinophils Percent Auto 0.5 % (0-4); Hematocrit 41.5 % (37.0-47.0); Hemoglobin 13.7 g/dl (12.0-16.0); Imm Gran Abs Auto 0.08 X10*3/uL (0.00-0.03); Imm Gran Pct Auto 0.4 % (0.0-0.4); Lymphocytes Absolute Auto 0.9 X10*3/uL (1.2-4.9); Lymphocytes Percent Auto 4.3 % (20-40); Mean Corpuscular Hemoglobin 30.5 pg (27.0-33.0); Mean Corpuscular Volume 92.4 fL (80.0-98.0); Mean Platelet Volume 9.3 fL (9.4-12.3); Monocytes Absolute Auto 1.6 X10*3/uL (0.1-1.2); Monocytes Percent Auto 8.1 % (2-11); Neutrophils Absolute Auto 17.1 x10*3/uL (2.0-8.3); Neutrophils Percent Auto 86.3 % (45-73); Platelet Count 359 X10*3/uL (160-400); Red Blood Count 4.49 X10*6/uL (4.20-5.50); Red Cell Distribution Width 13.7 % (11.0-16.0); SCAN SMEAR FLAG 1; White Blood Count 19.8 X10*3/uL (4.8-10.8)
[2024-01-26] MEDS: ondansetron HCL 4 MG/2 ML VIAL IVPUSH (18:28)
[2024-01-26] MEDS: Acetaminophen 325 MG TABLET 650 MG PO (18:28)
[2024-01-26 18:34] LABS: Lactic Acid 1.6 mmol/L (0.5-2.0)
[2024-01-26 18:40] LABS: Alanine Aminotransferase 14 U/L (0-31); Albumin Level 4.3 g/dL (3.5-5.0); Alkaline Phosphatase 111 U/L (39-117); Anion Gap 15 (12-20); Aspartate Amino Transferase 32 U/L (5-31); Bilirubin Total 0.4 mg/dL (0.0-1.0); Blood Urea Nitrogen 23 mg/dL (9-16); Calcium 10.2 mg/dL (8.4-10.2); Carbon Dioxide 23 mmol/L (22-29); Chloride 108 mmol/L (96-108); Creatinine Clr Calc Pharmacy 37.7; Estimated Glomerular Filt Rate > 60; Glucose Random 112 mg/dL (60-115); Potassium 4.4 mmol/L (3.3-5.1); Sodium 142 mmol/L (135-145)
--- NOTE | 2024-01-26 18:45 | PC.NURSE ---
patient presented to ED with fever from [facility]. patient noted to havee rectal temp 101.5, rectal probe placed for temperature monitoring. bilat IV placed, labs and cultures drawn and sent to lab. patient clean catch on bed acosta, urine sent to lab. patient medicated per APR. patient is alert and oriented x3, skin noted to be dry and intact. patient has pure wick placed.
[2024-01-26 18:46] LABS: Influenza A PCR NEGATIVE (Negative); Influenza B PCR NEGATIVE (Negative); Resp Syncy Virus RNA Qual PCR NEGATIVE (Negative); SARS COV2 PCR INHOUSE NEGATIVE (Negative)
[2024-01-26 21:24] VITALS: BP 117/60; PULSE 84; RESP 15; TEMP 37.3
[2024-01-26 21:41] VITALS: BP 130/74; PULSE 89; RESP 18; TEMP 37.2; O2SAT 95
[2024-01-26] MEDS: iohexoL 350 MG/ML 100 ML INFUS..BTL 85 ML IV (22:31)
[2024-01-27] VITALS (8 sets, daily range): BP systolic 104–162; BP diastolic 56–82; PULSE 72–101; RESP 12–18; TEMP 36.4–37.4; O2SAT 92–97
--- NOTE | 2024-01-27 00:23 | PM.IMHP ---
History of Present Illness Date of Service: 01/27/24 Attending physician on admission: Alysa Casarez Chief Complaint: Fever Shahana Sullivan is 88 years old woman with past medical history significant for old CVA, chronic left-sided weakness, hyperlipidemia and hypertension was brought to the emergency department from her nursing facility after she was found to have fever. Patient reported mild cough and 1 event of vomiting last Wednesday. She denied any chest pain, shortness on breath, abdominal pain, nausea or diarrhea. In the ED, she was found to have fever of 101.5. There is no tachycardia or hypotension. Oxygen saturation is normal on room air. Blood workup showed leukocytosis of 19.8. There are no significant electrolyte imbalances. Creatinine is 0.80. There is no lactic acidosis. LFTs and lipase are essentially normal. Urinalysis showed no evidence of urinary tract infection. COVID-19, influenza RSV are negative. ECG showed normal sinus rhythm with PACs and no ischemic changes. Abdominal pelvis CT scan showed no acute intra-abdominal abnormality. ED tx: Ceftriaxone 1 g IV, NS 2 L bolus, acetaminophen 650 mg p.o., Zofran 4 mg IV Review of Systems Review of Systems: All 12 systems were reviewed and normal except as noted in HPI. 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) Alcohol intake: never 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 sitter Patient Tobacco Use Status: Former Tobacco user Tobacco use type: Cigarette Cigarettes Per Day: 30 Years Smoked: 45 e-Cigarette/Vaping Use: Never Used Advance Directives: Yes Advance Directives on File: Yes Advance Directives Date on File: 05/20/20 Do you have a plan to hurt others: No Plan service: No Current occupational status: retired Meds Allergies Allergy/AdvReac Type Severity Reaction Status Date / Time aspirin [Aggrenox] AdvReac Unknown stomach Verified 01/26/24 18:01 upset dipyridamole [Aggrenox] AdvReac Unknown stomach Verified 01/26/24 18:01 upset Home Medications ?Medication ?Instructions ?Recorded ?Confirmed ?Last Taken ?Type amlodipine 5 mg tablet 5 mg PO DAILY 05/15/20 10/08/23 10/07/23 History atorvastatin 10 mg tablet (Lipitor) 10 mg PO DAILY 05/15/20 10/08/23 10/07/23 History clopidogrel 75 mg tablet (Plavix) 75 mg PO DAILY 05/15/20 10/08/23 10/07/23 History acetaminophen 650 mg 650 mg PO DAILY 10/08/23 10/08/23 10/07/23 History tablet,extended release multivitamin 1 tab PO DAILY 10/08/23 10/08/23 10/07/23 History Physical Exam Vital Signs and Narrative: Vital Signs: Last Vital Signs Temp 99.0 F 01/26/24 21:41 Pulse 89 01/26/24 21:41 Resp 18 01/26/24 21:41 BP 130/74 01/26/24 21:41 Pulse Ox 95 01/26/24 21:41 O2 Del Method Room Air 01/26/24 21:41 BMI result Body Mass Index 17.9 Constitutional - Awake and Alert, No apparent distress. Cooperative. Pleasant. HEENT - PER, EOMI Heart - RRR, (+) murmur Lungs - Normal lung expansion, Normal respiratory effort, No respiratory distress, CTA bilaterally Abdomen - NT / ND; +BS; No rebound or guarding - No CVA tenderness Extremities - no calf tenderness bilaterally, no swelling Musculoskeletal - Normal inspection, normal ROM Skin - Warm/Dry Neurological - Alert & oriented x3. Normal speech. Psychological - Appropriate affect Results Labs 01/26/24 17:53 01/26/24 17:53 Labs: Laboratory Results - last 24 hr 01/26/24 01/26/24 01/26/24 17:53 18:00 18:02 MCV 92.4 MCH 30.5 MCHC 33.0 RDW 13.7 Plt Count 359 D MPV 9.3 L Immature Gran % (Auto) 0.4 Neut % (Auto) 86.3 H Lymph % (Auto) 4.3 L [place] % (Auto) 8.1 Eos % (Auto) 0.5 Baso % (Auto) 0.4 Lymph # (Auto) 0.9 L [place] # (Auto) 1.6 H Eos # (Auto) 0.1 Baso # (Auto) 0.1 Abs Immat Gran (auto) 0.08 H Absolute Neuts (auto) 17.1 H Absolute Nucleated RBC 0.000 Nucleated RBC % (auto) 0.0 PT 12.8 H INR 1.1 Anion Gap 15 Estim Creat Clear Calc 37.7 Estimated GFR > 60 Random Glucose 112 Lactic Acid 1.6 Calcium 10.2 D Magnesium 2.0 Total Bilirubin 0.4 AST 32 H ALT 14 Alkaline Phosphatase 111 Total Protein 8.0 Albumin 4.3 Urine Color Yellow Urine Appearance Clear Urine pH 6.0 Ur Specific [place] 1.015 Urine Protein Negative Urine Glucose (UA) Negative Urine Ketones Negative Urine Blood Negative Urine Nitrite Negative Ur Leukocyte Esterase Negative Influenza Type A (PCR) NEGATIVE Influenza Type B (PCR) NEGATIVE RSV RNA Qual (PCR) NEGATIVE SARS-CoV-2 RNA (RT-PCR) NEGATIVE Imaging Radiologist's Impressions: Impressions Chest X-Ray 01/26/24 17:38 IMPRESSION: Unremarkable examination. Electronically signed by: Haritha Saldivar MD 01/26/2024 07:19 PM [facility] Abdomen/Pelvis CT 01/26/24 22:31 IMPRESSION: 1. No acute abnormality CT scan abdomen pelvis. 2. Large hiatal hernia. 3. Nonobstructive bilateral renal stones. 4. Diverticulosis of colon. No acute abnormality of the bowel. Fleischner guidelines were followed. Electronically signed by: Philippe Chappell MD 01/26/2024 11:17 PM [facility] Assessment and Plan (1) Fever: Qualifiers: Encounter type: initial encounter Status: Acute Plan Shahana Sullivan is 88 y/o woman admitted with: Fever, unclear etiology. Complaining of cough. Admit to hospitalist service. Continue empiric IV antibiotic therapy azithromycin and ceftriaxone. Blood culture obtained we will follow results. Hypertension. Continue amlodipine. Hyperlipidemia. Continue statin. History of CVA. Continue Plavix and atorvastatin. DVT prophylaxis: SCDs Code status: Full Patient will need hospitalization for at least 2 midnights for fever on etiology treatment with empiric IV antibiotic therapy in the setting of multiple medical comorbidities. Quality Stroke Does the patient have a stroke diagnosis?: No VTE Prior VTE?: No VTE Risk Level:: Medical - moderate - high VTE Device Contraindication: N/A - Device Ordered VTE Drug Contraindication: Treatment Not Indicated
[2024-01-27] MEDS: vancomycin HCL 1,250 MG in 0.9 % Sodium Chloride 250 ML 166.67 MG IV (01:38)
--- OUTSIDE RECORDS SUMMARY | 2024-01-27 03:18 | XMS_ITS | Clinical Summary ---
Author Organization Unknown Care Team Providers Care Distributor Advertising Material Name Role Phone MARY HUTCHINSON, GARRICK Unavailable Unavailable RK ENRIQUEZ, DANISHA Unavailable Unavailab peri IBARRA LPN, KENISHA Unavailable Lisette vadim LEIVA PT, DARIAN Unavailable Unavailable SPAFFSTEFAN OT, CHON Unavailable Unavailable [employer] Unavailable Unavailable Payers Payer Name Policy Type Policy Number Effective Date Expira tion Date MEDICARE.NGS.PDGM [id number] Problems Condition Name Condition Details Condition Category Status Onset Date Resolution Date Last Treatment Date Treating Clinician Comments COVID-19 Active 10-05 00:00: 00 PNEUMONIA, UNSPECIFIED ORGANISM Active 10-05 00:00: 00 LACERATION W/O FOREIGN BODY OF UNSP PART OF HEAD, SUBS Active 10-05 00:00: 00 ESSENTIAL (PRIMARY) HYPERTENSION Active 10-05 00:00: 00 PLEURAL EFFUSION, NOT ELSEWHERE CLASSIFIED Active 10-05 00:00: 00 EPILEPSY, UNSP, NOT INTRACTABLE, WITHOUT STATUS EPILEPTICUS Active 10-05 00:00: 00 ENCEPHALOPAT HY, UNSPECIFIED Active 10-05 00:00: 00 PURE HYPERCHOLEST EROLEMIA, UNSPECIFIED Active 10-05 00:00: 00 MODERATE PROTEIN-MERCED FAY MALNUTRITION Active 10-05 00:00: 00 ADULT FAILURE TO THRIVE Active 10-05 00:00: 00 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 OR GANGRENE Active 10-05 00:00: 00 HISTORY OF FALLING Active 02-15 00:00: 00 DEPENDENCE ON SUPPLEMENTAL OXYGEN Active 10-05 00:00: 00 CORRECTION (CURRENT) USE OF ANTITHROMBOT ICS/ANTIPLAT ELETS Active 10-05 00:00: 00 OTHER CORRECTION (CURRENT) DRUG THERAPY Active 10-05 00:00: 00 BODY MASS INDEX [BMI] 19.9 OR LESS, ADULT Active 10-05 00:00: 00 PERSONAL HISTORY OF PNEUMONIA (RECURRENT) Active 10-05 00:00: 00 PRSNL HX OF TIA (TIA), AND CEREB INFRC W/O RESID DEFICITS Active 02-15 00:00: 00 Allergies, Adverse Reactions, Alerts Allergy Name Allergy Type Status Severity Reaction(s) Onset Date Inactive Date Treating Clinician Comments ASPIRIN Propensity to adverse reactions Active 2023-09 13:42:1 1 AGGRENOX Propensity to adverse reactions Active 2023-09 13:42:1 7 Medications Ordered Medication Name Filled Medication Name Start Date Stop Date Current Medication? Ordering Clinician Indication Dosage Frequency Signature (SIG) Comments Components amlodipine 5 mg tablet 10-05 00:00: 00 Yes [id number] HIGH BLOOD PRESSURE 1 tablet DAILY 1 tablet DAILY (route: oral) Med Classific ation: Cardiovas cular Therapy Agents atorvastati n 10 mg tablet 10-05 00:00: 00 Yes [id number] HIGH CHOLESTEROL 1 tablet BEDTIME 1 tablet BEDTIME (route: oral) Med Classific ation: Cardiovas cular Therapy Agents clopidogrel 75 mg tablet 10-05 00:00: 00 Yes [id number] IRREGULAR HEARTBEAT 1 tablet DAILY 1 tablet DAILY (route: oral) Med Classific ation: Hematolog ical Agents cyanocobala min (vit B-12) 1,000 mcg tablet 10-05 00:00: 00 Yes [id number] SUPPLEMENT 1 tablet DAILY 1 tablet DAILY (route: oral) Med Classific ation: Electroly te Balance-N utritiona l Products multivitami n with minerals tablet 10-05 00:00: 00 Yes [id number] SUPPLEMENT 1 tablet DAILY 1 tablet DAILY (route: oral) Med Classific ation: Electroly te Balance-N utritiona l Products Tylenol 8 Hour 650 mg tablet,exte nded release 10-05 00:00: 00 Yes [id number] BILATERAL LOWER LEG PAIN 1 tablet DAILY 1 tablet DAILY (route: oral) Med Classific ation: Analgesic , Anti-infl ammatory or Antipyret ic Vital Signs Vital Name Observation Time Observation Value Commen ts Temperature 2023-10-06 12:03:00.000 97.9 [degF] BMI (%) 2023-10-06 11:32:04.000 16 kg/m2 Height 2023-10-06 11:31:55.000 66 [in_us] Pulse 2023-10-06 12:03:00.000 69 /min O2 Saturation (%) 2023-10-06 12:03:00.000 97 % Respirations 2023-10-06 12:03:00.000 18 /min Weight (lbs) 2023-10-06 11:32:04.000 99.6 [lb_av] Systolic Blood Pressure 2023-10-06 12:03:00.000 126 mm [Hg] Diastolic Blood Pressure 2023-10-06 12:03:00.000 60 mm [Hg] Plan of Treatment Planned Activity Planned Date Details Comments Future Scheduled Test MEDICATION MANAGEMENT; REGISTERED NURSE/LICENSED PRACTICAL NURSE TO REVIEW MEDICATIONS FOR INTERACTIONS, EFFECTIVENESS OF DRUG THERAPY, AND SIGNS/SYMPTOMS OF ADVERSE REACTIONS. MAY INSTRUCT AND REINFORCE MEDICATION TEACHING RELATED TO THE USE OF MEDICATIONS, DOSAGE, FREQUENCY, PURPOSE, SIDE EFFECTS, AND TO REPORT COMPLICATIONS. [code = MEDICATION MANAGEMENT; REGISTERED NURSE/LICENSED PRACTICAL NURSE TO REVIEW MEDICATIONS FOR INTERACTIONS, EFFECTIVENESS OF DRUG THERAPY, AND SIGNS/SYMPTOMS OF ADVERSE REACTIONS. MAY INSTRUCT AND REINFORCE MEDICATION TEACHING RELATED TO THE USE OF MEDICATIONS, DOSAGE, FREQUENCY, PURPOSE, SIDE EFFECTS, AND TO REPORT COMPLICATIONS.] Future Scheduled Test RESPIRATOR Y SYSTEM MANAGEMENT; REGISTERED NURSE TO ASSESS AND TEACH/LICENSED PRACTICAL NURSE TO OBSERVE AND TEACH RELATED TO ALTERED RESPIRATORY STATUS TO MINIMIZE COMPLICATIONS AND REDUCE HOSPITALIZATION. [code = RESPIRATORY SYSTEM MANAGEMENT; REGISTERED NURSE TO ASSESS AND TEACH/LICENSED PRACTICAL NURSE TO OBSERVE AND TEACH RELATED TO ALTERED RESPIRATORY STATUS TO MINIMIZE COMPLICATIONS AND REDUCE HOSPITALIZATION.] Future Scheduled Test PNEUMONIA MANAGEMENT; REGISTERED NURSE TO ASSESS AND TEACH/LICENSED PRACTICAL NURSE TO OBSERVE AND TEACH SIGNS OF PNEUMONIA EXACERBATION AND PROVIDE EARLY INTERVENTIONS TO MINIMIZE RISK OF HOSPITALIZATION. [code = PNEUMONIA MANAGEMENT; REGISTERED NURSE TO ASSESS AND TEACH/LICENSED PRACTICAL NURSE TO OBSERVE AND TEACH SIGNS OF PNEUMONIA EXACERBATION AND PROVIDE EARLY INTERVENTIONS TO MINIMIZE RISK OF HOSPITALIZATION.] Future Scheduled Test FALL REDUC TION MANAGEMENT; REGISTERED NURSE TO ASSESS AND TEACH/LICENSED PRACTICAL NURSE TO OBSERVE AND TEACH ON EDUCATION AND INTERVENTION TO IDENTIFY FALL RISK FACTORS SUCH MEDICATIONS THAT MAY CAUSE DIZZINESS, CHRONIC DISEASES, PSYCHOLOGICAL FACTORS, AND EMPOWER/EDUCATE PATIENT/CAREGIVER TO MINIMIZE FALL RISK. [code = FALL REDUCTION MANAGEMENT; REGISTERED NURSE TO ASSESS AND TEACH/LICENSED PRACTICAL NURSE TO OBSERVE AND TEACH ON EDUCATION AND INTERVENTION TO IDENTIFY FALL RISK FACTORS SUCH MEDICATIONS THAT MAY CAUSE DIZZINESS, CHRONIC DISEASES, PSYCHOLOGICAL FACTORS, AND EMPOWER/EDUCATE PATIENT/CAREGIVER TO MINIMIZE FALL RISK.] Future Scheduled Test NEUROLOGIC AL SYSTEM MANAGEMENT; REGISTERED NURSE TO ASSESS AND TEACH/LICENSED PRACTICAL NURSE TO OBSERVEAND TEACH RELATED TO ALTERED NEUROLOGICAL STATUS TO MINIMIZE COMPLICATIONS AND REDUCE HOSPITALIZATION. [code = NEUROLOGICAL SYSTEM MANAGEMENT; REGISTERED NURSE TO ASSESS AND TEACH/LICENSED PRACTICAL NURSE TO OBSERVEAND TEACH RELATED TO ALTERED NEUROLOGICAL STATUS TO MINIMIZE COMPLICATIONS AND REDUCE HOSPITALIZATION. ] Future Scheduled Test RN TO OBSE RVE, ASSESS, EVALUATE, AND DEVELOP AN INDIVIDUALIZED PLAN OF CARE. AGENCY MAY ACCEPT ORDERS FROM CONSULTING PHYSICIANS. REGISTERED NURSETO OBSERVE AND ASSESS/LICENSED PRACTICAL NURSE TO OBSERVE FOR RISK FOR FALLS AND INSTRUCT IN FALL PREVENTION, HOME SAFETY, MEDICATION MANAGEMENT, INFECTION PREVENTION, AND NUTRITION MANAGEMENT. REGISTERED NURSE/LICENSED PRACTICAL NURSE MAY PERFORM O2 SATURATION LEVEL ON ADMISSION AND PRN FOR RN TO ASSESS/MOTOR VEHICLE TECHNICIAN TO OBSERVE PATIENT, WITH NOTIFICATION TO THE PHYSICIAN IF SATURATION IS 90% IN THE ABSENCE OF MORE SPECIFIC PARAMETERS FROM THE PHYSICIAN. AGENCY MAY PERFORM A RESUMPTION OF CARE VISIT FOLLOWING ANY HOSPITAL ADMISSION. REGISTERED NURSE/LICENSED PRACTICAL NURSE TO MONITOR CO-MORBID CONDITIONS LISTED ON THE PLAN OF CARE AND ANY NEW CONDITIONS THAT PRESENT THEMSELVES DURING THIS EPISODE TO IDENTIFY CHANGES AND INTERVENE TO MINIMIZE COMPLICATIONS. [code = RN TO OBSERVE, ASSESS, EVALUATE, AND DEVELOP AN INDIVIDUALIZED PLAN OF CARE. AGENCY MAY ACCEPT ORDERS FROM CONSULTING PHYSICIANS. REGISTERED NURSETO OBSERVE AND ASSESS/LICENSED PRACTICAL NURSE TO OBSERVE FOR RISK FOR FALLS AND INSTRUCT IN FALL PREVENTION, HOME SAFETY, MEDICATION MANAGEMENT, INFECTION PREVENTION, AND NUTRITION MANAGEMENT. REGISTERED NURSE/LICENSED PRACTICAL NURSE MAY PERFORM O2 SATURATION LEVEL ON ADMISSION AND PRN FOR RN TO ASSESS/MOTOR VEHICLE TECHNICIAN TO OBSERVE PATIENT, WITH NOTIFICATION TO THE PHYSICIAN IF SATURATION IS 90% IN THE ABSENCE OF MORE SPECIFIC PARAMETERS FROM THE PHYSICIAN. AGENCY MAY PERFORM A RESUMPTION OF CARE VISIT FOLLOWING ANY HOSPITAL ADMISSION. REGISTERED NURSE/LICENSED PRACTICAL NURSE TO MONITOR CO-MORBID CONDITIONS LISTED ON THE PLAN OF CARE AND ANY NEW CONDITIONS THAT PRESENT THEMSELVES DURING THIS EPISODE TO IDENTIFY CHANGES AND INTERVENE TO MINIMIZE COMPLICATIONS.] Future Scheduled Test PAIN MANAG EMENT; REGISTERED NURSE TO ASSESS AND TEACH/LICENSED PRACTICAL NURSE TO OBSERVE AND TEACH AND PROVIDE EDUCATION ON PAIN MANAGEMENT TECHNIQUES. [code = PAIN MANAGEMENT; REGISTERED NURSE TO ASSESS AND TEACH/LICENSED PRACTICAL NURSE TO OBSERVE AND TEACH AND PROVIDE EDUCATION ON PAIN MANAGEMENT TECHNIQUES.] Future Scheduled Test RISK FOR H OSPITALIZATION; REGISTERED NURSE TO ASSESS /TEACH, LICENSED PRACTICAL NURSE TO OBSERVE/TEACH PATIENT/CAREGIVER ON RISK FOR HOSPITALIZATION/EMERGENCY ROOM VISITS, TEACH SIGNS AND SYMPTOMS THAT PUT PATIENT AT RISK, WHEN TO NOTIFY NURSE/PHYSICIAN OF COMPLICATIONS/DECLINE, AND WHEN TO CALL 911. [code = RISK FOR HOSPITALIZATION; REGISTERED NURSE TO ASSESS /TEACH, LICENSED PRACTICAL NURSE TO OBSERVE/TEACH PATIENT/CAREGIVER ON RISK FOR HOSPITALIZATION/EMERGENCY ROOM VISITS, TEACH SIGNS AND SYMPTOMS THAT PUT PATIENT AT RISK, WHEN TO NOTIFY NURSE/PHYSICIAN OF COMPLICATIONS/DECLINE, AND WHEN TO CALL 911.] Future Scheduled Test CARDIOVASC ULAR SYSTEM; REGISTERED NURSE TO ASSESS /TEACH, LICENSED PRACTICAL NURSE TO OBSERVE/TEACH RELATED TO ALTERED CARDIOVASCULAR STATUS TO MINIMIZE COMPLICATIONS AND REDUCE HOSPITALIZATION. [code = CARDIOVASCULAR SYSTEM; REGISTERED NURSE TO ASSESS /TEACH, LICENSED PRACTICAL NURSE TO OBSERVE/TEACH RELATED TO ALTERED CARDIOVASCULAR STATUS TO MINIMIZE COMPLICATIONS AND REDUCE HOSPITALIZATION.] Future Scheduled Test SKIN INTEG RITY REGISTERED NURSE TO ASSESS AND TEACH/LICENSED PRACTICAL NURSE TO OBSERVE AND TEACH INTEGUMENTARY STATUS TO IDENTIFY CHANGES AND INTERVENE TO MINIMIZE COMPLICATIONS. PROVIDE SKILLED TEACHING OF GENERAL WOUND AND SKIN CARE AND PREVENTION RELATED TO POTENTIAL FOR ALTERED SKIN INTEGRITY [code = SKIN INTEGRITY REGISTERED NURSE TO ASSESS AND TEACH/LICENSED PRACTICAL NURSE TO OBSERVE AND TEACH INTEGUMENTARY STATUS TO IDENTIFY CHANGES AND INTERVENE TO MINIMIZE COMPLICATIONS. PROVIDE SKILLED TEACHING OF GENERAL WOUND AND SKIN CARE AND PREVENTION RELATED TO POTENTIAL FOR ALTERED SKIN INTEGRITY ] Goal 2023-12-04 Patient Goal - G ET BACK WALKING AND BE INDEPENDENT IN HOME AGAIN Goal Provider Goal - PATIENT/CAREGIVER TO VERBALIZE, AND CONSISTENTLY DEMONSTRATE EFFECTIVE, SAFE MANAGEMENT OF MEDICATION INCLUDING KNOWLEDGE OF EFFECTIVENESS, POTENTIAL SIDE EFFECTS AND DRUG REACTIONS AND WHEN TO CONTACT THE APPROPRIATE CARE PROVIDER. PATIENT/CAREGIVER WILL BE ABLE TO VERBALIZE UNDERSTANDING OF MEDICATION REGIMEN AND ACCURATELY TAKE MEDICATIONS PRESCRIBED WITHOUT ADVERSE EFFECTS BY EOE Goal Provider Goal - PATIENT / CAREGIVER WILL VERBALIZE/DEMONSTRATE UNDERSTANDING OF MEASURES TO MANAGE ALTERED RESPIRATORY STATUS BY END OF EPISODE. Goal Provider Goal - PATIENT / CAREGIVER WILL VERBALIZE/DEMONSTRATE AN ABILITY TO ADHERE TO PNEUMONIA SELF-MANAGEMENT TO MINIMIZE COMPLICATIONS AND AVOID HOSPITALIZATION BY END OF EPISODE. Goal Provider Goal - PATIENT/CAREGIVER ABLE TO IDENTIFY FALL RISK FACTORS AND IMPLEMENT STRATEGIES TO MINIMIZE FALL RISK. PATIENT/CAREGIVER WILL VERBALIZE/DEMONSTRATE AN ABILITY TO ADHERE TO FALL REDUCTION SELF MANAGEMENT AND LIFE-STYLE CHANGES AT DISCHARGE. PERSONAL GOAL(S) STATED BY PATIENT/CAREGIVER WILL BE MET BY EOE Goal Provider Goal - PATIENT / CAREGIVER WILL VERBALIZE/DEMONSTRATE UNDERSTANDING OF MEASURES TO MANAGE ALTERED NEUROLOGICAL STATUS BY EOE. Goal Provider Goal - A PLAN OF CARE WILL BE ESTABLISHED THAT MEETS THE PATIENTS NEEDS. PATIENT WILL DEMONSTRATE OXYGEN SATURATION WITHIN NORMAL LIMITS OR PATIENTS OPTIMAL LEVEL ESTABLISHED BY THE PHYSICIAN THROUGHOUT CARE. CHANGES TO CO-MORBID CONDITIONS AND ANY NEW CONDITIONS WILL BE IDENTIFIED AND REPORTED TO THE PHYSICIAN. Goal Provider Goal - PATIENT / CAREGIVER WILL VERBALIZE / DEMONSTRATE UNDERSTANDING OF PAIN CONTROL MEASURES BY EOE Goal Provider Goal - PATIENT/CAREGIVER WILL VERBALIZE UNDERSTANDING OF SIGNS AND SYMPTOMS THAT PUT THE PATIENT AT RISK FOR HOSPITALIZATION /EMERGENCY ROOM VISITS, WHEN TO NOTIFY NURSE/PHYSICIAN OF COMPLICATIONS/DECLINE AND WHEN TO CALL 911. Goal Provider Goal - PATIENT / CAREGIVER WILL VERBALIZE/DEMONSTRATE UNDERSTANDING OF MEASURES TO MANAGE ALTERED CARDIOVASCULAR STATUS BY EOE Goal Provider Goal - CHANGES IN SKIN INTEGRITY STATUS WILL BE IDENTIFIED AND REPORTED TO THE PHYSICIAN FOR PROMPT INTERVENTION. PATIENT / CAREGIVER WILL VERBALIZE/DEMONSTRATE ADEQUATE KNOWLEDGE OF INTEGUMENTARY STATUS AND APPROPRIATE MEASURES TO PROMOTE SKIN INTEGRITY AND PREVENT INJURY BY EOE Reason for Visit MODERATE ASSIST WITH TRANSFER/AMBULATION/ADLS Encounters Start Date/Time End Date/Time Encounter Type Admission Type Attending [facility] Care Facility Care Department Encounter ID Discharge Date Discharge Status Discharge Condition Discharge Reason Percent Goals Met 2023-10-06 00:00:00 2023-12-04 00:00:00 Outpatient DANISHA MEJIA [facility] [id number] 2023-12-04 00:00:00 DISCHARGED /TRANSFERR ED TO A HALF-WAY FACILITY (SNF) WITH MEDICARE CERTIFICAT ION IN ANTICIPATI ON OF SKILLED CARE MODERATE ASSIST WITH TRANSFER/A MBULATION/ ADLS HH ONLY - TRANSFER TO HOSPITAL 100.00
--- NOTE | 2024-01-27 04:14 | PC.NURSE ---
pt resting comfortably in hospital bed, no apparent distress. denies any acute complaints. purewick in place. call kowalski within reach, plan of care ongoing.
--- NOTE | 2024-01-27 05:28 | PC.NURSE ---
Pt found awake in bed, speaking full sentences. Purewick in place however pt reporting she was wet. Pt provided snehal care and a complete bed change. Pt turned and repositioned onto left side. Pt resting comfortably in bed at this time, clean/dry. VSS. Continue to monitor.
[2024-01-27 05:44] LABS: Basophils Absolute Auto 0.1 X10*3/uL (0.0-0.2); Basophils Percent Auto 0.5 % (0-2); Eosinophils Absolute Auto 0.1 X10*3/uL (0.0-0.4); Eosinophils Percent Auto 0.6 % (0-4); Hematocrit 34.3 % (37.0-47.0); Hemoglobin 11.5 g/dl (12.0-16.0); Imm Gran Pct Auto 0.5 % (0.0-0.4); Lymphocytes Absolute Auto 1.3 X10*3/uL (1.2-4.9); Lymphocytes Percent Auto 6.5 % (20-40); MANUAL DIFF FLAG SCAN; Mean Corpuscular HGB Conc 33.5 g/dl (31.0-35.0); Mean Corpuscular Hemoglobin 30.4 pg (27.0-33.0); Mean Corpuscular Volume 90.7 fL (80.0-98.0); Monocytes Absolute Auto 2.2 X10*3/uL (0.1-1.2); Monocytes Percent Auto 10.8 % (2-11); Neutrophils Absolute Auto 16.2 x10*3/uL (2.0-8.3); Neutrophils Percent Auto 81.1 % (45-73); Platelet Count 261 X10*3/uL (160-400); Red Blood Count 3.78 X10*6/uL (4.20-5.50); Red Cell Distribution Width 13.6 % (11.0-16.0); SCAN SMEAR FLAG 1; White Blood Count 19.9 X10*3/uL (4.8-10.8)
[2024-01-27 06:10] LABS: SLIDE REVIEW VERIFIED
[2024-01-27 06:29] LABS: Anion Gap 14 (12-20); Blood Urea Nitrogen 19 mg/dL (9-16); Calcium 8.7 mg/dL (8.4-10.2); Carbon Dioxide 19 mmol/L (22-29); Chloride 111 mmol/L (96-108); Creatinine Clr Calc Pharmacy 43.1; Estimated Glomerular Filt Rate > 60; Glucose Random 94 mg/dL (60-115); Potassium 3.9 mmol/L (3.3-5.1); Sodium 140 mmol/L (135-145)
[2024-01-27] MEDS: 0.9 % Sodium Chloride Flush 3 ML SYRINGE IVFLUSH ×3 (08:39→23:47)
[2024-01-27] MEDS: Azithromycin 500 MG in 0.9 % Sodium Chloride 250 ML 125 MG IV (08:39)
--- NOTE | 2024-01-27 10:05 | PHA.MEDREC ---
Addendum entered by Matt Clemens RPh 01/27/24 10:30: Reviewed by [facility]. Original Note: Pharmacy Consult ? Medication Reconciliation Pharmacy has completed the medication reconciliation. Utilized list from [facility] to confirm med list.
--- NOTE | 2024-01-27 10:33 | PM.EVENT ---
Event Note Date of Service: 01/27/24 Event Note: Seen and evaluated this morning CT reports possible Pneumonia covered with antibitoics pending cultures no other events overnight Time Spent With Patient Time: Total time managing care of this patient today ____ minutes.
[2024-01-27] MEDS: amLODIPine Besylate 5 MG TABLET PO (10:57)
[2024-01-27] MEDS: Clopidogrel Bisulfate 75 MG TABLET PO (10:57)
[2024-01-27] MEDS: Apixaban 2.5 MG TABLET PO ×2 (10:58→21:07)
--- NOTE | 2024-01-27 10:58 | MHC.CM.PN ---
Met with patient in regards to discharge planning. Patient is a resident of [facility], uses a walker for mobility. PCP verified. Copy of HCP verified to be on file. Anticipate [facility]. IMM explained and signed. 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 Return referral made in [facility]. Spoke with patient's daughter, Charito, via telephone at [phone]. Charito has been out of the country on business but returned late last night. Charito will be in today to see her mother. Charito agrees with d/c plan. [place] to monitor for d/c needs.
--- NOTE | 2024-01-27 13:35 | PC.NURSE ---
Report given to Layne ENRIQUEZ in ED overflow.
--- NOTE | 2024-01-27 16:03 | PC.NURSE ---
pt is awake and alert but confused to current events. purewick is in place and pt and bedding are dry. pt denies discomfort. her ls are clear in all smith. bed assignment is pending. bed rails are up and call kowalski within reach and bedrails are up and secure.
[2024-01-27] MEDS: cefTRIAXone sodium 1 GM VIAL IVPUSH (19:23)
[2024-01-27] MEDS: Atorvastatin Calcium 10 MG TABLET PO (19:26)
--- NOTE | 2024-01-27 22:33 | PC.NURSE ---
pt incont of urine, periwick not working for her she pulls on it. brief applied, pharmancy called for meds not in pyxis, hospitalist rocco due to pt not sleeping and trying to get oob, pt is confused and thinks she is at home. staff sitting at bedside at this time.
[2024-01-27] MEDS: guaiFENesin 200 MG/10 ML 10 ML LIQUID 20 ML PO (22:42)
[2024-01-27] MEDS: Haloperidol Lactate 5 MG/ML VIAL 2.5 MG IM (23:43)
--- NOTE | 2024-01-28 05:16 | MHC.EDTECH ---
complete bed change, fresh sheets and brief
[2024-01-28 05:17] VITALS: BP 150/72; PULSE 77; RESP 16; TEMP 36.2; O2SAT 95
[2024-01-28 07:11] LABS: MANUAL DIFF FLAG NO
[2024-01-28 07:14] LABS: Basophils Absolute Auto 0.1 X10*3/uL (0.0-0.2); Basophils Percent Auto 0.6 % (0-2); Eosinophils Absolute Auto 0.2 X10*3/uL (0.0-0.4); Eosinophils Percent Auto 1.4 % (0-4); Hematocrit 34.5 % (37.0-47.0); Hemoglobin 11.9 g/dl (12.0-16.0); Imm Gran Abs Auto 0.04 X10*3/uL (0.00-0.03); Imm Gran Pct Auto 0.4 % (0.0-0.4); Lymphocytes Absolute Auto 1.2 X10*3/uL (1.2-4.9); Lymphocytes Percent Auto 10.7 % (20-40); Mean Corpuscular HGB Conc 34.5 g/dl (31.0-35.0); Mean Corpuscular Hemoglobin 30.6 pg (27.0-33.0); Mean Corpuscular Volume 88.7 fL (80.0-98.0); Mean Platelet Volume 9.2 fL (9.4-12.3); Monocytes Absolute Auto 1.4 X10*3/uL (0.1-1.2); Monocytes Percent Auto 12.8 % (2-11); Neutrophils Percent Auto 74.1 % (45-73); Platelet Count 251 X10*3/uL (160-400); Red Blood Count 3.89 X10*6/uL (4.20-5.50); Red Cell Distribution Width 13.4 % (11.0-16.0); White Blood Count 10.7 X10*3/uL (4.8-10.8)
[2024-01-28 07:30] LABS: Anion Gap 11 (12-20); Blood Urea Nitrogen 14 mg/dL (9-16); Calcium 9.3 mg/dL (8.4-10.2); Carbon Dioxide 23 mmol/L (22-29); Chloride 107 mmol/L (96-108); Creatinine Clr Calc Pharmacy 52.1; Estimated Glomerular Filt Rate > 60; Glucose Random 85 mg/dL (60-115); Potassium 3.3 mmol/L (3.3-5.1); Sodium 138 mmol/L (135-145)
[2024-01-28 09:32] VITALS: BP 183/86; PULSE 71; RESP 14; TEMP 36.3; O2SAT 97
[2024-01-28] MEDS: Azithromycin 500 MG in 0.9 % Sodium Chloride 250 ML 125 MG IV (11:35)
[2024-01-28] MEDS: Multivitamin TABLET 1 TAB PO (11:37)
[2024-01-28] MEDS: Clopidogrel Bisulfate 75 MG TABLET PO (11:37)
[2024-01-28] MEDS: Apixaban 2.5 MG TABLET PO ×2 (11:38→22:00)
[2024-01-28 11:39] VITALS: BP 141/67
[2024-01-28] MEDS: 0.9 % Sodium Chloride Flush 3 ML SYRINGE IVFLUSH ×3 (11:39→22:01)
[2024-01-28] MEDS: guaiFENesin 200 MG/10 ML 10 ML LIQUID 20 ML PO ×2 (11:39→22:00)
[2024-01-28] MEDS: amLODIPine Besylate 5 MG TABLET PO (11:39)
[2024-01-28 13:34] VITALS: BP 157/90; PULSE 77; TEMP 37.2; O2SAT 96
--- NOTE | 2024-01-28 14:39 | HO.PM.IMPN ---
Subjective Subjective Date of Service: 01/28/24 Interval History: seen and evaluated no more fever feels better pending cultures Review of Systems Review of Systems: Yes all other systems are reviewed and are negative Physical Exam Vital Signs: Vital Signs: Last Vital Signs Temp 98.9 F 01/28/24 13:34 Pulse 77 01/28/24 13:34 Resp 14 01/28/24 09:32 BP 157/90 H 01/28/24 13:34 Pulse Ox 96 01/28/24 13:34 O2 Del Method Room Air 01/28/24 13:34 BMI result Body Mass Index 17.9 Const: Other: Constitutional : Awake, interactive, not in distress Neck : Normal inspection, Supple Cardiovascular : RRR, no JVP, no lower extremity edema Respiratory : good bilateral air entry, basal fine crackles, wheezes or rhonchi Gastrointestinal: soft, lax, Normal bowel sounds, Non tender Skin : Warm, Dry Neurological : Alert & oriented to self and place , No focal deficit Objective Data Active Medications Acetaminophen (Acetaminophen 325 Mg Tablet) 975 mg PO Q6H PRN PRN Reason: Pain, Mild (Pain Scale 1-3), fever or headache Amlodipine Besylate (Amlodipine Besylate 5 Mg Tablet) 5 mg PO DAILY [facility]; Protocol Last Admin: 01/28/24 11:39 Dose: 5 mg Documented By: JEISON Apixaban (Apixaban 2.5 Mg Tablet) 2.5 mg PO BID [facility] Last Admin: 01/28/24 11:38 Dose: 2.5 mg Documented By: JEISON Atorvastatin Calcium (Atorvastatin Calcium 10 Mg Tablet) 10 mg PO DAILY@1800 [facility] Last Admin: 01/27/24 19:26 Dose: 10 mg Documented By: DAVID Bisacodyl (Bisacodyl 10 Mg Supp.Rect) 10 mg HI DAILY PRN PRN Reason: Constipation Calcium Carbonate (Calcium Carbonate 750 Mg Tab.Chew) 300 mg PO Q4H PRN PRN Reason: Heartburn Ceftriaxone Sodium (Ceftriaxone Sodium 1 Gm Vial) 1 gm IVPUSH Q24H [facility] Last Admin: 01/27/24 19:23 Dose: 1 gm Documented By: DAVID Clopidogrel Bisulfate (Clopidogrel Bisulfate 75 Mg Tablet) 75 mg PO DAILY [facility] Last Admin: 01/28/24 11:37 Dose: 75 mg Documented By: JEISON Fluticasone Propionate (Fluticasone Propionate Nasal 16 Gm Pride) 1 spray NOSTRIL-B DAILY [facility] Last Admin: 01/28/24 12:15 Dose: Not Given Documented By: JEISON Non-Admin Reason: Med Not Available Guaifenesin (Guaifenesin 200 Mg/10 Ml 10 Ml Liquid) 20 ml PO BID [facility] Last Admin: 01/28/24 11:39 Dose: 20 ml Documented By: JEISON Azithromycin 500 mg/ Sodium (Chloride) 250 mls @ 125 mls/hr IV DAILY [facility] Last Infusion: 01/28/24 14:11 Dose: Infused Documented By: SHANDRA Magnesium Hydroxide (Milk Of Magnesia 30 Ml Oral.Susp) 30 ml PO DAILY PRN PRN Reason: Constipation Multivitamins/Vitamin C (Multivitamin Tablet) 1 tab PO DAILY [facility] Last Admin: 01/28/24 11:37 Dose: 1 tab Documented By: JEISON Sodium Chloride (0.9 % Sodium Chloride Flush 3 Ml Syringe) 3 ml IVFLUSH QSHIFT [facility] Last Admin: 01/28/24 11:39 Dose: 3 ml Documented By: JEISON Trazodone HCl (Trazodone Hcl 50 Mg Tablet) 50 mg PO BEDTIME PRN PRN Reason: Insomnia Labs 01/28/24 07:00 01/28/24 07:00 Labs: Laboratory Results - last 24 hr 01/28/24 07:00 MCV 88.7 MCH 30.6 MCHC 34.5 RDW 13.4 Plt Count 251 MPV 9.2 L Immature Gran % (Auto) 0.4 Neut % (Auto) 74.1 H Lymph % (Auto) 10.7 L Meigs % (Auto) 12.8 H Eos % (Auto) 1.4 Baso % (Auto) 0.6 Lymph # (Auto) 1.2 Meigs # (Auto) 1.4 H Eos # (Auto) 0.2 Baso # (Auto) 0.1 Abs Immat Gran (auto) 0.04 H Absolute Neuts (auto) 8.0 Absolute Nucleated RBC 0.000 Nucleated RBC % (auto) 0.0 Anion Gap 11 L Estim Creat Clear Calc 52.1 Estimated GFR > 60 Random Glucose 85 Calcium 9.3 D Microbiology Microbiology Results: Microbiology 01/26/24 17:52 Blood Culture - Preliminary Blood - Venous No growth after 24 hours. 01/26/24 17:52 Blood Culture - Preliminary Blood - Venous No growth after 24 hours. Assessment and Plan (1) Pneumonia: Status: Acute Plan Shahana Sullivan is 88 y/o woman admitted with: LLL Pneumonia on admission CT showing Atelectasis at left lung base Cultures pending Continue IV azithromycin and ceftriaxone Hypertension. Continue amlodipine. Hyperlipidemia. Continue statin. History of CVA. Continue Plavix and atorvastatin. DVT prophylaxis: SCDs Code status: Full Patient will need hospitalization overnight for Pneumonia on IV antibiotic therapy in the setting of multiple medical comorbidities. Quality Stroke Does the patient have a stroke diagnosis?: No VTE Prior VTE?: No VTE Risk Level:: Medical - moderate - high VTE Device Contraindication: N/A - Device Ordered VTE Drug Contraindication: Treatment Not Indicated
[2024-01-28 16:07] VITALS: BMI 17.9
[2024-01-28] MEDS: cefTRIAXone sodium 1 GM VIAL IVPUSH (17:57)
[2024-01-28] MEDS: Atorvastatin Calcium 10 MG TABLET PO (17:59)
[2024-01-28 19:54] VITALS: BP 141/68; PULSE 78; RESP 18; TEMP 37.2; O2SAT 94
[2024-01-28 23:13] VITALS: BP 120/67; PULSE 69; RESP 18; TEMP 36.9; O2SAT 93
[2024-01-29 04:00] VITALS: BP 164/74; PULSE 64; RESP 18; TEMP 36.6; O2SAT 98
[2024-01-29 07:29] VITALS: BP 139/67; PULSE 67; RESP 18; TEMP 36.6; O2SAT 96
[2024-01-29] MEDS: 0.9 % Sodium Chloride Flush 3 ML SYRINGE IVFLUSH (09:32)
[2024-01-29] MEDS: Multivitamin TABLET 1 TAB PO (09:33)
[2024-01-29] MEDS: guaiFENesin 200 MG/10 ML 10 ML LIQUID 20 ML PO (09:33)
[2024-01-29] MEDS: Apixaban 2.5 MG TABLET PO (09:33)
[2024-01-29] MEDS: amLODIPine Besylate 5 MG TABLET PO (09:33)
[2024-01-29] MEDS: Azithromycin 500 MG in 0.9 % Sodium Chloride 250 ML 125 MG IV (09:33)
[2024-01-29] MEDS: Clopidogrel Bisulfate 75 MG TABLET PO (09:33)
[2024-01-29 11:33] VITALS: BP 146/69; PULSE 72; RESP 18; TEMP 37; O2SAT 96
--- NOTE | 2024-01-29 11:34 | PM.DS ---
DS: Providers Provider Date of Service: 01/29/24 Date of admission: 01/27/24 00:21 Date of discharge: 01/29/24 Primary care physician: Uli Keenan MD DS: Diagnosis Discharge Diagnosis (1) Pneumonia: Status: Acute (2) Fever: Status: Acute DS: Summary Hospital Course Hospital Course: Admission note HPI Shahana Sullivan is 88 years old woman with past medical history significant for old CVA, chronic left-sided weakness, hyperlipidemia and hypertension was brought to the emergency department from her nursing facility after she was found to have fever. Patient reported mild cough and 1 event of vomiting last Wednesday. She denied any chest pain, shortness on breath, abdominal pain, nausea or diarrhea. In the ED, she was found to have fever of 101.5. There is no tachycardia or hypotension. Oxygen saturation is normal on room air. Blood workup showed leukocytosis of 19.8. There are no significant electrolyte imbalances. Creatinine is 0.80. There is no lactic acidosis. LFTs and lipase are essentially normal. Urinalysis showed no evidence of urinary tract infection. COVID-19, influenza RSV are negative. ECG showed normal sinus rhythm with PACs and no ischemic changes. Abdominal pelvis CT scan showed no acute intra-abdominal abnormality. ED tx: Ceftriaxone 1 g IV, NS 2 L bolus, acetaminophen 650 mg p.o., Zofran 4 mg IV Hospital course The patient was admitted for evaluation of fever. Found to have LLL Pneumonia with CT chest showing Atelectasis at left lung base. Treated with IV antibiotics of Azithromycin and Ceftriaxone with good response as no recurrence of fever and white blood cells normalized. blood cultures remained negative. To be discharged on 5 more days of Azitrhomycin and Ceftin. Advance diet as tolerated. Discharge plan Azithromycin and Ceftin for 5 more days Advance diet as tolerated Time Attestation Discharge Coordination Time (in mins): 37 Quality: Safe Use of Opioids Does Pt have an Active Cancer Diagnosis on the Problem List?: No Quality: Stroke Does the patient have a stroke diagnosis?: No Physical Exam Vital Signs: Vital Signs: Last Vital Signs Temp 97.9 F 01/29/24 07:29 Pulse 67 01/29/24 07:29 Resp 18 01/29/24 07:29 BP 139/67 01/29/24 07:29 Pulse Ox 96 01/29/24 07:29 O2 Del Method Room Air 01/29/24 07:29 BMI result Body Mass Index 17.9 Const: Other: Constitutional : Awake, interactive, not in distress Neck : Normal inspection, Supple Cardiovascular : RRR, no JVP, no lower extremity edema Respiratory : good bilateral air entry, basal fine crackles, wheezes or rhonchi Gastrointestinal: soft, lax, Normal bowel sounds, Non tender Skin : Warm, Dry Neurological : Alert & oriented to self and place , No focal deficit DS: Data Data Completed and Pending Completed studies during hospitalization [Text1]: Procedures Repair Scalp Skin, External Approach (06/11/23) Labs on day of discharge: Preliminary micro results at discharge 01/26/24 17:52 Blood Culture - Preliminary Blood - Venous No growth after 48 hours. 01/26/24 17:52 Blood Culture - Preliminary Blood - Venous No growth after [address] scan - chest: Radiologist's impression: ITS Impressions Chest X-Ray 01/26/24 17:38 IMPRESSION: Unremarkable examination. Electronically signed by: Haritha Saldivar MD 01/26/2024 07:19 PM [employer] RP Abdomen/Pelvis CT 01/26/24 22:31 IMPRESSION: 1. No acute abnormality CT scan abdomen pelvis. 2. Large hiatal hernia. 3. Nonobstructive bilateral renal stones. 4. Diverticulosis of colon. No acute abnormality of the bowel. Fleischner guidelines were followed. Electronically signed by: Philippe Chappell MD 01/26/2024 11:17 PM [employer] [facility] Discharge Plan Discharge Anticipated Discharge Date/Time: 01/29/24 11:27 Patient Disposition: Xfer [facility] Discharge Diagnosis: Pneumonia Referrals: Uli Keenan MD [Primary Care Provider] - 1 Week Discharge Medications: New azithromycin 500 mg tablet 500 mg PO DAILY 5 Days Qty: 5 0RF cefuroxime axetil 500 mg tablet 500 mg PO BID Qty: 10 0RF Continued atorvastatin [Lipitor] 10 mg Tablet 10 mg PO DAILY@1800 clopidogrel [Plavix] 75 mg Tablet 75 mg PO DAILY amlodipine 5 mg Tablet 5 mg PO DAILY multivitamin Tablet 1 tab PO DAILY acetaminophen 650 mg Tablet Extended Release 650 mg PO DAILY MDD 3 gm /24h lidocaine 4 % Adhesive Patch,Medicated 1 patch TOPICAL BEDTIME PRN (Reason: Pain) Tums Extra Strength Smoothies 300 mg (750 mg) Tablet,Chewable 300 mg PO Q4H PRN (Reason: Heartburn) magnesium hydroxide [Milk of Magnesia] 400 mg/5 mL Suspension 30 ml PO DAILY PRN (Reason: Constipation) bisacodyl 10 mg Suppository 10 mg UT DAILY PRN (Reason: Constipation) Rx Instructions: If M.O.M not effective fluticasone propionate 50 mcg/actuation Foster,Suspension 1 spray INTRANASAL DAILY Rx Instructions: administer into each nostril guaifenesin 400 mg Tablet 400 mg PO BID diclofenac sodium 1 % Gel 1 g TOPICAL QID Rx Instructions: apply to single knee, ankle, foot; for foot includes sole/toes/top of foot vitamins A,C,Q-zwym-mkrhgl 2,148 mcg-113 mg-45 mg-17.4mg Tablet 1 tab PO DAILY Rx Instructions: administer with AM and PM meals Eliquis 2.5 mg Tablet 2.5 mg PO BID Discharge Orders: Discharge Order (Routine); Ordered 01/29/24 Ordered By: Nasima Minor Diet: Advance to usual diet Activity on Discharge: As tolerated Stand Alone Forms: Patient Portal Discharge page Print Language: Vietnamese Care Plan Goals: Azithromycin and Ceftin for 5 more days Advance diet as tolerated Health Concerns: Pneumonia Plan of Treatment: Antibiotics Assessment: as above
--- NOTE | 2024-01-29 12:27 | MHC.CM.PN ---
PT CLEARED TO RETURN TO [facility] HAS BEEN BOOKED WITH [facility] FOR 1300 HOURS DAUGHTER/HCP, ELLY ABBOTT [phone] NOTIFIED VIA T/C
== END 2024-01-29 13:41 | DRG 194 ==
LOC: HO.ED 01-27 00:34 → HO.EDOVER 01-27 01:28 → HO.S3 01-28 10:36
PROVIDERS: Admitting Provider Internal Medicine; Emergency Provider Internal Medicine; PCP Internal Medicine; Visit Provider Student in an Organized Health Care Education/Training Program
DX: J18.9 Pneumonia, unspecified organism (principal); I69.354 Hemiplegia and hemiparesis following cerebral infarction affecting left non-dominant side; J98.11 Atelectasis; E78.5 Hyperlipidemia, unspecified; I10 Essential (primary) hypertension; Z20.822 Contact with and (suspected) exposure to COVID-19; Z87.891 Personal history of nicotine dependence; Z79.01 Long term (current) use of anticoagulants; Z79.899 Other long term (current) drug therapy
CPT/HCPCS: 0241U; 36415; 71045; 74177; 80048; 80053; 81003; 83605; 83735; 85025; 85610; 87040; 93005; 97161; 99285; J0456; J0696; J1630; J2405; J3371; Q9967

== ENCOUNTER → 2024-01-26 17:38 | Outpatient (BNV) | payer MEDICARE, OTHER, SELFPAY | PROVIDERS: Admitting Provider Internal Medicine; Emergency Provider Internal Medicine; Visit Provider Internal Medicine Cardiovascular Disease | DX: R94.31 Abnormal electrocardiogram [ECG] [EKG] (principal) | CPT/HCPCS: 93010 ==

== ENCOUNTER → 2024-01-26 18:32 | Outpatient (BNV) | payer MEDICARE, OTHER, SELFPAY | PROVIDERS: Emergency Provider Internal Medicine; Visit Provider Internal Medicine | DX: R50.9 Fever, unspecified (principal) | CPT/HCPCS: 99223; 99232; 99239; 99499 ==